=== PATIENT | male | born 1975 | race Caucasian/White ===

== ENCOUNTER → 2019-08-20 16:08 | Outpatient (CLI) | payer OTHER, SELFPAY ==
--- NOTE | ~2019-08-20 | MR_ITS ---
EXAMINATION: MR brain/brain stem wo con DATE: 08/20/2019 16:53 INDICATION: Headache. History of brain tumor and head radiation therapy in 1991. TECHNIQUE: Magnetic resonance imaging (MRI) of the brain and brainstem was performed without intraven ous contrast. Sequences included sagittal and axial T1-weighted FSE, axial diffusion-weighted FS EPI, axial T2*-weighted GRE, axial T2-weighted FLAIR Propeller, and axial T2-weighted Propeller. Apparent diffusion coefficient (ADC) maps were created. COMPARISON: Head CT 08/09/2012 FINDINGS: There are scattered areas of nonspecific increased T2-weighted signal intensity in the cere bral white matter, german, and cerebellar white matter. There is a small area of cystic encephalomalaci a in the right frontal lobe deep white matter. There are scattered foci of old blood products in the brain. There is no acute intracranial hemorrhage, acute infarction, or abnormal intracranial mass les ion. There are symmetric calcifications of the globi pallidi and thalami, likely secondary to prior r adiation therapy. Cavum septum pellucidum and vergae are noted. The ventricles are normal in size. Th ere is mild mucosal thickening in the paranasal sinuses. The mastoid air cells are normal. There is a n old blowout fracture of medial wall of left orbit. IMPRESSION: 1. Small area of cystic encephalomalacia in the right frontal lobe deep white matter. 2. Mild nonspecific cerebral and cerebellar white matter disease and pontine disease, which likely pr edominantly represents changes of radiation therapy. The differential diagnosis also includes prematu re chronic small vessel ischemic disease (especially if the patient has cardiovascular risk factors), demyelinating disease such as multiple sclerosis, drug abuse, vasculitis, or reactive astrocytosis ( gliosis) secondary to nonspecific etiology. 3. Scattered foci of old blood products in the brain. This finding may be secondary to prior radiatio n therapy or chronic hypertensive encephalopathy. Reviewed, dictated and finalized at location A. IMPRESSION: 1. Small area of cystic encephalomalacia in the right frontal lobe deep white m atter. 2. Mild nonspecific cerebral and cerebellar white matter disease and pontine di sease, which likely predominantly represents changes of radiation therapy. The differential diagnosis also includes premature chronic small vessel ischemic di sease (especially if the patient has cardiovascular risk factors), demyelinatin g disease such as multiple sclerosis, drug abuse, vasculitis, or reactive frieda cytosis (gliosis) secondary to nonspecific etiology. 3. Scattered foci of old blood products in the brain. This finding may be secon lazaro to prior radiation therapy or chronic hypertensive encephalopathy.
== END ==
PROVIDERS: Visit Provider Family Medicine Adolescent Medicine
DX: G43.909 Migraine, unspecified, not intractable, without status migrainosus (principal); Z85.841 Personal history of malignant neoplasm of brain
CPT/HCPCS: 70551

== ENCOUNTER 2022-05-30 17:34 | Emergency (ER) | payer BC, SELFPAY ==
[2022-05-30 17:41] VITALS: BP 115/77; PULSE 82; RESP 19; TEMP 36.1; O2SAT 100
--- NOTE | 2022-05-30 17:47 | ED.EXTPRO ---
HPI - Extremity Problem General Chief complaint: Extremity Problem,Nontraumatic Stated complaint: rt arm pain Time Seen by Provider: 05/30/22 17:47 Source: patient, RN notes reviewed and old records reviewed Mode of arrival: ambulatory Limitations: no limitations History of Present Illness HPI Narrative: 47-year-old male presents to the [facility] with right dorsal wrist pain for the last several days. Patient states pain is worse with movement, dorsiflexing and flexing. Able to move left to right without issue. Strong transport engineer noted however notes discomfort to the dorsal aspect. No bruising or swelling noted. No increased erythema. Capillary refill under 2 seconds with sensation intact in 5 fingers. Positive radial pulse Related Data Home Medications Medication Instructions Recorded Confirmed cetirizine 10 mg capsule (Zyrtec) 10 mg PO DAILY 03/28/20 05/30/22 lisinopril 10 mg tablet 10 mg PO DAILY 03/28/20 05/30/22 Allergies Allergy/AdvReac Type Severity Reaction Status Date / Time Nut Tree Allergy Unknown Anaphylactic Uncoded 05/30/22 17:46 Shock Review of Systems Review of Systems: All systems reviewed & are unremarkable except as noted in HPI and below Constitutional: Constitutional: Reports no additional constitutional complaints Eyes: Eyes: Reports no additional eye complaints ENT: Reports system reviewed and no additional complaints, except as documented Cardiovascular: Cardiovascular: Reports no additional cardiovascular complaints, Denies chest pain and Denies dyspnea Respiratory: Respiratory: Reports no additional respiratory complaints, Denies chest congestion, Denies cough and Denies dyspnea Gastrointestinal: Gastrointestinal: Reports no additional gastrointestinal complaints, Denies abdominal pain, Denies nausea and Denies vomiting Musculoskeletal: Musculoskeletal: Reports as per HPI and Reports arthralgias (right dorsal wrist) Integumentary/Breasts: Skin/Breast: Reports system reviewed and no additional complaints, except as docu Neurologic: Reports system reviewed and no additional complaints, except as documented Psychiatric: Psychiatric: Reports no additional psychiatric complaints Allergic/Immunologic: Allergic/Immunologic: Reports no additional allergic/immunologic complaints PMFSH Social History Social History Smoking status: Never smoker Second hand tobacco smoke exposure: No Alcohol intake: current Drinks per week: 1 Substance use: never Comments At the time of my signature, I reviewed and agree with the nursing past medical, surgical, social, and family history. There is no relevant family history pertinent to the patient complaint. Exam Const: General: cooperative, healthy appearing, comfortable, no acute distress, well developed, alert and well nourished Nutritional Appearance: well nourished Orientation/consciousness: patient oriented x3 Limitations: no limitations HENMT: Head: normal to inspection Ears: hearing grossly normal bilaterally and external ears normal Face/Nose/Sinus: Normal external nose present, Normal nares present, Normal nasal mucous membranes and turbinates present and normal facial exam Face and sinus: normal facial exam Mouth: Yes Normal oral and palatal mucosa present, Yes lip normal and Yes moist mucous membranes Throat: posterior oropharynx normal and uvula midline Eyes: General: appearance normal, both eyes and all related structures Alignment and Position: alignment normal Periorbital: periorbital findings normal Conjunctivae: conjunctivae normal Pupils: Equal, round and reactive pupils present EOM: EOMs intact bilaterally Neck: Neck: normal visual inspection, full ROM, no lymphadenopathy and no meningeal signs Chest: Chest palpation & inspection: normal inspection of the chest Resp: Effort & Inspection: normal respiratory effort and able to speak in complete sentences Cardio:
== END 2022-05-30 18:03 | disposition home or self-care (01) ==
PROVIDERS: Emergency Provider Nurse Practitioner; PCP Family Medicine
DX: M77.8 Other enthesopathies, not elsewhere classified (principal); E78.00 Pure hypercholesterolemia, unspecified; I10 Essential (primary) hypertension
CPT/HCPCS: 99213; G0463

== ENCOUNTER 2022-07-25 19:38 | Emergency (ER) | payer OTHER, SELFPAY ==
[2022-07-25 19:45] VITALS: BP 126/82; PULSE 103; RESP 16; TEMP 36.8; O2SAT 98
--- NOTE | 2022-07-25 20:02 | ED.URI ---
HPI - URI/Sore Throat General Chief Complaint: Upper Respiratory Infection Stated Complaint: cough Source: patient Mode of arrival: ambulatory Limitations: no limitations History of Present Illness HPI Narrative: 47-year-old male presented for complaint of cough, chest congestion, and shortness of breath symptoms have been worsening over the last 3 days. Cough leads to sob. He was seen by his PCP yesterday, chest x-ray was performed he does not have the results. Patient also reports a goiter, surgery is pending. He endorses having fluid drained from each side of the goiter 1 month ago. He states he cannot determine if this shortness of breath is related to the cough or the swelling in his neck. He denies chest pain, palpitations, wheezing, dizziness, nausea, vomiting, diarrhea, fevers or chills. He has been taking Mucinex for symptoms. Related Data Home Medications Medication Instructions Recorded Confirmed cetirizine 10 mg capsule (Zyrtec) 10 mg PO DAILY 03/28/20 07/25/22 Allergies Allergy/AdvReac Type Severity Reaction Status Date / Time Nut Tree Allergy Unknown Anaphylactic Uncoded 07/25/22 19:47 Shock Review of Systems Review of Systems: CONSTITUTIONAL: Denies body aches, fever, chills, or sweats. EYES: Denies visual changes, redness, or discharge. ENT: Denies rhinorrhea, congestion, sore throat, or otalgia. CARDIOVASCULAR: Denies chest pain, palpitations, or edema. RESPIRATORY: Reports cough, sob GASTROINTESTINAL: Denies abdominal pain, nausea, vomiting, or diarrhea. GENITOURINARY: Denies dysuria or hematuria. SKIN: Denies rash, itching, or wounds. MUSCULOSKELETAL: Denies back pain, joint pain, or myalgia. NEUROLOGIC: Denies headache, numbness, tingling, or weakness. PSYCH: Denies depression or anxiety. All systems reviewed & are unremarkable except as noted in HPI and below PMFSH Past Medical History Medical History (Updated 07/25/22 @ 20:06 by Parisa Duncan APRN) Brain tumor (benign) Hypertension Social History Social History Smoking status: Never smoker Second hand tobacco smoke exposure: No Alcohol intake: current Drinks per week: 1 Substance use: never Comments At time of signature, I have reviewed and agree with nursing past medical, surgical, social and family history unless otherwise noted. Please see nursing chart for further information. There is no relevant family history pertinent to the presenting complaint Exam Narrative: GENERAL: ill-appearing, in no acute distress. EYES: EOMI. No redness or drainage. Conjunctivae normal. ENT: Mucous membranes pink and moist. No rhinorrhea. NECK: Normal AROM. Large goiter; right anterior cervical nodule. CHEST: No respiratory distress. Diminished LLL. Frequent moist/harsh cough. HEART: Regular rate and rhythm. No murmur appreciated. ABDOMEN: Soft, nontender, nondistended, normal active bowel sounds. SKIN: Warm, dry, no rash. Capillary refill normal. Normal skin turgor. NEURO: Alert and oriented x3. Gait steady. PSYCH: Normal affect. Course Course Emergency Course: Patient is aware of diagnosis, understands and agrees to treatment plan. Anticipatory guidance given. Portions of this record may have been created with voice recognition software Level of Care: Express Care Visit Vital Signs Vital signs: Vital Signs Temperature 98.3 F 07/25/22 19:45 Pulse Rate 103 H 07/25/22 19:45 Respiratory Rate 16 07/25/22 19:45 Blood Pressure 126/82 07/25/22 19:45 Pulse Oximetry 98 07/25/22 19:45 Temperature 98.3 F 07/25/22 19:45 Pulse Rate 103 H 07/25/22 19:45 Respiratory Rate 16 07/25/22 19:45 Blood Pressure 126/82 07/25/22 19:45 Pulse Oximetry 98 07/25/22 19:45 Transfer Transfered to: [facility] Transportation: Other (private vehicle) Transfer rationale: Pt is agreeable to transfer. Requests transfer to
== END 2022-07-25 20:05 | disposition home or self-care (01) ==
LOC: EXPGOSH 19:40
PROVIDERS: Emergency Provider Nurse Practitioner Family; PCP Family Medicine
DX: R06.02 Shortness of breath (principal); I10 Essential (primary) hypertension
CPT/HCPCS: 99212; 99213; G0463

== ENCOUNTER 2023-11-24 10:14 | Emergency (ER) | payer OTHER, SELFPAY ==
[2023-11-24 10:23] VITALS: BP 130/91; PULSE 88; RESP 19; TEMP 36.6; O2SAT 99
--- NOTE | 2023-11-24 10:28 | ED.SKABFB ---
HPI - Skin/Abscess/Foreign Bdy General Chief complaint: Skin/Abscess/Foreign Body Stated complaint: SPIDER BITES Time Seen by Provider: 11/24/23 10:29 Source: patient, RN notes reviewed and old records reviewed Mode of arrival: ambulatory Limitations: no limitations History of Present Illness HPI narrative: Patient presents today with what he believes to be to ?spider bites? to the right anterior thigh. He reports that he noted some itching to the site yesterday, awakened today with 2 small open sores with surrounding redness and warmth. He denies any fever, chills, sweats. He has not taken anything for his symptoms. There is no active drainage. Related Data Home Medications Medication Instructions Recorded Confirmed cetirizine 10 mg capsule (Zyrtec) 10 mg PO DAILY 03/28/20 11/24/23 famotidine 20 mg tablet 20 mg PO BID 11/24/23 11/24/23 gabapentin 100 mg capsule 100 mg PO DAILY 11/24/23 11/24/23 Allergies Allergy/AdvReac Type Severity Reaction Status Date / Time Nut Tree Allergy Unknown Anaphylactic Uncoded 11/24/23 10:21 Shock Review of Systems Review of Systems: All systems reviewed & are unremarkable except as noted in HPI and below Constitutional: Constitutional: Reports no additional constitutional complaints ENT: Reports system reviewed and no additional complaints, except as documented Cardiovascular: Cardiovascular: Reports no additional cardiovascular complaints Respiratory: Respiratory: Reports no additional respiratory complaints Gastrointestinal: Gastrointestinal: Reports no additional gastrointestinal complaints Integumentary/Breasts: Skin/Breast: Reports lesions (right anetrior thigh) and Reports erythema (right anterior thigh) [facility] Past Medical History Medical History (Updated 11/24/23 @ 10:42 by Dot Rea APRN) Brain tumor (benign) Hypertension Social History Social History Smoking status: Never smoker Second hand tobacco smoke exposure: No Alcohol intake: current Drinks per week: 1 Substance use: never Comments At the time of my signature, I reviewed and agree with the nursing past medical, surgical, social, and family history. There is no relevant family history pertinent to the patient complaint. Exam Const: General: cooperative, no acute distress, alert and awake Orientation/consciousness: oriented to person, oriented to place and oriented to time HENMT: Head: normal to inspection Resp: Effort & Inspection: normal respiratory effort and able to speak in complete sentences Auscultation: clear to auscultation bilaterally, no crackles, no rales, no rhonchi and no wheezes Cardio: Palpation: normal PMI Rate: regular rate Rhythm: regular rhythm Heart sounds: S1 normal heart sound present and S2 normal heart sound present Skin: Other: There are 2 shallow open wounds to right anterior thigh, approximately 5 mm radius each. Each site is surrounded by an area of erythema and warmth. There is no induration present. Neuro: General: oriented to person, oriented to place and oriented to time Cranial nerves: Yes CN's II-XII intact bilaterally Psych: Appearance: grossly normal Thought process: Normal thought process present Insight: Good insight present (Psych) Judgement: Good judgement present (Psych) Course Course Level of Care: Express Care Visit Vital Signs Vital signs: Vital Signs Temperature 97.9 F 11/24/23 10:23 Pulse Rate 88 11/24/23 10:23 Respiratory Rate 19 11/24/23 10:23 Blood Pressure 130/91 H 11/24/23 10:23 Pulse Oximetry 99 11/24/23 10:23 Oxygen Delivery Room Air 11/24/23 10:23 Temperature 97.9 F 11/24/23 10:23 Pulse Rate 88 11/24/23 10:23 Respiratory Rate 19 11/24/23 10:23 Blood Pressure 130/91 H 11/24/23 10:23 Pulse Oximetry 99 11/24/23 10:23 Oxygen Delivery Room Air 11/24/23 10:23 Reviewed MDM - Skin/Abscess/Foreign Bdy
== END 2023-11-24 10:47 | disposition home or self-care (01) ==
PROVIDERS: Emergency Provider Nurse Practitioner Family; PCP Family Medicine
DX: S70.361A Insect bite (nonvenomous), right thigh, initial encounter (principal); L03.115 Cellulitis of right lower limb; W57.XXXA Bitten or stung by nonvenomous insect and other nonvenomous arthropods, initial encounter; I10 Essential (primary) hypertension
CPT/HCPCS: 99213; G0463

== ENCOUNTER 2024-10-07 11:49 | Emergency (ER) | payer OTHER, SELFPAY ==
--- NOTE | ~2024-10-07 | CT_ITS ---
CTA chest PE protocol Ordering provider: Charlie Abel MD History: 49 years Male with . chest pain shortness of breath . Comparison: None. Technique: CT angiogram chest was performed following timed intravenous injection of contrast. Thin s lice axial images and reformatted coronal images were obtained. Three dimensional reformatted images of the chest were also obtained using a [employer] workstation. . Automated exposure control and iterati ve reconstruction technique were employed. The dose-length product was 354.00 mGy-cm. 100 mL Omnipaqu e 350 was given IV. Findings: PULMONARY ARTERIES: No pulmonary embolus. VISUALIZED THORACIC INLET: Large nodule in the right lobe of the thyroid measuring 3 x 2.2 cm. MEDIASTINUM: Aorta/coronary arteries: The thoracic aorta is normal. Heart/other: The heart is slightly enlarged. Slightly thickened left ventricular wall is noted. Clin ical evaluation advised. Lymph nodes: No mediastinal or hilar adenopathy. LUNGS: Soft tissue density seen in the trachea measuring 8 mm which may be a polyp or mucous. Further evalua tion and follow-up advised. No pulmonary nodules or masses. No infiltrates or effusions. No pneumotho rax. Dependent atelectatic changes. VISUALIZED UPPER ABDOMEN: Status post splenectomy. Atrophic pancreas. Otherwise, the visualized upper abdomen is normal. MUSCULOSKELETAL: Soft tissues: The superficial soft tissues are normal. Bones: Age appropriate degenerative changes of the spine. IMPRESSION: 1. No pulmonary embolism. 2. No acute cardiopulmonary pathology. Dependent atelectatic changes are noted. 3. Possible polyp or mucous in the trachea. Further evaluation advised. 4. Large right thyroid nodule. 5. Slight cardiomegaly with possible thickening in the left ventricular wall. Further evaluation adv ised. Reviewed, dictated and finalized at location A. IMPRESSION: 1. No pulmonary embolism. 2. No acute cardiopulmonary pathology. Dependent atelectatic changes are noted . 3. Possible polyp or mucous in the trachea. Further evaluation advised. 4. Large right thyroid nodule. 5. Slight cardiomegaly with possible thickening in the left ventricular wall. Further evaluation advised.
--- NOTE | ~2024-10-07 | XR_ITS ---
XR chest 1V portable Ordering provider: Charlie Abel MD History: 49 years Male with . cp and back pain triple luman central line placed today . Comparison: None. FINDINGS: MEDIASTINUM: The cardiac silhouette is not enlarged. Right Port-A-Cath with the tip overlying the sup erior vena cava. Left permacath with the tip overlying the right atrium. LUNGS: No infiltrates, effusions or pneumothorax. Prominent bronchovascular markings are seen in the lower lobes. OTHER: No free air under the diaphragm. IMPRESSION: No acute cardiopulmonary pathology. Reviewed, dictated and finalized at location A.
--- NOTE | 2024-10-07 11:51 | ECG_ITS ---
Test Date: 2024-10-07 11:57:57 Measurements Intervals [place] Rate: 105 P: 32 UT: 157 QRS: 41 QRSD: 93 T: 22 QT: 339 QTc: 448 Interpretive Statements SINUS TACHYCARDIA POSSIBLE ANTERIOR MYOCARDIAL INFARCTION , OF INDETERMINATE AGE [30 ms Q WAVE IN V3/V4, OR R < 0.2 mV IN V4] PROBABLE INFERIOR MYOCARDIAL INFARCTION , PROBABLY OLD [35 ms Q WAVE IN II/aVF] No previous ECG available for comparison Electronically Signed On 10-07-2024 14:12:30 CDT by Shruti Santillan
--- OUTSIDE RECORDS SUMMARY | 2024-10-07 11:53 | XMS_ITS | Encounter Summary ---
Author Organization [facility] Address [address] [place] [address] Phone Care Team Providers Care Erp Analyst Name Role Phone Delon Jain MD Unavailable Rico Pérez MD Primary Care Provider [phone] Ramón Watts MD Unavailable [phone] Huseyin Reese MD Unavailable [phone] Debby Greene MD Unavailable [phone] Encounter Details Date Type Department Care Team (Late st Contact Info) Description 10/06/2024 Orders Only [facility] Bone Marrow Transplant [address] [place] [address] Ifeanyi Malhotra, RN 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 No 09/23/2024 Social Connection and Isolation Panel [NHANES] A nswer Date Recorded In a typical week, how many times do you talk on the phone with family, friends, or neighbors? Three times a week 09/23/2024 How often do you get togethe r with friends or relatives? Three times a week 09/23/2024 How often do you attend chur ch or cheondoism services? Never 09/23/2024 Do you belong to any clubs o r organizations such as mandaeism groups, unions, fraternal or athletic groups, or school groups? No 09/23/2024 How often do you attend meet ings of the clubs or organizations you belong to? Never 09/23/2024 Are you , , di vorced, , never , or living with a partner? 09/23/2024 AUDIT-C Answer Date Recorded Q1: How often do you have a drink containing alcohol? Never 07/07/2023 Q2: How many drinks containi ng alcohol do you have on a typical day when you are drinking? Patient does not drink Q3: How often do you have si x or more drinks on one occasion? Never 07/07/2023 Overall Financial Resource Strain (CARDIA) Answe r Date Recorded How hard is it for you to pa y for the very basics like food, housing, medical care, and heating? Not very hard 09/23/2024 PHQ-2 Answer Date Recorded PHQ-2 Total Score (If total score is 3 or more points, staff should administer the PHQ-9) 0 07/13/2024 Hunger Vital Sign Answer Date Recorded Within the past 12 months, y ou worried that your food would run out before you got the money to buy more. Never true 09/24/19 25 Within the past 12 months, t he food you bought just didn't last and you didn't have money to get more. Never true 09/23/2024 PRAPARE - Transportation Answer Date Re corded In the past 12 months, has l ack of transportation kept you from medical appointments or from getting medications? No 09/01 In the past 12 months, has l ack of transportation kept you from meetings, work, or from getting things needed for daily living? No 09/23/2024 Housing Stability Vital Sign Answer Eladio e Recorded In the last 12 months, was t here a time when you were not able to pay the mortgage or rent on time? No 07/15/2023 In the last 12 months, how many places have you lived? 1 07/15/2023 In the last 12 months, was t here a time when you did not have a steady place to sleep or slept in a penitentiary (including now)? No 07/15/2023 Housing Stability Vital Sign Answer Eladio e Recorded In the last 12 months, was t here a time when you were not able to pay the mortgage or rent on time? No 09/23/2024 In the past 12 months, how m any times have you moved where you were living? 0 09/23/2024 At any time in the past 12 m [facility], were you homeless or living in a penitentiary (including now)? No 09/23/2024 Personal Safety Answer Date Recorded Have you ever been in or are you currently in a harmful physical or emotional relationship or is someone making you feel afraid or unsafe? 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 Gender Identity Not on file Sexual Orientation Not on file Occupation Industry Job Start Date Job End Date Not on file Not on file Not on file Not on file documented as of this encounter Miscellaneous Notes * Addendum Note - Osei Cooper - 10/06/2024 1:51 PM CDTAddended by: OSEI COOPER on: 10/07/2024 09:04 AM Modules accepted: Orders * Addendum Note - Osei Cooper - 10/06/2024 1:51 PM CDTAddended by: OSEI COOPER on: 10/07/2024 09:04 AM Modules accepted: Orders * Addendum Note - Osei Cooper - 10/06/2024 1:51 PM CDTAddended by: OSEI COOPER on: 10/07/2024 09:04 AM Modules accepted: Orders * Addendum Note - Osei Cooper - 10/06/2024 1:51 PM CDTAddended by: OSEI COOPER on: 10/07/2024 09:04 AM Modules accepted: Orders documented in this encounter Plan of Treatment Scheduled Orders Name Type Priority Associated Diagnoses Orde r Schedule CBC with auto differential Lab Routine 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) Expected: 10/09/2024, Expires: 10/06/2025 Phosphorus Lab Routine 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) Expected: 10/09/2024, Expires: 10/06/2025 Uric acid Lab Routine 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) Expected: 10/09/2024, Expires: 10/06/2025 Basic metabolic panel Lab Routine 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) Expected: 10/09/2024, Expires: 10/06/2025 CBC with auto differential Lab Routine 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) Expected: 10/11/2024, Expires: 10/06/2025 Phosphorus Lab Routine 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) Expected: 10/11/2024, Expires: 10/06/2025 Basic metabolic panel Lab Routine 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) Expected: 10/11/2024, Expires: 10/06/2025 Uric acid Lab Routine 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) Expected: 10/11/2024, Expires: 10/06/2025 Basic metabolic panel Lab Routine 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) Expected: 10/07/2024, Expires: 10/06/2025 CBC with auto differential Lab Routine 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 [place] [address] * Phosphorus (10/07/2024 9:14 AM CDT) Phosphorus, pl 3.7 2.3 - 4.5 mg/dL Comment:Testing performed by : [facility], [address] [place] [address] Blood 10/07/2024 9:14 AM CDT 10/07/2024 9:38 AM CDT Debby Greene MD LAB BLOOD ORDERABLES F inal Result Performing Organization Address [facility] Co de Phone Number [facility] [address] [facility] [address] documented in this encounter Visit Diagnoses Diagnosis 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)- Primary documented in this encounter Orders Appointment Requests Count Last Ordered Date Fi rst Ordered Date ONCBCN LAB APPOINTMENT 2 10/06/2024 documented in this encounter Care Teams Erp Analyst Relationship Specialty Start Date End Date Rico Pérez MD [address] [place] [address] PCP - General Family Medicine 11/07/22 [place] [address] [address] Consulting Physician Endocrinology Diabetes & Metabolism 07/24/22 Ramón Watts MD [address] [place] [address] Consulting Physician General Surgery 11/25/22 Huseyin Reese MD [address] [place], [place] [id number] Medical Oncologist/Lithopone Mill Worker Hematology and Oncology 12/19/22 Debby Greene MD [address] [place], [place] [id number] Consulting Physician Medical Oncology 12/25/22 documented as of this encounter
--- OUTSIDE RECORDS SUMMARY | 2024-10-07 11:53 | XMS_ITS | Encounter Summary ---
Author Organization [facility] Address [address] [place] [address] Phone Care Team Providers Care Guitar Maker Hand Name Role Phone Delon Jain MD Unavailable Rico Pérez MD Primary Care Provider [phone] Ramón Watts MD Unavailable [phone] Huseyin Reese MD Unavailable [phone] Debby Greene MD Unavailable [phone] Encounter Details Date Type Department Care Team (Late st Contact Info) Description 11/19/2022 Telephone [facility] Oncology [facility] Medicine 7th [place] [address] Parisa Cerna Social History Tobacco Use Types Packs/Day Years Used Date Smoking Tobacco: Never Passive Smoke Exposure: Never Smokeless Tobacco: Current Chew Alcohol Use Standard Drinks/Week Comments Yes 0 (1 standard drink = 0.6 oz pur e alcohol) Social Connection and Isolat ion Panel [NHANES] Answer Date Recorded In a typical week, how many times do you talk on the phone with family, friends, or neighbors? More than three times a week 11/20/2022 How often do you get togethe r with friends or relatives? More than three times a week 11/20/2022 How often do you attend chur ch or shinto services? 1 to 4 times per year 11/20/2022 Do you belong to any clubs o r organizations such as restorationist groups, unions, fraternal or athletic groups, or school groups? No 11/20/2022 How often do you attend meet ings of the clubs or organizations you belong to? Never 11/20/2022 Are you , , di vorced, , never , or living with a partner? 11/20/2022 AUDIT-C Answer Date Recorded Q1: How often do you have a drink containing alc ohol? 2-4 times a month 11/07/2022 Q2: How many drinks containi ng alcohol do you have on a typical day when you are drinking? 5 or 6 11/07/2022 Q3: How often do you have si x or more drinks on one occasion? Less than monthly 11/07/2022 Overall Financial Resource Strain (CARDIA) Answe r Date Recorded How hard is it for you to pa y for the very basics like food, housing, medical care, and heating? Not very hard 11/20/2022 PHQ-2 Answer Date Recorded PHQ-2 Total Score (If total score is 3 or more points, staff should administer the PHQ-9) 0 11/14/2022 PRAPARE - Transportation Answer Date Re corded In the past 12 months, has l ack of transportation kept you from medical appointments or from getting medications? No 11/01 In the past 12 months, has l ack of transportation kept you from meetings, work, or from getting things needed for daily living? No 11/20/2022 Housing Stability Vital Sign Answer Eladio e Recorded In the last 12 months, was t here a time when you were not able to pay the mortgage or rent on time? No 11/20/2022 In the last 12 months, how many places have you lived? 1 11/20/2022 In the last 12 months, was t here a time when you did not have a steady place to sleep or slept in a chcf (including now)? 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 COVID: Suspected 07/23/2023 07/23/2023 07/23/2023 2:31 PM TABLET MAKING MACHINE OPERATOR COVID: Suspected 01/20/2024 01/20/2024 01/20/2024 5:36 PM CDT COVID: Suspected 01/25/2024 01/25/2024 01/25/2024 4:26 PM CDT Mycoplasma pneumonia 01/25/2024 01/25/2024 024 3:07 AM CDT COVID: Suspected 02/24/2024 02/24/2024 02/24/2024 7:36 PM CDT Mycoplasma pneumonia 02/24/2024 02/24/2024 024 3:05 AM CDT COVID: Suspected 08/16/2024 08/16/2024 08/16/2024 12:03 PM CDT documented as of this encounter Care Teams Guitar Maker Hand Relationship Specialty Start Date End Date Rico Pérez MD [address] [place] [address] PCP - General Family Medicine 11/07/22 [place] [address] [address] Consulting Physician Endocrinology Diabetes & Metabolism 07/24/22 Ramón Watts MD [address] [place] [address] Consulting Physician General Surgery 11/25/22 Huseyin Reese MD [address] [place] [address] Medical Oncologist/Children'S Author Hematology and Oncology 12/19/22 Debby Greene MD [address] [place] [address] Consulting Physician Medical Oncology 12/25/22 documented as of this encounter
--- OUTSIDE RECORDS SUMMARY | 2024-10-07 11:53 | XMS_ITS | Encounter Summary ---
Author Organization [facility] Address [address] [place] [address] Care Team Providers Care Retail Business Development Manager Name Role Phone Delon Jain MD Unavailable Rico Pérez MD Primary Care Provider [phone] Ramón Watts MD Unavailable [phone] Huseyin Reese MD Unavailable [phone] Debby Greene MD Unavailable [phone] Encounter Details Date Type Department Care Team (Latest Contact Info) Description 10/07/2024 9:15 AM CDT Clinical Support [facility] at [address] [address] 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 Never 09/23/2024 Do you belong to any clubs o r organizations such as confucianist groups, unions, fraternal or athletic groups, or [...] any time in the past 12 m [facility], were you homeless or living in a penitentiary (including now)? No 09/23/2024 Personal Safety Answer Date Recorded Have you ever been in or are you currently in a harmful physical or emotional relationship or is someone making you feel afraid or unsafe? 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) MANUAL DIFFERENTIAL Routine 10/07/2024 9 :14 AM CDT 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) URIC ACID Routine 10/07/2024 9:14 AM CDT 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) PHOSPHORUS Routine 10/07/2024 9:14 AM CDT 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) documented in this encounter Results * (ABNORMAL) Manual Differential (10/07/2024 9:14 AM CDT) Differential Manual Comment:Testing performed by : [facility], [address] [place] [address] Cells Counted 100 CERNER [facility] Comment:Testing performed by : [facility], [address] [place] [address] Neutrophil abs 0.89(L) 1.50 - 6.50 K/cumm CERNER [facility] Comment:Testing performed by : [facility], [address] [place] [address] Imm gran abs 0.02 0.00 - 0.10 K/cumm CERNER [facility] Comment:Testing performed by : [facility], [address] [place] [address] Lymphocyte abs 0.69(L) 0.80 - 3.30 K/cumm CERNER [facility] Comment:Testing performed by : [facility], [address] [place] [address] Monocyte abs 0.12(L) 0.20 - 0.80 K/cumm CERNER [facility] Comment:Testing performed by : [facility], [address] [place] [address] Eosinophil abs 0.19 0.00 - 0.50 K/cumm CERNER [facility] Comment:Testing performed by : [facility], [address] [place] [address] Basophil abs 0.02 0.00 - 0.10 K/cumm CERNER [facility] Comment:Testing performed by : [facility], [address] [place] [address] Neutrophil pct 46.0 % CERNER [facility] Comment: Interpretive Data Percent cell count reference ranges are not reported, since discordance with absolute values may lead to misinterpretation of CBC data. Current Interpretive Data was last revised on 2017. Testing performed by: [facility] 2, [address] [place] [address] Lymphocyte pct 36.0 % CERNER [facility] Comment: Interpretive Data Percent cell count reference ranges are not reported, since discordance with absolute values may lead to misinterpretation of CBC data. Current Interpretive Data was last revised on 2017. Testing performed by: [facility], [address] [place] [address] Monocyte pct 6.0 % CERNER [facility] Comment: Interpretive Data Percent cell count reference ranges are not reported, since discordance with absolute values may lead to misinterpretation of CBC data. Current Interpretive Data was last revised on 2017. Testing performed by: [facility], [facility], [address] [place] [address] Eosinophil pct 10.0 % CERNER [facility] Comment: Interpretive Data Percent cell count reference ranges are not reported, since discordance with absolute values may lead to misinterpretation of CBC data. Current Interpretive Data was last revised on 2017. Testing performed by: [facility], [address] [place] [address] Basophil pct 1.0 % CERNER [facility] Comment: Interpretive Data Percent cell count reference ranges are not reported, since discordance with absolute values may lead to misinterpretation of CBC data. Current Interpretive Data was last revised on 2017. Testing performed by: [facility], [address] [place] [address] Metamyelocyte pct 1.0(H) 0.0 - 0.0 % LD HOLMANCH Comment:Testing performed by : [facility], [address] [place] [address] RBC morphology Present(A) CERJOSE MARTIN BJWCH Comment:Testing performed by : [facility], [address] [place] [address] Anisocytosis Slight(A) LD HOLMANCH Comment:Testing performed by : [facility], [address] [place] [address] Poikilocytosis Slight(A) LD BJWCH Comment:Testing performed by : [facility] 2, [address] [place] [address] Platelet estimate Automated Count Confirmed LD SWEETWCH Comment:Testing performed by : [facility], [address], [place] [address] Blood 10/07/2024 9:14 AM CDT 10/07/2024 9:18 AM CDT Debby Greene MD LAB BLOOD ORDERABLES F inal Result Performing Organization Address City/[facility] Co de Phone Number MATHEWJOSE MARTIN SWEETCH [address] [facility]. [facility] [place] [address] * Uric acid (10/07/2024 9:14 AM CDT) Uric acid 5.0 3.0 - 8.0 mg/dL Comment:Testing performed by : [facility], [address] [place] [address] Blood 10/07/2024 9:14 AM CDT 10/07/2024 9:38 AM CDT Debby Greene MD LAB BLOOD ORDERABLES F inal Result Performing Organization Address [facility] Co de Phone Number MATHEWJOSE MARTIN SWEETCH [address] [facility] [place] [address] * Phosphorus (10/07/2024 9:14 AM CDT) Phosphorus, pl 3.7 2.3 - 4.5 mg/dL Comment:Testing performed by : [facility], [address] [place] [address] Blood 10/07/2024 9:14 AM CDT 10/07/2024 9:38 AM CDT Debby Greene MD LAB BLOOD ORDERABLES F inal Result Performing Organization Address City/[facility]/ZIP Co de Phone Number LD SWEETCH [address] [place] [facility] [place] [address] * (ABNORMAL) CBC with auto differential (10/07/2024 9:14 AM CDT) [facility] Signature WBC 1.93(L) 3.80 - 9.90 K/cumm Comment:Testing performed by : [place] [address], [address], [place] [address] Hgb 11.9(L) 13.0 - 17.5 g/dL CERNER BJW[facility] Comment:Testing performed by : [place] [address], [address] [place] [address] Hct 35.1(L) 38.9 - 50.3 % CERNER [facility] Comment:Testing performed by : [place] [address], [address] [place] [address] Plt 63(L) 150 - 400 K/cumm CERNER BJW[facility] Comment:Testing performed by : [place] [address], [address], [place] [address] MPV 11.9 9.1 - 12.3 fL CERNER BJWCH Comment:Testing performed by : [place] [address] [place] [address] RBC 3.60(L) 4.30 - 5.80 M/cumm CERNER BJW[facility] Comment:Testing performed by : [place] [address], [place] [address] MCV 97.5(H) 81.3 - 96.4 fL CERNER BJW[facility] Comment:Testing performed by : [place] [address], [address], [place] [address] MCH 33.1 27.1 - 33.3 pg CERNER BJW[facility] Comment:Testing performed by : [facility], [address] [place] [address] MCHC 33.9 32.3 - 35.7 g/dL CERNER BJW[facility] Comment:Testing performed by : [place] [address], [address] [place] [address] RDW CV 15.2(H) 11.1 - 14.9 % LD VENTURA Comment:Testing performed by : [facility], [address] [place] [address] RDW SD 54.0(H) 35.7 - 48.1 fL LD VENTURA Comment:Testing performed by : [facility], [address] [place] [address] NRBC abs 0.61(H) 0.00 - 0.01 K/cumm LD VENTURA Comment:Testing performed by : [facility], [address] [place] [address] ANC Prelim 0.81(L) 1.50 - 6.50 K/cumm LD VENTURA Comment: Interpretive Data The rapid ANC is a preliminary automated count and may vary from the final ANC (Neut Abs) reported in the WBC differential that follows. Current interpretive data was last revised 2024. Testing performed by: [facility], [address] [place] [address] Blood 10/07/2024 9:14 AM CDT 10/07/2024 9:18 AM CDT us Debby Greene MD LAB BLOOD ORDERABLES F inal Result Performing Organization Address City/State/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) documented in this encounter Orders Lab Orders Without Results Count Last Ordered D ate First Ordered Date BASIC METABOLIC PANEL 1 10/07/2024 Appointment Requests Count Last Ordered Date Fi rst Ordered Date ONCBCN LAB APPOINTMENT 1 10/07/2024 documented in this encounter Care Teams Retail Business Development Manager Relationship Specialty Start Date End Date Rico Pé[place] [address] [place] [address] PCP - General Family Medicine 11/07/22 [place] [address] [address] Consulting Physician Endocrinology Diabetes & Metabolism 07/24/22 Ramón Watts MD [address] [place] [address] Consulting Physician General Surgery 11/25/22 Huseyin Reese MD [address] [place], [place] [id number] Medical Oncologist/Stone Cleaner Hematology and Oncology 12/19/22 Debby Greene MD [address] [place], [place] [id number] Consulting Physician Medical Oncology 12/25/22 documented as of this encounter
--- OUTSIDE RECORDS SUMMARY | 2024-10-07 11:53 | XMS_ITS | Clinical Summary ---
Author Organization [facility] Virtual Care Address [address] [place] [phone] Phone Care Team Providers Care Aqua Ammonia Operator Name Role Phone Delon Jain MD Unavailable Rico Pérez MD Primary Care Provider [phone] Ramón Watts MD Unavailable [phone] Huseyin Reese MD Unavailable [phone] Francy Benito MD Unavailable [phone] Allergies Active Allergy Reactions Criticality Noted Date Comments Tree Nut Anaphylaxis High 06/19/2022 Vancomycin Itching,Rash,Redness Medium 07/25/2023 Alexa's Syndrome, with red, raised rash Medications diphenhydrAMIN E (BENADRYL) 50 mg capsule Take 1 capsule (50 mg total) by mouth every 6 (six) hours as needed for itching Active fluticasone propionate (FLONASE) 50 mcg/actuation nasal spray Administer 2 sprays into each nostril 2 (two) times a day 1 each 02/27/20 24 Active acyclovir (ZOVIRAX) 400 mg tabletIndicati ons: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) Take 1 tablet (400 mg total) by mouth 3 (three) times a day 90 tablet 6 05/12/20 24 Active hydrocortisone 2.5 % creamIndicatio ns:Eczema, unspecified type Apply topically 2 (two) times a day as needed for rash Apply to rash/itchy areas on face, trunk, or extremities 454 g 3 06/23/19 25 Active acalabrutinib maleate (CALQUENCE) 100 mg tabletIndicati ons: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 Start this ramp up on Day 7 after you complete the 50 mg dose level. 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) Take 1 tablet (5 mg total) by mouth 2 (two) times a day as needed for muscle spasms for up to 15 days 30 tablet 10/02/19 25 025 Active cetirizine (ZyrTEC) 10 mg tablet Take 1 tablet (10 mg total) by mouth daily 30 tablet 10/02/19 25 025 Active gabapentin (NEURONTIN) 300 mg capsuleIndicat ions:Neuropath ic Pain Take 1 capsule (300 mg total) by mouth 2 (two) times a day Pt takes twice a day 60 capsule 10/02/19 25 026 Active allopurinoL (ZYLOPRIM) 300 mg tablet Take 1 tablet (300 mg total) by mouth daily 30 tablet 10/02/19 25 Active cetirizine (ZyrTEC) 10 mg tablet TAKE 1 TABLET BY MOUTH TWICE DAILY 60 tablet 3 05/03/20 24 025 Discontinued gabapentin (NEURONTIN) 300 mg capsuleIndicat ions:Neuropath ic Pain Take 1 capsule (300 mg total) by mouth 3 (three) times a day 90 capsule 11 06/11/19 25 025 Discontinued sildenafiL (VIAGRA) 100 mg tablet Take 0.5-1 tablets (50-100 mg total) by mouth as needed for erectile dysfunction No more than 1ce in 24 hours 15 tablet 3 07/13/19 25 025 cyclobenzaprin e (FLEXERIL) 5 mg tabletIndicati ons: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 Start this ramp up on Day 1. 21 tablet 09/16/19 25 025 Discontinued(D uplicate order) venetoclax (VENCLEXTA) 100 mg tabletIndicati ons:Mantle Cell Lymphoma Take 1 tablet (100 mg total) by mouth daily for 3 days, THEN 2 tablets (200 mg total) daily for 3 days, THEN 4 tablets (400 mg total) daily for 22 days. Start this ramp up on Day 7 after you complete the 50 mg dose level. 97 tablet 09/16/19 25 025 Discontinued(D uplicate order) venetoclax (VENCLEXTA) 10 mg tabletIndicati ons:Mantle Cell Lymphoma Take 2 tablets (20 mg total) by mouth daily for 3 days, THEN 5 tablets (50 mg total) daily for 3 days. Start this ramp up on Day 1. 22 tablet 09/16/19 25 025 Discontinued(D uplicate order) venetoclax (VENCLEXTA) 100 mg tabletIndicati ons:Mantle Cell Lymphoma Take 1 tablet (100 mg total) by mouth daily for 3 days, THEN 2 tablets (200 mg total) daily for 3 days, THEN 4 tablets (400 mg total) daily. Start this ramp up on Day 7 after you complete the 50 mg dose level. 84 tablet 09/16/19 25 025 Discontinued(D uplicate order) venetoclax (VENCLEXTA) 10 mg tabletIndicati ons:Mantle Cell Lymphoma Take 2 tablets (20 mg total) by mouth daily for 3 days, THEN 5 tablets (50 mg total) daily for 3 days. Start this ramp up on Day 1. Discard any remaining 10 mg tabs after this ramp up is complete on Day 6, and start your 100 mg tab supply on Day 7. 28 tablet 09/17/19 25 025 allopurinoL (ZYLOPRIM) 300 mg tablet Take 1 tablet (300 mg total) by mouth 2 (two) times a day 60 tablet 10/02/19 25 025 Discontinued Active Problems Patient Care Coordination No te Formatting of this note is d ifferent from the original. BMT Inpatient Care Coordination Overview Diagnosis [place] Floor [address] Treatment Plan Obin+Glofit (study) Reason for Admission Chemo - study Transplant/IEC Planning BMT/IEC Plan BEAM Auto 07/18/2023 HLA typing/IDMs [] Insurance Approval [] Discharge Planning Anticipated Discharge Date TBD Patient Education Completed [] Issue to be Resolved Before Discharge Discharge Disposition Requests Sent to Case Management, Pharmacy PA Team, or Medical Assistants Post-Discharge Follow-Up Living Situation/Distance from [place], [place] [address]min Caregiver Lab/Transfusion Frequency Venous Access & Care implanted vascular device Local Oncologist Contact Phone: Fax: Post-Discharge Office Visit (H30) 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 Low suspicion of infection. Hemodynamically stable. Continue iv fluid and trend lactate. Assessment & Plan (09/30/2024 7:50 AM CDT): Likely in the setting of recent rx with venetoclax. Low suspicion of infection. Hemodynamically stable. Continue iv fluid and trend lactate. Chest pain 09/29/2024 Assessment & Plan (10/01/2024 2:33 PM CDT): Pt presented with severe chest pain/arm pain after first dose of venetoclax. EKG no acute changes. Trop flat. Continue oxycodone 5mg Q4 hour PRN Assessment & Plan (09/30/2024 7:50 AM CDT): Pt presented with severe chest pain/arm pain after first dose of venetoclax. EKG no acute changes. Trop flat. Continue oxycodone 5mg Q4 hour PRN Assessment & Plan (09/29/2024 7:13 PM CDT): Pt presented with severe chest pain/arm pain after first dose of venetoclax. EKG, CT PE unremarkable as well as elevated lactic. No clear evidence of infection otehrwise, seems to be related to VEnetoclax (possibly robust response) / TLS as below - will give IVF, trend lactic acid - treatment of developing TLs as below - already improving, will give oxycodone 5mg Q4 hour PRN Tumor lysis syndrome 09/29/2024 Assessment & Plan (10/01/2024 2:33 PM CDT): Resolved. Will discharge on allopurinol 300 mg daily. Will need blabs and fluid infusion appointments in [facility]. Assessment & Plan (09/30/2024 7:50 AM CDT): Uric rising now 9.9 but phos/K/Ca roughly stable. Will give IVF, if continues to rise will have low thershold for Rasburicase 3mg IV once or if develops any clinical TLS findings - Q12 TLS labs for now - telemetry Assessment & Plan (09/29/2024 7:13 PM CDT): Uric rising now 9.9 but phos/K/Ca roughly stable. Will give IVF, if continues to rise will have low thershold for Rasburicase 3mg IV once or if develops any clinical TLS findings - Q12 TLS labs for now - telemetry Acid indigestion 09/27/2024 Stem cells transplant status 06/09/2024 Need for immunization against influenza 03/31/20 Hypogammaglobulinemia 03/17/2024 Assessment & Plan (10/01/2024 2:33 PM CDT): Continue monthly IVIG Last dose 09/15/24. Assessment & Plan (09/30/2024 1:35 PM CDT): Continue monthly IVIG Last dose 09/15/24. Assessment & Plan (09/29/2024 7:13 PM CDT): Continue monthly IVIG Cough 02/24/2024 Assessment & Plan (02/27/2024 5:32 PM CDT): Treated for mycoplasma pneumonia in December with a 7 day course of antibiotics RVP persistently positive for mycoplasma pneumonia Chest x-ray clear Azithromycin x 3 days Assessment & Plan (02/26/2024 3:49 PM CDT): Treated for mycoplasma pneumonia in December with a 7 day course of antibiotics RVP persistently positive for mycoplasma pneumonia Chest x-ray clear Azithromycin x 3 days Assessment & Plan (02/25/2024 1:34 PM CDT): Treated for mycoplasma pneumonia in December with a 7 day course of antibiotics RVP persistently positive for mycoplasma pneumonia Chest x-ray clear Supportive care, no indication for antibiotic at this time Assessment & Plan (02/24/2024 5:33 PM CDT): Check RVP Obtain chest XR Decreased hearing of both ears 02/24/2024 Assessment & Plan (02/27/2024 5:32 PM CDT): In December he was treated with a course of antibiotics for right ear infection. Subsequently developed hearing loss in 1 ear now reports decreased hearing in both ears. ENT consulted. Exam is consistent with conductive hearing loss with effusion Recommend nasal regimen with Flonase BID, nasal saline irrigations for 3-4 weeks Assessment & Plan (02/26/2024 3:50 PM CDT): In December he was treated with a course of antibiotics for right ear infection. Subsequently developed hearing loss in 1 ear now reports decreased hearing in both ears. ENT consulted. Exam is consistent with conductive hearing loss with effusion Recommend nasal regimen with Flonase BID, nasal saline irrigations for 3-4 weeks Assessment & Plan (02/25/2024 1:38 PM CDT): In December he was treated with a course of antibiotics for right ear infection. Subsequently developed hearing loss in 1 ear now reports decreased hearing in both ears. ENT consulted Assessment & Plan (02/24/2024 5:34 PM CDT): Consult ENT in the a.m. Streptococcal bacteremia, neutropenic fever 07/04 Assessment & Plan (07/27/2023 2:14 PM [employer] ASSEMBLER): Neutropenic, febrile 07/22, blood cultures 06/03 positive for Streptococcus salivarius 07/22. Repeat blood cultures 07/23 NGTD. TTE without vegetation, normal LVEF. Workup for neutropenic fever also showed concern for pancolitis on CTAP. - CVC maintained during acute treatment. 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 On cetirizine at home. - cetirizine 10 mg BID, Sarna lotion daily PRN Dermatitis 07/02/2023 Autologous donor of stem cells 06/27/2023 Well adult exam 06/14/2023 Overview (06/14/2023): h/o mantle cell cancer, under treatment, s/p resection Assessment & Plan (06/14/2023 3:24 PM [employer] ASSEMBLER): A(n) yearly well adult visit has been performed today. Theron Dewey is up to date on screening tests. He is in need of Cholesterol screening. He is not up to date on needed preventative vaccinations; He is in need of Zoster, Meningococcal, and Covid-19 (booster). We discussed healthy lifestyle habits, educational material has been given. Medications reviewed, changes documented as per the medical record and discussed with patient along with risks vs benefits. Return in 1 year Mixed hyperlipidemia 06/14/2023 S/P splenectomy 04/01/2023 Thrombocytosis 04/01/2023 Mantle cell lymphoma 03/03/2023 Assessment & Plan (10/01/2024 2:33 PM CDT): Robert with Dr. Benito s/p multiple lines of therapy including BEAM/AUTO in 07/2023 Continue Calquence and started on venetoclax in addition as of 09/28 as above. He is pending initiation of CAR T-Cell therapy. Patient was using home supply in the hospital. Assessment & Plan (09/30/2024 1:35 PM CDT): Robert with Dr. Benito s/p multiple lines of therapy including BEAM/AUTO in 07/2023 - most recently on Calquence and started on venetoclax in addition as of 09/28 as above. He is pending initiation of CAR T-Cell therapy. Resume calquence and venetoclax per protocol. Assessment & Plan (09/29/2024 7:13 PM CDT): Robert with Dr. Benito s/p multiple lines of therapy including BEAM/AUTO in 07/2023 - most recently on Calquence and started on venetoclax in addition as of 09/28 as above. He is pending initiation of CAR T-Cell therapy - BMT consult in am for continuation of therapy Assessment & Plan (02/27/2024 5:32 PM CDT): status post BEAM auto in 07/2023 with recent relapse on PET scan started on Obin/glofitamab on clinical trial Admitted for C1D8 Glofit (9/25) Monitor for CRS\ICANS Assessment & Plan (02/26/2024 3:52 PM CDT): status post BEAM auto in 07/2023 with recent relapse on PET scan started on Obin/glofitamab on clinical trial Admitted for C1D8 Glofit (02/24) Monitor for CRS\ICANS Assessment & Plan (02/25/2024 1:38 PM CDT): status post BEAM auto in 07/2023 with recent relapse on PET scan started on Obin/glofitamab on clinical trial Admitted for C1D8 Glofit (02/24) Monitor for CRS\ICANS Assessment & Plan (02/24/2024 5:32 PM CDT): status post BEAM auto in 07/2023 with recent relapse on PET scan started on Obin/glofitamab on clinical trial Admitted for C1D8 Glofit Monitor for CRS\ICANS Assessment & Plan (07/27/2023 2:11 PM [employer]SEMBLER): Follows with Dr. Benito in BMT. Diagnosed 11/21/2022 for splenic rupture found with diffuse lymphadenopathy, s/p splenectomy, found with stage IV mantle cell. Underwent BR X 3 with complete remission, R-cytarabine X 3 with PET scan 05/16/2023 showing CR. Enrolled in [id number] study, MRD testing indeterminate. Assigned to Arm D (Auto SCT + maintenance rituximab). S/p mobilization 07/08/2023. - BEAM-auto SCT, D0: 07/18/2023 - OI PPx: acyclovir - Transfuse per BMT protocol for disease vs chemotherapy related pancytopenia 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 11/26/2022 Splenic rupture 11/20/2022 Encounter for medical examination to establish c are 11/07/2022 Assessment & Plan (11/10/2022 12:34 PM CDT): A(n) initial visit to establish care has been performed today. Theron Dewey is up to date on screening tests. He is in need of None- no screening indicated at this time. He is not up to date on needed preventative vaccinations; He is in need of Covid-19 (booster). We discussed healthy lifestyle habits, educational material has been given. Medications reviewed, changes documented as per the medical record and discussed with patient along with risks vs benefits. Continue current regimen Awaiting labs Planning on imaging for node Ear looked fine, but will send off for audiology evaluation Return in 6 months Left cervical lymphadenopathy 11/07/2022 Multinodular goiter 06/19/2022 Assessment & Plan (06/19/2022 3:49 PM [employer]ER): He has a massive goiter, with bilateral mostly cystic nodule but with some solid components. Have scheduled the patient for FNA biopsy in both dominant nodules in each lobe I explained to the patient that even if the biopsy was negative, because of his local, compressive symptoms surgery probably would still be recommended Thyromegaly 03/07/2022 Lipid screening 12/10/2021 Overview (12/10/2021): Added automatically from request for surgery [id number] Visual changes 08/22/2021 Testicular hypofunction 10/16/2013 Overview (09/05/2016): TESTICULAR HYPOFUNC NEC Assessment & Plan (06/19/2022 3:47 PM [employer]ER): Will check T , free and total . FSH and LH, prolactin. Depending of results, will consider starting T replacement Patient agrees. 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) 10/06/2024 Orders Only [facility] [address] [place] [phone] Ifeanyi Malhotra, REJI 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 Dx) 10/06/2024 Orders Only [facility] [address] [place] [phone] Radha Souza RPh 10/06/2024 Telephone [facility] [address] [place] [address] Sharmaine Jenkins RN 10/04/2024 1:30 PM CDT Clinical Support [facility] [place] [facility] [address] [place] [phone] 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) 10/04/2024 Orders Only [facility] [address] [place] [phone] Ifeanyi Malhotra, RN 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 Dx) 10/04/2024 Orders Only [facility] Trans[facility] [address] [phone] Sarah Simon NP 10/04/2024 Orders Only [facility] [address] [place] [phone] Ifeanyi Malhotra, REJI 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 Dx) 10/04/2024 Orders Only [facility] [address] [place] [phone] Ifeanyi Malhotra RN 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 Dx) 10/04/2024 Telephone [facility] [address] [place] [phone] Ifeanyi Malhotra RN 10/02/2024 2:19 PM CDT - 10/02/2024 7:35 PM CDT Hospital Encounter [facility] [address] [place] [phone] Mantle cell lymphoma, unspecified body region (HCC) (Primary Dx); 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) Discharge Disposition: Discharge to home or self care 10/01/2024 Orders Only [facility] [address] [place] [phone] Francy Benito MD 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 Dx) 09/29/2024 12:27 PM CDT - 10/01/2024 4:35 PM CDT Hospital Encounter [facility] [address] [place] [address] Francy Benito MD 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) Discharge Disposition: Discharge to home or self care 09/29/2024 10:45 AM CDT Clinical Support [facility] [place] [facility] Lab [facility] Floor [address] [place] [address] 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) 09/29/2024 10:30 AM CDT Office Visit [facility] [address] [facility] Floor 6 [place] [phone] Sarah Simon NP 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 Dx) 09/29/2024 Orders Only [facility] [address] [facility] Floor 6 [place] [phone] Radha Souza [facility] 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 Dx) 09/27/2024 Orders Only [facility] Transplant [address] [place] [address] Floor 6 [place] [phone] China Monique RN 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 Dx) 09/24/2024 Telephone [facility] [address] [place] [address] Floor 6 [place] [address] Lucero Garcia CPhT 09/24/2024 Telephone [facility] Primary Care at [address] [phone] Rico Pérez MD PA for Famotidine 20MG tablets 09/24/2024 Telephone [facility] [address] [place] [address] Floor [address] [place] [address] Lucero Garcia CPhT 09/23/2024 3:00 PM CDT Lab [facility] [address] [place] [address] Floor 6 [place] [address] 09/23/2024 1:24 PM CDT - 09/23/2024 11:59 PM CDT Hospital Encounter [facility] Floor 8 [place] [address] 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) Discharge Disposition: Discharge to home or self care 09/23/2024 1:00 PM CDT Clinical Support [facility] [address] [facility] Floor [address] [place] [address] 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 Dx); Autologous donor of stem cells 09/23/2024 11:41 AM CDT - 09/23/2024 11:59 PM CDT Hospital Encounter [facility] [address] [facility] [address] [place] [address] Francy Benito MD 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) Discharge Disposition: Discharge to home or self care 09/23/2024 11:07 AM CDT - 09/23/2024 11:59 PM CDT Hospital Encounter [facility] [address] [place] [address] 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) Discharge Disposition: Discharge to home or self care 09/23/2024 11:06 AM CDT - 09/23/2024 11:59 PM CDT Hospital Encounter [facility] [address] [place] [address] 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) Discharge Disposition: Discharge to home or self care 09/23/2024 11:00 AM CDT Social Work [facility] [address] [facility], [address]th Floor, [place] [address] Amara David LCSW 09/23/2024 9:47 AM CDT - 09/23/2024 11:59 PM CDT Hospital Encounter [facility] Pulmonary [address] [facility] [address] [place] [address] 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) Discharge Disposition: Discharge to home or self care 09/23/2024 Orders Only [facility] [address] [facility] Floor [address] [place] [phone] Radha Souza RPh 09/21/2024 Orders Only [facility] [address] [facility] Floor 6 [place] [phone] China Monique RN 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 Dx); Autologous donor of stem cells 09/20/2024 Orders Only [facility] [address] [facility] Floor 6 [place] [address] Francy Benito MD 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 Dx) 09/20/2024 Telephone [facility] [address] [facility] Floor 6 [place] [address] Lucero Garcia CPhT 09/20/2024 Orders Only [facility] [address] [facility] Floor 6 [place] [address] Francy Benito MD 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 Dx) 09/20/2024 Orders Only [facility] [address] [facility] Floor 6 [place] [address] Sarah Simon NP 09/20/2024 Telephone [facility] [address] [facility] Floor 6 [place] [address] Francy Benito MD 09/17/2024 Orders Only [facility] [address] [facility] Floor 6 [place] [address] China Monique, RN 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 Dx) 09/16/2024 Orders Only [address] [address] Savanna Becerra Mantle cell lymphoma, unspecified body region (HCC) (Primary Dx) 09/16/2024 Orders Only [facility] [address] [facility] Floor 6 [place] [address] 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, 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 Dx) 09/15/2024 12:30 PM CDT Infusion [facility] [address] [facility] Floor 5 [place] [address] Mantle cell lymphoma, unspecified body region (HCC) (Primary Dx); 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); Hypogammaglobulinemia 09/15/2024 11:45 AM CDT Office Visit [facility] [address] Floor 6 [place] [address] Francy Benito MD 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 Dx) 09/15/2024 10:15 AM CDT Clinical Support [facility] [address] Floor 6 [place] [address] 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) 09/15/2024 7:38 AM CDT - 09/15/2024 11:59 PM CDT Hospital Encounter [facility] [address] [place] [address] Discharge Disposition: Discharge to home or self care 09/15/2024 7:38 AM CDT - 09/15/2024 11:59 PM CDT Hospital Encounter [facility] [address] [place] [address] 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) Discharge Disposition: Discharge to home or self care 09/15/2024 Documentation [facility] [address] 6 [place] [address] Lucero Garcia CPhT Prior Auth (VENCLEXTA) 09/15/2024 Orders Only [facility] [address] [facility] Floor 6 [place] [address] Radha Stafford carmen 09/15/2024 Orders Only [facility] [address] 6 [place] [address] Radha Souza [facility] 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 Dx) 08/18/2024 10:00 AM CDT Infusion [facility] [address] Floor 5 [place] [address] Mantle cell lymphoma, unspecified body region (HCC) (Primary Dx); 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); Hypogammaglobulinemia 08/18/2024 9:15 AM CDT Office Visit [facility] [address] [facility] Floor 6 [place] [address] rFancy Benito MD 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 Dx) 08/18/2024 8:15 AM CDT Clinical Support [facility] [address] [facility] Floor 6 [place] [address] 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) 08/16/2024 10:55 AM CDT - 08/16/2024 11:59 PM CDT Hospital Encounter [facility] [address] [place] [id number] Discharge Disposition: Discharge to home or self care 08/16/2024 9:30 AM CDT - 08/16/2024 1:45 PM CDT Hospital Encounter [facility] [address] [place] [phone] Dehydration (Primary Dx); 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) Discharge Disposition: Discharge to home or self care 08/15/2024 Telephone [facility] [address] [place] [phone] Penelope Barragan NP 07/23/2024 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 Infusion [facility] [address] [facility] Floor 6 [place] [address] Mantle cell lymphoma, unspecified body region (HCC) (Primary Dx); 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); Hypogammaglobulinemia 07/14/2024 2:45 PM [employer]SEMBLER Infusion [facility] [address] [facility] Floor 6 [place] [address] Autologous donor of stem cells (Primary Dx); 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) 07/14/2024 1:30 PM [employer]SEMBLER Office Visit [facility] 6 [place] [address] Sarah Simon NP 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 Dx); Autologous donor of stem cells 07/13/2024 2:00 PM [employer]SEMBLER Office Visit [facility] Primary Care at [address] [address] Rico Pérez MD Well adult exam (Primary Dx); Screening, lipid 07/13/2024 Orders Only [facility] [address] [facility] Floor [address] [place] [address] China Monique RN Hypogammaglobulinemia (Primary Dx) from Last 3 Months Immunizations Immunization Administration Dates Next Due DTaP 07/14/2024,05/12/2024 Hep B, Dialysis 07/14/2024,05/12/2024 Hib (PRP-T) 07/14/2024,05/12/2024,11/25/2022 IPV 07/14/2024,05/12/2024 Influenza, Trivalent, Preser vative Free, Intramuscular 03/31/2024 Influenza, Unspecified 06/12/2023(Deferr ed: Patient Refused),07/24/2022(Deferred: Patient Refused),06/02/2022(Deferred: Patient Refused),06/02/2021(Deferred: Patient Refused),06/02/2020(Deferred: Patient Refused) Meningococcal B, OMV (Bexsero) 11/25/2022 Meningococcal Conjugate (Menveo) 11/25/2022 Pneumococcal Conjugate Pcv20 07/14/2024,05/12/20 24,11/26/2022 Tdap 08/28/2014 ZOSTER Recombinant 07/14/2024,05/12/2024 Surgical History Surgery Date Site/Laterality Comments APPENDECTOMY 06/02/1994 - 06/01/1995 Appendectomy TONSILLECTOMY Bilateral as a child WISDOM TOOTH EXTRACTION BRAIN BIOPSY 06/02/1991 - 06/01/1992 Brain tumor biopsy and radiation in [place] area COLONOSCOPY 06/02/2022 - 06/01/2023 THYROIDECTOMY, PARTIAL 06/02/2022 - 06/01/2023 Right BRAIN SURGERY 1990 SPLENECTOMY, TOTAL 11/21/22 TUNNELED LINE PLACEMENT > 5 YEARS 07/07/2023 N/A REMOVE TUNNELED LINE 07/31/2023 Left US GUIDED BIOPSY LYMPH NODE SUPERFICIAL LEFT 02/03/2024 N/A TUNNELED LINE PLACEMENT > 5 YEARS 10/07/2024 N/A Medical History Medical History Date Comments Hx Other Medical 1989 brain tumor s/p radiation Hypertension Cancer (HCC) 09/1990 brain tumor (pin eal) Seasonal allergies Anemia 2022 Lymphoma (HCC) 11/30/22 Family History Medical History Relation Name Comments No Known Problems Brother Appendiceal cancer Father 2016 Cancer Father 2016 No Known Problems Maternal Grandfather Hyperlipidemia Maternal Grandmother No Known Problems Mother No Known Problems Paternal Grandfather No Known Problems Paternal Grandmother Relation Name Status Comments Brother Alive Father 2016 Maternal Grandfather Maternal Grandmother Mother Alive Paternal Grandfather Paternal Grandmother Social History Tobacco Use Types Packs/Day Years Used Date Smoking Tobacco: Never Cigarettes Passive Smoke Exposure: Never Smokeless Tobacco: Current Chew Tobacco Cessation:Ready to Q uit: No; Counseling Given: Not Answered Alcohol Use Standard Drinks/Week Comments Yes 0 (1 standard drink = 0.6 oz pur e alcohol) [employer] Answer Date Recorded In the past 12 months has [employer], gas, oil, or water [employer] threatened to shut off services in your [...] week 09/23/2024 How often do you attend [facility] or jew services? Never 09/23/2024 Do you belong to any clubs o r organizations such as bahai groups, unions, fraternal or athletic groups, or [...] place to sleep or slept in a longterm (including now)? No 07/15/2023 Housing Stability Vital Sign Answer Eladio e Recorded In the last 12 months, was t here a time when you were not able to pay the mortgage or rent on time? No 09/23/2024 In the past 12 months, how m any times have you moved where you were living? 0 09/23/2024 At any time in the past 12 m [facility], were you homeless or living in a longterm (including now)? No 09/23/2024 Personal Safety Answer Date Recorded Have you ever been in or are you currently in a harmful physical or emotional relationship or is someone making you feel afraid or unsafe? 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 Gender Identity Not on file Sexual Orientation Not on file Occupation Industry Job Start Date Job End Date Not on file Not on file Not on file Not on file Obstetrics History Last Filed Vital Signs Vital Sign Reading Time Taken Comments Blood Pressure 115/79 10/07/2024 8:40 AM CDT Pulse 100 10/07/2024 8:40 AM CDT Temperature 36.7 C (98.1 F) 10/07/2024 7:25 AM CDT Respiratory Rate 19 10/07/2024 8:40 AM CDT Oxygen Saturation 97% 10/07/2024 8:40 AM CDT Inhaled Oxygen Concentration - - Weight 91.6 kg (202 lb) 10/07/2024 7:19 AM CDT Height 182.9 cm (6') 10/07/2024 7:19 AM CDT Body Mass Index 27.4 10/07/2024 7:19 AM CDT Plan of Treatment Health Maintenance Due Date Last Done Comments Covid-19 Vaccine (3 - Pfizer risk series) 10/19/2020 09/21/2020, 08/27/2020 Meningococcal B Vaccine (2 o f 5 - Increased Risk Bexsero 3-dose series) 12/23/2022 11/25/2022 Colon Cancer Screening-Colonoscopy 02/07/20252021, 10/31/2021 Depression Screening 07/13/2025 07/13/2024, 07/03/2023, 06/12/2023, Additional history exists Regular Well Visit/Exam 18-64 07/13/2025 07/13/2024, 06/12/2023 DTaP/Tdap/Td Vaccine (4 - Td or Tdap) 07/14/2034 07/14/2024, 05/12/2024, 08/28/2014 Hepatitis C Screening Completed 02/11/2024, 023 Influenza Vaccine Completed 03/31/2024 Hepatitis B Screening Completed 07/14/2024, 024 Pneumococcal vaccine <65 Completed 025, 05/12/2024, 11/26/2022 Zoster Vaccine Completed 07/14/2024, 05/12/2024 Medical Devices Implanted Type Area Cable Dispatcher Device Identifier Shelf Expiration Date Model / Serial / Lot Ter[employer] Medical Merissa Angio-Seal Vip 6fr Closere Device [id number] - [id number] Implanted:Qty: 1 on 11/21/2022 at [facility] Terum[employer] Medical Merissa 06/01/2023 [id number] / / [id number] [employer] Merissa Coil Emolization Coated Detachable Embold [id number] [place] Tungsten [id number] - [id number] Implanted:Qty: 1 on 11/21/2022 at [facility] Dafiti Merissa [id number] 04/07/2025 [id number] / / [id number] Medtronic Inc Coil Embolization Coated Detachable Helical Concerto [id number] Nylon Ve-2-47-[facility] - [id number] Implanted:Qty: 1 on 11/21/2022 at [facility] Medtronic Inc NV-8-30 -HE LIX / / Medtronic Inc Coil Embolization Coated Detachable Helical Concerto [id number] Nylon Ip-1-56-[facility] - [id number] Implanted:Qty: 1 on 11/21/2022 at [facility] [employer] NV-8-30 -HE LIX / / [employer] Powerport Isp Mri Airguard 8fr 1 Lumen Attachable Catheter Open Latex Free [id number] - [id number] Implanted:Qty: 1 on 12/02/2022 by Ottoniel Hernandez MD at [facility] Right: Chest [employer] 03/01/2024 [id number] / / [id number] Explanted Type Area Cable Dispatcher Device Identifier Shelf Expiration Date Model / Serial / Lot [employer] Merissa Coil Emolization Coated Detachable Embold [id number] [place] Tungsten [id number] - [id number] Explanted:Qty: 1 on 11/21/2022 at [facility] [employer] Merissa [id number] 04/07/2025 [id number] / / [id number] Procedures Procedure Name Priority Date/Time Associated Diagnosis Comments MANUAL DIFFERENTIAL Routine 10/07/2024 9 :14 AM CDT 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) URIC ACID Routine 10/07/2024 9:14 AM CDT 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) PHOSPHORUS Routine 10/07/2024 9:14 AM CDT 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) CBC WITH AUTO DIFFERENTIAL Routine 10/07/2024 9:14 AM CDT 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) TUNNELED LINE PLACEMENT > 5 YEARS Schedule Routine, Read Routine (OP Routine) 10/07/2024 8:36 AM CDT 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) EGFR Routine 10/06/2024 10:01 AM CDT 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) MANUAL DIFFERENTIAL Routine 10/06/2024 1 0:01 AM CDT 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) CBC WITH AUTO DIFFERENTIAL Routine 10/06/2024 10:01 AM CDT 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) COMPREHENSIVE METABOLIC PANEL Routine 10/06/2024 10:01 AM CDT 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) HEMOGLOBIN A1C Routine 10/06/2024 10:01 AM CDT 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) LIPID PANEL Routine 10/06/2024 10:01 AM CDT 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) TYPE AND SCREEN Routine 10/06/2024 10:01 AM CDT 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) LACTATE DEHYDROGENASE Routine 10/06/2024 10:01 AM CDT 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) HSV 1 ANTIBODY, IGG Routine 10/06/2024 1 0:01 AM CDT 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) HSV 2 ANTIBODY, IGG Routine 10/06/2024 1 0:01 AM CDT 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) EGFR STAT 10/04/2024 1:26 PM CDT 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) LACTATE DEHYDROGENASE Routine 10/04/2024 1:26 PM CDT 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) URIC ACID STAT 10/04/2024 1:26 PM CDT 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) PHOSPHORUS STAT 10/04/2024 1:26 PM CDT 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) COMPREHENSIVE METABOLIC PANEL STAT 10/04/2024 1:26 PM CDT 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) MANUAL DIFFERENTIAL STAT 10/04/2024 1 :24 PM CDT 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) CBC WITH AUTO DIFFERENTIAL STAT 10/04/2024 1:24 PM CDT 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) MANUAL DIFFERENTIAL STAT 10/02/2024 2 :37 PM CDT 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) EGFR STAT 10/02/2024 2:37 PM CDT 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) CBC WITH AUTO DIFFERENTIAL STAT 10/02/2024 2:37 PM CDT 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) COMPREHENSIVE METABOLIC PANEL STAT 10/02/2024 2:37 PM CDT 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) MAGNESIUM STAT 10/02/2024 2:37 PM CDT 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) TYPE AND SCREEN STAT 10/02/2024 2:37 PM CDT 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) PHOSPHORUS STAT 10/02/2024 2:37 PM CDT 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) URIC ACID STAT 10/02/2024 2:37 PM CDT 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) EGFR Timed 10/01/2024 9:05 AM CDT URIC ACID Timed 10/01/2024 9:05 AM CDT PHOSPHORUS Timed 10/01/2024 9:05 AM CDT BASIC METABOLIC PANEL Timed 10/01/2024 9:05 AM CDT EGFR Timed 10/01/2024 2:21 AM CDT DIFFERENTIAL AUTO Routine 10/01/2024 2:2 1 AM CDT LACTATE, WHOLE BLOOD Timed 10/01/2024 2:21 AM CDT LACTATE Routine 10/01/2024 2:21 AM CDT CBC WITH AUTO DIFFERENTIAL Routine 10/01/2024 2:21 AM CDT URIC ACID Timed 10/01/2024 2:21 AM CDT PHOSPHORUS Timed 10/01/2024 2:21 AM CDT BASIC METABOLIC PANEL Timed 10/01/2024 2:21 AM CDT BASIC METABOLIC PANEL Timed 09/30/2024 5:42 PM CDT EGFR Timed 09/30/2024 5:42 PM CDT LACTATE, WHOLE BLOOD Routine 09/30/2024 5:42 PM CDT LACTATE DEHYDROGENASE Timed 09/30/2024 5:42 PM CDT URIC ACID Timed 09/30/2024 5:42 PM CDT PHOSPHORUS Timed 09/30/2024 5:42 PM CDT LACTATE STAT 09/30/2024 5:42 PM CDT POCT GLUCOSE DEVICE Routine 09/30/2024 9 :01 AM CDT EGFR Timed 09/30/2024 8:21 AM CDT LACTATE, WHOLE BLOOD Timed 09/30/2024 8:21 AM CDT BASIC METABOLIC PANEL Timed 09/30/2024 8:21 AM CDT PHOSPHORUS Timed 09/30/2024 8:21 AM CDT URIC ACID Timed 09/30/2024 8:21 AM CDT EGFR Timed 09/30/2024 5:08 AM CDT BASIC METABOLIC PANEL Timed 09/30/2024 5:08 AM CDT MANUAL DIFFERENTIAL Routine 09/30/2024 2 :30 AM CDT SENIOR STAFF REVIEW Routine 09/30/2024 2 :30 AM CDT CBC WITH AUTO DIFFERENTIAL Routine 09/30/2024 2:30 AM CDT LACTATE Routine 09/30/2024 12:53 AM CDT HEPATIC FUNCTION PANEL Routine 09/30/2024 12:53 AM CDT PROTIME-INR Routine 09/30/2024 12:53 AM CDT APTT Routine 09/30/2024 12:53 AM CDT LACTATE DEHYDROGENASE Routine 09/30/2024 12:53 AM CDT TYPE AND SCREEN Timed 09/30/2024 12:53 AM CDT TROPONIN I HIGH-SENSITIVITY 2-HOUR Timed 09/29/2024 4:[address] CHEST PE W CONTRAST IP Routine 09/29/2024 4:13 PM CDT MANUAL DIFFERENTIAL STAT 09/29/2024 2 :48 PM CDT SENIOR STAFF REVIEW STAT 09/29/2024 2 :48 PM CDT EGFR STAT 09/29/2024 2:48 PM CDT TROPONIN I HIGH-SENSITIVITY SERIES (BASELINE, 2HR, 4HR, 6HR) Routine 09/29/2024 2:48 PM CDT LACTATE DEHYDROGENASE Routine 09/29/2024 2:48 PM CDT URIC ACID Routine 09/29/2024 2:48 PM CDT CREATINE KINASE (CK), TOTAL Routine 09/29/2024 2:48 PM CDT LACTATE Routine 09/29/2024 2:48 PM CDT TYPE AND SCREEN STAT 09/29/2024 2:48 PM CDT PHOSPHORUS STAT 09/29/2024 2:48 PM CDT MAGNESIUM STAT 09/29/2024 2:48 PM CDT COMPREHENSIVE METABOLIC PANEL STAT 09/29/2024 2:48 PM CDT CBC WITH AUTO DIFFERENTIAL STAT 09/29/2024 2:48 PM CDT XR CHEST 1 VIEW IP Routine 09/29/2024 2:01 PM CDT ECG 12-LEAD Routine 09/29/2024 1:10 PM CDT EGFR STAT 09/29/2024 10:52 AM CDT 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) BASIC METABOLIC PANEL STAT 09/29/2024 10:52 AM CDT 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) PHOSPHORUS STAT 09/29/2024 10:52 AM CDT 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) URIC ACID STAT 09/29/2024 10:52 AM CDT 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) TRANSTHORACIC ECHO (TTE) COMPLETE W DOPPLER/CF W CONTRAST Routine 09/23/2024 4:03 PM CDT 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) DONOR CONFIRMATION Routine 09/23/2024 1: 16 PM CDT 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) Autologous donor of stem cells EGFR Routine 09/23/2024 1:16 PM CDT 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) Autologous donor of stem cells MANUAL DIFFERENTIAL Routine 09/23/2024 1 :16 PM CDT 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) Autologous donor of stem cells BMT DONOR EVALUATION Routine 09/23/2024 1:16 PM CDT 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) Autologous donor of stem cells CBC WITH AUTO DIFFERENTIAL Routine 09/23/2024 1:16 PM CDT 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) Autologous donor of stem cells COMPREHENSIVE METABOLIC PANEL Routine 09/23/2024 1:16 PM CDT 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) Autologous donor of stem cells HEMOGLOBIN A1C Routine 09/23/2024 1:16 PM CDT 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) Autologous donor of stem cells LIPID PANEL Routine 09/23/2024 1:16 PM CDT 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) Autologous donor of stem cells MAGNESIUM Routine 09/23/2024 1:16 PM CDT 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) Autologous donor of stem cells PROTIME-INR Routine 09/23/2024 1:16 PM CDT 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) Autologous donor of stem cells APTT Routine 09/23/2024 1:16 PM CDT 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) Autologous donor of stem cells SICKLE CELL SCREEN Routine 09/23/2024 1: 16 PM CDT 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) Autologous donor of stem cells TYPE AND SCREEN Routine 09/23/2024 1:16 PM CDT 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) Autologous donor of stem cells URIC ACID Routine 09/23/2024 1:16 PM CDT 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) Autologous donor of stem cells HSV 1 ANTIBODY, IGG Routine 09/23/2024 1 :16 PM CDT 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) Autologous donor of stem cells HSV 2 ANTIBODY, IGG Routine 09/23/2024 1 :16 PM CDT 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) Autologous donor of stem cells ECG 12-LEAD Routine 09/23/2024 11:31 AM CDT 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) XR CHEST PA LATERAL 2 VIEWS Schedule Routine, Read Routine (OP Routine) 09/23/2024 11:13 AM CDT 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) PULMONARY FUNCTION TEST (PFT) Routine 09/23/2024 10:28 AM CDT 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) PET/CT FDG SKULL TO THIGH Schedule Routine, Read Routine (OP Routine) 09/15/2024 10:53 AM CDT 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) EGFR Routine 09/15/2024 10:28 AM CDT 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) MANUAL DIFFERENTIAL Routine 09/15/2024 1 0:28 AM CDT 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) IGG Routine 09/15/2024 10:28 AM CDT 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) CBC WITH AUTO DIFFERENTIAL Routine 09/15/2024 10:28 AM CDT 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) COMPREHENSIVE METABOLIC PANEL Routine 09/15/2024 10:28 AM CDT 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) LACTATE DEHYDROGENASE Routine 09/15/2024 10:28 AM CDT 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) EGFR Routine 08/18/2024 8:12 AM CDT 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) DIFFERENTIAL AUTO Routine 08/18/2024 8:1 2 AM CDT 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) IGG Routine 08/18/2024 8:12 AM CDT 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) CBC WITH AUTO DIFFERENTIAL Routine 08/18/2024 8:12 AM CDT 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) COMPREHENSIVE METABOLIC PANEL Routine 08/18/2024 8:12 AM CDT 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) LACTATE DEHYDROGENASE Routine 08/18/2024 8:12 AM CDT 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) BLOOD CULTURE STAT 08/16/2024 11:43 AM CDT BLOOD CULTURE STAT 08/16/2024 11:35 AM CDT URINALYSIS, MICROSCOPIC ONLY STAT 08/16/2024 11:22 AM CDT URINALYSIS AND REFLEX TO MICROSCOPIC AND CULTURE STAT 08/16/2024 11:22 AM CDT XR CHEST PA LATERAL 2 VIEWS ED Urgent/IP Urgent 08/16/2024 11:13 AM CDT POC BLOOD GAS AND CHEMISTRIES, ARTERIAL Routine 08/16/2024 10:51 AM CDT EGFR STAT 08/16/2024 10:46 AM CDT DIFFERENTIAL AUTO STAT 08/16/2024 10: 46 AM CDT PHOSPHORUS STAT 08/16/2024 10:46 AM CDT MAGNESIUM STAT 08/16/2024 10:46 AM CDT COMPREHENSIVE METABOLIC PANEL STAT 08/16/2024 10:46 AM CDT CBC WITH AUTO DIFFERENTIAL STAT 08/16/2024 10:46 AM CDT RESPIRATORY PATHOGEN PANEL STAT 08/16/2024 10:46 AM CDT EGFR Routine 07/14/2024 11:39 AM [employer] AS[employer]BLER 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) DIFFERENTIAL AUTO Routine 07/14/2024 11: 39 AM [employer] 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) LIPID PANEL Routine 07/14/2024 11:39 AM [employer] Screening, lipid IGG Routine 07/14/2024 11:39 AM [employer] Hypogammaglobulin emia CBC WITH AUTO DIFFERENTIAL Routine 07/14/2024 11:39 AM [employer] 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) COMPREHENSIVE METABOLIC PANEL Routine 07/14/2024 11:39 AM [employer] 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) LACTATE DEHYDROGENASE Routine 07/14/2024 11:39 AM [employer] 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) HEPATITIS C ANTIBODY Routine 02/11/2024 8:03 AM CDT 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) COLONOSCOPY Routine 02/07/2022 from Last 3 Months or Most Recently Relevant to Health Maintenance Results * (ABNORMAL) CBC with auto differential (10/07/2024 9:14 AM CDT) WBC 1.93(L) 3.80 - 9.90 K/cumm Comment:Testing performed by : [facility], [facility], [address] [place] [address] Hgb 11.9(L) 13.0 - 17.5 g/dL CERNER BJWCH Comment:Testing performed by : [facility], [facility], [address] [place] [address] Hct 35.1(L) 38.9 - 50.3 % CERNER BJWCH Comment:Testing performed by : [facility], [facility], [address], [place] [address] Plt 63(L) 150 - 400 K/cumm CERNER BJWCH Comment:Testing performed by : [facility], [address], [place] [address] MPV 11.9 9.1 - 12.3 fL CERNER BJWCH Comment:Testing performed by : [facility], [facility], [address], [place] [address] RBC 3.60(L) 4.30 - 5.80 M/cumm CERNER BJWCH Comment:Testing performed by : [facility], [facility], [address], [place] [address] MCV 97.5(H) 81.3 - 96.4 fL CERNER BJWCH Comment:Testing performed by : [facility], [facility], [address], [place] [address] MCH 33.1 27.1 - 33.3 pg CERNER BJWCH Comment:Testing performed by : [facility] 2, [address], [place] [address] MCHC 33.9 32.3 - 35.7 g/dL CERNER BJWCH Comment:Testing performed by : [facility] 2, [address], [place] [address] RDW CV 15.2(H) 11.1 - 14.9 % CERNER BJWCH Comment:Testing performed by : [facility] 2, [address], [place] [address] RDW SD 54.0(H) 35.7 - 48.1 fL LD VENTURA Comment:Testing performed by : [place] [address], [address] [place] [address] NRBC abs 0.61(H) 0.00 - 0.01 K/cumm LD VENTURA Comment:Testing performed by : [place] [address], [address] [place] [address] ANC Prelim 0.81(L) 1.50 - 6.50 K/cumm LD VENTURA Comment: Interpretive Data The rapid ANC is a preliminary automated count and may vary from the final ANC (Neut Abs) reported in the WBC differential that follows. Current interpretive data was last revised 2024. Testing performed by: [place] [address] [place] [address] Blood 10/07/2024 9:14 AM CDT 10/07/2024 9:18 AM CDT us Francy Benito MD LAB BLOOD ORDERABLES F inal Result LD S[facility] [address] [facility] [place] [address] * (ABNORMAL) Manual Differential (10/07/2024 9:14 AM CDT) Differential Manual Comment:Testing performed by : [place] [address] [place] [address] Cells Counted 100 LD VENTURA Comment:Testing performed by : [place] [address], [place] [address] Neutrophil abs 0.89(L) 1.50 - 6.50 K/cumm LD VENTURA Comment:Testing performed by : [place] [address], [place] [address] Imm gran abs 0.02 0.00 - 0.10 K/cumm CERNER BJWCH Comment:Testing performed by : [facility], [facility], [address] [place] [address] Lymphocyte abs 0.69(L) 0.80 - 3.30 K/cumm CERNER BJWCH Comment:Testing performed by : [facility], [facility], [address] [place] [address] Monocyte abs 0.12(L) 0.20 - 0.80 K/cumm CERNER BJWCH Comment:Testing performed by : [facility], [facility], [address] [place] [address] Eosinophil abs 0.19 0.00 - 0.50 K/cumm CERNER BJWCH Comment:Testing performed by : [facility] 2, [address] [place] [address] Basophil abs 0.02 0.00 - 0.10 K/cumm CERNER BJWCH Comment:Testing performed by : [facility], [facility], [address] [place] [address] Neutrophil pct 46.0 % CERNER BJWCH Comment: Interpretive Data Percent cell count reference ranges are not reported, since discordance with absolute values may lead to misinterpretation of CBC data. Current Interpretive Data was last revised on 2017. Testing performed by: [facility] 2, [address] [place] [address] Lymphocyte pct 36.0 % CERNER BJWCH Comment: Interpretive Data Percent cell count reference ranges are not reported, since discordance with absolute values may lead to misinterpretation of CBC data. Current Interpretive Data was last revised on 2017. Testing performed by: [facility] 2, [address] [place] [address] Monocyte pct 6.0 % CERNER BJWCH Comment: Interpretive Data Percent cell count reference ranges are not reported, since discordance with absolute values may lead to misinterpretation of CBC data. Current Interpretive Data was last revised on 2017. Testing performed by: [facility] 2, [address] [place] [address] Eosinophil pct 10.0 % LD VENTURA Comment: Interpretive Data Percent cell count reference ranges are not reported, since discordance with absolute values may lead to misinterpretation of CBC data. Current Interpretive Data was last revised on 2017. Testing performed by: [place] [address] [place] [address] Basophil pct 1.0 % LD VENTURA Comment: Interpretive Data Percent cell count reference ranges are not reported, since discordance with absolute values may lead to misinterpretation of CBC data. Current Interpretive Data was last revised on 2017. Testing performed by: [place] [address] [place] [address] Metamyelocyte pct 1.0(H) 0.0 - 0.0 % LD VENTURA Comment:Testing performed by : [place] [address] [place] [address] RBC morphology Present(A) LD VENTURA Comment:Testing performed by : [place] [address] [place] [address] Anisocytosis Slight(A) LD VENTURA Comment:Testing performed by : [place] [address] [place] [address] Poikilocytosis Slight(A) LD VENTURA Comment:Testing performed by : [place] [address] [place] [address] Platelet estimate Automated Count Confirmed LD VENTURA Comment:Testing performed by : [place] [address] [place] [address] Blood 10/07/2024 9:14 AM CDT 10/07/2024 9:18 AM CDT us Francy Benito MD LAB BLOOD ORDERABLES F inal Result LD [facility]OLMAN[facility] [address] [place] [address] * Uric acid (10/07/2024 9:14 AM CDT) [facility] Uric acid 5.0 3.0 - 8.0 mg/dL Comment:Testing performed by : [facility], [id number] [place] [address] Blood 10/07/2024 9:14 AM CDT 10/07/2024 9:38 AM CDT Francy Benito MD LAB BLOOD ORDERABLES F inal Result Performing Organization Address City/[facility] Co de Phone Number [facility] [address] [facility] [place] [address] * Phosphorus (10/07/2024 9:14 AM CDT) [facility] Phosphorus, pl 3.7 2.3 - 4.5 mg/dL Comment:Testing performed by : [facility], [id number] [place] [address], [place] [address] Blood 10/07/2024 9:14 AM CDT 10/07/2024 9:38 AM CDT Francy Benito MD LAB BLOOD ORDERABLES F inal Result Performing Organization Address City/[facility]/ZIP Co de Phone Number [facility] [address] [facility] [place] [address] * IR Tunneled Line Placement > 5 Years (10/07/2024 8:36 AM CDT) Anatomical Region Laterality Modality Body N/A Ultrasound 10/07/2024 9:24 AM CDT Impressions 10/07/2024 9:24 AM CDT Successful tunneled 23 cm tip to cuff tri-fusion catheter placement via the left internal jugular vein because the patient has a right chest wall port. PLAN: The catheter is ready for immediate use. When treatment is completed, removal can be scheduled by calling [facility] - [phone] [facility] - [phone] Electronically signed by: Ramón Ocasio M.D. Narrative 10/07/2024 9:24 AM CDT EXAMINATION: TUNNELED CENTRAL VENOUS CATHETER PLACEMENT USING ULTRASOUND GUIDANCE HISTORY/INDICATION: Patient with mantle cell lymphoma undergoing stem cell transplant. Tunneled tri-fusion catheter requested. Of note, we clarified with Dr. Francy Benito prior to the procedure that the request was indeed for a tunneled not a non-tunneled catheter. She confirmed. The patient has a right chest wall port. Therefore the left side was selected for tunneled catheter placement. ATTENDING PRESENCE: Ramón Ocasio M.D., the attending radiologist, was present from the beginning to the end of the procedure. SEDATION: Procedural sedation was administered under the attending physician's direction and continuous monitoring by a trained nurse specialist who was independent from those actually performing the procedure. Total monitored sedation time was 14 minutes. TECHNIQUE: The risks, benefits and alternatives were discussed and informed consent was obtained. Prior to beginning the procedure, [place] Protocol was used to confirm the patient's identity and planned procedure. Fluoroscopy time has been recorded in the electronic medical record. Prior to the procedure, the central veins were evaluated by ultrasound, an image recorded and placed in the patient's chart. Maximum sterile barriers including cap, mask, hand hygiene, sterile gloves, sterile gown, large sterile drape and 2% chlorhexidine for cutaneous antisepsis were used. The skin over the left internal jugular vein was sterilely prepped, draped and infiltrated with 1% lidocaine. The vein was accessed with a 21 gauge needle using realtime ultrasound guidance. A guidewire and catheter were then passed centrally using fluoroscopic guidance. The intravascular length from the access site to the right atrium was then measured. After infiltrating the skin in the subclavicular region with 1% buffered lidocaine, a short transverse incision was made and the 23 cm tip to cuff tri-fusion was tunneled to the internal jugular access site and inserted through a peel-away sheath. The catheter was flushed with 100 units per mL heparin. The incision in the lower neck was closed using 4-0 Monocryl. A sterile dressing was applied. ESTIMATED BLOOD LOSS: Minimal. CONDITION: Stable DISCHARGED TO: Recovery and then to home FINDINGS: Ultrasound image shows a patent vein in the lower neck. The final fluoroscopic image demonstrates the catheter with its tip at the cavoatrial junction . No complications are seen. Procedure Note Ramón Ocasio MD - 10/07/2024 EXAMINATION: TUNNELED CENTRAL VENOUS CATHETER PLACEMENT USING ULTRASOUND GUIDANCE HISTORY/INDICATION: Patient with mantle cell lymphoma undergoing stem cell transplant. Tunneled tri-fusion catheter requested. Of note, we clarified with Dr. Francy Benito prior to the procedure that the request was indeed for a tunneled not a non-tunneled catheter. She confirmed. The patient has a right chest wall port. Therefore the left side was selected for tunneled catheter placement. ATTENDING PRESENCE: Ramón Ocasio M.D., the attending radiologist, was present from the beginning to the end of the procedure. SEDATION: Procedural sedation was administered under the attending physician's direction and continuous monitoring by a trained nurse specialist who was independent from those actually performing the procedure. Total monitored sedation time was 14 minutes. TECHNIQUE: The risks, benefits and alternatives were discussed and informed consent was obtained. Prior to beginning the procedure, [place] Protocol was used to confirm the patient's identity and planned procedure. Fluoroscopy time has been recorded in the electronic medical record. Prior to the procedure, the central veins were evaluated by ultrasound, an image recorded and placed in the patient's chart. Maximum sterile barriers including cap, mask, hand hygiene, sterile gloves, sterile gown, large sterile drape and 2% chlorhexidine for cutaneous antisepsis were used. The skin over the left internal jugular vein was sterilely prepped, draped and infiltrated with 1% lidocaine. The vein was accessed with a 21 gauge needle using realtime ultrasound guidance. A guidewire and catheter were then passed centrally using fluoroscopic guidance. The intravascular length from the access site to the right atrium was then measured. After infiltrating the skin in the subclavicular region with 1% buffered lidocaine, a short transverse incision was made and the 23 cm tip to cuff tri-fusion was tunneled to the internal jugular access site and inserted through a peel-away sheath. The catheter was flushed with 100 units per mL heparin. The incision in the lower neck was closed using 4-0 Monocryl. A sterile dressing was applied. ESTIMATED BLOOD LOSS: Minimal. CONDITION: Stable DISCHARGED TO: Recovery and then to home FINDINGS: Ultrasound image shows a patent vein in the lower neck. The final fluoroscopic image demonstrates the catheter with its tip at the cavoatrial junction . No complications are seen. IMPRESSION: Successful tunneled 23 cm tip to cuff tri-fusion catheter placement via the left internal jugular vein because the patient has a right chest wall port. PLAN: The catheter is ready for immediate use. When treatment is completed, removal can be scheduled by calling [facility] - [phone] [facility] - [phone] Electronically signed by: Ramón Ocasio M.D. Francy Benito MD IMG IR PROCEDURES Narda l Result * eGFR (10/06/2024 10:01 AM CDT) eGFR >90 >=60 mL/min/1. 73 m2 Comment: Interpretive Data Reference Interval Normal >/= 90 mL/min/1.73m2 Mildly decreased* 60 - 89 mL/min/1.73m2 Mildly to moderately decreased 45 - 59 mL/min/1.73m2 Moderately to severely decreased 30 - 44 mL/min/1.73m2 Severely decreased 15 - 29 mL/min/1.73m2 Kidney Failure < 15 mL/min/1.73m2 *Relative to young adult level Estimated glomerular filtration rate is determined by the 2020 CKD-EPI equation recommended by the National Kidney Foundation (A Unifying Approach to GFR Estimation: Recommendations of the NKF-ASK Task Force on Reassessing the Inclusion of Race in Diagnosing Kidney Disease, JASN 2020). The CKD-EPI equation should not be used for patients with unstable renal function and has not been validated in children and those over 70. Current interpretive data was last reviewed 2021. Blood 10/06/2024 10:0 1 AM CDT 10/06/2024 10:17 AM CDT Francy Benito MD LAB BLOOD ORDERABLES F inal Result LD [facility] [place] [address] * (ABNORMAL) CBC with auto differential (10/06/2024 10:01 AM CDT) WBC 1.08(L) 3.80 - 9.90 K/cumm Comment:Testing performed by : [facility], [address] [place] [address] Hgb 12.3(L) 13.0 - 17.5 g/dL CERJOSE MARTIN BJ Comment:Testing performed by : [facility], [address] [place] [address] Hct 36.4(L) 38.9 - 50.3 % CERJOSE MARTIN SWEET Comment:Testing performed by : [facility], [address] [place] [address] Plt 64(L) 150 - 400 K/cumm CERJOSE MARTIN BJ Comment:Testing performed by : [facility], [address] [place] [address] MPV 9.3 6.8 - 10.4 fL CERJOSE MARTIN BJ Comment:Testing performed by : [facility], [address] [place] [address] RBC 3.75(L) 4.30 - 5.80 M/cumm CERJOSE MARTIN BJ Comment:Testing performed by : [facility], [address] [place] [address] MCV 97.1(H) 81.3 - 96.4 fL CERJOSE MARTIN BJ Comment:Testing performed by : [facility], [address] [place] [address] MCH 32.8 27.1 - 33.3 pg CERJOSE MARTIN BJ Comment:Testing performed by : [facility], [address] [place] [address] MCHC 33.8 32.3 - 35.7 g/dL CERJOSE MARTIN BJ Comment:Testing performed by : [facility], [address] [place] [address] RDW CV 15.0(H) 11.1 - 14.9 % LD SWEET Comment:Testing performed by : [facility], [address] [place], [place] [phone] NRBC abs N/A 0.00 - 0.01 K/cumm CERJOSE MARTIN BJ Comment:Testing performed by : [facility], [address] [place] [address] Blood 10/06/2024 10:0 1 AM CDT 10/06/2024 10:08 AM CDT us Francy Benito MD LAB BLOOD ORDERABLES F inal Result LD SWEET [facility] [place] [address] * (ABNORMAL) Manual Differential (10/06/2024 10:01 AM CDT) Cells Counted 200 Comment:Testing performed by : [facility], [address] [place], [place] [phone] Neutrophil abs 0.51(L) 1.50 - 6.50 K/cumm LD BJ Comment:Testing performed by : [facility], [address] [place] [address] Lymphocyte abs 0.49(L) 0.80 - 3.30 K/cumm LD BJ Comment:Testing performed by : [facility], [address] [place] [address] Monocyte abs 0.05(L) 0.20 - 0.80 K/cumm LD BJ Comment:Testing performed by : [facility], [address] [place] [address] Eosinophil abs 0.09 0.00 - 0.50 K/cumm LD SWEET Comment:Testing performed by : [facility], [address] [place] [address] Basophil abs 0.01 0.00 - 0.10 K/cumm LD BJ Comment:Testing performed by : [facility], [address] [place] [phone] Neutrophil pct 44.0 % CERNER BJH Comment: Interpretive Data Percent cell count reference ranges are not reported, since discordance with absolute values may lead to misinterpretation of CBC data. Current Interpretive Data was last revised on 2017. Testing performed by: [facility], [address] [place] [phone] Lymphocyte pct 42.0 % CERNER BJH Comment: Interpretive Data Percent cell count reference ranges are not reported, since discordance with absolute values may lead to misinterpretation of CBC data. Current Interpretive Data was last revised on 2017. Testing performed by: [facility], [address] [place] [phone] Monocyte pct 4.0 % CERNER BJH Comment: Interpretive Data Percent cell count reference ranges are not reported, since discordance with absolute values may lead to misinterpretation of CBC data. Current Interpretive Data was last revised on 2017. Testing performed by: [facility], [address] [place] [phone] Eosinophil pct 8.0 % CERNER BJH Comment: Interpretive Data Percent cell count reference ranges are not reported, since discordance with absolute values may lead to misinterpretation of CBC data. Current Interpretive Data was last revised on 2017. Testing performed by: [facility], [address] [place] [phone] Basophil pct 1.0 % CERNER BJH Comment: Interpretive Data Percent cell count reference ranges are not reported, since discordance with absolute values may lead to misinterpretation of CBC data. Current Interpretive Data was last revised on 2017. Testing performed by: [facility], [address] [place] [phone] Blast pct 1.0(H) 0.0 - 0.0 % CERNER BJH Comment: Called to Sarah Simon NP 10/06/24 11:31 by fp. Testing performed by: [facility], [address] [place] [phone] Variant lymph pct 2.0(H) 0.0 - 0.0 % LD [facility] Comment:Testing performed by : [facility], [address] [place], [place] [phone] RBC morphology NRBCs present(A ) LD [facility] Comment:Testing performed by : [facility], [address] [place], [place] [phone] Polychromasia 1+(A) LD [facility] Comment:Testing performed by : [facility], [address] [place], [place] [id number] Schistocytes 1+(A) LD [facility] Comment:Testing performed by : [facility], [address] [place], [place] [id number] Target cells 1+(A) LD [facility] Comment:Testing performed by : [facility], [address] [place], [place] [phone] Platelet estimate Decreased (A) LD [facility] Comment:Testing performed by : [facility], [address] [place], [place] [id number] Blood 10/06/2024 10:0 1 AM CDT 10/06/2024 10:18 AM CDT Francy Benito MD LAB BLOOD ORDERABLES F inal Result [facility] [place] [address] * (ABNORMAL) HSV 2 IgG Antibody Blood (10/06/2024 10:01 AM CDT) HSV 2 IgG Reactive( A) Nonreactive Comment: Interpretive Data 1. Nonreactive: No detectable IgG antibody to HSV-2. 2. Equivocal: Presence or absence of detectable antibodies to HSV-2 cannot be determined and the test should be repeated. 3. Reactive: Indicates presence of detectable IgG antibody to HSV-2. Current interpretive data was last revised on 2022. Blood 10/06/2024 10:0 1 AM CDT 10/06/2024 11:50 AM CDT Francy Benito MD LAB MICROBIOLOGY - GEN ERAL ORDERABLES Final Result Performing Organization Address City/[facility] Co de Phone Number [facility] [place] [address] * (ABNORMAL) HSV 1 IgG Antibody Blood (10/06/2024 10:01 AM CDT) HSV 1 IgG Reactive( A) Nonreactive Comment: Interpretive Data 1. Nonreactive: No detectable IgG antibody to HSV-1. 2. Equivocal: Presence or absence of detectable antibodies to HSV-1 cannot be determined and the test should be repeated. 3. Reactive: Indicates presence of detectable IgG antibody to HSV-1. Current interpretive data was last revised on 2016. Blood 10/06/2024 10:0 1 AM CDT 10/06/2024 11:50 AM CDT Francy Benito MD LAB MICROBIOLOGY - GEN ERAL ORDERABLES Final Result Performing Organization Address [facility] [place] [address] * Type and screen (10/06/2024 10:01 AM CDT) ABO Rh A Positive Jacob, indirect Negative [facility] Blood 10/06/2024 10:0 1 AM CDT 10/06/2024 10:19 AM CDT Narrative [facility] - 10/06/2024 11:34 AM CDT Has the patient had Daratumumab or Isatuximab in the past 6 months?->Unknown Francy Benito MD LAB BLOOD BANK TEST OR DERABLES Final Result Performing Organization Address City/[facility] [place] [address] * Lactate dehydrogenase (LD) (10/06/2024 10:01 AM CDT) [facility] Lactate dehydrogenase (LDH) 211 100 - 250 Units/L Blood 10/06/2024 10:0 1 AM CDT 10/06/2024 10:17 AM CDT Narrative [facility] - 10/06/2024 10:40 AM CDT To be drawn prior to patient taking venetoclax. Sarah Simon 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 LAB BLOOD ORDERABLES Final Res ult Performing Organization Address [facility] de Phone Number [facility] [place] [address] * (ABNORMAL) Hemoglobin A1c (10/06/2024 10:01 AM CDT) [facility] Hgb A1C 5.7(H) 4.0 - 5.6 % Estimated Average Glucose 117 mg/dL [facility] Comment: The ADA recommends reporting an estimated Average Glucose (eAG) with all Hemoglobin A1c results using the equation derived from a study of 507 normal and diabetic adults. Minority populations were underrepresented and children were not included. (Diabetes Care 2020; 43(S1): S66-S76). The eAG is not equivalent to a fasting glucose. Blood 10/06/2024 10:0 1 AM CDT 10/06/2024 10:16 AM CDT Francy Benito MD LAB BLOOD ORDERABLES F inal Result Performing Organization Address [facility] de Phone Number [facility] [place] [address] * (ABNORMAL) Lipid panel (10/06/2024 10:01 AM CDT) [facility] Cholesterol 196 30 - 199 mg/dL Comment: Interpretive Data Ages < or = 19 years Acceptable: <170 mg/dL Borderline high: 170-199 mg/dL High: >or= 200 mg/dL Ages > or = 20 years Desirable: <200 mg/dL Borderline high: 200-239 mg/dL High: >or= 240 mg/dL Literature References: 1. Expert Panel on Integrated Guidelines for Cardiovascular Health and Risk Reduction in Children and Adolescents. Pediatrics 2011;128:S213 2. NCEP Expert Panel. Circulation 2004;110:227 Current Interpretive Data was last revised on 2018. Triglycerides 186(H) <=149 mg/dL [facility] Comment: Interpretive Data Ages < or = 9 years Acceptable: <75 mg/dL Borderline high: 75-99 mg/dL High: >or= 100 mg/dL Ages 10 to 20 years Acceptable: <90 mg/dL Borderline high: 90-129 mg/dL High: >or= 130 mg/dL Ages > or = 20 years Desirable: <150 mg/dL Borderline high: 150-199 mg/dL High: 200-499 mg/dL Very high: >or= 499 mg/dL Literature References: 1. Expert Panel on Integrated Guidelines for Cardiovascular Health and Risk Reduction in Children and Adolescents. Pediatrics 2011;128:S213 2. NCEP Expert Panel. Circulation 2004;110:227 Current Interpretive Data was last revised on 2018. HDL 25(L) >=40 mg/dL [facility] Comment: Interpretive Data Ages < or = 19 years Acceptable: >45 mg/dL Borderline low: 40-45 mg/dL Low: <40 mg/dL Ages > or = 20 years Desirable: >or= 60 mg/dL Low: <40 mg/dL Literature References: 1. Expert Panel on Integrated Guidelines for Cardiovascular Health and Risk Reduction in Children and Adolescents. Pediatrics 2011;128:S213 2. NCEP Expert Panel. Circulation 2004;110:227 Current Interpretive Data was last revised on 2018. LDL, calculated 137(H) <=129 mg/dL [facility] Comment: Interpretive Data Ages < or = 19 years Acceptable: <110 mg/dL Borderline high: 110-129 mg/dL High: >or= 130 mg/dL Ages > or = 20 years Optimal: <100 mg/dL Near optimal: 100-129 mg/dL Borderline high: 130-159 mg/dL High: >160 mg/dL Calculated using the Mccormack LDL-C estimating equation. This equation was implemented on 2024. Prior to this date LDL-C was estimated using the Friedewald equation. Literature References: 1. Expert Panel on Integrated Guidelines for Cardiovascular Health and Risk Reduction in Children and Adolescents. Pediatrics 2011;128:S213 2. NCEP Expert Panel. Circulation 2004;110:227 3. Easton M et al. QUETA Cardiol. 2020 September 30;5(5):540-548. doi: 10.1001/[email or web address] Current Interpretive Data was last revised on 2024. Non-HDL Cholesterol 171 mg/dL [facility] Comment: Interpretive Data Ages < or = 19 years Acceptable: <120 mg/dL Borderline high: 120-144 mg/dL High: >145 mg/dL Ages > or = 20 years When triglycerides are >200 mg/dL, Non-HDL cholesterol is a secondary target of therapy with treatment goals that are 30 mg/dL greater than the LDL cholesterol target. Literature References: 1. Expert Panel on Integrated Guidelines for Cardiovascular Health and Risk Reduction in Children and Adolescents. Pediatrics 2011;128:S213 2. NCEP Expert Panel. Circulation 2004;110:227 Current Interpretive Data was last revised on 2018. Chol/HDL ratio 8 [facility] Blood 10/06/2024 10:0 1 AM CDT 10/06/2024 10:17 AM CDT us Francy Benito MD LAB BLOOD ORDERABLES F inal Result [facility] [place] [address] * Comprehensive metabolic panel (10/06/2024 10:01 AM CDT) Sodium 136 135 - 145 mmol/L Potassium, pl 4.0 3.3 - 4.9 mmol/L [facility] Chloride 97 97 - 110 mmol/L [facility] CO2 25 22 - 32 mmol/L [facility] Anion gap 14 2 - 15 mmol/L [facility] BUN 13 6 - 25 mg/dL [facility] Creatinine 0.94 0.80 - 1.30 mg/dL [facility] Glucose 97 70 - 199 mg/dL [facility] Comment: Interpretive Data Fasting glucose >/= 126 mg/dl is diagnostic for diabetes. Fasting is defined as no caloric intake for at least 8 hours. Fasting glucose between 100 mg/dl to 125 mg/dl is diagnostic of prediabetes. In a patient with classic symptoms of hyperglycemia or hyperglycemic crisis, a random glucose >/= 200 mg/dl is diagnostic for diabetes. In the absence of unequivocal hyperglycemia, results should be confirmed by repeat testing. The classification and Diagnosis of Diabetes Diabetes Care 202; 46: S19-S40. Current interpretive data was last revised 2022. Calcium 9.9 8.5 - 10.3 mg/dL [facility] Bilirubin, total 0.5 0.1 - 1.2 mg/dL [facility] Protein, pl 7.4 6.5 - 8.5 g/dL [facility] Albumin 4.1 3.5 - 5.0 g/dL [facility] Alk phos 128 40 - 130 Units/L [facility] ALT 24 7 - 55 Units/L [facility] AST 31 10 - 50 Units/L [facility] Blood 10/06/2024 10:0 1 AM CDT 10/06/2024 10:17 AM CDT Francy Benito MD LAB BLOOD ORDERABLES F inal Result [facility] [place] [address] * eGFR (10/04/2024 1:26 PM CDT) eGFR >90 >=60 mL/min/1. 73 m2 Comment: Interpretive Data Reference Interval Normal >/= 90 mL/min/1.73m2 Mildly decreased* 60 - 89 mL/min/1.73m2 Mildly to moderately decreased 45 - 59 mL/min/1.73m2 Moderately to severely decreased 30 - 44 mL/min/1.73m2 Severely decreased 15 - 29 mL/min/1.73m2 Kidney Failure < 15 mL/min/1.73m2 *Relative to young adult level Estimated glomerular filtration rate is determined by the 2020 CKD-EPI equation recommended by the National Kidney Foundation (A Unifying Approach to GFR Estimation: Recommendations of the NKF-ASK Task Force on Reassessing the Inclusion of Race in Diagnosing Kidney Disease, JASN 2020). The CKD-EPI equation should not be used for patients with unstable renal function and has not been validated in children and those over 70. Current interpretive data was last reviewed 2021. Blood 10/04/2024 1:26 PM CDT 10/04/2024 1:29 PM CDT Francy Benito MD LAB BLOOD ORDERABLES F inal Result Performing Organization Address [facility] Co de Phone Number [facility] [place] [employer] [place] [address] * Uric acid (10/04/2024 1:26 PM CDT) Uric acid 5.0 3.0 - 8.0 mg/dL Blood 10/04/2024 1:26 PM CDT 10/04/2024 1:29 PM CDT Narrative [facility] - 10/04/2024 1:54 PM CDT To be drawn prior to patient taking venetoclax. Francy Benito MD LAB BLOOD ORDERABLES F inal Result Performing Organization Address [facility] Co de Phone Number [facility] [place] [employer] [place] [address] * Phosphorus (10/04/2024 1:26 PM CDT) Phosphorus, pl 2.8 2.3 - 4.5 mg/dL Blood 10/04/2024 1:26 PM CDT 10/04/2024 1:29 PM CDT Narrative [facility] 10/04/2024 1:54 PM CDT To be drawn prior to patient taking venetoclax. Francy Benito MD LAB BLOOD ORDERABLES F inal Result Performing Organization Address [facility] de Phone Number [facility] [place] [address] * Lactate dehydrogenase (LD) (10/04/2024 1:26 PM CDT) [facility] Lactate dehydrogenase (LDH) 220 100 - 250 Units/L Blood 10/04/2024 1:26 PM CDT 10/04/2024 1:29 PM CDT Narrative [facility] - 10/04/2024 1:54 PM CDT To be drawn prior to patient taking venetoclax. Francy Benito MD LAB BLOOD ORDERABLES F inal Result Performing Organization Address [facility] de Phone Number [facility] [place] [address] * Comprehensive metabolic panel (10/04/2024 1:26 PM CDT) [facility] Sodium 139 135 - 145 mmol/L Potassium, pl 3.6 3.3 - 4.9 mmol/L [facility] Chloride 103 97 - 110 mmol/L [facility] CO2 26 22 - 32 mmol/L [facility] Anion gap 10 2 - 15 mmol/L [facility] BUN 15 6 - 25 mg/dL [facility] Creatinine 0.83 0.80 - 1.30 mg/dL [facility] Glucose 119 70 - 199 mg/dL [facility] Comment: Interpretive Data Fasting glucose >/= 126 mg/dl is diagnostic for diabetes. Fasting is defined as no caloric intake for at least 8 hours. Fasting glucose between 100 mg/dl to 125 mg/dl is diagnostic of prediabetes. In a patient with classic symptoms of hyperglycemia or hyperglycemic crisis, a random glucose >/= 200 mg/dl is diagnostic for diabetes. In the absence of unequivocal hyperglycemia, results should be confirmed by repeat testing. The classification and Diagnosis of Diabetes Diabetes Care 2021; 46: S19-S40. Current interpretive data was last revised 2022. Calcium 9.2 8.5 - 10.3 mg/dL [facility] Bilirubin, total 0.2 0.1 - 1.2 mg/dL [facility] Protein, pl 6.8 6.5 - 8.5 g/dL [facility] Albumin 3.8 3.5 - 5.0 g/dL [facility] Alk phos 109 40 - 130 Units/L [facility] ALT 18 7 - 55 Units/L [facility] AST 25 10 - 50 Units/L [facility] Blood 10/04/2024 1:26 PM CDT 10/04/2024 1:29 PM CDT Narrative [facility] - 10/04/2024 1:54 PM CDT To be drawn prior to patient taking venetoclax. us Francy Benito MD LAB BLOOD ORDERABLES F inal Result [facility] Department of Laboratories [place] [phone] * (ABNORMAL) CBC with auto differential (10/04/2024 1:24 PM CDT) WBC 2.84(L) 3.80 - 9.90 K/cumm Comment:Testing performed by : [facility], [address] [place] [address] Hgb 11.6(L) 13.0 - 17.5 g/dL [facility] Comment:Testing performed by : [facility], [address] [place] [address] Hct 34.3(L) 38.9 - 50.3 % [facility] Comment:Testing performed by : [facility], [address] [place] [address] Plt 79(L) 150 - 400 K/cumm [facility] Comment:Testing performed by : [facility], [address] [place] [address] MPV 8.7 6.8 - 10.4 fL [facility] Comment:Testing performed by : [facility], [address] [place] [address] RBC 3.55(L) 4.30 - 5.80 M/cumm LD SWEET Comment:Testing performed by : [facility], [address] [place] [address] MCV 96.9(H) 81.3 - 96.4 fL LD SWEET Comment:Testing performed by : [facility], [address] [place] [address] MCH 32.8 27.1 - 33.3 pg LD SWEET Comment:Testing performed by : [facility], [address] [place] [address] MCHC 33.9 32.3 - 35.7 g/dL LD SWEET Comment:Testing performed by : [facility], [address] [place] [address] RDW CV 15.4(H) 11.1 - 14.9 % LD SWEET Comment:Testing performed by : [facility], [address] [place] [address] NRBC abs 0.10(H) 0.00 - 0.01 K/cumm LD [facility] Comment:Testing performed by : [facility], [address] [place] [address] Blood 10/04/2024 1:24 PM CDT 10/04/2024 1:28 PM CDT Narrative LD [facility] - 10/04/2024 1:38 PM CDT To be drawn prior to patient taking venetoclax. us Francy Benito MD LAB BLOOD ORDERABLES F inal Result LD [facility] [place] [address] * (ABNORMAL) Manual Differential (10/04/2024 1:24 PM CDT) Cells Counted 151 Comment:Testing performed by : [facility], [address] [place] [address] Neutrophil abs 0.98(L) 1.50 - 6.50 K/cumm [facility] Comment:Testing performed by : [facility], [address] [place] [phone] Lymphocyte abs 1.15 0.80 - 3.30 K/cumm [facility] Comment:Testing performed by : [facility], [address] [place] [phone] Monocyte abs 0.37 0.20 - 0.80 K/cumm [facility] Comment:Testing performed by : [facility], [address] [place], [place] [id number] Eosinophil abs 0.14 0.00 - 0.50 K/cumm [facility] Comment:Testing performed by : [facility], [address] [place], [place] [phone] Basophil abs 0.11(H) 0.00 - 0.10 K/cumm [facility] Comment:Testing performed by : [facility], [address] [place], [place] [phone] Neutrophil pct 34.0 % [facility] Comment: Interpretive Data Percent cell count reference ranges are not reported, since discordance with absolute values may lead to misinterpretation of CBC data. Current Interpretive Data was last revised on 2017. Testing performed by: [facility], [address] [place] [phone] Lymphocyte pct 40.0 % [facility] Comment: Interpretive Data Percent cell count reference ranges are not reported, since discordance with absolute values may lead to misinterpretation of CBC data. Current Interpretive Data was last revised on 2017. Testing performed by: [facility], [address] [place] [phone] Monocyte pct 13.0 % [facility] Comment: Interpretive Data Percent cell count reference ranges are not reported, since discordance with absolute values may lead to misinterpretation of CBC data. Current Interpretive Data was last revised on 2017. Testing performed by: [facility], [address] [place] [phone] Eosinophil pct 5.0 % [facility] Comment: Interpretive Data Percent cell count reference ranges are not reported, since discordance with absolute values may lead to misinterpretation of CBC data. Current Interpretive Data was last revised on 2017. Testing performed by: [facility], [address] [place], [place] [phone] Basophil pct 4.0 % [facility] Comment: Interpretive Data Percent cell count reference ranges are not reported, since discordance with absolute values may lead to misinterpretation of CBC data. Current Interpretive Data was last revised on 2017. Testing performed by: [facility], [address] [place], [place] [phone] Metamyelocyte pct 1.0(H) 0.0 - 0.0 % [facility] Comment:Testing performed by : [facility], [address] [place], [place] [phone] Myelocyte pct 1.0(H) 0.0 - 0.0 % [facility] Comment:Testing performed by : [facility], [address] [place], [place] [phone] Variant lymph pct 3.0(H) 0.0 - 0.0 % [facility] Comment:Testing performed by : [facility], [address] [place], [place] [phone] Anisocytosis 1+(A) [facility] Comment:Testing performed by : [facility], [address] [place], [place] [phone] Poikilocytosis 1+(A) CERJOSE MARTIN BJ Comment:Testing performed by : [facility], [address] [place], [place] [phone] Elliptocytes 1+(A) [facility] Comment:Testing performed by : [facility], [address] [place], [place] [phone] Target cells 1+(A) CERJOSE MARTIN BJ Comment:Testing performed by : [facility], [address] [place], [place] [phone] Platelet estimate Decreased (A) [facility] Comment:Testing performed by : [facility], [address] [place], [place] [phone] Blood 10/04/2024 1:24 PM CDT 10/04/2024 1:28 PM CDT Francy Benito MD LAB BLOOD ORDERABLES F inal Result Performing Organization Address [facility] Co de Phone Number [facility] [place] [address] * eGFR (10/02/2024 2:37 PM CDT) eGFR >90 >=60 mL/min/1. 73 m2 Comment: Interpretive Data Reference Interval Normal >/= 90 mL/min/1.73m2 Mildly decreased* 60 - 89 mL/min/1.73m2 Mildly to moderately decreased 45 - 59 mL/min/1.73m2 Moderately to severely decreased 30 - 44 mL/min/1.73m2 Severely decreased 15 - 29 mL/min/1.73m2 Kidney Failure < 15 mL/min/1.73m2 *Relative to young adult level Estimated glomerular filtration rate is determined by the 2020 CKD-EPI equation recommended by the National Kidney Foundation (A Unifying Approach to GFR Estimation: Recommendations of the NKF-ASK Task Force on Reassessing the Inclusion of Race in Diagnosing Kidney Disease, JASN 2020). The CKD-EPI equation should not be used for patients with unstable renal function and has not been validated in children and those over 70. Current interpretive data was last reviewed 2021. Blood 10/02/2024 2:37 PM CDT 10/02/2024 2:47 PM CDT Francy Benito MD LAB BLOOD ORDERABLES F inal Result Performing Organization Address [facility]/ZIP Co de Phone Number [facility] [place] [address] * (ABNORMAL) CBC with auto differential (10/02/2024 2:37 PM CDT) WBC 3.82 3.80 - 9.90 K/cumm Hgb 11.1(L) 13.0 - 17.5 g/dL [facility] Hct 31.9(L) 38.9 - 50.3 % [facility] Plt 93(L) 150 - 400 K/cumm [facility] MPV 11.3 9.1 - 12.3 fL [facility] RBC 3.37(L) 4.30 - 5.80 M/cumm [facility] MCV 94.7 81.3 - 96.4 fL [facility] MCH 32.9 27.1 - 33.3 pg [facility] MCHC 34.8 32.3 - 35.7 g/dL [facility] RDW CV 15.2(H) 11.1 - 14.9 % [facility] RDW SD 52.3(H) 35.7 - 48.1 fL [facility] NRBC abs 0.14(H) 0.00 - 0.01 K/cumm [facility] Morphologic Screen Results confirmed by manual morphology review. [facility] Blood 10/02/2024 2:37 PM CDT 10/02/2024 2:48 PM CDT us Francy Benito MD LAB BLOOD ORDERABLES F inal Result [facility] [place] [address] * (ABNORMAL) Manual Differential (10/02/2024 2:37 PM CDT) Differential Manual Cells Counted 118 [facility] Neutrophil abs 1.81 1.50 - 6.50 K/cumm [facility] Imm gran abs 0.36(H) 0.00 - 0.10 K/cumm [facility] Lymphocyte abs 1.20 0.80 - 3.30 K/cumm [facility] Monocyte abs 0.26 0.20 - 0.80 K/cumm [facility] Eosinophil abs 0.13 0.00 - 0.50 K/cumm [facility] Basophil abs 0.06 0.00 - 0.10 K/cumm [facility] Neutrophil pct 47.5 % [facility] Comment: Interpretive Data Percent cell count reference ranges are not reported, since discordance with absolute values may lead to misinterpretation of CBC data. Current Interpretive Data was last revised on 2017. Lymphocyte pct 22.0 % [facility] Comment: Interpretive Data Percent cell count reference ranges are not reported, since discordance with absolute values may lead to misinterpretation of CBC data. Current Interpretive Data was last revised on 2017. Monocyte pct 6.8 % [facility] Comment: Interpretive Data Percent cell count reference ranges are not reported, since discordance with absolute values may lead to misinterpretation of CBC data. Current Interpretive Data was last revised on 2017. Eosinophil pct 3.4 % [facility] Comment: Interpretive Data Percent cell count reference ranges are not reported, since discordance with absolute values may lead to misinterpretation of CBC data. Current Interpretive Data was last revised on 2017. Basophil pct 1.7 % [facility] Comment: Interpretive Data Percent cell count reference ranges are not reported, since discordance with absolute values may lead to misinterpretation of CBC data. Current Interpretive Data was last revised on 2017. Metamyelocyte pct 4.2(H) 0.0 - 0.0 % [facility] Myelocyte pct 5.1(H) 0.0 - 0.0 % [facility] Variant lymph pct 9.3(H) 0.0 - 0.0 % [facility] Blood 10/02/2024 2:37 PM CDT 10/02/2024 2:51 PM CDT us Francy Benito MD LAB BLOOD ORDERABLES F inal Result [facility] Department of Laboratories [place], [place] [phone] * Type and screen (10/02/2024 2:37 PM CDT) ABO Rh A Positive Jacob, indirect Negative [facility] Blood 10/02/2024 2:37 PM CDT 10/02/2024 2:46 PM CDT Francy Benito MD LAB BLOOD BANK TEST OR DERABLES Final Result Performing Organization Address [facility] Phone Number [facility] [place] [address] * Uric acid (10/02/2024 2:37 PM CDT) Uric acid 5.6 3.0 - 8.0 mg/dL Blood 10/02/2024 2:37 PM CDT 10/02/2024 2:47 PM CDT Sarah Velarde [place]on 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 LAB BLOOD ORDERABLES Final Res ult Performing Organization Address [facility] Phone Number [facility] [place] [address] * Phosphorus (10/02/2024 2:37 PM CDT) Phosphorus, pl 3.3 2.3 - 4.5 mg/dL Blood 10/02/2024 2:37 PM CDT 10/02/2024 2:47 PM CDT Sarah Velarde [place]on 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 LAB BLOOD ORDERABLES Final Res ult Performing Organization Address [facility] de Phone Number [facility] [place] [address] * Magnesium (10/02/2024 2:37 PM CDT) Magnesium 2.1 1.4 - 2.5 mg/dL Blood 10/02/2024 2:37 PM CDT 10/02/2024 2:47 PM CDT Francy Benito MD LAB BLOOD ORDERABLES F inal Result Performing Organization Address [facility]/State/ZIP Co de Phone Number [facility] [place] [address] * Comprehensive metabolic panel (10/02/2024 2:37 PM CDT) Sodium 142 135 - 145 mmol/L Potassium, pl 3.7 3.3 - 4.9 mmol/L [facility] Chloride 103 97 - 110 mmol/L [facility] CO2 26 22 - 32 mmol/L [facility] Anion gap 13 2 - 15 mmol/L [facility] BUN 13 6 - 25 mg/dL [facility] Creatinine 0.87 0.80 - 1.30 mg/dL [facility] Glucose 149 70 - 199 mg/dL [facility] Comment: Interpretive Data Fasting glucose >/= 126 mg/dl is diagnostic for diabetes. Fasting is defined as no caloric intake for at least 8 hours. Fasting glucose between 100 mg/dl to 125 mg/dl is diagnostic of prediabetes. In a patient with classic symptoms of hyperglycemia or hyperglycemic crisis, a random glucose >/= 200 mg/dl is diagnostic for diabetes. In the absence of unequivocal hyperglycemia, results should be confirmed by repeat testing. The classification and Diagnosis of Diabetes Diabetes Care 2021; 46: S19-S40. Current interpretive data was last revised 2022. Calcium 9.1 8.5 - 10.3 mg/dL [facility] Bilirubin, total 0.2 0.1 - 1.2 mg/dL [facility] Protein, pl 6.9 6.5 - 8.5 g/dL [facility] Albumin 3.9 3.5 - 5.0 g/dL [facility] Alk phos 111 40 - 130 Units/L [facility] ALT 16 7 - 55 Units/L [facility] AST 27 10 - 50 Units/L [facility] Blood 10/02/2024 2:37 PM CDT 10/02/2024 2:47 PM CDT us Francy Benito MD LAB BLOOD ORDERABLES F inal Result LD [facility] [place] [address] * eGFR (10/01/2024 9:05 AM CDT) eGFR >90 >=60 mL/min/1. 73 m2 Comment: Interpretive Data Reference Interval Normal >/= 90 mL/min/1.73m2 Mildly decreased* 60 - 89 mL/min/1.73m2 Mildly to moderately decreased 45 - 59 mL/min/1.73m2 Moderately to severely decreased 30 - 44 mL/min/1.73m2 Severely decreased 15 - 29 mL/min/1.73m2 Kidney Failure < 15 mL/min/1.73m2 *Relative to young adult level Estimated glomerular filtration rate is determined by the 2020 CKD-EPI equation recommended by the National Kidney Foundation (A Unifying Approach to GFR Estimation: Recommendations of the NKF-ASK Task Force on Reassessing the Inclusion of Race in Diagnosing Kidney Disease, JASN 2020). The CKD-EPI equation should not be used for patients with unstable renal function and has not been validated in children and those over 70. Current interpretive data was last reviewed 2021. Blood 10/01/2024 9:05 AM CDT 10/01/2024 9:19 AM CDT Arthur Guerra MD LAB BLOOD ORDERABLES Final Resul t Performing Organization Address City/[facility]/ZIP [place] [address] * Uric acid (10/01/2024 9:05 AM CDT) Uric acid 7.2 3.0 - 8.0 mg/dL Blood 10/01/2024 9:05 AM CDT 10/01/2024 9:19 AM CDT Arthur Guerra MD LAB BLOOD ORDERABLES Final Resul t [facility] [address] * Phosphorus (10/01/2024 9:05 AM CDT) Phosphorus, pl 3.2 2.3 - 4.5 mg/dL Blood 10/01/2024 9:05 AM CDT 10/01/2024 9:19 AM CDT Arthur Guerra MD LAB BLOOD ORDERABLES Final Resul t Performing Organization Address City/State/[facility] Co de Phone Number [facility] [place] [address] * Basic metabolic panel (10/01/2024 9:05 AM CDT) Pathologist [facility] Sodium 141 135 - 145 mmol/L Potassium, pl 4.4 3.3 - 4.9 mmol/L [facility] Chloride 102 97 - 110 mmol/L [facility] CO2 25 22 - 32 mmol/L [facility] Anion gap 14 2 - 15 mmol/L [facility] BUN 16 6 - 25 mg/dL [facility] Creatinine 0.98 0.80 - 1.30 mg/dL [facility] Glucose 71 70 - 199 mg/dL [facility] Comment: Interpretive Data Fasting glucose >/= 126 mg/dl is diagnostic for diabetes. Fasting is defined as no caloric intake for at least 8 hours. Fasting glucose between 100 mg/dl to 125 mg/dl is diagnostic of prediabetes. In a patient with classic symptoms of hyperglycemia or hyperglycemic crisis, a random glucose >/= 200 mg/dl is diagnostic for diabetes. In the absence of unequivocal hyperglycemia, results should be confirmed by repeat testing. The classification and Diagnosis of Diabetes Diabetes Care 2021; 46: S19-S40. Current interpretive data was last revised 2022. Calcium 9.2 8.5 - 10.3 mg/dL [facility] Blood 10/01/2024 9:05 AM CDT 10/01/2024 9:19 AM CDT Arthur Guerra MD LAB BLOOD ORDERABLES Final Resul t Performing Organization Address City/[facility] Co de Phone Number [facility] [place] [address] * (ABNORMAL) Lactate (10/01/2024 2:21 AM CDT) Lactate 2.8(H) 0.7 - 2.0 mmol/L Blood 10/01/2024 2:21 AM CDT 10/01/2024 2:29 AM CDT us Onofre Castro MD LAB BLOOD ORDERABLES Final Res ult Performing Organization Address [facility] de Phone Number LD [facility] [place] [address] * eGFR (10/01/2024 2:21 AM CDT) eGFR >90 >=60 mL/min/1. 73 m2 Comment: Interpretive Data Reference Interval Normal >/= 90 mL/min/1.73m2 Mildly decreased* 60 - 89 mL/min/1.73m2 Mildly to moderately decreased 45 - 59 mL/min/1.73m2 Moderately to severely decreased 30 - 44 mL/min/1.73m2 Severely decreased 15 - 29 mL/min/1.73m2 Kidney Failure < 15 mL/min/1.73m2 *Relative to young adult level Estimated glomerular filtration rate is determined by the 2020 CKD-EPI equation recommended by the National Kidney Foundation (A Unifying Approach to GFR Estimation: Recommendations of the NKF-ASK Task Force on Reassessing the Inclusion of Race in Diagnosing Kidney Disease, JASN 2020). The CKD-EPI equation should not be used for patients with unstable renal function and has not been validated in children and those over 70. Current interpretive data was last reviewed 2021. Blood 10/01/2024 2:21 AM CDT 10/01/2024 2:29 AM CDT us Arthur Guerra MD LAB BLOOD ORDERABLES Final Resul t Performing Organization Address [facility]/State/ZIP Co de Phone Number [facility] [place] [address] * (ABNORMAL) Differential, auto (10/01/2024 2:21 AM CDT) Neutrophil abs 1.88 1.50 - 6.50 K/cumm Imm gran abs 0.37(H) 0.00 - 0.10 K/cumm [facility] Lymphocyte abs 1.44 0.80 - 3.30 K/cumm [facility] Monocyte abs 0.82(H) 0.20 - 0.80 K/cumm [facility] Eosinophil abs 0.11 0.00 - 0.50 K/cumm [facility] Basophil abs 0.05 0.00 - 0.10 K/cumm [facility] Neutrophil pct 40.2 % [facility] Comment: Differential consistent with previous result. Differential consistent with previous result. Interpretive Data Percent cell count reference ranges are not reported, since discordance with absolute values may lead to misinterpretation of CBC data. Current Interpretive Data was last revised on 2017. Imm gran pct 7.9 % [facility] Comment: Interpretive Data Percent cell count reference ranges are not reported, since discordance with absolute values may lead to misinterpretation of CBC data. Current Interpretive Data was last revised on 2017. Lymphocyte pct 30.8 % [facility] Comment: Interpretive Data Percent cell count reference ranges are not reported, since discordance with absolute values may lead to misinterpretation of CBC data. Current Interpretive Data was last revised on 2017. Monocyte pct 17.6 % [facility] Comment: Interpretive Data Percent cell count reference ranges are not reported, since discordance with absolute values may lead to misinterpretation of CBC data. Current Interpretive Data was last revised on 2017. Eosinophil pct 2.4 % [facility] Comment: Interpretive Data Percent cell count reference ranges are not reported, since discordance with absolute values may lead to misinterpretation of CBC data. Current Interpretive Data was last revised on 2017. Basophil pct 1.1 % [facility] Comment: Interpretive Data Percent cell count reference ranges are not reported, since discordance with absolute values may lead to misinterpretation of CBC data. Current Interpretive Data was last revised on 2017. Blood 10/01/2024 2:21 AM CDT 10/01/2024 2:29 AM CDT Onofre Castro MD LAB BLOOD ORDERABLES Final Res ult Performing Organization Address [facility] de Phone Number [facility] [place] [employer] [place] [address] * (ABNORMAL) CBC with auto differential (10/01/2024 2:21 AM CDT) WBC 4.67 3.80 - 9.90 K/cumm Hgb 11.1(L) 13.0 - 17.5 g/dL [facility] Hct 32.1(L) 38.9 - 50.3 % [facility] Plt 99(L) 150 - 400 K/cumm [facility] MPV 11.2 9.1 - 12.3 fL [facility] RBC 3.32(L) 4.30 - 5.80 M/cumm [facility] MCV 96.7(H) 81.3 - 96.4 fL [facility] MCH 33.4(H) 27.1 - 33.3 pg [facility] MCHC 34.6 32.3 - 35.7 g/dL [facility] RDW CV 15.7(H) 11.1 - 14.9 % [facility] RDW SD 55.6(H) 35.7 - 48.1 fL [facility] NRBC abs 0.13(H) 0.00 - 0.01 K/cumm [facility] Blood 10/01/2024 2:21 AM CDT 10/01/2024 2:29 AM CDT Onofre Castro MD LAB BLOOD ORDERABLES Final Res ult Performing Organization Address [facility]/ZIP Co de Phone Number [facility] [place] [address] * (ABNORMAL) Lactate, whole blood (10/01/2024 2:21 AM CDT) Lactate, bld 2.9(H) 0.7 - 2.0 mmol/L Blood 10/01/2024 2:21 AM CDT 10/01/2024 2:28 AM CDT Laz Busch MD LAB BLOOD ORDERABLES Final Resu lt Performing Organization Address City/[facility] Co de Phone Number [facility] [place] [address] * Uric acid (10/01/2024 2:21 AM CDT) [facility] Uric acid 7.0 3.0 - 8.0 mg/dL Blood 10/01/2024 2:21 AM CDT 10/01/2024 2:29 AM CDT Arthur Guerra MD LAB BLOOD ORDERABLES Final Resul t Performing Organization Address [facility] de Phone Number [facility] [place] [employer] [place] [address] * Phosphorus (10/01/2024 2:21 AM CDT) Pathologist [facility] Phosphorus, pl 3.2 2.3 - 4.5 mg/dL Blood 10/01/2024 2:21 AM CDT 10/01/2024 2:29 AM CDT Arthur Guerra MD LAB BLOOD ORDERABLES Final Resul t Performing Organization Address [facility] de Phone Number [facility] [place] [employer] [place] [address] * Basic metabolic panel (10/01/2024 2:21 AM CDT) Pathologist [facility] Sodium 139 135 - 145 mmol/L Potassium, pl 4.2 3.3 - 4.9 mmol/L [facility] Chloride 102 97 - 110 mmol/L [facility] CO2 25 22 - 32 mmol/L [facility] Anion gap 12 2 - 15 mmol/L [facility] BUN 14 6 - 25 mg/dL [facility] Creatinine 1.01 0.80 - 1.30 mg/dL [facility] Glucose 75 70 - 199 mg/dL [facility] Comment: Interpretive Data Fasting glucose >/= 126 mg/dl is diagnostic for diabetes. Fasting is defined as no caloric intake for at least 8 hours. Fasting glucose between 100 mg/dl to 125 mg/dl is diagnostic of prediabetes. In a patient with classic symptoms of hyperglycemia or hyperglycemic crisis, a random glucose >/= 200 mg/dl is diagnostic for diabetes. In the absence of unequivocal hyperglycemia, results should be confirmed by repeat testing. The classification and Diagnosis of Diabetes Diabetes Care 2021; 46: S19-S40. Current interpretive data was last revised 2022. Calcium 8.8 8.5 - 10.3 mg/dL [facility] Blood 10/01/2024 2:21 AM CDT 10/01/2024 2:29 AM CDT Arthur Geurra MD LAB BLOOD ORDERABLES Final Resul t Performing Organization Address City/[facility]/ZIP Co de Phone Number [facility] Department [place] [employer] [place] [address] * (ABNORMAL) Lactate (09/30/2024 5:42 PM CDT) Pathologist [facility] Lactate 2.9(H) 0.7 - 2.0 mmol/L Blood 09/30/2024 5:42 PM CDT 09/30/2024 6:17 PM CDT us Hanna Arias MD LAB BLOOD ORDERABLES Final Result Performing Organization Address City/[facility]/ZIP Co de Phone Number [facility] [place] [address] * eGFR (09/30/2024 5:42 PM CDT) eGFR 85 >=60 mL/min/1. 73 m2 Comment: Interpretive Data Reference Interval Normal >/= 90 mL/min/1.73m2 Mildly decreased* 60 - 89 mL/min/1.73m2 Mildly to moderately decreased 45 - 59 mL/min/1.73m2 Moderately to severely decreased 30 - 44 mL/min/1.73m2 Severely decreased 15 - 29 mL/min/1.73m2 Kidney Failure < 15 mL/min/1.73m2 *Relative to young adult level Estimated glomerular filtration rate is determined by the 2020 CKD-EPI equation recommended by the National Kidney Foundation (A Unifying Approach to GFR Estimation: Recommendations of the NKF-ASK Task Force on Reassessing the Inclusion of Race in Diagnosing Kidney Disease, JASN 2020). The CKD-EPI equation should not be used for patients with unstable renal function and has not been validated in children and those over 70. Current interpretive data was last reviewed 2021. Blood 09/30/2024 5:42 PM CDT 09/30/2024 6:22 PM CDT Francy Benito MD LAB BLOOD ORDERABLES F inal Result LD [facility] Department [place] [employer] [place] [address] * (ABNORMAL) Lactate, whole blood (09/30/2024 5:42 PM CDT) Pathologist [facility] Lactate, bld 3.1(H) 0.7 - 2.0 mmol/L Blood 09/30/2024 5:42 PM CDT 09/30/2024 6:16 PM CDT Francy Benito MD LAB BLOOD ORDERABLES F inal Result LD [facility] [place] [address] * Uric acid (09/30/2024 5:42 PM CDT) Pathologist [facility] Uric acid 7.7 3.0 - 8.0 mg/dL Blood 09/30/2024 5:42 PM CDT 09/30/2024 6:17 PM CDT Laz Busch MD LAB BLOOD ORDERABLES Final Resu lt Performing Organization Address City/[facility]/ZIP Co de Phone Number [facility] [place] [address] * Phosphorus (09/30/2024 5:42 PM CDT) Pathologist [facility] Phosphorus, pl 2.5 2.3 - 4.5 mg/dL Blood 09/30/2024 5:42 PM CDT 09/30/2024 6:17 PM CDT Laz Busch MD LAB BLOOD ORDERABLES Final Resu lt Performing Organization Address [facility] Co de Phone Number [facility] Department [place] [employer] [place] [address] * (ABNORMAL) Lactate dehydrogenase (LD) (09/30/2024 5:42 PM CDT) [facility] Lactate dehydrogenase (LDH) 402(H) 100 - 250 Units/L Blood 09/30/2024 5:42 PM CDT 09/30/2024 6:17 PM CDT Laz Busch MD LAB BLOOD ORDERABLES Final Resu lt Performing Organization Address City/[facility] Co de Phone Number [facility] [place] [employer] [place] [address] * Basic metabolic panel (09/30/2024 5:42 PM CDT) Pathologist [facility] Sodium 137 135 - 145 mmol/L Potassium, pl 4.2 3.3 - 4.9 mmol/L [facility] Chloride 101 97 - 110 mmol/L [facility] CO2 28 22 - 32 mmol/L [facility] Anion gap 8 2 - 15 mmol/L [facility] BUN 13 6 - 25 mg/dL [facility] Creatinine 1.08 0.80 - 1.30 mg/dL [facility] Glucose 78 70 - 199 mg/dL [facility] Comment: Interpretive Data Fasting glucose >/= 126 mg/dl is diagnostic for diabetes. Fasting is defined as no caloric intake for at least 8 hours. Fasting glucose between 100 mg/dl to 125 mg/dl is diagnostic of prediabetes. In a patient with classic symptoms of hyperglycemia or hyperglycemic crisis, a random glucose >/= 200 mg/dl is diagnostic for diabetes. In the absence of unequivocal hyperglycemia, results should be confirmed by repeat testing. The classification and Diagnosis of Diabetes Diabetes Care 2021; 46: S19-S40. Current interpretive data was last revised 2022. Calcium 8.9 8.5 - 10.3 mg/dL [facility] Blood 09/30/2024 5:42 PM CDT 09/30/2024 6:17 PM CDT Francy Benito MD LAB BLOOD ORDERABLES F inal Result Performing Organization Address City/[facility]/ZIP Co de Phone Number [facility] Department [place] [employer] [place] [place] [address] * POCT glucose (09/30/2024 9:01 AM CDT) Glucose, POC 85 70 - 199 mg/dL Blood 09/30/2024 9:01 AM CDT 09/30/2024 9:01 AM CDT Francy Benito MD LAB POCT ORDERABLES - DEVICE Final Result Performing Organization Address [facility]/ZIP Co de Phone Number [facility] [place] [address] * eGFR (09/30/2024 8:21 AM CDT) eGFR 80 >=60 mL/min/1. 73 m2 Comment: Interpretive Data Reference Interval Normal >/= 90 mL/min/1.73m2 Mildly decreased* 60 - 89 mL/min/1.73m2 Mildly to moderately decreased 45 - 59 mL/min/1.73m2 Moderately to severely decreased 30 - 44 mL/min/1.73m2 Severely decreased 15 - 29 mL/min/1.73m2 Kidney Failure < 15 mL/min/1.73m2 *Relative to young adult level Estimated glomerular filtration rate is determined by the 2020 CKD-EPI equation recommended by the National Kidney Foundation (A Unifying Approach to GFR Estimation: Recommendations of the NKF-ASK Task Force on Reassessing the Inclusion of Race in Diagnosing Kidney Disease, JASN 2020). The CKD-EPI equation should not be used for patients with unstable renal function and has not been validated in children and those over 70. Current interpretive data was last reviewed 2021. Blood 09/30/2024 8:21 AM CDT 09/30/2024 8:32 AM CDT us Onofre Castro MD LAB BLOOD ORDERABLES Final Res ult [facility] [place] [address] * (ABNORMAL) Lactate, whole blood (09/30/2024 8:21 AM CDT) Pathologist [facility] Lactate, bld 3.5(H) 0.7 - 2.0 mmol/L Blood 09/30/2024 8:21 AM CDT 09/30/2024 8:30 AM CDT us Laz Busch MD LAB BLOOD ORDERABLES Final Resu lt LD [facility] [place] [address] * (ABNORMAL) Uric acid (09/30/2024 8:21 AM CDT) Pathologist [facility] Uric acid 8.6(H) 3.0 - 8.0 mg/dL Blood 09/30/2024 8:21 AM CDT 09/30/2024 8:32 AM CDT Onofre Castro MD LAB BLOOD ORDERABLES Final Res ult Performing Organization Address [facility] Co de Phone Number [facility] [place] [address] * Phosphorus (09/30/2024 8:21 AM CDT) [facility] Phosphorus, pl 3.1 2.3 - 4.5 mg/dL Blood 09/30/2024 8:21 AM CDT 09/30/2024 8:32 AM CDT Onofre Castro MD LAB BLOOD ORDERABLES Final Res ult Performing Organization Address [facility] de Phone Number [facility] [place] [address] * Basic metabolic panel (09/30/2024 8:21 AM CDT) [facility] Sodium 138 135 - 145 mmol/L Potassium, pl 4.0 3.3 - 4.9 mmol/L [facility] Chloride 101 97 - 110 mmol/L [facility] CO2 26 22 - 32 mmol/L [facility] Anion gap 11 2 - 15 mmol/L [facility] BUN 16 6 - 25 mg/dL [facility] Creatinine 1.13 0.80 - 1.30 mg/dL [facility] Glucose 110 70 - 199 mg/dL [facility] Comment: Interpretive Data Fasting glucose >/= 126 mg/dl is diagnostic for diabetes. Fasting is defined as no caloric intake for at least 8 hours. Fasting glucose between 100 mg/dl to 125 mg/dl is diagnostic of prediabetes. In a patient with classic symptoms of hyperglycemia or hyperglycemic crisis, a random glucose >/= 200 mg/dl is diagnostic for diabetes. In the absence of unequivocal hyperglycemia, results should be confirmed by repeat testing. The classification and Diagnosis of Diabetes Diabetes Care 2021; 46: S19-S40. Current interpretive data was last revised 2022. Calcium 8.9 8.5 - 10.3 mg/dL [facility] Blood 09/30/2024 8:21 AM CDT 09/30/2024 8:32 AM CDT Onofre Castro MD LAB BLOOD ORDERABLES Final Res ult Performing Organization Address [facility] Co de Phone Number [facility] Department [place] [employer] [place] [address] * eGFR (09/30/2024 5:08 AM CDT) eGFR 82 >=60 mL/min/1. 73 m2 Comment: Interpretive Data Reference Interval Normal >/= 90 mL/min/1.73m2 Mildly decreased* 60 - 89 mL/min/1.73m2 Mildly to moderately decreased 45 - 59 mL/min/1.73m2 Moderately to severely decreased 30 - 44 mL/min/1.73m2 Severely decreased 15 - 29 mL/min/1.73m2 Kidney Failure < 15 mL/min/1.73m2 *Relative to young adult level Estimated glomerular filtration rate is determined by the 2020 CKD-EPI equation recommended by the National Kidney Foundation (A Unifying Approach to GFR Estimation: Recommendations of the NKF-ASK Task Force on Reassessing the Inclusion of Race in Diagnosing Kidney Disease, JASN 2020). The CKD-EPI equation should not be used for patients with unstable renal function and has not been validated in children and those over 70. Current interpretive data was last reviewed 2021. Blood 09/30/2024 5:08 AM CDT 09/30/2024 5:20 AM CDT Onofre Castro MD LAB BLOOD ORDERABLES Final Res ult Performing Organization Address [facility]/ZIP Co de Phone Number [facility] [place] [address] * Basic metabolic panel (09/30/2024 5:08 AM CDT) Sodium 139 135 - 145 mmol/L Potassium, pl 4.3 3.3 - 4.9 mmol/L [facility] Chloride 99 97 - 110 mmol/L [facility] CO2 25 22 - 32 mmol/L [facility] Anion gap 15 2 - 15 mmol/L [facility] BUN 15 6 - 25 mg/dL [facility] Creatinine 1.11 0.80 - 1.30 mg/dL [facility] Glucose 76 70 - 199 mg/dL [facility] Comment: Interpretive Data Fasting glucose >/= 126 mg/dl is diagnostic for diabetes. Fasting is defined as no caloric intake for at least 8 hours. Fasting glucose between 100 mg/dl to 125 mg/dl is diagnostic of prediabetes. In a patient with classic symptoms of hyperglycemia or hyperglycemic crisis, a random glucose >/= 200 mg/dl is diagnostic for diabetes. In the absence of unequivocal hyperglycemia, results should be confirmed by repeat testing. The classification and Diagnosis of Diabetes Diabetes Care 2021; 46: S19-S40. Current interpretive data was last revised 2022. Calcium 8.6 8.5 - 10.3 mg/dL [facility] Blood 09/30/2024 5:08 AM CDT 09/30/2024 5:20 AM CDT us Onofre Castro MD LAB BLOOD ORDERABLES Final Res ult [facility] [place] [address] * Senior staff review (09/30/2024 2:30 AM CDT) Senior Staff Review Specimen Blood Senior Staff Review Review Done [facility] Comment:Reviewed by senior timi balderas. 10/01/2024 09:34:48 CDT GP. Blood 09/30/2024 2:30 AM CDT 09/30/2024 3:15 AM CDT us Francy Benito MD LAB BLOOD ORDERABLES F inal Result Performing Organization Address [facility] de Phone Number [facility] [place] [address] * (ABNORMAL) CBC with auto differential (09/30/2024 2:30 AM CDT) Pathologist [facility] WBC 6.32 3.80 - 9.90 K/cumm Hgb 11.8(L) 13.0 - 17.5 g/dL [facility] Hct 34.4(L) 38.9 - 50.3 % [facility] Plt 117(L) 150 - 400 K/cumm [facility] MPV 11.0 9.1 - 12.3 fL [facility] RBC 3.61(L) 4.30 - 5.80 M/cumm [facility] MCV 95.3 81.3 - 96.4 fL [facility] MCH 32.7 27.1 - 33.3 pg [facility] MCHC 34.3 32.3 - 35.7 g/dL [facility] RDW CV 16.0(H) 11.1 - 14.9 % [facility] RDW SD 55.9(H) 35.7 - 48.1 fL [facility] NRBC abs 0.17(H) 0.00 - 0.01 K/cumm [facility] Blood 09/30/2024 2:30 AM CDT 09/30/2024 1:10 AM CDT Onofre Castro MD LAB BLOOD ORDERABLES Final Res ult Performing Organization Address [facility]/ZIP Co de Phone Number [facility] [place] [address] * (ABNORMAL) Manual Differential (09/30/2024 2:30 AM CDT) Pathologist [facility] Differential Manual Cells Counted 121 [facility] Neutrophil abs 3.19 1.50 - 6.50 K/cumm [facility] Imm gran abs 0.37(H) 0.00 - 0.10 K/cumm [facility] Lymphocyte abs 2.40 0.80 - 3.30 K/cumm [facility] Monocyte abs 0.05(L) 0.20 - 0.80 K/cumm [facility] Eosinophil abs 0.16 0.00 - 0.50 K/cumm [facility] Basophil abs 0.16(H) 0.00 - 0.10 K/cumm [facility] Neutrophil pct 50.4 % [facility] Comment: Interpretive Data Percent cell count reference ranges are not reported, since discordance with absolute values may lead to misinterpretation of CBC data. Current Interpretive Data was last revised on 2017. Lymphocyte pct 24.0 % [facility] Comment: Interpretive Data Percent cell count reference ranges are not reported, since discordance with absolute values may lead to misinterpretation of CBC data. Current Interpretive Data was last revised on 2017. Monocyte pct 0.8 % [facility] Comment: Interpretive Data Percent cell count reference ranges are not reported, since discordance with absolute values may lead to misinterpretation of CBC data. Current Interpretive Data was last revised on 2017. Eosinophil pct 2.5 % [facility] Comment: Interpretive Data Percent cell count reference ranges are not reported, since discordance with absolute values may lead to misinterpretation of CBC data. Current Interpretive Data was last revised on 2017. Basophil pct 2.5 % [facility] Comment: Interpretive Data Percent cell count reference ranges are not reported, since discordance with absolute values may lead to misinterpretation of CBC data. Current Interpretive Data was last revised on 2017. Metamyelocyte pct 1.7(H) 0.0 - 0.0 % [facility] Myelocyte pct 3.3(H) 0.0 - 0.0 % [facility] Promyelocyte pct 0.8(H) 0.0 - 0.0 % [facility] Variant lymph pct 14.0(H) 0.0 - 0.0 % [facility] RBC morphology Present(A) [facility] Anisocytosis Slight(A) [facility] Poikilocytosis Slight(A) [facility] Macrocytes 3-7/HPF(A) [facility] Platelet estimate Decreased( A) [facility] Blood 09/30/2024 2:30 AM CDT 09/30/2024 3:15 AM CDT Onofre Castro MD LAB BLOOD ORDERABLES Final Res ult Performing Organization Address [facility] Co de Phone Number [facility] [place] [employer] [place] [address] * (ABNORMAL) Lactate (09/30/2024 12:53 AM CDT) Lactate 2.8(H) 0.7 - 2.0 mmol/L Blood 09/30/2024 12:5 3 AM CDT 09/30/2024 1:10 AM CDT Onofre Castro MD LAB BLOOD ORDERABLES Final Res ult Performing Organization Address [facility] de Phone Number [facility] [place] [address] * aPTT (09/30/2024 12:53 AM CDT) aPTT 30 28 - 38 sec Comment: Interpretive Data Heparin therapeutic range: 66.0 - 100.0 seconds. Range based on correlation with therapeutic heparin activity range of 0.3 - 0.7 Units/mL. Current interpretive data was last revised on 2023. Blood 09/30/2024 12:5 3 AM CDT 09/30/2024 1:12 AM CDT Onofre Castro MD LAB BLOOD ORDERABLES Final Res ult Performing Organization Address [facility] Co de Phone Number [facility] [employer] [place] [address] * Protime-INR (09/30/2024 12:53 AM CDT) PT 12.0 9.7 - 13.0 sec INR 1.11 0.90 - 1.20 [facility] Comment: Interpretive data Oral anticoagulant therapeutic ranges: Venous thromboembolism prophylaxis or treatment: 2.0-3.0 CARDIOLOGY Standard range: 2.0-3.0 High-intensity range: 2.5-3.5 Refer to indication-specific guidelines for appropriate target ranges for prosthetic heart valve replacement. Current interpretive data was last revised on 2019. Blood 09/30/2024 12:5 3 AM CDT 09/30/2024 1:12 AM CDT Onofre Castro MD LAB BLOOD ORDERABLES Final Res ult [facility] [place] [address] * Type and screen (09/30/2024 12:53 AM CDT) ABO Rh A Positive Jacob, indirect Negative [facility] Blood 09/30/2024 12:5 3 AM CDT 09/30/2024 1:05 AM CDT Narrative [facility] - 09/30/2024 2:00 AM CDT Has the patient had Daratumumab or Isatuximab in the past 6 months?->Unknown Onofre Castro MD LAB BLOOD BANK TEST ORDERABLES Final Result [facility] [place] [address] * (ABNORMAL) Lactate dehydrogenase (LD) (09/30/2024 12:53 AM CDT) Lactate dehydrogenase (LDH) 498(H) 100 - 250 Units/L Blood 09/30/2024 12:5 3 AM CDT 09/30/2024 1:10 AM CDT Narrative [facility] - 09/30/2024 1:43 AM CDT Friday and only. Morning draw. Onofre Castro MD LAB BLOOD ORDERABLES Final Res ult Performing Organization Address [facility] Co de Phone Number [facility] [place] [address] * Hepatic function panel (09/30/2024 12:53 AM CDT) Bilirubin, total 1.1 0.1 - 1.2 mg/dL Bilirubin, direct 0.3 0.1 - 0.3 mg/dL [facility] Protein, pl 6.8 6.5 - 8.5 g/dL [facility] Albumin 3.7 3.5 - 5.0 g/dL [facility] Alk phos 107 40 - 130 Units/L [facility] ALT 16 7 - 55 Units/L [facility] AST 42 10 - 50 Units/L [facility] Blood 09/30/2024 12:5 3 AM CDT 09/30/2024 1:10 AM CDT Onofre Castro MD LAB BLOOD ORDERABLES Final Res ult Performing Organization Address [facility] de Phone Number [facility] [place] [address] * Troponin I high-sensitivity 2-hour (09/29/2024 4:38 PM CDT) Trop I hs 6 <=35 ng/L Comment: Interpretive Data For further hscTnI resources including the diagnostic algorithm and an aid in interpretation, copy and paste this link: [email or web address].testcatalog.org/show/[email or web address] Current Interpretive Data last revised 2019. Trop I hs delta 2 ng/L [facility] Trop I hs interp Insignificant [facility] Blood 09/29/2024 4:38 PM CDT 09/29/2024 5:55 PM CDT Onofre Castro MD LAB BLOOD ORDERABLES Final Res ult Performing Organization Address [facility]/ZIP Co de Phone Number [facility] [place] [address] * CT Chest PE (CTA) W Contrast (09/29/2024 4:13 PM CDT) Anatomical Region Laterality Modality Body N/A Computed Tomogra phy 09/29/2024 4:34 PM CDT Impressions 09/29/2024 4:35 PM CDT 1. No pulmonary embolism. 2. Unchanged right thyroid goiter, if not previously evaluated, an outpatient thyroid ultrasound could be performed. 3. Unchanged indeterminate left upper pole renal lesion, if not previously evaluated, an outpatient renal ultrasound could be performed Dictated by: Salas Bacon MD The radiology attending physician has personally reviewed this study, and had reviewed and/or edited this written report and agrees with it. Electronically signed by: Desmond Ayers M.D. Narrative 09/29/2024 4:35 PM CDT EXAMINATION: CT CHEST PE (CTA) W CONTRAST HISTORY: Mantle cell lymphoma with chest pain, tachycardia TECHNIQUE: Computed tomographic images were acquired using a chest angiographic protocol optimized for pulmonary embolism. Contrast enhanced transaxial images were obtained following the intravenous administration of 70 ml of nonionic contrast. Multiplanar reformatted images and three-dimensional images were obtained on the 3-D workstation and sent to the PACS archival system. COMPARISON: PET/CT from 09/15/2024 FINDINGS: No pulmonary embolism. Multiple left circular, subpectoral, and superior clavicular lymph nodes, the largest measures up to 1.6 cm and the left axilla and was previously FDG avid. Unchanged 1.1 cm left supraclavicular lymph node. No mediastinal lymphadenopathy. Status post partial thyroidectomy. Unchanged right thyroid goiter. Right internal jugular central venous catheter tip terminates in the superior cavoatrial junction. Heart size is upper limits of normal. No pericardial effusion. Mild coronary artery calcifications. Central airways are clear. Bilateral dependent atelectasis. No consolidation, pleural effusion, or pneumothorax. No pulmonary nodule. Unchanged cyst in the right hemiliver. Spleen is surgically absent. Cholelithiasis. Unchanged 1.2 cm left upper pole renal lesion (series 5 image 263). No aggressive osseous lesion. Procedure Note Desmond Ayers MD - 09/29/2024 EXAMINATION: CT CHEST PE (CTA) W CONTRAST HISTORY: Mantle cell lymphoma with chest pain, tachycardia TECHNIQUE: Computed tomographic images were acquired using a chest angiographic protocol optimized for pulmonary embolism. Contrast enhanced transaxial images were obtained following the intravenous administration of 70 ml of nonionic contrast. Multiplanar reformatted images and three-dimensional images were obtained on the 3-D workstation and sent to the PACS archival system. COMPARISON: PET/CT from 09/15/2024 FINDINGS: No pulmonary embolism. Multiple left circular, subpectoral, and superior clavicular lymph nodes, the largest measures up to 1.6 cm and the left axilla and was previously FDG avid. Unchanged 1.1 cm left supraclavicular lymph node. No mediastinal lymphadenopathy. Status post partial thyroidectomy. Unchanged right thyroid goiter. Right internal jugular central venous catheter tip terminates in the superior cavoatrial junction. Heart size is upper limits of normal. No pericardial effusion. Mild coronary artery calcifications. Central airways are clear. Bilateral dependent atelectasis. No consolidation, pleural effusion, or pneumothorax. No pulmonary nodule. Unchanged cyst in the right hemiliver. Spleen is surgically absent. Cholelithiasis. Unchanged 1.2 cm left upper pole renal lesion (series 5 image 263). No aggressive osseous lesion. IMPRESSION: 1. No pulmonary embolism. 2. Unchanged right thyroid goiter, if not previously evaluated, an outpatient thyroid ultrasound could be performed. 3. Unchanged indeterminate left upper pole renal lesion, if not previously evaluated, an outpatient renal ultrasound could be performed Dictated by: Salas Bacon MD The radiology attending physician has personally reviewed this study, and had reviewed and/or edited this written report and agrees with it. Electronically signed by: Desmond Ayers M.D. Onofre Castro MD IM CT PROCEDURES Final Result * Troponin I high-sensitivity series (baseline, 2hr, 4hr, 6hr) (09/29/2024 2:48 PM CDT) Trop I hs 4 <=35 ng/L Comment: Interpretive Data For further hscTnI resources including the diagnostic algorithm and an aid in interpretation, copy and paste this link: [email or web address]/show/[email or web address] Current Interpretive Data last revised 2019. Blood 09/29/2024 2:48 PM CDT 09/29/2024 3:09 PM CDT Onofre Castro MD LAB BLOOD ORDERABLES Final Res ult Performing Organization Address City/[facility]/ZIP Co de Phone Number [facility] [place] [address] * (ABNORMAL) Lactate (09/29/2024 2:48 PM CDT) Lactate 3.6(H) 0.7 - 2.0 mmol/L Blood 09/29/2024 2:48 PM CDT 09/29/2024 3:10 PM CDT Onofre Castro MD LAB BLOOD ORDERABLES Final Res ult Performing Organization Address [facility] Co de Phone Number [facility] [place] [address] * eGFR (09/29/2024 2:48 PM CDT) eGFR >90 >=60 mL/min/1. 73 m2 Comment: Interpretive Data Reference Interval Normal >/= 90 mL/min/1.73m2 Mildly decreased* 60 - 89 mL/min/1.73m2 Mildly to moderately decreased 45 - 59 mL/min/1.73m2 Moderately to severely decreased 30 - 44 mL/min/1.73m2 Severely decreased 15 - 29 mL/min/1.73m2 Kidney Failure < 15 mL/min/1.73m2 *Relative to young adult level Estimated glomerular filtration rate is determined by the 2020 CKD-EPI equation recommended by the National Kidney Foundation (A Unifying Approach to GFR Estimation: Recommendations of the NKF-ASK Task Force on Reassessing the Inclusion of Race in Diagnosing Kidney Disease, JASN 2020). The CKD-EPI equation should not be used for patients with unstable renal function and has not been validated in children and those over 70. Current interpretive data was last reviewed 2021. Blood 09/29/2024 2:48 PM CDT 09/29/2024 3:10 PM CDT us Onofre Castro MD LAB BLOOD ORDERABLES Final Res ult Performing Organization Address City/[facility] Co de Phone Number [facility] [place] [address] * Senior staff review (09/29/2024 2:48 PM CDT) Senior Staff Review Specimen Blood Senior Staff Review Review Done [facility] Comment:Refer to manual diff erential pathologist comment. Blood 09/29/2024 2:48 PM CDT 09/29/2024 6:32 PM CDT Narrative [facility] - 10/01/2024 9:31 AM CDT Path review us Francy Benito MD LAB BLOOD ORDERABLES F inal Result Performing Organization Address [facility] [place] [address] * (ABNORMAL) CBC with auto differential (09/29/2024 2:48 PM CDT) WBC 7.98 3.80 - 9.90 K/cumm Hgb 12.5(L) 13.0 - 17.5 g/dL [facility] Hct 35.2(L) 38.9 - 50.3 % [facility] Plt 127(L) 150 - 400 K/cumm [facility] MPV 11.1 9.1 - 12.3 fL [facility] RBC 3.69(L) 4.30 - 5.80 M/cumm [facility] MCV 95.4 81.3 - 96.4 fL [facility] MCH 33.9(H) 27.1 - 33.3 pg [facility] MCHC 35.5 32.3 - 35.7 g/dL [facility] RDW CV 16.0(H) 11.1 - 14.9 % [facility] RDW SD 55.0(H) 35.7 - 48.1 fL [facility] NRBC abs 0.15(H) 0.00 - 0.01 K/cumm [facility] Blood 09/29/2024 2:48 PM CDT 09/29/2024 3:09 PM CDT Onofre Castro MD LAB BLOOD ORDERABLES Final Res ult [facility] [place] [address] * (ABNORMAL) Manual Differential (09/29/2024 2:48 PM CDT) Differential Manual Cells Counted 115 [facility] Neutrophil abs 3.81 1.50 - 6.50 K/cumm [facility] Imm gran abs 0.41(H) 0.00 - 0.10 K/cumm [facility] Lymphocyte abs 3.13 0.80 - 3.30 K/cumm [facility] Monocyte abs 0.34 0.20 - 0.80 K/cumm [facility] Eosinophil abs 0.28 0.00 - 0.50 K/cumm [facility] Neutrophil pct 47.8 % [facility] Comment: Interpretive Data Percent cell count reference ranges are not reported, since discordance with absolute values may lead to misinterpretation of CBC data. Current Interpretive Data was last revised on 2017. Lymphocyte pct 23.5 % [facility] Comment: Interpretive Data Percent cell count reference ranges are not reported, since discordance with absolute values may lead to misinterpretation of CBC data. Current Interpretive Data was last revised on 2017. Monocyte pct 4.3 % [facility] Comment: Interpretive Data Percent cell count reference ranges are not reported, since discordance with absolute values may lead to misinterpretation of CBC data. Current Interpretive Data was last revised on 2017. Eosinophil pct 3.5 % [facility] Comment: Interpretive Data Percent cell count reference ranges are not reported, since discordance with absolute values may lead to misinterpretation of CBC data. Current Interpretive Data was last revised on 2017. Metamyelocyte pct 1.7(H) 0.0 - 0.0 % [facility] Myelocyte pct 2.6(H) 0.0 - 0.0 % [facility] Promyelocyte pct 0.9(H) 0.0 - 0.0 % [facility] Variant lymph pct 15.7(H) 0.0 - 0.0 % [facility] RBC morphology Present(A) [facility] Anisocytosis Slight(A) [facility] Poikilocytosis Slight(A) [facility] Macrocytes 3-7/HPF(A) [facility] Platelet estimate Decreased(A) [facility] Pathologist comment Reviewed by Hematopatholog ist/Hematologi Luis E owens M.D. 10/01/2024 09:30:47 CDT Atypical lymphocytes noted. Suggest flow cytometry. [facility] Blood 09/29/2024 2:48 PM CDT 09/29/2024 6:32 PM CDT us Onofre Castro MD LAB BLOOD ORDERABLES Edited Re sult - Final Performing Organization Address City/[facility]/ZIP Co de Phone Number [facility] Department [place] [employer] [place] [address] * Type and screen (09/29/2024 2:48 PM CDT) Jacob, indirect Negative ABO Rh A Positive [facility] Blood 09/29/2024 2:48 PM CDT 09/29/2024 3:21 PM CDT Narrative [facility] - 09/29/2024 4:29 PM CDT Has the patient had Daratumumab or Isatuximab in the past 6 months?->Unknown Onofre Castro MD LAB BLOOD BANK TEST ORDERABLES Final Result [facility] [place] [address] * (ABNORMAL) Uric acid (09/29/2024 2:48 PM CDT) Pathologist [facility] Uric acid 9.9(H) 3.0 - 8.0 mg/dL Blood 09/29/2024 2:48 PM CDT 09/29/2024 3:10 PM CDT Onofre Castro MD LAB BLOOD ORDERABLES [place] [address] * Phosphorus (09/29/2024 2:48 PM CDT) Pathologist [facility] Phosphorus, pl 4.4 2.3 - 4.5 mg/dL Blood 09/29/2024 2:48 PM CDT 09/29/2024 3:10 PM CDT Onofre Castro MD LAB BLOOD ORDERABLES Final Res ult Performing Organization Address [facility] Co de Phone Number [facility] [employer] [place] [address] * Magnesium (09/29/2024 2:48 PM CDT) Pathologist [facility] Magnesium 2.2 1.4 - 2.5 mg/dL Blood 09/29/2024 2:48 PM CDT 09/29/2024 3:10 PM CDT Onofre Castro MD LAB BLOOD ORDERABLES Final Res ult Performing Organization Address City/[facility] [place] [address] * (ABNORMAL) Lactate dehydrogenase (LD) (09/29/2024 2:48 PM CDT) Pathologist [facility] Lactate dehydrogenase (LDH) 592(H) 100 - 250 Units/L Blood 09/29/2024 2:48 PM CDT 09/29/2024 3:10 PM CDT Onofre Castro MD LAB BLOOD ORDERABLES Final Res ult Performing Organization Address [facility] de Phone Number [facility] [place] [address] * Creatine kinase (CK), total (09/29/2024 2:48 PM CDT) Pathologist [facility] CK 121 40 - 300 Units/L Blood 09/29/2024 2:48 PM CDT 09/29/2024 3:10 PM CDT Onofre Castro MD LAB BLOOD ORDERABLES Final Res ult Performing Organization Address [facility] Phone Number [facility] [place] [address] * (ABNORMAL) Comprehensive metabolic panel (09/29/2024 2:48 PM CDT) Pathologist [facility] Sodium 139 135 - 145 mmol/L Potassium, pl 4.5 3.3 - 4.9 mmol/L [facility] Chloride 103 97 - 110 mmol/L [facility] CO2 26 22 - 32 mmol/L [facility] Anion gap 10 2 - 15 mmol/L [facility] BUN 19 6 - 25 mg/dL [facility] Creatinine 0.99 0.80 - 1.30 mg/dL [facility] Glucose 81 70 - 199 mg/dL [facility] Comment: Interpretive Data Fasting glucose >/= 126 mg/dl is diagnostic for diabetes. Fasting is defined as no caloric intake for at least 8 hours. Fasting glucose between 100 mg/dl to 125 mg/dl is diagnostic of prediabetes. In a patient with classic symptoms of hyperglycemia or hyperglycemic crisis, a random glucose >/= 200 mg/dl is diagnostic for diabetes. In the absence of unequivocal hyperglycemia, results should be confirmed by repeat testing. The classification and Diagnosis of Diabetes Diabetes Care 2021; 46: S19-S40. Current interpretive data was last revised 2022. Calcium 9.4 8.5 - 10.3 mg/dL [facility] Bilirubin, total 0.4 0.1 - 1.2 mg/dL [facility] Protein, pl 7.2 6.5 - 8.5 g/dL [facility] Albumin 3.9 3.5 - 5.0 g/dL [facility] Alk phos 115 40 - 130 Units/L [facility] ALT 21 7 - 55 Units/L [facility] AST 76(H) 10 - 50 Units/L [facility] Blood 09/29/2024 2:48 PM CDT 09/29/2024 3:10 PM CDT us Onofre Castro MD LAB BLOOD ORDERABLES Final Res ult [facility] [place] [address] * XR Chest 1 View (09/29/2024 2:01 PM CDT) Anatomical Region Laterality Modality Body, Chest N/A Computed Radiogr aphy 09/29/2024 3:33 PM CDT Impressions 09/29/2024 3:40 PM CDT Right internal jugular approach chest port catheter tip overlies the superior cavoatrial junction. Embolization coils in the left upper quadrant. Small lung volumes. Minimal left lateral lung base atelectasis. Otherwise, no focal consolidation, pleural effusion, or pneumothorax. Normal cardiomediastinal silhouette. Dictated by: Tanesha Sabillon MD The radiology attending physician has personally reviewed this study, and had reviewed and/or edited this written report and agrees with it. Electronically signed by: Nikko Reyes M.D. Narrative 09/29/2024 3:40 PM CDT EXAMINATION: 1 view chest radiograph Procedure Note Nikko Reyes MD - 09/29/2024 EXAMINATION: 1 view chest radiograph IMPRESSION: Right internal jugular approach chest port catheter tip overlies the superior cavoatrial junction. Embolization coils in the left upper quadrant. Small lung volumes. Minimal left lateral lung base atelectasis. Otherwise, no focal consolidation, pleural effusion, or pneumothorax. Normal cardiomediastinal silhouette. Dictated by: Tanesha Sabillon MD The radiology attending physician has personally reviewed this study, and had reviewed and/or edited this written report and agrees with it. Electronically signed by: Nikko Reyes M.D. Onofre Castro MD IMG XR PROCEDURES Final Result * ECG 12 lead (09/29/2024 1:10 PM CDT) [facility] Ventricular Rate EKG/Min 98 BPM [facility] Atrial Rate 98 BPM [facility] CA-Interval (MSEC) 166 ms [facility] QRS-Interval (MSEC) 82 ms [facility] QT-Interval (MSEC) 344 ms [facility] QTc 439 ms [facility] P [place] 29 degrees [facility] R [place] 24 degrees [facility] T [place] 6 degrees [facility] Diagnosis Normal sinus rhythm Possible Inferior infarct (cited on or before 23-SEP-2024) Anterior infarct (cited on or before 23-SEP-2024) Abnormal ECG When compared with ECG of 23-SEP-2024 11:31, No significant change was found Confirmed by LEA NICKERSON M.D ([id number]) on 10/01/2024 9:54:23 AM [facility] 09/29/2024 1:10 PM CDT 10/01/2024 9:54 AM CDT Onofre Castro MD ECG ORDERABLES Final Result [facility] * eGFR (09/29/2024 10:52 AM CDT) [facility] eGFR >90 >=60 mL/min/1. 73 m2 Comment: Interpretive Data Reference Interval Normal >/= 90 mL/min/1.73m2 Mildly decreased* 60 - 89 mL/min/1.73m2 Mildly to moderately decreased 45 - 59 mL/min/1.73m2 Moderately to severely decreased 30 - 44 mL/min/1.73m2 Severely decreased 15 - 29 mL/min/1.73m2 Kidney Failure < 15 mL/min/1.73m2 *Relative to young adult level Estimated glomerular filtration rate is determined by the 2020 CKD-EPI equation recommended by the National Kidney Foundation (A Unifying Approach to GFR Estimation: Recommendations of the NKF-ASK Task Force on Reassessing the Inclusion of Race in Diagnosing Kidney Disease, JASN 2020). The CKD-EPI equation should not be used for patients with unstable renal function and has not been validated in children and those over 70. Current interpretive data was last reviewed 2021. Blood 09/29/2024 10:5 2 AM CDT 09/29/2024 11:09 AM CDT Sarah SNatacha Clementon 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 LAB BLOOD ORDERABLES Final Res ult Performing Organization Address City/[facility] Co de Phone Number [facility] [place] [address] * (ABNORMAL) Uric acid (09/29/2024 10:52 AM CDT) Pathologist [facility] Uric acid 9.1(H) 3.0 - 8.0 mg/dL Blood 09/29/2024 10:5 2 AM CDT 09/29/2024 11:09 AM CDT Sarah S. Clementon 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 LAB BLOOD ORDERABLES Final Res ult Performing Organization Address City/State/[facility] Co de Phone Number [facility] Department [place] [employer] [place] [address] * Phosphorus (09/29/2024 10:52 AM CDT) Pathologist [facility] Phosphorus, pl 4.3 2.3 - 4.5 mg/dL Blood 09/29/2024 10:5 2 AM CDT 09/29/2024 11:09 AM CDT Sarah S. Clementon 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 LAB BLOOD ORDERABLES Final Res ult [facility] [place] [address] * Basic metabolic panel (09/29/2024 10:52 AM CDT) Sodium 142 135 - 145 mmol/L Potassium, pl 4.7 3.3 - 4.9 mmol/L [facility] Chloride 105 97 - 110 mmol/L [facility] CO2 25 22 - 32 mmol/L [facility] Anion gap 12 2 - 15 mmol/L [facility] BUN 19 6 - 25 mg/dL [facility] Creatinine 0.98 0.80 - 1.30 mg/dL [facility] Glucose 82 70 - 199 mg/dL [facility] Comment: Interpretive Data Fasting glucose >/= 126 mg/dl is diagnostic for diabetes. Fasting is defined as no caloric intake for at least 8 hours. Fasting glucose between 100 mg/dl to 125 mg/dl is diagnostic of prediabetes. In a patient with classic symptoms of hyperglycemia or hyperglycemic crisis, a random glucose >/= 200 mg/dl is diagnostic for diabetes. In the absence of unequivocal hyperglycemia, results should be confirmed by repeat testing. The classification and Diagnosis of Diabetes Diabetes Care 2021; 46: S19-S40. Current interpretive data was last revised 2022. Calcium 9.5 8.5 - 10.3 mg/dL [facility] Blood 09/29/2024 10:5 2 AM CDT 09/29/2024 11:09 AM CDT Sarah S. Clementon 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 LAB BLOOD ORDERABLES Final Res ult LD SWEET [facility] Department of Laboratories [place], [place] [phone] * TRANSTHORACIC ECHO (TTE) COMPLETE W DOPPLER/CF W CONTRAST (09/23/2024 4:03 PM CDT) Anatomical Region Laterality Modality Ultrasound 09/23/2024 3:1 0 PM CDT Narrative 09/23/2024 5:16 PM CDT [facility] Cardiac [place] [address] [place] [address] Transthoracic Echocardiographic Report Patient Name: THERON DEWEY J : 1975 (49y 6m) Gender: M Study Date: 09/23/2024 03:10:18 PM Ht(Inch): 72 Wt(Lb): 216.93 BSA: 2.24 Supervisor Prop Making: Sunshine Baez RDCS, [facility] Location: [facility] Order Provider: FRANCY BENITO Heart Rate: 73 BMI: 29.42 BP: 112 / 80 Ref Provider: FRANCY BENITO PROCEDURES: Echocardiographic Report: Transthoracic complete echo with strain imaging and contrast, 2D, spectral and tissue Doppler, color flow Doppler, M-mode. Contrast: Contrast Enhancement was Employed: After initial imaging due to sub- optimal quality related to co-morbidity defined by patient's body habitus and due to suboptimal image quality with inadequate visualization of at least 2 of 16 LV wall segments in any view after initial imaging. Perflutren contrast was administered using the volume necessary to obtain adequate images. 1.5 ml Optison Administered, (1.5 ml wasted). INDICATIONS: C83.18 Mantle cell lymphoma, lymph nodes of multiple sites. CONCLUSIONS: 1. The left ventricle is small based on volume index. Concentric LV remodeling. Normal left ventricular systolic function. The Ejection Fraction (Casas's) is measured at 63 %. The average global longitudinal strain is borderline. 2. Normal right ventricular size. Normal right ventricular systolic function. 3. The estimated pulmonary artery systolic pressure is 20.0 mmHg. ATTESTATION: I have personally reviewed and interpreted this study without fellow or resident. - DISCLAIMER: The study images and the final report will be retained in the patient chart by the Echo Laboratory for the legally required time period. This chart constitutes the legal record of any testing performed. FINDINGS: Left Ventricle: The left ventricle is small based on volume index. Concentric LV remodeling. Normal left ventricular systolic function. The Ejection Fraction (Casas's) is measured at 63 %. The average global longitudinal strain is borderline. The LV global strain is: -16.3 %. Right Ventricle: Normal right ventricular size. Normal right ventricular systolic function. Left Atrium: The left atrium is normal in size. Right Atrium: The right atrium is normal in size. Mitral Valve: Normal mitral valve structure. No mitral regurgitation. Aortic Valve: Normal trileaflet aortic valve. No aortic regurgitation. The mean transaortic gradient is 4 mmHg. The aortic valve area by the continuity equation (using VTI) is 2.4 cm2. Aortic valve dimensionless index is 0.75. Tricuspid Valve: Normal tricuspid valve structure. No tricuspid regurgitation. The estimated pulmonary artery systolic pressure is 20.0 mmHg. Pulmonic Valve: Normal pulmonic valve structure. No pulmonic regurgitation. Pericardium: No pericardial effusion. Aorta: Normal aortic root size at sinuses of Valsalva. Normal aortic root size when indexed. The ascending aorta is normal in size when indexed. IVC: IVC is normal in size. MEASUREMENTS: 2D/MM Value Range Doppler Value Range LVIDd 2D 3.81 cm [ 4.20 - 5.80 ] AV Peak Joseph 1.2 m/s [ 1.0 - 1.7 ] LVIDs 2D 2.45 cm [ 2.50 - 4.00 ] AV Peak PG 5.76 mmHg IVSd 2D 0.85 cm [ 0.60 - 1.00 ] AV Mean PG 4 mmHg LVPWd 2D 0.97 cm [ 0.60 - 1.00 ] AV VTI 23.5 cm LV Thickness Ratio 0.9 LVOT Peak Joseph 0.9 m/s [ 0.7 - 1.1 ] LV FS 2D 35.78 % [ 25.00 - 43.00 ] LVOT Peak PG 3.24 mmHg LV Mass 2D 104.83 g LVOT Mean PG 2 mmHg LV Mass Index 2D 46.80 g/m2 LVOT VTI 17.6 cm RWT 0.51 LVOT Diam 2.02 cm EDV Mod BP 74.00 ml [ 62.00 - 150.00 ] FRANKLIN VTI 2.40 cm2 LV EDV Index 33.04 ml/m2 LVOT/AV VTI 0.75 - Dimensionless index (DVI) ESV Mod BP 27.69 ml [ 21.00 - 61.00 ] MV E Peak Joseph 0.6 m/s [ 0.6 - 1.3 ] EF Mod BP 63 % [ 52 - 72 ] MV A Peak Joseph 0.6 m/s [ 1.0 - 1.2 ] LV GLS -16.3 % [ -25.0 - -18.0 ] MV E/A 0.9 ratio [ 0.8 - 1.5 ] LA Length 4C 5.13 cm MV Decel Time 188.66 msec [ 104.00 - 258.00 ] LA Length 2C 4.62 cm Med E` Joseph 4.7 cm/sec [ 8.0 - 25.0 ] LA Volume BP 41.01 ml Lat E` Joseph 8.3 cm/sec [ 10.0 - 25.0 ] LA Volume Index 18.31 ml/m2 [ 16.00 - 34.00 ] Average E/E` 9.23 RV Base Dimen 2D 3.8 cm [ 2.5 - 4.2 ] RV S` 10.23 cm/sec TAPSE 2.44 cm [ 1.71 - 5.00 ] TR Peak Joseph 1.8 m/s [ 1.0 - 2.8 ] RA Volume 40.08 ml TR Peak PG 13.0 mmHg RA Volume Index 17.89 ml/m2 PV Peak Joseph 1.1 m/s [ 0.4 - 0.8 ] AoR Diam 2D 3.32 cm [ 3.10 - 3.70 ] PV Peak PG 4.84 mmHg Ao Root Index 1.48 cm/m2 [ 1.00 - 2.00 ] PI ED Joseph 92.88 m/sec Asc Ao Diam 2D 3.41 cm Asc Ao Index 1.52 cm/m2 Electronically Signed By: Precious Rodriguez M.D. 09/23/2024 5:15:31 PM CDT Procedure Note Precious Rodriguez MD - 09/23/2024 [facility] Cardiac Diagnostic [place] [address] [place] [address] Transthoracic Echocardiographic Report Patient Name: THERON DEWEY J : 1975 (49y 6m) Gender: M Study Date: 09/23/2024 03:10:18 PM Ht(Inch): 72 Wt(Lb): 216.93 BSA: 2.24 Supervisor Prop Making: Sunshine Baez RDCS [facility] Location: [facility] Order Provider:FRANCY BENITO Heart Rate: 73 BMI: 29.42 BP: 112 / 80 Ref Provider: FRANCY BENITO PROCEDURES: Echocardiographic Report: Transthoracic complete echo with strain imagingand contrast, 2D, spectral and tissue Doppler, color flow Doppler, M-mode. Contrast: Contrast Enhancement was Employed: After initial imaging due tosub- optimal quality related to co-morbidity defined by patient's body habitus and dueto suboptimal image quality with inadequate visualization of at least 2 of 16 LV wallsegments in any view after initial imaging. Perflutren contrast was administered using thevolume necessary to obtain adequate images. 1.5 ml Optison Administered, (1.5 mlwasted). INDICATIONS: C83.18 Mantle cell lymphoma, lymph nodes of multiple sites. CONCLUSIONS: 1. The left ventricle is small based on volume index. Concentric LVremodeling. Normal left ventricular systolic function. The Ejection Fraction (Casas's) ismeasured at 63 %. The average global longitudinal strain is borderline. 2. Normal right ventricular size. Normal right ventricular systolicfunction. 3. The estimated pulmonary artery systolic pressure is 20.0 mmHg. ATTESTATION: I have personally reviewed and interpreted this study without fellow orresident. - DISCLAIMER: The study images and the final report will be retained in the patientchart by the Echo Laboratory for the legally required time period. This chart constitutesthe legal record of any testing performed. FINDINGS: Left Ventricle: The left ventricle is small based on volume index.Concentric LV remodeling. Normal left ventricular systolic function. The EjectionFraction (Casas's) is measured at 63 %. The average global longitudinal strain is borderline.The LV global strain is: -16.3 %. Right Ventricle: Normal right ventricular size. Normal right ventricularsystolic function. Left Atrium: The left atrium is normal in size. Right Atrium: The right atrium is normal in size. Mitral Valve: Normal mitral valve structure. No mitral regurgitation. Aortic Valve: Normal trileaflet aortic valve. No aortic regurgitation. Themean transaortic gradient is 4 mmHg. The aortic valve area by the continuityequation (using VTI) is 2.4 cm2. Aortic valve dimensionless index is 0.75. Tricuspid Valve: Normal tricuspid valve structure. No tricuspidregurgitation. The estimated pulmonary artery systolic pressure is 20.0 mmHg. Pulmonic Valve: Normal pulmonic valve structure. No pulmonicregurgitation. Pericardium: No pericardial effusion. Aorta: Normal aortic root size at sinuses of Valsalva. Normal aortic rootsize when indexed. The ascending aorta is normal in size when indexed. IVC: IVC is normal in size. MEASUREMENTS: 2D/MM Value Range DopplerValue Range LVIDd 2D 3.81 cm [ 4.20 - 5.80 ] AV Peak Vel1.2 m/s [ 1.0 - 1.7 ] LVIDs 2D 2.45 cm [ 2.50 - 4.00 ] AV Peak PG5.76 mmHg IVSd 2D 0.85 cm [ 0.60 - 1.00 ] AV Mean PG4 mmHg LVPWd 2D 0.97 cm [ 0.60 - 1.00 ] AV VTI23.5 cm LV Thickness Ratio 0.9 LVOT Peak Vel0.9 m/s [ 0.7 - 1.1 ] LV FS 2D 35.78 % [ 25.00 - 43.00 ] LVOT Peak PG3.24 mmHg LV Mass 2D 104.83 g LVOT Mean PG2 mmHg LV Mass Index 2D 46.80 g/m2 LVOT VTI17.6 cm RWT 0.51 LVOT Diam2.02 cm EDV Mod BP 74.00 ml [ 62.00 - 150.00 ] FRANKLIN VTI2.40 cm2 LV EDV Index 33.04 ml/m2 LVOT/AV VTI0.75 - Dimensionless index (DVI) ESV Mod BP 27.69 ml [ 21.00 - 61.00 ] MV E Peak Vel0.6 m/s [ 0.6 - 1.3 ] EF Mod BP 63 % [ 52 - 72 ] MV A Peak Vel0.6 m/s [ 1.0 - 1.2 ] LV GLS -16.3 % [ -25.0 - -18.0 ] MV E/A0.9 ratio [ 0.8 - 1.5 ] LA Length 4C 5.13 cm MV Decel Oubb019.66 msec [ 104.00 - 258.00 ] LA Length 2C 4.62 cm Med E` Vel4.7 cm/sec [ 8.0 - 25.0 ] LA Volume BP 41.01 ml Lat E` Vel8.3 cm/sec [ 10.0 - 25.0 ] LA Volume Index 18.31 ml/m2 [ 16.00 - 34.00 ] Average E/E`9.23 RV Base Dimen 2D 3.8 cm [ 2.5 - 4.2 ] RV S`10.23 cm/sec TAPSE 2.44 cm [ 1.71 - 5.00 ] TR Peak Vel1.8 m/s [ 1.0 - 2.8 ] RA Volume 40.08 ml TR Peak PG13.0 mmHg RA Volume Index 17.89 ml/m2 PV Peak Vel1.1 m/s [ 0.4 - 0.8 ] AoR Diam 2D 3.32 cm [ 3.10 - 3.70 ] PV Peak PG4.84 mmHg Ao Root Index 1.48 cm/m2 [ 1.00 - 2.00 ] PI ED Vel92.88 m/sec Asc Ao Diam 2D3.41 cm Asc Ao Index1.52 cm/m2 Electronically Signed By: Precious Rodriguez M.D. 09/23/2024 5:15:31 PM CDT Francy Benito MD CV ECHO PROCEDURES Fin al Result * Donor Confirmation (09/23/2024 1:16 PM CDT) Test name, donor Confirmatory Syphilis testing [facility] confirm, donor Test Name: _ Syphilis (T. pallidum)Captia- G IgG Antibody Screen EIA Test Result: _Negative Testing performed by: [facility] [place] [address] CLIA [id number] [facility] Blood 09/23/2024 1:16 PM CDT 09/24/2024 8:21 AM CDT Francy Benito MD LAB BLOOD ORDERABLES F inal Result [facility] [place] [address] * eGFR (09/23/2024 1:16 PM CDT) eGFR >90 >=60 mL/min/1. 73 m2 Comment: Interpretive Data Reference Interval Normal >/= 90 mL/min/1.73m2 Mildly decreased* 60 - 89 mL/min/1.73m2 Mildly to moderately decreased 45 - 59 mL/min/1.73m2 Moderately to severely decreased 30 - 44 mL/min/1.73m2 Severely decreased 15 - 29 mL/min/1.73m2 Kidney Failure < 15 mL/min/1.73m2 *Relative to young adult level Estimated glomerular filtration rate is determined by the 2020 CKD-EPI equation recommended by the National Kidney [employer] (A Unifying Approach to GFR Estimation: Recommendations of the NKF-ASK Task Force on Reassessing the Inclusion of Race in Diagnosing Kidney Disease, JASN 2020). The CKD-EPI equation should not be used for patients with unstable renal function and has not been validated in children and those over 70. Current interpretive data was last reviewed 2021. Blood 09/23/2024 1:16 PM CDT 09/23/2024 1:29 PM CDT Francy Benito MD LAB BLOOD ORDERABLES F inal Result Performing Organization Address City/[facility]/ZIP Co de Phone Number LD SWEET [facility] [place] [address] * (ABNORMAL) BMT donor evaluation (09/23/2024 1:16 PM CDT) Hep B surf Ag, donor Negative Negative CERNER [facility] Hep B core Ab, donor Positive(A) Negative CERNER [facility] Hep C Ab, donor Negative Negative CERNER [facility] HIV 1-2 Ab, donor Negative Negative CERNER [facility] HTLV I/II Ab, donor Negative Negative CERNER [facility] Syphilis testing, donor Positive(A) Negative CERNER [facility] HIV CHRISTINA, donor Negative Negative C[facility]ER [facility] HCV CHRISTINA, donor Negative Negative [facility] HBV CHRISTINA, donor Negative Negative C[facility]ER [facility] WNV CHRISTINA, donor Negative Negative [facility] CMV testing, donor Positive(A) Negative [facility] Comment: Interpretive Data Testing performed by [facility] [place] [address] CLIA [id number] Panel consists of testing for Hepatitis B, Hepatitis C, HIV, HTLV, Syphilis, CMV, West Nile Virus and Chagas disease.Current interpretive data was last revised on 2022. Chagas testing, donor Negative Negative [facility] Blood 09/23/2024 1:16 PM CDT 09/24/2024 8:21 AM CDT Francy Benito MD LAB BLOOD ORDERABLES F inal Result [facility] [place] [address] * (ABNORMAL) CBC with auto differential (09/23/2024 1:16 PM CDT) WBC 8.83 3.80 - 9.90 K/cumm Comment:Testing performed by : [facility], [address] [place] [address] Hgb 12.7(L) 13.0 - 17.5 g/dL CERNER [facility] Comment:Testing performed by : [facility], [address] [place] [address] Hct 37.9(L) 38.9 - 50.3 % CERNER BJ Comment:Testing performed by : [facility], [address] [place] [address] Plt 179 150 - 400 K/cumm CERNER BJ Comment:Testing performed by : [facility], [address] [place] [address] MPV 9.3 6.8 - 10.4 fL CERNER [facility]J Comment:Testing performed by : [facility], [address] [place] [address] RBC 3.85(L) 4.30 - 5.80 M/cumm CERNER BJ Comment:Testing performed by : [facility], [address] [place] [address] MCV 98.5(H) 81.3 - 96.4 fL CERNER BJ Comment:Testing performed by : [facility], [address] [place] [address] MCH 33.0 27.1 - 33.3 pg CERNER BJ Comment:Testing performed by : [facility], [address] [place] [address] MCHC 33.5 32.3 - 35.7 g/dL [facility] Comment:Testing performed by : [facility], [address] [place] [address] RDW CV 15.8(H) 11.1 - 14.9 % CERNER BJ Comment:Testing performed by : [facility], [address] [place] [address] NRBC abs 0.00 0.00 - 0.01 K/cumm CERNER BJ Comment:Testing performed by : [facility], [address] [place] [address] Blood 09/23/2024 1:16 PM CDT 09/23/2024 1:24 PM CDT Francy Benito MD LAB BLOOD ORDERABLES F inal Result [facility] [place] [address] * (ABNORMAL) Manual Differential (09/23/2024 1:16 PM CDT) Cells Counted 196 Comment:Testing performed by : [facility], [address] [place] [phone] Neutrophil abs 4.94 1.50 - 6.50 K/cumm CERNER BJ Comment:Testing performed by : [facility], [address] [place], [place] [phone] Lymphocyte abs 1.85 0.80 - 3.30 K/cumm CERNER BJ Comment:Testing performed by : [facility], [address] [place], [place] [phone] Monocyte abs 0.53 0.20 - 0.80 K/cumm C[facility]ER BJ Comment:Testing performed by : [facility], [address] [place], [place] [phone] Eosinophil abs 0.44 0.00 - 0.50 K/cumm CERNER BJ Comment:Testing performed by : [facility], [address] [place], [place] [phone] Basophil abs 0.18(H) 0.00 - 0.10 K/cumm CERNER BJ Comment:Testing performed by : [facility], [address] [place] [phone] Neutrophil pct 56.0 % [facility] Comment: Interpretive Data Percent cell count reference ranges are not reported, since discordance with absolute values may lead to misinterpretation of CBC data. Current Interpretive Data was last revised on 2017. Testing performed by: [facility], [address], [place] [address] Lymphocyte pct 21.0 % [facility] Comment: Interpretive Data Percent cell count reference ranges are not reported, since discordance with absolute values may lead to misinterpretation of CBC data. Current Interpretive Data was last revised on 2017. Testing performed by: [facility], [address] [place] [phone] Monocyte pct 6.0 % [facility] Comment: Interpretive Data Percent cell count reference ranges are not reported, since discordance with absolute values may lead to misinterpretation of CBC data. Current Interpretive Data was last revised on 2017. Testing performed by: [facility], [address] [place] [phone] Eosinophil pct 5.0 % [facility] Comment: Interpretive Data Percent cell count reference ranges are not reported, since discordance with absolute values may lead to misinterpretation of CBC data. Current Interpretive Data was last revised on 2017. Testing performed by: [facility], [address] [place] [phone] Basophil pct 2.0 % [facility] Comment: Interpretive Data Percent cell count reference ranges are not reported, since discordance with absolute values may lead to misinterpretation of CBC data. Current Interpretive Data was last revised on 2017. Testing performed by: [facility], [address] [place] [phone] Metamyelocyte pct 3.0(H) 0.0 - 0.0 % [facility] Comment:Testing performed by : [facility], [address] [place] [phone] Myelocyte pct 2.0(H) 0.0 - 0.0 % [facility] Comment:Testing performed by : [facility], [address] [place] [phone] Promyelocyte pct 1.0(H) 0.0 - 0.0 % [facility] Comment:Testing performed by : [facility], [address] [place] [phone] Blast pct 1.0(H) 0.0 - 0.0 % [facility] Comment: Date-Time 09/23/2024 1440 Critical called to Tabby Lay MA and read back by ZITA Testing performed by: [facility], [address] [place], [place] [phone] Variant lymph pct 5.0(H) 0.0 - 0.0 % LD SWEET Comment:Testing performed by : [facility], [address] [place], [place] [phone] RBC morphology NRBCs present(A) CERJOSE MARTIN BJ Comment:Testing performed by : [facility], [address] [place], [place] [phone] Hypochromasia 1+(A) LD SWEET Comment:Testing performed by : [facility], [address] [place], [place] [phone] Anisocytosis 1+(A) LD BJ Comment:Testing performed by : [facility], [address] [place], [place] [phone] Poikilocytosis 1+(A) LD [facility] Comment:Testing performed by : [facility], [address] [place], [place] [phone] Schistocytes 1+(A) LD [facility] Comment:Testing performed by : [facility], [address] [place], [place] [phone] Elliptocytes 1+(A) LD BJ Comment:Testing performed by : [facility], [address] [place], [place] [phone] Target cells 1+(A) LD [facility] Comment:Testing performed by : [facility], [address] [place], [place] [phone] Platelet estimate Adequate LD [facility] Comment:Testing performed by : [facility], [address] [place], [place] [phone] Blood 09/23/2024 1:16 PM CDT 09/23/2024 1:24 PM CDT us Francy Benito MD LAB BLOOD ORDERABLES F inal Result [facility] [place] [employer] [place] [place] [address] * (ABNORMAL) HSV 2 IgG Antibody Blood (09/23/2024 1:16 PM CDT) [facility] HSV 2 IgG Reactive( A) Nonreactive Comment: Interpretive Data 1. Nonreactive: No detectable IgG antibody to HSV-2. 2. Equivocal: Presence or absence of detectable antibodies to HSV-2 cannot be determined and the test should be repeated. 3. Reactive: Indicates presence of detectable IgG antibody to HSV-2. Current interpretive data was last revised on 2022. Blood 09/23/2024 1:16 PM CDT 09/23/2024 2:43 PM CDT Francy Benito MD LAB MICROBIOLOGY - GEN ERAL ORDERABLES Final Result Performing Organization Address [facility] [place] [address] * (ABNORMAL) HSV 1 IgG Antibody Blood (09/23/2024 1:16 PM CDT) [facility] HSV 1 IgG Reactive( A) Nonreactive Comment: Interpretive Data 1. Nonreactive: No detectable IgG antibody to HSV-1. 2. Equivocal: Presence or absence of detectable antibodies to HSV-1 cannot be determined and the test should be repeated. 3. Reactive: Indicates presence of detectable IgG antibody to HSV-1. Current interpretive data was last revised on 2016. Blood 09/23/2024 1:16 PM CDT 09/23/2024 2:43 PM CDT Francy Benito MD LAB MICROBIOLOGY - GEN ERAL ORDERABLES Final Result Performing Organization Address City/[facility] Co de Phone Number [facility] [place] [employer] [place] [address] * Sickle cell screen (09/23/2024 1:16 PM CDT) Pathologist [facility] Sickle cell, solubility Negative Negative Comment: Interpretive Data A positive sickle cell screening test is not sufficient to diagnose the presence of hemoglobin S since other rare hemoglobins may produce a positive turbidity test and false positive results may occur in the presence of dysglobulinemias. Recommend confirmation of a positive test result by ordering hemoglobin analysis performed by capillary electrophoresis if clinically indicated. Current interpretive data was last revised on 2019. Blood 09/23/2024 1:16 PM CDT 09/23/2024 2:44 PM CDT Francy Benito MD LAB BLOOD ORDERABLES F inal Result Performing Organization Address [facility] de Phone Number [facility] Department [place] [employer] [place] [address] * aPTT (09/23/2024 1:16 PM CDT) [facility] aPTT 28 28 - 38 sec Comment: Interpretive Data Heparin therapeutic range: 66.0 - 100.0 seconds. Range based on correlation with therapeutic heparin activity range of 0.3 - 0.7 Units/mL. Current interpretive data was last revised on 2023. Blood 09/23/2024 1:16 PM CDT 09/23/2024 1:40 PM CDT Francy Benito MD LAB BLOOD ORDERABLES F inal Result Performing Organization Address [facility] de Phone Number [facility] [place] [employer] [place] [place] [address] * Protime-INR (09/23/2024 1:16 PM CDT) [facility] PT 10.7 9.7 - 13.0 sec INR 0.99 0.90 - 1.20 [facility] Comment: Interpretive data Oral anticoagulant therapeutic ranges: Venous thromboembolism prophylaxis or treatment: 2.0-3.0 CARDIOLOGY Standard range: 2.0-3.0 High-intensity range: 2.5-3.5 Refer to indication-specific guidelines for appropriate target ranges for prosthetic heart valve replacement. Current interpretive data was last revised on 2019. Blood 09/23/2024 1:16 PM CDT 09/23/2024 1:40 PM CDT Francy Benito MD LAB BLOOD ORDERABLES F inal Result Performing Organization Address [facility] [place] [address] * Type and screen (09/23/2024 1:16 PM CDT) Jacob, indirect Negative ABO Rh A Positive [facility] Blood 09/23/2024 1:16 PM CDT 09/23/2024 1:35 PM CDT Narrative [facility] - 09/23/2024 2:36 PM CDT Has the patient had Daratumumab or Isatuximab in the past 6 months?->Unknown Francy Benito MD LAB BLOOD BANK TEST OR DERABLES Final Result Performing Organization Address [facility] [place] [address] * Uric acid (09/23/2024 1:16 PM CDT) Uric acid 7.2 3.0 - 8.0 mg/dL Blood 09/23/2024 1:16 PM CDT 09/23/2024 1:29 PM CDT Francy Benito MD LAB BLOOD ORDERABLES F inal Result Performing Organization Address [facility] [place] [address] * Magnesium (09/23/2024 1:16 PM CDT) Magnesium 2.2 1.4 - 2.5 mg/dL Blood 09/23/2024 1:16 PM CDT 09/23/2024 1:29 PM CDT Francy Benito MD LAB BLOOD ORDERABLES F inal Result Performing Organization Address [facility] [place] [address] * (ABNORMAL) Hemoglobin A1c (09/23/2024 1:16 PM CDT) [facility] Hgb A1C 5.7(H) 4.0 - 5.6 % Estimated Average Glucose 117 mg/dL [facility] Comment: The ADA recommends reporting an estimated Average Glucose (eAG) with all Hemoglobin A1c results using the equation derived from a study of 507 normal and diabetic adults. Minority populations were underrepresented and children were not included. (Diabetes Care 2020; 43(S1): S66-S76). The eAG is not equivalent to a fasting glucose. Blood 09/23/2024 1:16 PM CDT 09/23/2024 1:31 PM CDT Result [facility] Francy Benito MD LAB BLOOD ORDERABLES F inal Result Performing Organization Address [facility] [place] [address] * (ABNORMAL) Lipid panel (09/23/2024 1:16 PM CDT) [facility] Cholesterol 169 30 - 199 mg/dL Comment: Interpretive Data Ages < or = 19 years Acceptable: <170 mg/dL Borderline high: 170-199 mg/dL High: >or= 200 mg/dL Ages > or = 20 years Desirable: <200 mg/dL Borderline high: 200-239 mg/dL High: >or= 240 mg/dL Literature References: 1. Expert Panel on Integrated Guidelines for Cardiovascular Health and Risk Reduction in Children and Adolescents. Pediatrics 2011;128:S213 2. NCEP Expert Panel. Circulation 2004;110:227 Current Interpretive Data was last revised on 2018. Triglycerides 259(H) <=149 mg/dL [facility] Comment: Interpretive Data Ages < or = 9 years Acceptable: <75 mg/dL Borderline high: 75-99 mg/dL High: >or= 100 mg/dL Ages 10 to 20 years Acceptable: <90 mg/dL Borderline high: 90-129 mg/dL High: >or= 130 mg/dL Ages > or = 20 years Desirable: <150 mg/dL Borderline high: 150-199 mg/dL High: 200-499 mg/dL Very high: >or= 499 mg/dL Literature References: 1. Expert Panel on Integrated Guidelines for Cardiovascular Health and Risk Reduction in Children and Adolescents. Pediatrics 2011;128:S213 2. NCEP Expert Panel. Circulation 2004;110:227 Current Interpretive Data was last revised on 2018. HDL 23(L) >=40 mg/dL [facility] Comment: Interpretive Data Ages < or = 19 years Acceptable: >45 mg/dL Borderline low: 40-45 mg/dL Low: <40 mg/dL Ages > or = 20 years Desirable: >or= 60 mg/dL Low: <40 mg/dL Literature References: 1. Expert Panel on Integrated Guidelines for Cardiovascular Health and Risk Reduction in Children and Adolescents. Pediatrics 2011;128:S213 2. NCEP Expert Panel. Circulation 2004;110:227 Current Interpretive Data was last revised on 2018. LDL, calculated 101 <=129 mg/dL [facility] Comment: Interpretive Data Ages < or = 19 years Acceptable: <110 mg/dL Borderline high: 110-129 mg/dL High: >or= 130 mg/dL Ages > or = 20 years Optimal: <100 mg/dL Near optimal: 100-129 mg/dL Borderline high: 130-159 mg/dL High: >160 mg/dL Calculated using the [place] LDL-C estimating equation. This equation was implemented on 2024. Prior to this date LDL-C was estimated using the Friedewald equation. Literature References: 1. Expert Panel on Integrated Guidelines for Cardiovascular Health and Risk Reduction in Children and Adolescents. Pediatrics 2011;128:S213 2. NCEP Expert Panel. Circulation 2004;110:227 3. Mccormack M et al. QUETA Cardiol. 2019September 30;5(5):540-548. doi: [email or web address] Current Interpretive Data was last revised on 2024. Non-HDL Cholesterol 146 mg/dL [facility] Comment: Interpretive Data Ages < or = 19 years Acceptable: <120 mg/dL Borderline high: 120-144 mg/dL High: >145 mg/dL Ages > or = 20 years When triglycerides are >200 mg/dL, Non-HDL cholesterol is a secondary target of therapy with treatment goals that are 30 mg/dL greater than the LDL cholesterol target. Literature References: 1. Expert Panel on Integrated Guidelines for Cardiovascular Health and Risk Reduction in Children and Adolescents. Pediatrics 2011;128:S213 2. NCEP Expert Panel. Circulation 2004;110:227 Current Interpretive Data was last revised on 2018. Chol/HDL ratio 7 [facility] Blood 09/23/2024 1:16 PM CDT 09/23/2024 1:29 PM CDT Francy Benito MD LAB BLOOD ORDERABLES F inal Result [facility] [place] [address] * Comprehensive metabolic panel (09/23/2024 1:16 PM CDT) Sodium 138 135 - 145 mmol/L Potassium, pl 3.9 3.3 - 4.9 mmol/L [facility] Chloride 102 97 - 110 mmol/L [facility] CO2 25 22 - 32 mmol/L [facility] Anion gap 11 2 - 15 mmol/L [facility] BUN 17 6 - 25 mg/dL [facility] Creatinine 0.98 0.80 - 1.30 mg/dL [facility] Glucose 169 70 - 199 mg/dL [facility] Comment: Interpretive Data Fasting glucose >/= 126 mg/dl is diagnostic for diabetes. Fasting is defined as no caloric intake for at least 8 hours. Fasting glucose between 100 mg/dl to 125 mg/dl is diagnostic of prediabetes. In a patient with classic symptoms of hyperglycemia or hyperglycemic crisis, a random glucose >/= 200 mg/dl is diagnostic for diabetes. In the absence of unequivocal hyperglycemia, results should be confirmed by repeat testing. The classification and Diagnosis of Diabetes Diabetes Care 2021; 46: S19-S40. Current interpretive data was last revised 2022. Calcium 9.4 8.5 - 10.3 mg/dL [facility] Bilirubin, total 0.5 0.1 - 1.2 mg/dL [facility] Protein, pl 7.2 6.5 - 8.5 g/dL [facility] Albumin 4.0 3.5 - 5.0 g/dL [facility] Alk phos 101 40 - 130 Units/L [facility] ALT 19 7 - 55 Units/L [facility] 27 10 - 50 Units/L [facility] Blood 09/23/2024 1:16 PM CDT 09/23/2024 1:29 PM CDT Francy Benito MD LAB BLOOD ORDERABLES F inal Result [facility] [place] [address] * ECG 12 lead (09/23/2024 11:31 AM CDT) Pathologist [facility] Ventricular Rate EKG/Min 86 BPM [facility] Atrial Rate 86 BPM [facility] CA-Interval (MSEC) 166 ms [facility] QRS-Interval (MSEC) 84 ms [facility] QT-Interval (MSEC) 374 ms [facility] QTc 447 ms [facility] P [place] 27 degrees [facility] R [place] 47 degrees [facility] T [place] 11 degrees [facility] Diagnosis Normal sinus rhythm Possible Inferior infarct , age undetermined Cannot rule out Anterior infarct (cited on or before 23-SEP-2024) Abnormal ECG When compared with ECG of 02-MAR-2024 15:04, Nonspecific T wave abnormality no longer evident in Anterior leads Confirmed by LEA NICKERSON M.D ([id number]) on 09/24/2024 1:54:23 PM [facility] 09/23/2024 11:3 1 AM CDT 09/24/2024 1:54 PM CDT Francy Benito MD ECG ORDERABLES Final Result [facility] * XR Chest Pa Lateral 2 Views (09/23/2024 11:13 AM CDT) Anatomical Region Laterality Modality Body, Chest N/A Computed Radiogr aphy 09/23/2024 11:3 0 AM CDT Impressions 09/23/2024 11:38 AM CDT Comparison PET dated 09/15/2024. A right internal jugular catheter is in place, tip overlies the superior cavoatrial junction. Lungs are clear. No pulmonary edema or consolidation. No pleural effusion or pneumothorax. Normal cardiomediastinal silhouette. Dictated by: France Clay MD The radiology attending physician has personally reviewed this study, and had reviewed and/or edited this written report and agrees with it. Electronically signed by: Irene Patton M.D. Narrative 09/23/2024 11:38 AM CDT EXAMINATION: 2 view chest radiograph Procedure Note Irene Patton MD - 09/23/2024 EXAMINATION: 2 view chest radiograph IMPRESSION: Comparison PET dated 09/15/2024. A right internal jugular catheter is in place, tip overlies the superior cavoatrial junction. Lungs are clear. No pulmonary edema or consolidation. No pleural effusion or pneumothorax. Normal cardiomediastinal silhouette. Dictated by: France Clay MD The radiology attending physician has personally reviewed this study, and had reviewed and/or edited this written report and agrees with it. Electronically signed by: Irene Patton M.D. Francy Benito MD IMG XR PROCEDURES Narda l Result * Pulmonary Function Test - (09/23/2024 10:28 AM CDT) FVC PRE 3.10 L [facility] FVC %PRE PRED 58 % [facility] FVC POST 3.37 L [facility] FVC %POST PRED 63 % [facility] FEV1 PRE 2.68 L [facility] FEV1 %PRE PRED 64 % [facility] FEV1 POST 2.61 L [facility] FEV1 %POST PRED 62 % [facility] FEV1/FVC PRE 86.3 % [facility] FEV1/FVC POST 77.3 % [facility] FRC PL PRE 2.61 L [facility] FRC PL %PRE PRED 66 % [facility] RV PRE 1.40 L [facility] RV %PRE PRED 64 % [facility] TLC PRE 4.85 L [facility] TLC %PRE PRED 64 % [facility] DLCO PRE 19.2 ml/min/mmH g [facility] DLCO %PRE PRED 59 % [facility] Anatomical Region Laterality Modality PFT 09/23/2024 10:0 8 AM CDT Impressions 09/24/2024 8:41 AM CDT There is a moderate restrictive ventilatory defect. There is mild impairment of alveolar gas exchange by DLCO. Compared with study dated 04.14.2024 , there has been significant interval worsening of the FVC by 390 ml. Compared with study dated 04.14.2024 , there has been significant interval worsening of the FEV1 by 320 ml. The attending pulmonary physician certifies a physician presence in the [facility] during the administration of aerosolized bronchodilator. The attending pulmonary physician certifies that he/she has reviewed and interpreted the graphic and numerical data of this pulmonary function study and agrees with the written final report. The lower limit of normal for PO2 and %HbO2 is age dependent. However, the [facility] Pulmonary Function Laboratory defines hypoxemia as a PO2 <55 or a %HbO2 <89. Starting on June 2024 the [facility] Pulmonary Function Laboratory utilizes race neutral [employer] normative equations. Narrative 09/24/2024 8:41 AM CDT PFT performed at:->[facility] Adult PFT Lab- [facility]-8D Procedure:->Spirometry with Bronchodilator Procedure:->Lung Volumes Procedure:->DLCO Procedure:->Airway Resistance Lung Volumes via:->Pleth with Airway Resistance DLCO:->Spirometry Pulmonary Function Test Interpretation SPIROMETRY: The FEVI to FVC ratio is normal. The FEV-I and FVC are reduced in a pattern suggestive of a restrictive abnormality. There is no significant airways reactivity to the administration of methacholine. FLOW VOLUME LOOPS: The inspiratory loop is appropriate for the expiratory flow abnormality. LUNG VOLUMES: TLC measured by plethysmography is decreased. DIFFUSING CAPACITY: The diffusing capacity is decreased. The diffusing capacity corrected for hemoglobin level (DLCO ADJ) is mildly decreased. Francy Benito MD PFT ORDERABLES Final Result * PET/CT FDG Skull to Thigh (09/15/2024 10:53 AM CDT) Anatomical Region Laterality Modality N/A Positron Emissio n Tomography (PET) 09/15/2024 2:40 PM CDT Impressions 09/15/2024 4:57 PM CDT 1. Multiple new, enlarging, particularly FDG-avid lymph nodes above and below the diaphragm are suspicious for progressive lymphoma. The most FDG-avid lymph node in the left axilla, as well as several left cervical lymph nodes, would be amenable to percutaneous ultrasound-guided biopsy. 2. Diffuse marrow FDG uptake compatible with recent colony-stimulating factor administration, which limits evaluation for underlying osseous lesion. 3. Based on the appearance of a new lesion suspected to represent lymphoma, 5PS = 5. 4. Indeterminate non-FDG avid 1.0 cm left interpolar exophytic renal lesion. Further evaluation with a dedicated renal ultrasound or MRI is recommended to evaluate etiology. The 5PS score is most useful in lymphoma types that are routinely FDG-avid. Lymphomas can be roughly grouped as follows: * Routinely FDG-avid: Hodgkin lymphoma, diffuse large B-cell lymphomas, follicular lymphoma, mantle cell lymphoma, nicki peripheral T-cell lymphoma, lymphoblastic lymphoma, and Burkitt lymphoma. * Generally not FDG-avid: Small lymphocytic lymphoma and chronic lymphocytic leukemia * Variably FDG-avid (both varying between patients and between lesions): Marginal-zone lymphomas and some T-cell lymphomas, notably cutaneous T-cell lymphomas Caution should be used when applying the 5PS score in the second and third categories above. Dictated by: Donnell Tiwari M.D. The radiology attending physician has personally reviewed this study, and had reviewed and/or edited this written report and agrees with it. Electronically signed by: Ramandeep Whaley M.D. Narrative 09/15/2024 4:57 PM CDT EXAMINATION: TUMOR FDG-PET/CT IMAGING DATE OF STUDY: 09/15/2024 SCANNER: [facility] [employer] (SQ1). This is a high-resolution scanner, which can result in higher SUVs (and even detection of previously unrecognized small lesions) compared to older scanners. RADIOPHARMACEUTICAL: 7.7 mCi F-18 Fluorodeoxyglucose (FDG) i.v. Injection site: Right chest wall port HISTORY: A 49-year-old man with mantle cell lymphoma diagnosed in 2022, being treated with acalabrutinib. The patient is also receiving colony-stimulating factor. The study is requested for treatment monitoring during therapy. Subsequent treatment strategy. TECHNIQUE: The patient's fasting blood glucose level, measured by glucometer before injection of FDG, was 85 mg/dL. After intravenous administration of FDG, noncontrast CT images were obtained for attenuation correction and for fusion with emission PET images to allow for anatomical localization of PET findings. Emission PET images were then obtained. The study was interpreted on the [employer] workstation. The mean liver SUV (reported for quality control checker purposes) is 3.4. The total scanned area was skull vertex to proximal thighs. Images of the body were obtained starting 57 minutes after injection of tracer. All reported SUVs are maximum SUVs, unless otherwise specified. COMPARISON: 06/09/2024 DESCRIPTORS OF LESION FDG AVIDITY: Minimal: <= blood pool Mild: > blood pool and <= liver Moderate: > liver and <= 2x SUVmax liver Moderate to marked: >2x SUVmax liver and <= 3x SUVmax liver Marked: > 3x SUVmax liver FINDINGS: New marked marrow uptake in the axial and proximal appendicular skeleton appears to spare the lower lumbar spine and forearms. There are areas of more nodular uptake, such as in the posterior right 8th rib on axial image 137 and in the bilateral femoral diaphyses. There is an interval increase in size, number, and FDG uptake of the left greater than the right axillary lymph nodes; for reference, a 17 mm short axis left axillary lymph node on image 108 demonstrates maximum SUV 22.3, previously 3 mm short axis with maximal SUV 3.7. Additionally, there are enlarged and FDG avid bilateral cervical, left subpectoral, and inguinal or iliac left supraclavicular, left internal mammary chain, retroperitoneal, peripancreatic, mesenteric, bilateral iliac/inguinal chain lymph nodes; for reference, a new 16 mm short axis periaortic lymph node on image 195 with maximum SUV 19.2. A peripancreatic conglomerate measuring 3.8 cm on image 191 demonstrates a maximum SUV 19.4. No significant change in FDG uptake of an ill-defined mass centered in the right lobe of the thyroid gland with maximum SUV 5.3, previously 6.5. Unchanged size of an expansile hypermetabolic lesion in the left C3-C4 neural foramen likely representing a schwannoma. The most FDG-avid lesion is a left axillary lymph node, with a maximum SUV of 22.3, and approximate axial dimensions of 17 mm short axis. The uptake in this lesion is new, with uptake greater than liver, and is classified as 5PS=5, suggesting progression. Additional lesions that might be amenable to biopsy: Left axillary and left cervical lymphadenopathy. A 1 cm left lateral interpolar exophytic dense renal lesion. Additional CT findings: Prominent calcifications of the bilateral basal ganglia and cerebellar nuclei. A right internal jugular venous approach port catheter terminates at the superior cavoatrial junction. 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 Colonic diverticula without acute diverticulitis. Procedure Note Ramandeep Whaley MD - 09/15/2024 EXAMINATION: TUMOR FDG-PET/CT IMAGING DATE OF STUDY: 09/15/2024 SCANNER: [facility] [employer] (SQ1). This is a high-resolution scanner, which can result in higher SUVs (and even detection of previously unrecognized small lesions) compared to older scanners. RADIOPHARMACEUTICAL: 7.7 mCi F-18 Fluorodeoxyglucose (FDG) i.v. Injection site: Right chest wall port HISTORY: A 49-year-old man with mantle cell lymphoma diagnosed in 2022, being treated with acalabrutinib. The patient is also receiving colony-stimulating factor. The study is requested for treatment monitoring during therapy. Subsequent treatment strategy. TECHNIQUE: The patient's fasting blood glucose level, measured by glucometer before injection of FDG, was 85 mg/dL. After intravenous administration of FDG, noncontrast CT images were obtained for attenuation correction and for fusion with emission PET images to allow for anatomical localization of PET findings. Emission PET images were then obtained. The study was interpreted on the [employer] workstation. The mean liver SUV (reported for quality control checker purposes) is 3.4. The total scanned area was skull vertex to proximal thighs. Images of the body were obtained starting 57 minutes after injection of tracer. All reported SUVs are maximum SUVs, unless otherwise specified. COMPARISON: 06/09/2024 DESCRIPTORS OF LESION FDG AVIDITY: Minimal: <= blood pool Mild: > blood pool and <= liver Moderate: > liver and <= 2x SUVmax liver Moderate to marked: >2x SUVmax liver and <= 3x SUVmax liver Marked: > 3x SUVmax liver FINDINGS: New marked marrow uptake in the axial and proximal appendicular skeleton appears to spare the lower lumbar spine and forearms. There are areas of more nodular uptake, such as in the posterior right 8th rib on axial image 137 and in the bilateral femoral diaphyses. There is an interval increase in size, number, and FDG uptake of the left greater than the right axillary lymph nodes; for reference, a 17 mm short axis left axillary lymph node on image 108 demonstrates maximum SUV 22.3, previously 3 mm short axis with maximal SUV 3.7. Additionally, there are enlarged and FDG avid bilateral cervical, left subpectoral, and inguinal or iliac left supraclavicular, left internal mammary chain, retroperitoneal, peripancreatic, mesenteric, bilateral iliac/inguinal chain lymph nodes; for reference, a new 16 mm short axis periaortic lymph node on image 195 with maximum SUV 19.2. A peripancreatic conglomerate measuring 3.8 cm on image 191 demonstrates a maximum SUV 19.4. No significant change in FDG uptake of an ill-defined mass centered in the right lobe of the thyroid gland with maximum SUV 5.3, previously 6.5. Unchanged size of an expansile hypermetabolic lesion in the left C3-C4 neural foramen likely representing a schwannoma. The most FDG-avid lesion is a left axillary lymph node, with a maximum SUV of 22.3, and approximate axial dimensions of 17 mm short axis. The uptake in this lesion is new, with uptake greater than liver, and is classified as 5PS=5, suggesting progression. Additional lesions that might be amenable to biopsy: Left axillary and left cervical lymphadenopathy. A 1 cm left lateral interpolar exophytic dense renal lesion. Additional CT findings: Prominent calcifications of the bilateral basal ganglia and cerebellar nuclei. A right internal jugular venous approach port catheter terminates at the superior cavoatrial junction. 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 Colonic diverticula without acute diverticulitis. IMPRESSION: 1. Multiple new, enlarging, particularly FDG-avid lymph nodes above and below the diaphragm are suspicious for progressive lymphoma. The most FDG-avid lymph node in the left axilla, as well as several left cervical lymph nodes, would be amenable to percutaneous ultrasound-guided biopsy. 2. Diffuse marrow FDG uptake compatible with recent colony-stimulating factor administration, which limits evaluation for underlying osseous lesion. 3. Based on the appearance of a new lesion suspected to represent lymphoma, 5PS = 5. 4. Indeterminate non-FDG avid 1.0 cm left interpolar exophytic renal lesion. Further evaluation with a dedicated renal ultrasound or MRI is recommended to evaluate etiology. The 5PS score is most useful in lymphoma types that are routinely FDG-avid. Lymphomas can be roughly grouped as follows: * Routinely FDG-avid: Hodgkin lymphoma, diffuse large B-cell lymphomas, follicular lymphoma, mantle cell lymphoma, nicki peripheral T-cell lymphoma, lymphoblastic lymphoma, and Burkitt lymphoma. * Generally not FDG-avid: Small lymphocytic lymphoma and chronic lymphocytic leukemia * Variably FDG-avid (both varying between patients and between lesions): Marginal-zone lymphomas and some T-cell lymphomas, notably cutaneous T-cell lymphomas Caution should be used when applying the 5PS score in the second and third categories above. Dictated by: Donnell Tiwari M.D. The radiology attending physician has personally reviewed this study, and had reviewed and/or edited this written report and agrees with it. Electronically signed by: Ramandeep Whaley M.D. Sarah Simon 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 IMG PET PROCEDURES Final Resul t * eGFR (09/15/2024 10:28 AM CDT) eGFR >90 >=60 mL/min/1. 73 m2 Comment: Interpretive Data Reference Interval Normal >/= 90 mL/min/1.73m2 Mildly decreased* 60 - 89 mL/min/1.73m2 Mildly to moderately decreased 45 - 59 mL/min/1.73m2 Moderately to severely decreased 30 - 44 mL/min/1.73m2 Severely decreased 15 - 29 mL/min/1.73m2 Kidney Failure < 15 mL/min/1.73m2 *Relative to young adult level Estimated glomerular filtration rate is determined by the 2020 CKD-EPI equation recommended by the National Kidney Foundation (A Unifying Approach to GFR Estimation: Recommendations of the NKF-ASK Task Force on Reassessing the Inclusion of Race in Diagnosing Kidney Disease, JASN 2020). The CKD-EPI equation should not be used for patients with unstable renal function and has not been validated in children and those over 70. Current interpretive data was last reviewed 2021. Blood 09/15/2024 10:2 8 AM CDT 09/15/2024 10:45 AM CDT us Sarah Simon 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 LAB BLOOD ORDERABLES Final Res ult LD SWEET [facility] [place] [address] * (ABNORMAL) CBC with auto differential (09/15/2024 10:28 AM CDT) WBC 8.68 3.80 - 9.90 K/cumm Comment:Testing performed by : [facility], [address] [place] [address] Hgb 13.6 13.0 - 17.5 g/dL LD SWEET Comment:Testing performed by : [facility], [address] [place] [address] Hct 40.3 38.9 - 50.3 % LD SWEET Comment:Testing performed by : [facility], [address] [place] [address] Plt 262 150 - 400 K/cumm LD SWEET Comment:Testing performed by : [facility], [address] [place] [address] MPV 8.7 6.8 - 10.4 fL LD SWEET Comment:Testing performed by : [facility], [address] [place] [address] RBC 4.11(L) 4.30 - 5.80 M/cumm LD SWEET Comment:Testing performed by : [facility], [address] [place] [address] MCV 98.1(H) 81.3 - 96.4 fL LD SWEET Comment:Testing performed by : [facility], [address] [place] [address] MCH 33.1 27.1 - 33.3 pg LD SWEET Comment:Testing performed by : [facility], [address] [place] [address] MCHC 33.7 32.3 - 35.7 g/dL LD SWEET Comment:Testing performed by : [facility], [address] [place] [address] RDW CV 15.0(H) 11.1 - 14.9 % LD [facility] Comment:Testing performed by : [facility], [address] [place] [address] NRBC abs 0.00 0.00 - 0.01 K/cumm LD [facility] Comment:Testing performed by : [facility], [address] [place] [address] Blood 09/15/2024 10:2 8 AM CDT 09/15/2024 10:37 AM CDT Sarah Simon 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 LAB BLOOD ORDERABLES Edited Re williamt - Final LD [facility] Department of Laboratories [place], [place] [id number] * (ABNORMAL) Manual Differential (09/15/2024 10:28 AM CDT) Cells Counted 198 Comment:Testing performed by : [facility], [address] [place] [address] Neutrophil abs 5.38 1.50 - 6.50 K/cumm LD SWEET Comment:Testing performed by : [facility], [address] [place] [phone] Lymphocyte abs 2.00 0.80 - 3.30 K/cumm [facility] Comment:Testing performed by : [facility], [address] [place], [place] [phone] Monocyte abs 0.52 0.20 - 0.80 K/cumm [facility] Comment:Testing performed by : [facility], [address] [place], [place] [phone] Eosinophil abs 0.26 0.00 - 0.50 K/cumm [facility] Comment:Testing performed by : [facility], [address] [place], [place] [phone] Basophil abs 0.09 0.00 - 0.10 K/cumm [facility] Comment:Testing performed by : [facility], [address] [place], [place] [phone] Neutrophil pct 62.0 % [facility] Comment: Interpretive Data Percent cell count reference ranges are not reported, since discordance with absolute values may lead to misinterpretation of CBC data. Current Interpretive Data was last revised on 2017. Testing performed by: [facility], [address] [place] [phone] Lymphocyte pct 23.0 % [facility] Comment: Interpretive Data Percent cell count reference ranges are not reported, since discordance with absolute values may lead to misinterpretation of CBC data. Current Interpretive Data was last revised on 2017. Testing performed by: [facility], [address] [place] [phone] Monocyte pct 6.0 % [facility] Comment: Interpretive Data Percent cell count reference ranges are not reported, since discordance with absolute values may lead to misinterpretation of CBC data. Current Interpretive Data was last revised on 2017. Testing performed by: [facility], [address] [place] [phone] Eosinophil pct 3.0 % [facility] Comment: Interpretive Data Percent cell count reference ranges are not reported, since discordance with absolute values may lead to misinterpretation of CBC data. Current Interpretive Data was last revised on 2017. Testing performed by: [facility], [address] [place] [address] Basophil pct 1.0 % [facility]ER [facility] Comment: Interpretive Data Percent cell count reference ranges are not reported, since discordance with absolute values may lead to misinterpretation of CBC data. Current Interpretive Data was last revised on 2017. Testing performed by: [facility], [address] [place], [place] [phone] Myelocyte pct 2.0(H) 0.0 - 0.0 % [facility] Comment:Testing performed by : [facility], [address] [place] [phone] Promyelocyte pct 1.0(H) 0.0 - 0.0 % [facility] Comment:Testing performed by : [facility], [address] [place] [phone] Variant lymph pct 3.0(H) 0.0 - 0.0 % [facility] Comment:Testing performed by : [facility], [address] [place], [place] [phone] Anisocytosis 1+(A) [facility] Comment:Testing performed by : [facility], [address] [place], [place] [phone] Poikilocytosis 1+(A) [facility] Comment:Testing performed by : [facility], [address] [place], [place] [phone] Macrocytes 1+(A) [facility] Comment:Testing performed by : [facility], [address] [place], [place] [phone] Elliptocytes 1+(A) [facility] Comment:Testing performed by : [facility], [address] [place], [place] [phone] Target cells 1+(A) [facility] Comment:Testing performed by : [facility], [address] [place], [place] [phone] Echinocytes 1+(A) [facility] Comment:Testing performed by : [facility], [address] [place] [phone] Platelet estimate Adequate [facility] Comment:Testing performed by : [facility], [address] [place] [phone] Blood 09/15/2024 10:2 8 AM CDT 09/15/2024 10:37 AM CDT Sarah Simon 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 LAB BLOOD ORDERABLES Final Res ult Performing Organization Address City/[facility] Co de Phone Number [facility] [place] [address] * Lactate dehydrogenase (LD) (09/15/2024 10:28 AM CDT) Pathologist [facility] Lactate dehydrogenase (LDH) 194 100 - 250 Units/L Blood 09/15/2024 10:2 8 AM CDT 09/15/2024 10:45 AM CDT Sarah Simon 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 LAB BLOOD ORDERABLES Final Res ult Performing Organization Address [facility] Co de Phone Number [facility] [place] [address] * IgG (09/15/2024 10:28 AM CDT) Immunoglobulin G 804 700 - 1,600 mg/dL Blood 09/15/2024 10:2 8 AM CDT 09/15/2024 1:02 PM CDT Francy Benito MD LAB BLOOD ORDERABLES F inal Result Performing Organization Address City/[facility] [place] [address] * Comprehensive metabolic panel (09/15/2024 10:28 AM CDT) Sodium 143 135 - 145 mmol/L Potassium, pl 4.3 3.3 - 4.9 mmol/L [facility] Chloride 106 97 - 110 mmol/L [facility] CO2 27 22 - 32 mmol/L [facility] Anion gap 10 2 - 15 mmol/L [facility] BUN 17 6 - 25 mg/dL [facility] Creatinine 1.02 0.80 - 1.30 mg/dL [facility] Glucose 80 70 - 199 mg/dL [facility] Comment: Interpretive Data Fasting glucose >/= 126 mg/dl is diagnostic for diabetes. Fasting is defined as no caloric intake for at least 8 hours. Fasting glucose between 100 mg/dl to 125 mg/dl is diagnostic of prediabetes. In a patient with classic symptoms of hyperglycemia or hyperglycemic crisis, a random glucose >/= 200 mg/dl is diagnostic for diabetes. In the absence of unequivocal hyperglycemia, results should be confirmed by repeat testing. The classification and Diagnosis of Diabetes Diabetes Care 2021; 46: S19-S40. Current interpretive data was last revised 2022. Calcium 9.4 8.5 - 10.3 mg/dL [facility] Bilirubin, total 0.6 0.1 - 1.2 mg/dL [facility] Protein, pl 7.0 6.5 - 8.5 g/dL [facility] Albumin 4.1 3.5 - 5.0 g/dL [facility] Alk phos 102 40 - 130 Units/L [facility] ALT 25 7 - 55 Units/L [facility] AST 27 10 - 50 Units/L [facility] Blood 09/15/2024 10:2 8 AM CDT 09/15/2024 10:45 AM CDT us Sarah Simon NP LAB BLOOD ORDERABLES Final Res ult [facility] [place] [address] * eGFR (08/18/2024 8:12 AM CDT) eGFR >90 >=60 mL/min/1. 73 m2 Comment: Interpretive Data Reference Interval Normal >/= 90 mL/min/1.73m2 Mildly decreased* 60 - 89 mL/min/1.73m2 Mildly to moderately decreased 45 - 59 mL/min/1.73m2 Moderately to severely decreased 30 - 44 mL/min/1.73m2 Severely decreased 15 - 29 mL/min/1.73m2 Kidney Failure < 15 mL/min/1.73m2 *Relative to young adult level Estimated glomerular filtration rate is determined by the 2020 CKD-EPI equation recommended by the National Kidney Foundation (A Unifying Approach to GFR Estimation: Recommendations of the NKF-ASK Task Force on Reassessing the Inclusion of Race in Diagnosing Kidney Disease, JASN 2020). The CKD-EPI equation should not be used for patients with unstable renal function and has not been validated in children and those over 70. Current interpretive data was last reviewed 2021. Blood 08/18/2024 8:12 AM CDT 08/18/2024 8:21 AM CDT Sarah Simon 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 LAB BLOOD ORDERABLES Final Res ult [facility] [place] [address] * Differential, auto (08/18/2024 8:12 AM CDT) Neutrophil abs 2.6 1.5 - 6.5 K/cumm Comment:Testing performed by : [facility], [address] [place] [phone] Lymphocyte abs 1.7 0.8 - 3.3 K/cumm [facility] Comment:Testing performed by : [facility], [address] [place] [phone] Monocyte abs 0.4 0.2 - 0.8 K/cumm LD [facility] Comment:Testing performed by : [facility], [address] [place] [phone] Eosinophil abs 0.5 0.0 - 0.5 K/cumm LD [facility] Comment:Testing performed by : [facility], [address] [place] [phone] Basophil abs 0.1 0.0 - 0.1 K/cumm [facility] Comment:Testing performed by : [facility], [address] [place] [phone] Neutrophil pct 48.8 % [facility] Comment: Interpretive Data Percent cell count reference ranges are not reported, since discordance with absolute values may lead to misinterpretation of CBC data. Current Interpretive Data was last revised on 2017. Testing performed by: [facility], [address] [place], [place] [phone] Lymphocyte pct 32.7 % [facility] Comment: Interpretive Data Percent cell count reference ranges are not reported, since discordance with absolute values may lead to misinterpretation of CBC data. Current Interpretive Data was last revised on 2017. Testing performed by: [facility], [address] [place] [phone] Monocyte pct 8.1 % [facility] Comment: Interpretive Data Percent cell count reference ranges are not reported, since discordance with absolute values may lead to misinterpretation of CBC data. Current Interpretive Data was last revised on 2017. Testing performed by: [facility], [address] [place], [place] [phone] Eosinophil pct 8.7 % [facility] Comment: Interpretive Data Percent cell count reference ranges are not reported, since discordance with absolute values may lead to misinterpretation of CBC data. Current Interpretive Data was last revised on 2017. Testing performed by: [facility], [address] [place] [phone] Basophil pct 1.7 % [facility] Comment: Interpretive Data Percent cell count reference ranges are not reported, since discordance with absolute values may lead to misinterpretation of CBC data. Current Interpretive Data was last revised on 2017. Testing performed by: [facility], [address] [place] [address] Blood 08/18/2024 8:12 AM CDT 08/18/2024 8:21 AM CDT [facility] SNatacha Clementon 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 LAB BLOOD ORDERABLES Final Res ult LD SWEET [facility] [place] [address] * (ABNORMAL) CBC with auto differential (08/18/2024 8:12 AM CDT) WBC 5.2 3.8 - 9.9 K/cumm Comment:Testing performed by : [facility], [address] [place] [address] Hgb 13.5 13.0 - 17.5 g/dL LD SWEET Comment:Testing performed by : [facility], [address] [place] [address] Hct 39.8 38.9 - 50.3 % LD SWEET Comment:Testing performed by : [facility], [address] [place] [address] Plt 314 150 - 400 K/cumm LD SWEET Comment:Testing performed by : [facility], [address] [place] [address] MPV 8.6 6.8 - 10.4 fL LD SWEET Comment:Testing performed by : [facility], [address] [place] [address] RBC 4.07(L) 4.30 - 5.80 M/cumm LD SWEET Comment:Testing performed by : [facility], [address] [place] [address] MCV 97.9(H) 81.3 - 96.4 fL CERJOSE MARTIN BJ Comment:Testing performed by : [facility], [address] [place] [address] MCH 33.3 27.1 - 33.3 pg CERJOSE MARTIN SWEET Comment:Testing performed by : [facility], [address] [place] [address] MCHC 34.0 32.3 - 35.7 g/dL CERJOSE MARTIN SWEET Comment:Testing performed by : [facility], [address] [place] [phone] RDW CV 14.8 11.1 - 14.9 % LD [facility] Comment:Testing performed by : [facility], [address] [place] [phone] NRBC abs 0.00 0.00 - 0.01 K/cumm LD [facility] Comment:Testing performed by : [facility], [address] [place] [phone] Blood 08/18/2024 8:12 AM CDT 08/18/2024 8:21 AM CDT us Smith S. Clementon 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 LAB BLOOD ORDERABLES Final Res ult Performing Organization Address [facility] Co de Phone Number [facility] [place] [employer] [place] [place] [address] * Lactate dehydrogenase (LD) (08/18/2024 8:12 AM CDT) Lactate dehydrogenase (LDH) 177 100 - 250 Units/L Blood 08/18/2024 8:12 AM CDT 08/18/2024 8:21 AM CDT us Sarah S. Clementon 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 LAB BLOOD ORDERABLES Final Res ult Performing Organization Address [facility] Co de Phone Number [facility] [place] [employer] [place] [address] * IgG (08/18/2024 8:12 AM CDT) Immunoglobulin G 819 700 - 1,600 mg/dL Blood 08/18/2024 8:12 AM CDT 08/18/2024 8:43 AM CDT Sarah S. Clementon 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 LAB BLOOD ORDERABLES Final Res ult Performing Organization Address [facility] Co de Phone Number [facility] [place] [address] * Comprehensive metabolic panel (08/18/2024 8:12 AM CDT) Sodium 143 135 - 145 mmol/L Potassium, pl 4.1 3.3 - 4.9 mmol/L [facility] Chloride 109 97 - 110 mmol/L [facility] CO2 26 22 - 32 mmol/L [facility] Anion gap 8 2 - 15 mmol/L [facility] BUN 16 6 - 25 mg/dL [facility] Creatinine 1.00 0.80 - 1.30 mg/dL [facility] Glucose 86 70 - 199 mg/dL [facility] Comment: Interpretive Data Fasting glucose >/= 126 mg/dl is diagnostic for diabetes. Fasting is defined as no caloric intake for at least 8 hours. Fasting glucose between 100 mg/dl to 125 mg/dl is diagnostic of prediabetes. In a patient with classic symptoms of hyperglycemia or hyperglycemic crisis, a random glucose >/= 200 mg/dl is diagnostic for diabetes. In the absence of unequivocal hyperglycemia, results should be confirmed by repeat testing. The classification and Diagnosis of Diabetes Diabetes Care 2021; 46: S19-S40. Current interpretive data was last revised 2022. Calcium 9.1 8.5 - 10.3 mg/dL [facility] Bilirubin, total 0.3 0.1 - 1.2 mg/dL [facility] Protein, pl 6.8 6.5 - 8.5 g/dL [facility] Albumin 4.1 3.5 - 5.0 g/dL [facility] Alk phos 92 40 - 130 Units/L [facility] ALT 27 7 - 55 Units/L [facility] AST 28 10 - 50 Units/L [facility] Blood 08/18/2024 8:12 AM CDT 08/18/2024 8:21 AM CDT us Sarah Edwardsr 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 LAB BLOOD ORDERABLES Final Res ult [facility] [place] [address] * Blood culture Blood Peripheral (08/16/2024 11:43 AM CDT) Report Final Report: No growth Blood (Peripheral) 08/16/2024 11:43 AM CDT 08/16/2024 12:18 PM CDT Narrative LD SWEET - 08/20/2024 4:00 PM CDT 1. Blood cultures are incubated for 4 days on a continuously monitored blood culture system. The first report of a negative culture is issued within 24 hours of receipt of the specimen in the laboratory. 2. Positive culture results are reported as soon as they are detected. 3. The most important factor for detection of microbes in the setting of bloodstream infection is the volume of blood submitted for culture. Failure to collect an optimal blood volume can result in false negative blood cultures. 4. For pediatric patients, the recommended blood volume to collect follows a weight based strategy. See the electronic test catalog for collection instructions. 5. For positive blood cultures, a rapid molecular test may be performed for organism identification using the [employer] e[employer]lex blood culture identification panel for gram positive (BCID-GP) and gram negative (BCID-GN) organisms. This nucleic acid amplification test detects microbial DNA in positive blood culture broth. This assay has been cleared by the [place] Food and Drug Administration and its performance characteristics have been verified by the [facility]. For questions about this culture, contact the Microbiology Laboratory at [phone]. Interpretive data was last revised on 24. Kelly Mauricio NP LAB MICROBIOLOGY - GENERA L ORDERABLES Final Result LD SWE[facility] Department of [place] [address] * Blood culture Blood Peripheral (08/16/2024 11:35 AM CDT) Report Final Report: No growth Blood (Peripheral) 08/16/2024 11:35 AM CDT 08/16/2024 12:18 PM CDT Narrative LD SWEET - 08/20/2024 4:00 PM CDT 1. Blood cultures are incubated for 4 days on a continuously monitored blood culture system. The first report of a negative culture is issued within 24 hours of receipt of the specimen in the laboratory. 2. Positive culture results are reported as soon as they are detected. 3. The most important factor for detection of microbes in the setting of bloodstream infection is the volume of blood submitted for culture. Failure to collect an optimal blood volume can result in false negative blood cultures. 4. For pediatric patients, the recommended blood volume to collect follows a weight based strategy. See the electronic test catalog for collection instructions. 5. For positive blood cultures, a rapid molecular test may be performed for organism identification using the [employer] ePlex blood culture identification panel for gram positive (BCID-GP) and gram negative (BCID-GN) organisms. This nucleic acid amplification test detects microbial DNA in positive blood culture broth. This assay has been cleared by the [place] Food and Drug Administration and its performance characteristics have been verified by the [facility]. For questions about this culture, contact the Microbiology Laboratory at [phone]. Interpretive data was last revised on 24. Kelly Mauricio NP LAB MICROBIOLOGY - GENERA L ORDERABLES Final Result [facility] [place] [address] * (ABNORMAL) Urinalysis reflex to microscopic and culture Urine, clean voided (08/16/2024 11:22 AM CDT) Color, ur Yellow Yellow Clarity, ur Clear Clear [facility] Specific gravity, ur 1.031(H) 1.003 - 1.030 [facility] pH, urine 5.5 [facility] Comment: Interpretive Data U rine pH is affected by diet, medications, systemic acid-base disturbances, and renal tubular function. pH may affect urinary stone formation. For example, urine pH below 6.0 may help reduce the tendency for calcium phosphate stones and pH greater than 6.0 may reduce the tendency for uric acid stone formation. Source: [facility] [employer] Current Interpretive Data was last revised on 2017 Protein, ur ql 1+(A) Negative [facility] Glucose, ur ql Negative Negative [facility] Ketones, ur Negative Negative [facility] Bilirubin, ur Negative Negative [facility] Blood, ur Negative Negative [facility] Urobilinogen, ur <2.0 <2.0 mg/dL [facility] Nitrite, ur Negative Negative [facility] Leukocyte esterase, ur Negative Negative [facility] UA reflex comment Reflex to microscopic UA will be performed. [facility] Urine, clean voided 08/16/2024 11:22 AM CDT 08/16/2024 11:58 AM CDT Kelly Mauricio NP LAB MICROBIOLOGY - GENERA L ORDERABLES Final Result Performing Organization Address [facility] Co de Phone Number [facility] [place] [address] * (ABNORMAL) Urinalysis, microscopic only (08/16/2024 11:22 AM CDT) WBC, ur 0-5 0 - 5 /HPF RBC, ur 0-2 0 - 2 /HPF [facility] Epithelial cells, renal, ur 1-5(A) 0 - 0 /HPF [facility] Epithelial cells, transitional, ur 1-5 0 - 0 /HPF [facility] Mucous, ur Present(A) [facility] Hyaline casts, ur 6-10 0 - 10 /LPF [facility] Culture Reflex Comment Reflex conditions for urine culture (WBC >10) not met. [facility] Urine, clean voided 08/16/2024 11:22 AM CDT 08/16/2024 11:58 AM CDT Kelly Mauricio NP LAB URINE ORDERABLES Narda l Result Performing Organization Address [facility] Co de Phone Number [facility] [place] [address] * XR Chest Pa Lateral 2 Views (08/16/2024 11:13 AM CDT) Anatomical Region Laterality Modality Body, Chest N/A Computed Radiogr aphy 08/16/2024 12:2 5 PM CDT Impressions 08/16/2024 12:25 PM CDT Comparison is made to prior chest radiograph dated 03/02/2024. There is a right internal jugular central venous catheter that terminates in the superior cavoatrial junction. Lungs are clear. No pleural effusion. No pneumothorax. Heart size is normal. Electronically signed by: Elly Newton M.D. Narrative 08/16/2024 12:25 PM CDT EXAMINATION: 2 view chest radiograph Procedure Note Elly Newton MD - 08/16/2024 EXAMINATION: 2 view chest radiograph IMPRESSION: Comparison is made to prior chest radiograph dated 03/02/2024. There is a right internal jugular central venous catheter that terminates in the superior cavoatrial junction. Lungs are clear. No pleural effusion. No pneumothorax. Heart size is normal. Electronically signed by: Elly Newton M.D. us Kelly Mauricio 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 IMG XR PROCEDURES Final R esult * POC Blood Gas and Chemistries, Arterial - (08/16/2024 10:51 AM CDT) Pathologist [facility] Lactate, POC 1.2 0.7 - 2.0 mmol/L Blood 08/16/2024 10:5 1 AM CDT 08/16/2024 10:51 AM CDT us Rico Pérez MD LAB POCT ORDERABLES - DEVIC E Final Result LD [facility] Department of Laboratories [place], [place] [id number] * eGFR (08/16/2024 10:46 AM CDT) Pathologist [facility] eGFR >90 >=60 mL/min/1. 73 m2 Comment: Interpretive Data Reference Interval Normal >/= 90 mL/min/1.73m2 Mildly decreased* 60 - 89 mL/min/1.73m2 Mildly to moderately decreased 45 - 59 mL/min/1.73m2 Moderately to severely decreased 30 - 44 mL/min/1.73m2 Severely decreased 15 - 29 mL/min/1.73m2 Kidney Failure < 15 mL/min/1.73m2 *Relative to young adult level Estimated glomerular filtration rate is determined by the 2020 CKD-EPI equation recommended by the National Kidney Foundation (A Unifying Approach to GFR Estimation: Recommendations of the NKF-ASK Task Force on Reassessing the Inclusion of Race in Diagnosing Kidney Disease, JASN 2020). The CKD-EPI equation should not be used for patients with unstable renal function and has not been validated in children and those over 70. Current interpretive data was last reviewed 2021. Blood 08/16/2024 10:4 6 AM CDT 08/16/2024 11:06 AM CDT Kelly Mauricio 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 LAB BLOOD ORDERABLES Narda wagner Result [facility] [place] [address] * Differential, auto (08/16/2024 10:46 AM CDT) Neutrophil abs 5.2 1.5 - 6.5 K/cumm Imm gran abs 0.1 0.0 - 0.1 K/cumm [facility] Lymphocyte abs 1.6 0.8 - 3.3 K/cumm [facility] Monocyte abs 0.8 0.2 - 0.8 K/cumm [facility] Eosinophil abs 0.4 0.0 - 0.5 K/cumm [facility] Basophil abs 0.1 0.0 - 0.1 K/cumm [facility] Neutrophil pct 63.7 % [facility] Comment: Interpretive Data Percent cell count reference ranges are not reported, since discordance with absolute values may lead to misinterpretation of CBC data. Current Interpretive Data was last revised on 2017. Imm gran pct 1.2 % [facility] Comment: Interpretive Data Percent cell count reference ranges are not reported, since discordance with absolute values may lead to misinterpretation of CBC data. Current Interpretive Data was last revised on 2017. Lymphocyte pct 19.4 % [facility] Comment: Interpretive Data Percent cell count reference ranges are not reported, since discordance with absolute values may lead to misinterpretation of CBC data. Current Interpretive Data was last revised on 2017. Monocyte pct 9.5 % [facility] Comment: Interpretive Data Percent cell count reference ranges are not reported, since discordance with absolute values may lead to misinterpretation of CBC data. Current Interpretive Data was last revised on 2017. Eosinophil pct 5.0 % [facility] Comment: Interpretive Data Percent cell count reference ranges are not reported, since discordance with absolute values may lead to misinterpretation of CBC data. Current Interpretive Data was last revised on 2017. Basophil pct 1.2 % [facility] Comment: Interpretive Data Percent cell count reference ranges are not reported, since discordance with absolute values may lead to misinterpretation of CBC data. Current Interpretive Data was last revised on 2017. Blood 08/16/2024 10:4 6 AM CDT 08/16/2024 11:05 AM CDT Kelly Mauricio 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 LAB BLOOD ORDERABLES Narda wagner Result [facility] [place] [address] * Respiratory pathogen panel Nasopharyngeal (08/16/2024 10:46 AM CDT) Influenza A RNA Not Detected Not Detected Influenza B RNA Not Detected Not Detected [facility] RSV RNA Not Detected Not Detected [facility] COVID-19 RNA Not Detected Not Detected [facility] Coronavirus 229E RNA Not Detected Not Detected [facility] Coronavirus HKU1 RNA Not Detected Not Detected [facility] Coronavirus NL63 RNA Not Detected Not Detected [facility] Coronavirus OC43 RNA Not Detected Not Detected [facility] Adenovirus DNA Not Detected Not Detected [facility] Metapneumovirus RNA Not Detected Not Detected [facility] Rhinovirus/Enterov irus RNA Not Detected Not Detected [facility] Parainfluenza 1 RNA Not Detected Not Detected [facility] Parainfluenza 2 RNA Not Detected Not Detected [facility] Parainfluenza 3 RNA Not Detected Not Detected [facility] Parainfluenza 4 RNA Not Detected Not Detected [facility] B. pertussis DNA Not Detected Not Detected [facility] B. parapertussis DNA Not Detected Not Detected [facility] C. pneumoniae DNA Not Detected Not Detected [facility] M. pneumoniae DNA Not Detected Not Detected [facility] Nasopharyngeal 08/16/2024 10 :46 AM CDT 08/16/2024 10:58 AM CDT Narrative [facility] - 08/16/2024 12:02 PM CDT Is the Patient experiencing symptoms consistent with COVID?->Yes Surveillance testing for transplant patient?->No Interpretive Data The [employer] FilmArray Respiratory Panel (RP2.1) assay is a multiplexed real-time PCR based nucleic acid test capable of simultaneous qualitative detection and identification of multiple respiratory viral and bacterial nucleic acids, including SARS Coronavirus 2 (the causative agent of COVID-19). The following bacteria, viruses and virus subtypes can be identified using the FilmArray RP2.1 assay: Bordetella pertussis, Bordetella parapertussis, Chlamydia pneumoniae, Mycoplasma pneumoniae, Adenovirus, SARS Coronavirus 2, seasonal coronaviruses (Coronavirus HKU1, Coronavirus NL63, Coronavirus 229E, and Coronavirus OC43), Influenza A, Influenza A subtype H1, Influenza A subtype H3, Influenza A subtype 2009 H1, Influenza B, Metapneumovirus, Parainfluenza 1, Parainfluenza 2, Parainfluenza 3, Parainfluenza 4, RSV, Rhinovirus/Enterovirus. Due to the genetic similarity between human Rhinovirus and Enterovirus, the FilmArray RP2.1 assay cannot reliably differentiate them. Coronavirus OC43 may cross-react with some isolates of Coronavirus HKU1. A dual positive result may be due to cross-reactivity or may indicate a co- infection. The detection and identification of specific viral and bacterial nucleic acids from individuals exhibiting signs and symptoms of a respiratory infection aids in the diagnosis of respiratory infection if used in conjunction with other clinical and epidemiological information. The results of this test should not be used as the sole basis for diagnosis, treatment, or other management decisions. Negative results in the setting of a respiratory illness may be due to infection with pathogens that are not detected by this test. Positive results do not rule out infection/co-infection with other organisms. The agent(s) detected by the FilmArray RP2.1 may not be the definite cause of disease. Additional testing (lab, imaging, etc.) may be necessary when evaluating a patient with possible respiratory tract infection. The FilmArray RP2.1 assay has FDA clearance for testing of 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 swabs. The performance of additional specimen types has been assessed by the performing laboratory. The performance characteristics of this assay have been determined by [facility]. Current interpretive data was last revised on 22. Kelly Mauricio 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 LAB MICROBIOLOGY - GENERA L ORDERABLES Final Result [facility] [place] [address] * (ABNORMAL) CBC with auto differential (08/16/2024 10:46 AM CDT) WBC 8.1 3.8 - 9.9 K/cumm Hgb 14.4 13.0 - 17.5 g/dL [facility] Hct 41.6 38.9 - 50.3 % [facility] Plt 309 150 - 400 K/cumm [facility] MPV 10.2 9.1 - 12.3 fL [facility] RBC 4.29(L) 4.30 - 5.80 M/cumm [facility] MCV 97.0(H) 81.3 - 96.4 fL [facility] MCH 33.6(H) 27.1 - 33.3 pg [facility] MCHC 34.6 32.3 - 35.7 g/dL [facility] RDW CV 15.2(H) 11.1 - 14.9 % [facility] RDW SD 54.0(H) 35.7 - 48.1 fL [facility] NRBC abs 0.00 0.00 - 0.01 K/cumm [facility] Blood 08/16/2024 10:4 6 AM CDT 08/16/2024 11:05 AM CDT Kelly Mauricio NP LAB BLOOD ORDERABLES Narda l Result [facility] [place] [employer] [place] [address] * Phosphorus (08/16/2024 10:46 AM CDT) Pathologist [facility] Phosphorus, pl 2.8 2.3 - 4.5 mg/dL Blood Venous blood specimen / Unknown 08/16/2024 10:46 AM CDT 08/16/2024 11:06 AM CDT Kelly Mauricio 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 LAB BLOOD ORDERABLES Narda l Result Performing Organization Address City/[facility] Co de Phone Number [facility] [place] [address] * Magnesium (08/16/2024 10:46 AM CDT) Pathologist [facility] Magnesium 2.2 1.4 - 2.5 mg/dL Blood Venous blood specimen / Unknown 08/16/2024 10:46 AM CDT 08/16/2024 11:06 AM CDT Kelly Mauricio 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 LAB BLOOD ORDERABLES [place] [address] * Comprehensive metabolic panel (08/16/2024 10:46 AM CDT) Sodium 142 135 - 145 mmol/L Potassium, pl 4.4 3.3 - 4.9 mmol/L [facility] Chloride 107 97 - 110 mmol/L [facility] CO2 27 22 - 32 mmol/L [facility] Anion gap 8 2 - 15 mmol/L [facility] BUN 20 6 - 25 mg/dL [facility] Creatinine 0.99 0.80 - 1.30 mg/dL [facility] Glucose 72 70 - 199 mg/dL [facility] Comment: Interpretive Data Fasting glucose >/= 126 mg/dl is diagnostic for diabetes. Fasting is defined as no caloric intake for at least 8 hours. Fasting glucose between 100 mg/dl to 125 mg/dl is diagnostic of prediabetes. In a patient with classic symptoms of hyperglycemia or hyperglycemic crisis, a random glucose >/= 200 mg/dl is diagnostic for diabetes. In the absence of unequivocal hyperglycemia, results should be confirmed by repeat testing. The classification and Diagnosis of Diabetes Diabetes Care 2021; 46: S19-S40. Current interpretive data was last revised 2022. Calcium 9.4 8.5 - 10.3 mg/dL [facility] Bilirubin, total 0.5 0.1 - 1.2 mg/dL [facility] Protein, pl 7.1 6.5 - 8.5 g/dL [facility] Albumin 4.3 3.5 - 5.0 g/dL [facility] Alk phos 95 40 - 130 Units/L [facility] ALT 34 7 - 55 Units/L [facility] AST 32 10 - 50 Units/L [facility] Blood 08/16/2024 10:4 6 AM CDT 08/16/2024 11:06 AM CDT Kelly Mauricio NP LAB BLOOD ORDERABLES Narda l Result [facility] [place] [address] * eGFR (07/14/2024 11:39 AM [employer]BLER) eGFR >90 >=60 mL/min/1. 73 m2 Comment: Interpretive Data Reference Interval Normal >/= 90 mL/min/1.73m2 Mildly decreased* 60 - 89 mL/min/1.73m2 Mildly to moderately decreased 45 - 59 mL/min/1.73m2 Moderately to severely decreased 30 - 44 mL/min/1.73m2 Severely decreased 15 - 29 mL/min/1.73m2 Kidney Failure < 15 mL/min/1.73m2 *Relative to young adult level Estimated glomerular filtration rate is determined by the 2020 CKD-EPI equation recommended by the National Kidney Foundation (A Unifying Approach to GFR Estimation: Recommendations of the NKF-ASK Task Force on Reassessing the Inclusion of Race in Diagnosing Kidney Disease, JASN 2020). The CKD-EPI equation should not be used for patients with unstable renal function and has not been validated in children and those over 70. Current interpretive data was last reviewed 2021. Blood 07/14/2024 11:3 9 AM [employer]BLER 07/14/2024 11:45 AM [employer]SEMBLER us Francy Benito MD LAB BLOOD ORDERABLES F inal Result [facility] [place] [address] * Differential, auto (07/14/2024 11:39 AM [employer] ASSEMBLER) Neutrophil abs 2.5 1.5 - 6.5 K/cumm Comment:Testing performed by : [facility], [address] [place], [place] [phone] Lymphocyte abs 1.4 0.8 - 3.3 K/cumm LD [facility] Comment:Testing performed by : [facility], [address] [place] [phone] Monocyte abs 0.5 0.2 - 0.8 K/cumm LD [facility] Comment:Testing performed by : [facility], [address] [place], [place] [phone] Eosinophil abs 0.4 0.0 - 0.5 K/cumm LD [facility] Comment:Testing performed by : [facility], [address] [place] [phone] Basophil abs 0.1 0.0 - 0.1 K/cumm [facility] Comment:Testing performed by : [facility], [address] [place] [phone] Neutrophil pct 50.3 % [facility] Comment: Interpretive Data Percent cell count reference ranges are not reported, since discordance with absolute values may lead to misinterpretation of CBC data. Current Interpretive Data was last revised on 2017. Testing performed by: [facility], [address] [place] [phone] Lymphocyte pct 28.9 % [facility] Comment: Interpretive Data Percent cell count reference ranges are not reported, since discordance with absolute values may lead to misinterpretation of CBC data. Current Interpretive Data was last revised on 2017. Testing performed by: [facility], [address] [place] [phone] Monocyte pct 9.9 % [facility] Comment: Interpretive Data Percent cell count reference ranges are not reported, since discordance with absolute values may lead to misinterpretation of CBC data. Current Interpretive Data was last revised on 2017. Testing performed by: [facility], [address] [place] [phone] Eosinophil pct 8.2 % [facility] Comment: Interpretive Data Percent cell count reference ranges are not reported, since discordance with absolute values may lead to misinterpretation of CBC data. Current Interpretive Data was last revised on 2017. Testing performed by: [facility], [address] [place] [phone] Basophil pct 2.7 % [facility] Comment: Interpretive Data Percent cell count reference ranges are not reported, since discordance with absolute values may lead to misinterpretation of CBC data. Current Interpretive Data was last revised on 2017. Testing performed by: [facility], [address] [place] [phone] Blood 07/14/2024 11:3 9 AM [employer] ASSEMBLER 07/14/2024 11:43 AM [employer] ASSEMBLER us Francy Benito MD LAB BLOOD ORDERABLES F inal Result [facility] [place] [address] * (ABNORMAL) CBC with auto differential (07/14/2024 11:39 AM [employer] ASSEMBLER) WBC 5.0 3.8 - 9.9 K/cumm Comment:Testing performed by : [facility], [address] [place] [address] Hgb 14.0 13.0 - 17.5 g/dL [facility] Comment:Testing performed by : [facility], [address] [place] [address] Hct 42.4 38.9 - 50.3 % [facility] Comment:Testing performed by : [facility], [address] [place] [address] Plt 387 150 - 400 K/cumm [facility] Comment:Testing performed by : [facility], [address] [place] [address] MPV 8.3 6.8 - 10.4 fL [facility] Comment:Testing performed by : [facility], [address] [place] [address] RBC 4.17(L) 4.30 - 5.80 M/cumm [facility] Comment:Testing performed by : [facility], [address] [place] [address] MCV 101.5(H) 81.3 - 96.4 fL [facility] Comment:Testing performed by : [facility], [address] [place] [address] MCH 33.4(H) 27.1 - 33.3 pg [facility] Comment:Testing performed by : [facility], [address] [place] [address] MCHC 32.9 32.3 - 35.7 g/dL [facility] Comment:Testing performed by : [facility], [address] [place] [address] RDW CV 14.9 11.1 - 14.9 % [facility] Comment:Testing performed by : [facility], [address] [place] [phone] NRBC abs 0.00 0.00 - 0.01 K/cumm [facility] Comment:Testing performed by : [facility], [address] [place] [phone] Blood 07/14/2024 11:3 9 AM [employer] ASSEMBLER 07/14/2024 11:43 AM [employer] ASSEMBLER Francy Benito MD LAB BLOOD ORDERABLES F inal Result Performing Organization Address City/[facility] Co de Phone Number [facility] Department [employer] [place] [address] * Lactate dehydrogenase (LD) (07/14/2024 11:39 AM [employer] ASSEMBLER) Lactate dehydrogenase (LDH) 190 100 - 250 Units/L Blood 07/14/2024 11:3 9 AM [employer] ASSEMBLER 07/14/2024 11:45 AM [employer] ASSEMBLER Francy Benito MD LAB BLOOD ORDERABLES F inal Result Performing Organization Address [facility] Co de Phone Number [facility] [place] [address] * IgG (07/14/2024 11:39 AM [employer] ASSEMBLER) Immunoglobulin G 864 700 - 1,600 mg/dL Blood 07/14/2024 11:3 9 AM [employer] AS[employer]BLER 07/14/2024 11:57 AM [employer] ASSEMBLER Francy Benito MD LAB BLOOD ORDERABLES F inal Result Performing Organization Address City/[facility] Co de Phone Number [facility] [place] [address] * (ABNORMAL) Lipid panel (07/14/2024 11:39 AM [employer] ASSEMBLER) Cholesterol 235(H) 30 - 199 mg/dL Comment: Interpretive Data Ages < or = 19 years Acceptable: <170 mg/dL Borderline high: 170-199 mg/dL High: >or= 200 mg/dL Ages > or = 20 years Desirable: <200 mg/dL Borderline high: 200-239 mg/dL High: >or= 240 mg/dL Literature References: 1. Expert Panel on Integrated Guidelines for Cardiovascular Health and Risk Reduction in Children and Adolescents. Pediatrics 2011;128:S213 2. NCEP Expert Panel. Circulation 2004;110:227 Current Interpretive Data was last revised on 2018. Triglycerides 210(H) <=149 mg/dL [facility] Comment: Interpretive Data Ages < or = 9 years Acceptable: <75 mg/dL Borderline high: 75-99 mg/dL High: >or= 100 mg/dL Ages 10 to 20 years Acceptable: <90 mg/dL Borderline high: 90-129 mg/dL High: >or= 130 mg/dL Ages > or = 20 years Desirable: <150 mg/dL Borderline high: 150-199 mg/dL High: 200-499 mg/dL Very high: >or= 499 mg/dL Literature References: 1. Expert Panel on Integrated Guidelines for Cardiovascular Health and Risk Reduction in Children and Adolescents. Pediatrics 2011;128:S213 2. NCEP Expert Panel. Circulation 2004;110:227 Current Interpretive Data was last revised on 2018. HDL 31(L) >=40 mg/dL [facility] Comment: Interpretive Data Ages < or = 19 years Acceptable: >45 mg/dL Borderline low: 40-45 mg/dL Low: <40 mg/dL Ages > or = 20 years Desirable: >or= 60 mg/dL Low: <40 mg/dL Literature References: 1. Expert Panel on Integrated Guidelines for Cardiovascular Health and Risk Reduction in Children and Adolescents. Pediatrics 2011;128:S213 2. NCEP Expert Panel. Circulation 2004;110:227 Current Interpretive Data was last revised on 2018. LDL, calculated 165(H) <=129 mg/dL LD [facility] Comment: Interpretive Data Ages < or = 19 years Acceptable: <110 mg/dL Borderline high: 110-129 mg/dL High: >or= 130 mg/dL Ages > or = 20 years Optimal: <100 mg/dL Near optimal: 100-129 mg/dL Borderline high: 130-159 mg/dL High: >160 mg/dL Calculated using the [place] LDL-C estimating equation. This equation was implemented on 2024. Prior to this date LDL-C was estimated using the Friedewald equation. Literature References: 1. Expert Panel on Integrated Guidelines for Cardiovascular Health and Risk Reduction in Children and Adolescents. Pediatrics 2011;128:S213 2. NCEP Expert Panel. Circulation 2004;110:227 3. [place]on Rios et al. QUETA Cardiol. 2019September 30;5(5):540-548. doi: [email or web address] Current Interpretive Data was last revised on 2024. Non-HDL Cholesterol 204 mg/dL LD [facility] Comment: Interpretive Data Ages < or = 19 years Acceptable: <120 mg/dL Borderline high: 120-144 mg/dL High: >145 mg/dL Ages > or = 20 years When triglycerides are >200 mg/dL, Non-HDL cholesterol is a secondary target of therapy with treatment goals that are 30 mg/dL greater than the LDL cholesterol target. Literature References: 1. Expert Panel on Integrated Guidelines for Cardiovascular Health and Risk Reduction in Children and Adolescents. Pediatrics 2011;128:S213 2. NCEP Expert Panel. Circulation 2004;110:227 Current Interpretive Data was last revised on 2018. Chol/HDL ratio 8 LD [facility] Blood 07/14/2024 11:3 9 AM [employer]BLER 07/14/2024 11:45 AM [employer] us Rico Pérez MD LAB BLOOD ORDERABLES Final Result [facility] Department of [place] [address] * Comprehensive metabolic panel (07/14/2024 11:39 AM [employer]ER) Sodium 142 135 - 145 mmol/L Potassium, pl 3.9 3.3 - 4.9 mmol/L [facility] Chloride 108 97 - 110 mmol/L [facility] CO2 28 22 - 32 mmol/L [facility] Anion gap 6 2 - 15 mmol/L [facility] BUN 14 6 - 25 mg/dL [facility] Creatinine 1.00 0.80 - 1.30 mg/dL [facility] Glucose 127 70 - 199 mg/dL [facility] Comment: Interpretive Data Fasting glucose >/= 126 mg/dl is diagnostic for diabetes. Fasting is defined as no caloric intake for at least 8 hours. Fasting glucose between 100 mg/dl to 125 mg/dl is diagnostic of prediabetes. In a patient with classic symptoms of hyperglycemia or hyperglycemic crisis, a random glucose >/= 200 mg/dl is diagnostic for diabetes. In the absence of unequivocal hyperglycemia, results should be confirmed by repeat testing. The classification and Diagnosis of Diabetes Diabetes Care 202; 46: S19-S40. Current interpretive data was last revised 2022. Calcium 9.0 8.5 - 10.3 mg/dL [facility] Bilirubin, total 0.4 0.1 - 1.2 mg/dL [facility] Protein, pl 6.7 6.5 - 8.5 g/dL [facility] Albumin 4.1 3.5 - 5.0 g/dL [facility] Alk phos 88 40 - 130 Units/L [facility] ALT 37 7 - 55 Units/L [facility] AST 35 10 - 50 Units/L [facility] Blood 07/14/2024 11:3 9 AM [employer] I ASSEMBLER 07/14/2024 11:45 AM [employer] I ASSEMBLER Francy Benito MD LAB BLOOD ORDERABLES F inal Result [facility] [place] [address] * Hepatitis C antibody Blood (02/11/2024 8:03 AM CDT) Hep C Ab Nonreactive Nonreactive Comment:Antibodies to HCV no t detected. Does NOT exclude the possibility of recent exposure to HCV. Current interpretive data was last revised on 22 Blood 02/11/2024 8:03 AM CDT 02/11/2024 8:22 AM CDT us Francy Benito MD LAB MICROBIOLOGY - GEN ERAL ORDERABLES Final Result [facility] [place] [address] * Colonoscopy (02/07/2022) Anatomical Region Laterality Modality Other us Historical Provider ENDOSCOPY PROCEDURES Narda l Result from Last 3 Months or Most Recently Relevant to Health Maintenance Insurance [facility] CHO[facility] PLUS [facility] Address: [address] [address] [facility]O Address: [address] [address] [place] [address] [facility] Address: [place] [address] [employer] Advance Directives For more information, please contact: [phone] * Full Code (Latest Code Status on File) Date Activated Date Inactivated Comments 10/07/2024 8:36 AM * Full Code Date Activated Date Inactivated Comments 09/29/2024 4:36 PM 10/01/2024 8:35 PM * LIMITED - No CPR Date Activated Date Inactivated Comments 09/29/2024 1:04 PM 09/29/2024 4:36 PM * Full Code Date Activated Date Inactivated Comments 09/29/2024 1:04 PM 09/29/2024 1:04 PM * Full Code Date Activated Date Inactivated Comments 03/02/2024 3:00 PM 03/04/2024 10:17 PM Care Teams [employer] Operator Relationship Specialty Start Date End Date Rico Pérez MD [address] [place] [address] PCP - General Family Medicine 11/07/22 [place] [address] [address] Consulting Physician Endocrinology Diabetes & Metabolism 07/24/22 Ramón Watts MD [address] [place] [address] Consulting Physician General Surgery 11/25/22 Huseyin Reese MD [address] [place] [address] Medical Oncologist/Brush Material Preparer Hematology and Oncology 12/19/22 Francy Benito MD [address] [place] [address] Consulting Physician Medical Oncology 12/25/22
--- OUTSIDE RECORDS SUMMARY | 2024-10-07 11:53 | XMS_ITS | Referral Summary ---
Author Organization [facility] Virtual Care Address [address] [place] [address] Phone Care Team Providers Care K 9 Police Officer Name Role Phone Delon Jain MD Unavailable Rico Pérez MD Primary Care Provider [phone] Ramón Watts MD Unavailable [phone] Huseyin Reese MD Unavailable Debby Benito MD Unavailable [phone] Encounters Date Type Department Care Team Description 10/07/2024 Telephone [facility] [address] [facility] Floor 6 [place] [address] Nilda Alves RMA Chest Pain (Pt's mother states that Pt just got home from [facility] where he had a central line placed, and developed shortness of breath and chest pain on a scale 7/10. 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) 10/06/2024 Orders Only [facility] Transplant [address] [place] [phone] Ifeanyi Malhotra, REJI 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 Dx) 10/06/2024 Orders Only [facility] Transplant [address] [place] [address] 6 [place] [phone] Harley Radha [facility] 10/06/2024 9:45 AM CDT Clinical Support [facility] - Lab Collection [address] [place] [address] 6 [place] [address] 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) 10/06/2024 Telephone [facility] [address] [place] [address] Sharmaine Jenkins RN 10/06/2024 11:00 AM CDT Office Visit [facility]plant [address] [place] [phone] Debby Benito MD 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 Dx) 10/04/2024 Orders Only [facility] [address] [place] [phone] Ifeanyi Malhotra, RN 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 Dx) 10/04/2024 Orders Only [facility] Transplant [address] [place] [address] 6 [place] [address] Sarah Simon NP 10/04/2024 Orders Only [facility] Transplant [address] [place] [phone] Ifeanyi Malhotra, RN 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 Dx) 10/04/2024 Orders Only [facility] Transplant [address] [place] [phone] Ifeanyi Malhotra, RN 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 Dx) 10/04/2024 Telephone [facility] Transplant [address] [place] [phone] Ifeanyi Malhotra RN 10/04/2024 1:30 PM CDT Clinical Support [facility] - Lab Collection [address] [place] [address] 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) 10/02/2024 2:19 PM CDT - 10/02/2024 7:35 PM CDT Hospital Encounter [facility] ([facility]) [address] [place] [address] Mantle cell lymphoma, unspecified body region (HCC) (Primary Dx); 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) Discharge Disposition: Discharge to home or self care 10/01/2024 Orders Only [facility] Transplant [address] [place] [phone] Debby Benito MD 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 Dx) 09/29/2024 12:27 PM CDT - 10/01/2024 4:35 PM CDT Hospital Encounter [facility] [address] [place] [address] Debby Benito MD 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) Discharge Disposition: Discharge to home or self care 09/29/2024 10:30 AM CDT Office Visit [facility] [address] [place] [phone] Sarah Simon NP 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 Dx) 09/29/2024 10:45 AM CDT Clinical Support [facility] - Lab Collection [address] [place] [address] 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 - [facility] Floor [address] [place] [address] Lucero Garcia CPhT 09/24/2024 Telephone [facility] Primary Care at [address] [phone] Rico Pérez MD PA for Famotidine 20MG tablets 09/24/2024 Telephone [facility] [address] [place] [address] Lucero Garcia CPhT 09/23/2024 Orders Only [facility] [address] [facility] 6 [place] [phone] Radha Souza RPh 09/23/2024 1:00 PM CDT Clinical Support 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) Discharge Disposition: Discharge to home or self care 09/23/2024 11:06 AM CDT - 09/23/2024 11:59 PM CDT Hospital Encounter [facility] [address] [place] [address] 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) Discharge Disposition: Discharge to home or self care 09/23/2024 3:00 PM CDT Lab [facility] [address] [facility] Floor [address] [place] [address] 09/23/2024 11:00 AM CDT Social Work [facility] [address] [facility], 8th Floor, [place] [address] Amara David LCSW 09/23/2024 11:41 AM CDT - 09/23/2024 11:59 PM CDT Hospital Encounter [facility] [address] [facility] [address] [place] [address] Debby Benito MD 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) Discharge Disposition: Discharge to home or self care 09/21/2024 Orders Only [facility] Floor [address] [place] [phone] China Monique RN 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 Dx) 09/20/2024 Orders Only [facility] [address] [place] [phone] Sarah Simon NP 09/20/2024 Telephone [facility] [address] [place] [phone] Debby Benito MD 09/17/2024 Orders Only [facility]plant [address] [place] [phone] China Monique RN 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 Dx) 09/15/2024 10:15 AM CDT Clinical Support [facility] Collection [address] Floor [address] [place] [address] 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) 09/15/2024 12:30 PM CDT Infusion [facility] - Infusion [address] Floor [address] [place] [address] Mantle cell lymphoma, unspecified body region (HCC) (Primary Dx); 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); Hypogammaglobulinemia 09/15/2024 11:45 AM CDT Office Visit [facility] [address] Floor [address] [place] [address] Debby Benito MD 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 Dx) 09/15/2024 7:38 AM CDT - 09/15/2024 11:59 PM CDT Hospital Encounter [facility] - PET [address] Floor [address] [place] [address] Discharge Disposition: Discharge to home or self care 09/15/2024 7:38 AM CDT - 09/15/2024 11:59 PM CDT Hospital Encounter [facility] - PET [address] Floor 8 [place] [address] 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) Discharge Disposition: Discharge to home or self care 08/18/2024 10:00 AM CDT Infusion [facility] - Infusion [address] [place] [address] Mantle cell lymphoma, unspecified body region (HCC) (Primary Dx); 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); Hypogammaglobulinemia 08/18/2024 8:15 AM CDT Clinical Support [facility] - Lab Collection [address] Floor [address] [place] [address] 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) 08/18/2024 9:15 AM CDT Office Visit [facility] Transplant [address] [place] [address] Avenue Floor 6 [place] [address] Debby Benito MD 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 Dx) 08/16/2024 10:55 AM CDT - 08/16/2024 11:59 PM CDT Hospital Encounter [facility] [address] [place] [address] Discharge Disposition: Discharge to home or self care 08/16/2024 9:30 AM CDT - 08/16/2024 1:45 PM CDT Hospital Encounter [facility] [address] [place] [address] Dehydration (Primary Dx); 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) Discharge Disposition: Discharge to home or self care 08/15/2024 Telephone [facility] Transplant [address] [place] [phone] Penelope Barragan NP 07/23/2024 9:00 AM DRYING MACHINE OPERATOR Infusion [facility] - Infusion [facility] [address] [address] Mantle cell lymphoma, unspecified body region (HCC) (Primary Dx); 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); Hypogammaglobulinemia 07/14/2024 1:30 PM DRYING MACHINE OPERATOR Office Visit [facility] Transplant [address] [place] [phone] Sarah Simon NP 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 Dx); Autologous donor of stem cells 07/14/2024 2:45 PM DRYING MACHINE OPERATOR Infusion [facility] - Infusion [facility] Floor [address] [place] [address] Autologous donor of stem cells (Primary Dx); 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) 07/13/2024 Orders Only [facility] Transplant [address] [place] [phone] China Monique RN Hypogammaglobulinemia (Primary Dx) 07/13/2024 2:00 PM DRYING MACHINE OPERATOR Office Visit [facility] Primary Care at [address] [phone] Rico Pérez MD Well adult exam (Primary Dx); Screening, lipid from Last 3 Months Allergies Active Allergy Reactions Criticality Noted Date [...] Inpatient Care Coordination Overview Diagnosis [facility] Floor [address] Treatment Plan Obin+Glofit (study) Reason for Admission Chemo - study Transplant/IEC Planning BMT/IEC Plan BEAM Auto 07/18/2023 HLA typing/IDMs [] Insurance Approval [] Discharge Planning Anticipated Discharge Date TBD Patient Education Completed [] Issue to be Resolved Before Discharge Discharge Disposition Requests Sent to Case Management, Pharmacy PA Team, or Medical Assistants Post-Discharge Follow-Up Living Situation/Distance from [place], [place] [address] Caregiver Lab/Transfusion Frequency Venous Access & Care implanted vascular device Local Oncologist Contact Phone: Fax: Post-Discharge Office Visit (H30) ARUN (BOW TACKER Preston)- 03/10 w/ study chemo Miscellaneous Notes: Problem [...] 06/09/2024 Need for immunization against influenza 03/31/20 24 Hypogammaglobulinemia 03/17/2024 Assessment & Plan (10/01/2024 2:33 [...] 07/04 Assessment & Plan (07/27/2023 2:14 PM DRYING MACHINE OPERATOR): Neutropenic, febrile 07/22, blood cultures 06/03 positive [...] 07/11/2023 Assessment & Plan (07/11/2023 2:15 PM DRYING MACHINE OPERATOR): Follows with dermatology, 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 On cetirizine at home. - cetirizine 10 mg BID, Sarna lotion daily PRN Dermatitis 07/02/2023 Autologous donor of stem cells 06/27/2023 Well adult exam 06/14/2023 Overview (06/14/2023): h/o mantle cell cancer, under treatment, s/p resection Assessment & Plan (06/14/2023 3:24 PM DRYING MACHINE OPERATOR): A(n) yearly well adult visit has been performed today. Saqib Dewey is up to date on screening [...] (10/01/2024 2:33 PM CDT): Robert with Dr. Benito, s/p multiple lines of therapy including BEAM/AUTO in 07/2023 Continue Calquence and started on venetoclax in addition as of 09/28 as above. He is pending initiation of CAR T-Cell therapy. Patient was using home supply in the hospital. Assessment & Plan (09/30/2024 1:35 PM CDT): Robert with Dr. Benito, s/p multiple lines of therapy including BEAM/AUTO in 07/2023 - most recently on Calquence and started on venetoclax in addition as of 09/28 as above. He is pending initiation of CAR T-Cell therapy. Resume calquence and venetoclax per protocol. Assessment & Plan (09/29/2024 7:13 PM CDT): Robert with Dr. Benito, s/p multiple lines of therapy including BEAM/AUTO [...] (02/24) Monitor for CRS\ICANS Assessment & Plan (02/26/2024 [...] CRS\ICANS Assessment & Plan (07/27/2023 2:11 PM DRYING MACHINE OPERATOR): Follows with Dr. Benito in BMT. Diagnosed 11/21/2022 for splenic rupture found with diffuse lymphadenopathy, s/p splenectomy, found with stage IV mantle cell. Underwent BR X 3 with complete remission, R-cytarabine X 3 with PET scan 05/16/2023 showing CR. Enrolled in [id number] study, MRD testing indeterminate. Assigned to Arm [...] to establish care has been performed today. Saqib Dewey is up to date on screening [...] 06/19/2022 Assessment & Plan (06/19/2022 3:49 PM DRYING MACHINE OPERATOR): He has a massive goiter, with bilateral [...] (12/10/2021): Added automatically from request for surgery [id number] Visual changes 08/22/2021 Testicular hypofunction 10/16/2013 Overview (09/05/2016): TESTICULAR HYPOFUNC NEC Assessment & Plan (06/19/2022 3:47 PM DRYING MACHINE OPERATOR): Will check T , free and total . FSH and LH, prolactin. Depending of results, will consider starting T replacement Patient agrees. Resolved Problems Problem Noted Date Diagnosed Date Resolved Date Pancytopenia, acquired 11/14/202208/05 Thyroid mass 07/26/2022 09/24/2022 Immunizations Immunization Administration Dates Next Due DTaP 07/14/2024,05/12/2024 Hep B, Dialysis 07/14/2024,05/12/2024 Hib (PRP-T) 07/14/2024,05/12/2024,11/25/2022 IPV 07/14/2024,05/12/2024 Influenza, Trivalent, Preser vative Free, Intramuscular 03/31/2024 Influenza, Unspecified 06/12/2023(Deferr ed: Patient Refused),07/24/2022(Deferred: Patient Refused),06/02/2022(Deferred: Patient Refused),06/02/2021(Deferred: Patient Refused),06/02/2020(Deferred: Patient Refused) Meningococcal B, OMV (Bexsero) 11/25/2022 Meningococcal Conjugate (Menveo) 11/25/2022 Pneumococcal Conjugate Pcv20 07/14/2024,05/12/20 24,11/26/2022 Tdap 08/28/2014 ZOSTER Recombinant 07/14/2024,05/12/2024 Social History Tobacco Use Types Packs/Day Years Used Date Smoking Tobacco: Never Cigarettes Passive Smoke Exposure: Never Smokeless Tobacco: Current Chew Tobacco Cessation:Ready to Q uit: No; Counseling Given: Not Answered Alcohol Use Standard Drinks/Week Comments Yes 0 (1 standard drink = 0.6 oz pur e alcohol) [facility] Utilities Answer Date Recorded In the past 12 months has e [employer], gas, oil, or water company threatened to [...] often do you attend chur ch or mormonism services? Never 09/23/2024 Do you belong to any clubs o r organizations such as scientology groups, unions, fraternal or athletic groups, or [...] place to sleep or slept in a usp (including now)? No 07/15/2023 Housing Stability Vital Sign Answer Eladio e Recorded In the last 12 months, was t here a time when you were not able to pay the mortgage or rent on time? No 09/23/2024 In the past 12 months, how m any times have you moved where you were living? 0 09/23/2024 At any time in the past [address] [facility], were you homeless or living in a usp (including now)? No 09/23/2024 Personal Safety Answer Date Recorded Have you ever been in or are you currently in a harmful physical or emotional relationship or is someone making you feel afraid or unsafe? Denies 09/29/2024 Sex and Gender Information Value Date Recorded Sex Assigned at Not on file Legal Sex Male 12:33 AM DRYING MACHINE OPERATOR Gender Identity Not on file Sexual Orientation Not on file Occupation Industry Job Start Date Job End Date Not on file Not on file Not on file Not on file Last Filed Vital Signs Vital Sign Reading [...] 10/07/2024 7:19 AM CDT Plan of Treatment Not on file Medical Devices Implanted Type Area Steam Room Attendant Device Identifier Shelf Expiration Date Model / Serial / Lot LegUP Merissa Angio-Seal Vip 6fr Closere Device [id number] - [id number] Implanted:Qty: 1 on 11/21/2022 at [facility] [employer] Merissa 06/01/2023 [id number] / / [id number] [place] [employer] Merissa Coil Emolization Coated Detachable Embold [id number] [place] Tungsten [id number] - [id number] Implanted:Qty: 1 on 11/21/2022 at [facility] [place] [employer] Merissa [id number] 04/07/2025 [id number] / / [id number] Medtr[employer] Inc Coil Embolization Coated Detachable Helical Concerto [id number] Nylon Gl-9-22-[place] - [id number] Implanted:Qty: 1 on 11/21/2022 at [facility] [employer] Inc NV-8-30 -HE LIX / / Med[employer] Inc Coil Embolization Coated Detachable Helical Concerto [id number] Nylon Gi-9-31-[place] - [id number] Implanted:Qty: 1 on 11/21/2022 at [facility] [employer] NV-8-30 -HE LIX / / [employer] Powerport Isp Mri Airguard 8fr 1 Lumen Attachable Catheter Open Latex Free [id number] - [id number] Implanted:Qty: 1 on 12/02/2022 by Ottoniel Hernandez MD at [facility] Right: Chest [employer] 03/01/2024 [id number] / / [id number] Explanted Type Area Steam Room Attendant Device Identifier Shelf Expiration Date Model / Serial / Lot [place] [employer] Merissa Coil Emolization Coated Detachable Embold [id number] [place] Tung[employer] [id number] - [id number] Explanted:Qty: 1 on 11/21/2022 at [facility] [place] [employer] Merissa [id number] 04/07/2025 [id number] / / [id number] Procedures Procedure Name Priority Date/Time Associated Diagnosis [...] AM CDT EGFR Routine 07/14/2024 11:39 AM DRYING MACHINE OPERATOR 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) DIFFERENTIAL AUTO Routine 07/14/2024 11: 39 AM DRYING MACHINE OPERATOR 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) LIPID PANEL Routine 07/14/2024 11:39 AM DRYING MACHINE OPERATOR Screening, lipid IGG Routine 07/14/2024 11:39 AM DRYING MACHINE OPERATOR Hypogammaglobulin emia CBC WITH AUTO DIFFERENTIAL Routine 07/14/2024 11:39 AM DRYING MACHINE OPERATOR 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1(L) 38.9 - 50.3 % [facility] Comment:Testing performed by : [facility], [facility] 2, [address], [place] [address] Plt 63(L) 150 - 400 K/cumm [facility] Comment:Testing performed by : [place] [address], [address], [place] [address] MPV 11.9 9.1 - 12.3 fL [facility] Comment:Testing performed by : [place] [address], [address] [place] [address] RBC 3.60(L) 4.30 - 5.80 M/cumm [facility] Comment:Testing performed by : [place] [address], [address], [place] [address] MCV 97.5(H) 81.3 - 96.4 fL [facility] Comment:Testing performed by : [facility], [facility], [address], [place] [address] MCH 33.1 27.1 - 33.3 pg [facility] Comment:Testing performed by : [place] [address], [address], [place] [address] MCHC 33.9 32.3 - 35.7 g/dL [facility] Comment:Testing performed by : [facility] 2, [address], [place] [address] RDW CV 15.2(H) 11.1 - 14.9 % [facility] Comment:Testing performed by : [place] [address], [address], [place] [address] RDW SD 54.0(H) 35.7 - 48.1 fL CERNER BJWCH Comment:Testing performed by : [place] [address], [address], [place] [address] NRBC abs 0.61(H) 0.00 - 0.01 K/cumm LD HOLMAN Comment:Testing performed by : [place] [address], [address] [place] [address] ANC Prelim 0.81(L) 1.50 - 6.50 K/cumm LD HOLMAN Comment: Interpretive Data The rapid ANC is a preliminary automated count and may vary from the final ANC (Neut Abs) reported in the WBC differential that follows. Current interpretive data was last revised 2024. Testing performed by: [place] [address], [address] [place] [address] Blood 10/07/2024 9:14 AM CDT 10/07/2024 9:18 AM CDT us Debby Benito MD LAB BLOOD ORDERABLES F inal Result LD [facility] [address] [facility] Department [place] [address] * (ABNORMAL) Manual Differential (10/07/2024 9:14 AM CDT) Differential Manual Comment:Testing performed by : [place] [address] [place] [address] Cells Counted 100 LD VENTURA Comment:Testing performed by : [place] [address], [address] [place] [address] Neutrophil abs 0.89(L) 1.50 - 6.50 K/cumm LD HOLMAN Comment:Testing performed by : [place] [address], [address] [place] [address] Imm gran abs 0.02 0.00 - 0.10 K/cumm LD VENTURA Comment:Testing performed by : [place] [address], [address] [place] [address] Lymphocyte abs 0.69(L) 0.80 - 3.30 K/cumm CERNER BJWCH Comment:Testing performed by : [facility], [facility], [address] [place] [address] Monocyte abs 0.12(L) 0.20 - 0.80 K/cumm CERNER BJWCH Comment:Testing performed by : [facility], [facility], [address] [place] [address] Eosinophil abs 0.19 0.00 - 0.50 K/cumm CERNER BJWCH Comment:Testing performed by : [facility], [facility], [address] [place] [address] Basophil abs 0.02 0.00 - 0.10 K/cumm CERNER BJWCH Comment:Testing performed by : [facility], [facility], [address] [place] [address] Neutrophil pct 46.0 % CERNER BJWCH Comment: Interpretive Data Percent cell count reference ranges are not reported, since discordance with absolute values may lead to misinterpretation of CBC data. Current Interpretive Data was last revised on 2017. Testing performed by: [facility], [facility], [address] [place] [address] Lymphocyte pct 36.0 % CERNER BJWCH Comment: Interpretive Data Percent cell count reference ranges are not reported, since discordance with absolute values may lead to misinterpretation of CBC data. Current Interpretive Data was last revised on 2017. Testing performed by: [facility], [facility], [address] [place] [address] Monocyte pct 6.0 % CERNER BJWCH Comment: Interpretive Data Percent cell count reference ranges are not reported, since discordance with absolute values may lead to misinterpretation of CBC data. Current Interpretive Data was last revised on 2017. Testing performed by: [facility], [facility], [address] [place] [address] Eosinophil pct 10.0 % CERNER BJWCH Comment: Interpretive Data Percent cell count reference ranges are not reported, since discordance with absolute values may lead to misinterpretation of CBC data. Current Interpretive Data was last revised on 2017. Testing performed by: [facility], [facility], [address] [place] [address] Basophil pct 1.0 % LD VENTURA Comment: Interpretive Data Percent cell count reference ranges are not reported, since discordance with absolute values may lead to misinterpretation of CBC data. Current Interpretive Data was last revised on 2017. Testing performed by: [facility], [facility], [address] [place] [address] Metamyelocyte pct 1.0(H) 0.0 - 0.0 % LD VENTURA Comment:Testing performed by : [facility], [facility], [address] [place] [address] RBC morphology Present(A) LD VENTURA Comment:Testing performed by : [place] [address], [address] [place] [address] Anisocytosis Slight(A) LD VENTURA Comment:Testing performed by : [facility], [facility], [address] [place] [address] Poikilocytosis Slight(A) LD VENTURA Comment:Testing performed by : [facility], [facility], [address] [place] [address] Platelet estimate Automated Count Confirmed LD VENTURA Comment:Testing performed by : [place] [address], [address] [place] [address] Blood 10/07/2024 9:14 AM CDT 10/07/2024 9:18 AM CDT us Debby Benito MD LAB BLOOD ORDERABLES F inal Result LD BJWCH [address] [facility]. Department [place] [address] * Uric acid (10/07/2024 9:14 AM CDT) Uric acid 5.0 3.0 - 8.0 mg/dL Comment:Testing performed by : [facility], [address] [place] [address] Blood 10/07/2024 9:14 AM CDT 10/07/2024 9:38 AM CDT Debby Benito MD LAB BLOOD ORDERABLES F inal Result Performing Organization Address [facility] Co de Phone Number LD BJWCH [address] [facility]. [facility] [place] [address] * Phosphorus (10/07/2024 9:14 AM CDT) Phosphorus, pl 3.7 2.3 - 4.5 mg/dL Comment:Testing performed by : [facility], [id number] [place] [address] Blood 10/07/2024 9:14 AM CDT 10/07/2024 9:38 AM CDT Debby Benito MD LAB BLOOD ORDERABLES F inal Result Performing Organization Address [facility] de Phone Number LD BJWCH [address] [facility]. [facility] [place] [address] * IR Tunneled Line Placement > 5 [...] completed, removal can be scheduled by calling [facility] - [phone] [facility] - [phone] Electronically signed by: Ramón Ocasio M.D. Narrative 10/07/2024 9:24 AM CDT EXAMINATION: TUNNELED CENTRAL VENOUS CATHETER PLACEMENT USING ULTRASOUND GUIDANCE HISTORY/INDICATION: Patient with mantle cell lymphoma undergoing stem cell transplant. Tunneled tri-fusion catheter requested. Of note, we clarified with Dr. Debby Benito prior to the procedure that the [...] was obtained. Prior to beginning the procedure, [place] Protocol was used to confirm the patient's [...] requested. Of note, we clarified with Dr. Debby Benito prior to the procedure that the [...] was obtained. Prior to beginning the procedure, [place] Protocol was used to confirm the patient's [...] completed, removal can be scheduled by calling [facility] - [phone] [facility] - [phone] Electronically signed by: Ramón Ocasio M.D. Debby Benito MD IMG IR PROCEDURES Narda l Result * eGFR (10/06/2024 10:01 AM CDT) Pathologist [facility] eGFR >90 >=60 mL/min/1. 73 m2 Comment: [...] of Race in Diagnosing Kidney Disease, JASN 202). The CKD-EPI equation should not be used for patients with unstable renal function and has not been validated in children and those over 70. Current interpretive data was last reviewed 2021. Blood 10/06/2024 10:0 1 AM CDT 10/06/2024 10:17 AM CDT Debby Benito MD LAB BLOOD ORDERABLES F inal Result LD [facility] Department [place] [address] * (ABNORMAL) CBC with auto differential (10/06/2024 10:01 AM CDT) [facility] WBC 1.08(L) 3.80 - 9.90 K/cumm Comment:Testing performed by : [facility], [address] [place], [place] [id number] Hgb 12.3(L) 13.0 - 17.5 g/dL CERNER BJ Comment:Testing performed by : [facility], [address] [place], [place] [phone] Hct 36.4(L) 38.9 - 50.3 % CERNER BJ Comment:Testing performed by : [facility], [address] [place], [place] [phone] Plt 64(L) 150 - 400 K/cumm CERNER BJ Comment:Testing performed by : [facility], [address] [place], [place] [phone] MPV 9.3 6.8 - 10.4 fL CERNER BJ Comment:Testing performed by : [facility], [address] [place] [address] RBC 3.75(L) 4.30 - 5.80 M/cumm CERNER BJ Comment:Testing performed by : [facility], [address] [place] [address] MCV 97.1(H) 81.3 - 96.4 fL CERNER BJ Comment:Testing performed by : [facility], [address] [place] [address] MCH 32.8 27.1 - 33.3 pg CERNER BJ Comment:Testing performed by : [facility], [address] [place] [address] MCHC 33.8 32.3 - 35.7 g/dL CERNER BJ Comment:Testing performed by : [facility], [address] [place] [address] RDW CV 15.0(H) 11.1 - 14.9 % CERNER BJ Comment:Testing performed by : [facility], [address] [place] [address] NRBC abs N/A 0.00 - 0.01 K/cumm CERNER BJ Comment:Testing performed by : [facility], [address] [place], [place] [id number] Blood 10/06/2024 10:0 1 AM CDT 10/06/2024 10:08 AM CDT Debby Benito MD LAB BLOOD ORDERABLES F inal Result LD SWEET [facility] Department [place] [address] * (ABNORMAL) Manual Differential (10/06/2024 10:01 AM CDT) Cells Counted 200 Comment:Testing performed by : [facility], [address] [place] [address] Neutrophil abs 0.51(L) 1.50 - 6.50 K/cumm LD SWEET Comment:Testing performed by : [facility], [address] [place], [place] [phone] Lymphocyte abs 0.49(L) 0.80 - 3.30 K/cumm LD SWEET Comment:Testing performed by : [facility], [address] [place] [address] Monocyte abs 0.05(L) 0.20 - 0.80 K/cumm LD SWEET Comment:Testing performed by : [facility], [address] [place] [address] Eosinophil abs 0.09 0.00 - 0.50 K/cumm LD BJ Comment:Testing performed by : [facility], [address] [place], [place] [phone] Basophil abs 0.01 0.00 - 0.10 K/cumm LD BJ Comment:Testing performed by : [facility], [address] [place] [address] Neutrophil pct 44.0 % LD SWEET Comment: Interpretive Data Percent cell count reference ranges are not reported, since discordance with absolute values may lead to misinterpretation of CBC data. Current Interpretive Data was last revised on 2017. Testing performed by: [facility], [address] [place] [phone] Lymphocyte pct 42.0 % CERNER BJH Comment: Interpretive Data Percent cell count reference ranges are not reported, since discordance with absolute values may lead to misinterpretation of CBC data. Current Interpretive Data was last revised on 2017. Testing performed by: [facility], [address] [place] [address] Monocyte pct 4.0 % CERNER BJH Comment: Interpretive Data Percent cell count reference ranges are not reported, since discordance with absolute values may lead to misinterpretation of CBC data. Current Interpretive Data was last revised on 2017. Testing performed by: [facility], [address] [place] [address] Eosinophil pct 8.0 % CERNER BJH Comment: Interpretive Data Percent cell count reference ranges are not reported, since discordance with absolute values may lead to misinterpretation of CBC data. Current Interpretive Data was last revised on 2017. Testing performed by: [facility], [address] [place] [address] Basophil pct 1.0 % CERNER BJ Comment: Interpretive Data Percent cell count reference ranges are not reported, since discordance with absolute values may lead to misinterpretation of CBC data. Current Interpretive Data was last revised on 2017. Testing performed by: [facility], [address] [place] [address] Blast pct 1.0(H) 0.0 - 0.0 % CERNER BJ Comment: Called to Sarah Simon NP 10/06/24 11:31 by fp. Testing performed by: [facility], [address] [place] [address] Variant lymph pct 2.0(H) 0.0 - 0.0 % CERNER BJH Comment:Testing performed by : [facility], [address] [place] [address] RBC morphology NRBCs present(A ) CERNER BJH Comment:Testing performed by : [facility], [address] [place] [phone] Polychromasia 1+(A) LD [facility] Comment:Testing performed by : [facility], [address] [place] [phone] Schistocytes 1+(A) LD [facility] Comment:Testing performed by : [facility], [address] [place] [phone] Target cells 1+(A) LD [facility] Comment:Testing performed by : [facility], [address] [place] [phone] Platelet estimate Decreased (A) LD [facility] Comment:Testing performed by : [facility], [address] [place], [place] [phone] Blood 10/06/2024 10:0 1 AM CDT 10/06/2024 10:18 AM CDT Debby Benito MD LAB BLOOD ORDERABLES F inal Result Performing Organization Address [facility]/ZIP Co de Phone Number [facility] Department [place] [address] * (ABNORMAL) HSV 2 IgG Antibody Blood [...] 1 AM CDT 10/06/2024 11:50 AM CDT Debby Benito MD LAB MICROBIOLOGY - GEN ERAL ORDERABLES Final Result [facility] Department [place] [address] * (ABNORMAL) HSV 1 IgG Antibody Blood [...] 1 AM CDT 10/06/2024 11:50 AM CDT Debby Benito MD LAB MICROBIOLOGY - GEN ERAL ORDERABLES Final Result Performing Organization Address [facility]/[place] [address] * Type and screen (10/06/2024 10:01 AM CDT) Pathologist [facility] ABO Rh A Positive Jacob, indirect Negative [facility] Blood 10/06/2024 10:0 1 AM CDT 10/06/2024 10:19 AM CDT Narrative [facility] - 10/06/2024 11:34 AM CDT Has the patient had Daratumumab or Isatuximab in the past 6 months?->Unknown Debby Benito MD LAB BLOOD BANK TEST OR D[place]AB[place] [address] * Lactate dehydrogenase (LD) (10/06/2024 10:01 AM CDT) Lactate dehydrogenase (LDH) 211 100 - 250 Units/L Blood 10/06/2024 10:0 1 AM CDT 10/06/2024 10:17 AM CDT Narrative [facility] - 10/06/2024 10:40 AM CDT To be drawn prior to patient taking venetoclax. Sarah Simon NP LAB BLOOD ORDERABLES Final Res ult Performing Organization Address [facility] de Phone Number [facility] [place] [address] * (ABNORMAL) Hemoglobin A1c (10/06/2024 10:01 AM CDT) Hgb A1C 5.7(H) 4.0 - 5.6 % Estimated Average Glucose 117 mg/dL [facility] Comment: The ADA recommends reporting an estimated Average Glucose (eAG) with all Hemoglobin A1c results using the equation derived from a study of 507 normal and diabetic adults. Minority populations were underrepresented and children were not included. (Diabetes Care 2020; 43(S1): S66-S76). The eAG is not equivalent to a fasting glucose. Blood 10/06/2024 10:0 1 AM CDT 10/06/2024 10:16 AM CDT Debby Benito MD LAB BLOOD ORDERABLES F inal Result Performing Organization Address [facility] de Phone Number [facility] Department [place] [address] * (ABNORMAL) Lipid panel (10/06/2024 10:01 AM CDT) Cholesterol 196 30 - 199 mg/dL Comment: [...] revised on 2018. Triglycerides 186(H) <=149 mg/dL [facility] Comment: Interpretive Data Ages < or [...] revised on 2018. HDL 25(L) >=40 mg/dL [facility] Comment: Interpretive Data Ages < or [...] on 2018. LDL, calculated 137(H) <=129 mg/dL [facility] Comment: Interpretive Data Ages < or [...] revised on 2024. Non-HDL Cholesterol 171 mg/dL [facility] Comment: Interpretive Data Ages < or [...] last revised on 2018. Chol/HDL ratio 8 [facility] Blood 10/06/2024 10:0 1 AM CDT 10/06/2024 10:17 AM CDT us Debby Benito MD LAB BLOOD ORDERABLES F inal Result [facility] Department [place] [address] * Comprehensive metabolic panel (10/06/2024 10:01 AM CDT) Sodium 136 135 - 145 mmol/L Potassium, pl 4.0 3.3 - 4.9 mmol/L [facility] Chloride 97 97 - 110 mmol/L [facility] CO2 25 22 - 32 mmol/L [facility] Anion gap 14 2 - 15 mmol/L [facility] BUN 13 6 - 25 mg/dL [facility] Creatinine 0.94 0.80 - 1.30 mg/dL [facility] Glucose 97 70 - 199 mg/dL [facility] Comment: Interpretive Data Fasting glucose >/= 126 [...] Calcium 9.9 8.5 - 10.3 mg/dL CERNER BJ Bilirubin, total 0.5 0.1 - 1.2 mg/dL CERNER BJ Protein, pl 7.4 6.5 - 8.5 g/dL CERNER BJ Albumin 4.1 3.5 - 5.0 g/dL CERNER BJ Alk phos 128 40 - 130 Units/L CERNER BJ ALT 24 7 - 55 Units/L CERNER BJ AST 31 10 - 50 Units/L CERNER [facility] Blood 10/06/2024 10:0 1 AM CDT 10/06/2024 10:17 AM CDT Debby Benito MD LAB BLOOD ORDERABLES F inal Result [facility] Department [place] [address] * eGFR (10/04/2024 1:26 PM CDT) eGFR [...] of Race in Diagnosing Kidney Disease, JASN 202). The CKD-EPI equation should not be used for patients with unstable renal function and has not been validated in children and those over 70. Current interpretive data was last reviewed 2021. Blood 10/04/2024 1:26 PM CDT 10/04/2024 1:29 PM CDT Debby Benito MD LAB BLOOD ORDERABLES F inal Result Performing Organization Address City/[facility]/ZIP Co de Phone Number [facility] [place] [address] * Uric acid (10/04/2024 1:26 PM CDT) Pathologist [facility] Uric acid 5.0 3.0 - 8.0 mg/dL Blood 10/04/2024 1:26 PM CDT 10/04/2024 1:29 PM CDT Narrative [facility] - 10/04/2024 1:54 PM CDT To be drawn prior to patient taking venetoclax. Debby Benito MD LAB BLOOD ORDERABLES F inal Result Performing Organization Address [place] [facility] [place] [address] * Phosphorus (10/04/2024 1:26 PM CDT) Pathologist [facility] Phosphorus, pl 2.8 2.3 - 4.5 mg/dL Blood 10/04/2024 1:26 PM CDT 10/04/2024 1:29 PM CDT Narrative [facility] 10/04/2024 1:54 PM CDT To be drawn prior to patient taking venetoclax. Debby Benito MD LAB BLOOD ORDERABLES F inal Result [facility] [place], [place] [id number] * Lactate dehydrogenase (LD) (10/04/2024 1:26 PM CDT) Pathologist [facility] Lactate dehydrogenase (LDH) 220 100 - 250 Units/L Blood 10/04/2024 1:26 PM CDT 10/04/2024 1:29 PM CDT Narrative [facility] - 10/04/2024 1:54 PM CDT To be drawn prior to patient taking venetoclax. Debby Benito MD LAB BLOOD ORDERABLES F inal Result [facility] Department [place] [address] * Comprehensive metabolic panel (10/04/2024 1:26 PM CDT) Pathologist [facility] Sodium 139 135 - 145 mmol/L Potassium, pl 3.6 3.3 - 4.9 mmol/L [facility] Chloride 103 97 - 110 mmol/L [facility] CO2 26 22 - 32 mmol/L [facility] Anion gap 10 2 - 15 mmol/L [facility] BUN 15 6 - 25 mg/dL [facility] Creatinine 0.83 0.80 - 1.30 mg/dL [facility] Glucose 119 70 - 199 mg/dL [facility] Comment: Interpretive Data Fasting glucose >/= 126 [...] 2022. Calcium 9.2 8.5 - 10.3 mg/dL [facility] Bilirubin, total 0.2 0.1 - 1.2 mg/dL [facility] Protein, pl 6.8 6.5 - 8.5 g/dL [facility] Albumin 3.8 3.5 - 5.0 g/dL [facility] Alk phos 109 40 - 130 Units/L LD [facility] ALT 18 7 - 55 Units/L LD [facility] AST 25 10 - 50 Units/L LD [facility] Blood 10/04/2024 1:26 PM CDT 10/04/2024 1:29 PM CDT Narrative CERNER BJ - 10/04/2024 1:54 PM CDT To be drawn prior to patient taking venetoclax. us Debby Benito MD LAB BLOOD ORDERABLES F inal Result [facility] Department [place] [address] * (ABNORMAL) CBC with auto differential (10/04/2024 1:24 PM CDT) WBC 2.84(L) 3.80 - 9.90 K/cumm Comment:Testing performed by : [facility], [address] [place] [address] Hgb 11.6(L) 13.0 - 17.5 g/dL CERJOSE MARTIN [facility] Comment:Testing performed by : [facility], [address] [place] [address] Hct 34.3(L) 38.9 - 50.3 % CERJOSE MARTIN BJ Comment:Testing performed by : [facility], [address] [place] [address] Plt 79(L) 150 - 400 K/cumm CERJOSE MARTIN [facility] Comment:Testing performed by : [facility], [address] [place] [address] MPV 8.7 6.8 - 10.4 fL [address] [facility] Comment:Testing performed by : [facility], [address] [place] [address] RBC 3.55(L) 4.30 - 5.80 M/cumm CERJOSE MARTIN BJ Comment:Testing performed by : [facility], [address] [place] [address] MCV 96.9(H) 81.3 - 96.4 fL LD SWEET Comment:Testing performed by : [facility], [address] [place], [place] [phone] MCH 32.8 27.1 - 33.3 pg LD SWEET Comment:Testing performed by : [facility], [address] [place] [address] MCHC 33.9 32.3 - 35.7 g/dL LD SWEET Comment:Testing performed by : [facility], [address] [place], [place] [phone] RDW CV 15.4(H) 11.1 - 14.9 % LD SEWET Comment:Testing performed by : [facility], [address] [place], [place] [phone] NRBC abs 0.10(H) 0.00 - 0.01 K/cumm LD [facility] Comment:Testing performed by : [facility], [address] [place], [place] [phone] Blood 10/04/2024 1:24 PM CDT 10/04/2024 1:28 PM CDT Narrative [facility] - 10/04/2024 1:38 PM CDT To be drawn prior to patient taking venetoclax. us Debby Benito MD LAB BLOOD ORDERABLES F inal Result [facility] Department [place] [address] * (ABNORMAL) Manual Differential (10/04/2024 1:24 PM CDT) Cells Counted 151 Comment:Testing performed by : [facility] [facility], [address] [place], [place] [id number] Neutrophil abs 0.98(L) 1.50 - 6.50 K/cumm LD SWEET Comment:Testing performed by : [facility], [address] [place] [address] Lymphocyte abs 1.15 0.80 - 3.30 K/cumm CERNER [facility] Comment:Testing performed by : [facility], [address] [place], [place] [id number] Monocyte abs 0.37 0.20 - 0.80 K/cumm [facility] Comment:Testing performed by : [facility], [address] [place], [place] [id number] Eosinophil abs 0.14 0.00 - 0.50 K/cumm [facility] Comment:Testing performed by : [facility], [address] [place], [place] [id number] Basophil abs 0.11(H) 0.00 - 0.10 K/cumm [facility] Comment:Testing performed by : [facility], [address] [place], [place] [id number] Neutrophil pct 34.0 % [facility] Comment: Interpretive Data Percent cell count reference ranges are not reported, since discordance with absolute values may lead to misinterpretation of CBC data. Current Interpretive Data was last revised on 2017. Testing performed by: [facility], [address] [place], [place] [id number] Lymphocyte pct 40.0 % CERNER BJ Comment: Interpretive Data Percent cell count reference ranges are not reported, since discordance with absolute values may lead to misinterpretation of CBC data. Current Interpretive Data was last revised on 2017. Testing performed by: [facility], [address] [place] [address] Monocyte pct 13.0 % [facility] Comment: Interpretive Data Percent cell count reference ranges are not reported, since discordance with absolute values may lead to misinterpretation of CBC data. Current Interpretive Data was last revised on 2017. Testing performed by: [facility], [address] [place] [address] Eosinophil pct 5.0 % [facility] Comment: Interpretive Data Percent cell count reference ranges are not reported, since discordance with absolute values may lead to misinterpretation of CBC data. Current Interpretive Data was last revised on 2017. Testing performed by: [facility], [address] [place] [address] Basophil pct 4.0 % CERNER [facility]J Comment: Interpretive Data Percent cell count reference ranges are not reported, since discordance with absolute values may lead to misinterpretation of CBC data. Current Interpretive Data was last revised on 2017. Testing performed by: [facility], [address] [place], [place] [id number] Metamyelocyte pct 1.0(H) 0.0 - 0.0 % CERNER BJ Comment:Testing performed by : [facility], [address] [place] [address] Myelocyte pct 1.0(H) 0.0 - 0.0 % CERNER BJ Comment:Testing performed by : [facility], [address] [place], [place] [id number] Variant lymph pct 3.0(H) 0.0 - 0.0 % CERNER [facility] Comment:Testing performed by : [facility], [address] [place] [address] Anisocytosis 1+(A) CERNER [facility] Comment:Testing performed by : [facility], [address] [place], [place] [phone] Poikilocytosis 1+(A) CERNER [facility] Comment:Testing performed by : [facility], [address] [place], [place] [phone] Elliptocytes 1+(A) CERNER BJ Comment:Testing performed by : [facility], [address] [place] [address] Target cells 1+(A) CERNER BJ Comment:Testing performed by : [facility], [address] [place], [place] [phone] Platelet estimate Decreased (A) CERNER BJ Comment:Testing performed by : [facility], [address] [place] [address] Blood 10/04/2024 1:24 PM CDT 10/04/2024 1:28 PM CDT Debby Benito MD LAB BLOOD ORDERABLES F inal Result Performing Organization Address [facility] de Phone Number [facility] [place] [address] * eGFR (10/02/2024 2:37 PM CDT) [facility] eGFR >90 >=60 mL/min/1. 73 m2 Comment: [...] 2:37 PM CDT 10/02/2024 2:47 PM CDT Debby Benito MD LAB BLOOD ORDERABLES F inal Result Performing Organization Address [facility] Co de Phone Number [facility] Department [place] [address] * (ABNORMAL) CBC with auto differential (10/02/2024 2:37 PM CDT) [facility] WBC 3.82 3.80 - 9.90 K/cumm Hgb 11.1(L) 13.0 - 17.5 g/dL [facility] Hct 31.9(L) 38.9 - 50.3 % [facility] Plt 93(L) 150 - 400 K/cumm [facility] MPV 11.3 9.1 - 12.3 fL [facility] RBC 3.37(L) 4.30 - 5.80 M/cumm [facility] MCV 94.7 81.3 - 96.4 fL [facility] MCH 32.9 27.1 - 33.3 pg [facility] MCHC 34.8 32.3 - 35.7 g/dL [facility] RDW CV 15.2(H) 11.1 - 14.9 % [facility] RDW SD 52.3(H) 35.7 - 48.1 fL [facility] NRBC abs 0.14(H) 0.00 - 0.01 K/cumm [facility] Morphologic Screen Results confirmed by manual morphology review. [facility] Blood 10/02/2024 2:37 PM CDT 10/02/2024 2:48 PM CDT us Debby Benito MD LAB BLOOD ORDERABLES F inal Result [facility] Department [place] [address] * (ABNORMAL) Manual Differential (10/02/2024 2:37 PM CDT) Differential Manual Cells Counted 118 [facility] Neutrophil abs 1.81 1.50 - 6.50 K/cumm [facility] Imm gran abs 0.36(H) 0.00 - 0.10 K/cumm [facility] Lymphocyte abs 1.20 0.80 - 3.30 K/cumm [facility] Monocyte abs 0.26 0.20 - 0.80 K/cumm [facility] Eosinophil abs 0.13 0.00 - 0.50 K/cumm [facility] Basophil abs 0.06 0.00 - 0.10 K/cumm [facility] Neutrophil pct 47.5 % [facility] Comment: Interpretive Data Percent cell count reference ranges are not reported, since discordance with absolute values may lead to misinterpretation of CBC data. Current Interpretive Data was last revised on 2017. Lymphocyte pct 22.0 % [facility] Comment: Interpretive Data Percent cell count reference ranges are not reported, since discordance with absolute values may lead to misinterpretation of CBC data. Current Interpretive Data was last revised on 2017. Monocyte pct 6.8 % [facility] Comment: Interpretive Data Percent cell count reference ranges are not reported, since discordance with absolute values may lead to misinterpretation of CBC data. Current Interpretive Data was last revised on 2017. Eosinophil pct 3.4 % [facility] Comment: Interpretive Data Percent cell count reference ranges are not reported, since discordance with absolute values may lead to misinterpretation of CBC data. Current Interpretive Data was last revised on 2017. Basophil pct 1.7 % [facility] Comment: Interpretive Data Percent cell count reference ranges are not reported, since discordance with absolute values may lead to misinterpretation of CBC data. Current Interpretive Data was last revised on 2017. Metamyelocyte pct 4.2(H) 0.0 - 0.0 % [facility] Myelocyte pct 5.1(H) 0.0 - 0.0 % [facility] Variant lymph pct 9.3(H) 0.0 - 0.0 % [facility] Blood 10/02/2024 2:37 PM CDT 10/02/2024 2:51 PM CDT Debby Benito MD LAB BLOOD ORDERABLES F inal Result Performing Organization Address [facility]/ZIP Co de Phone Number [facility] Department [place] [address] * Type and screen (10/02/2024 2:37 PM CDT) ABO Rh A Positive Jacob, indirect Negative [facility] Blood 10/02/2024 2:37 PM CDT 10/02/2024 2:46 PM CDT Debby Benito MD LAB BLOOD BANK TEST OR DERABLES Final Result Performing Organization Address [facility] Co de Phone Number [facility] [place] [address] * Uric acid (10/02/2024 2:37 PM CDT) [facility] Uric acid 5.6 3.0 - 8.0 mg/dL Blood 10/02/2024 2:37 PM CDT 10/02/2024 2:47 PM CDT Sarah Velarde Preston BOW TACKER LAB BLOOD ORDERABLES Final Res ult Performing Organization Address [facility] [place] [address] * Phosphorus (10/02/2024 2:37 PM CDT) [facility] Phosphorus, pl 3.3 2.3 - 4.5 mg/dL Blood 10/02/2024 2:37 PM CDT 10/02/2024 2:47 PM CDT Sarah Simon BOW TACKER LAB BLOOD ORDERABLES Final Res ult Performing Organization Address [facility] de Phone Number [facility] [place] [address] * Magnesium (10/02/2024 2:37 PM CDT) [facility] Magnesium 2.1 1.4 - 2.5 mg/dL Blood 10/02/2024 2:37 PM CDT 10/02/2024 2:47 PM CDT Debby Benito MD LAB BLOOD ORDERABLES F inal Result Performing Organization Address City/[facility] Co de Phone Number [facility] [place] [address] * Comprehensive metabolic panel (10/02/2024 2:37 PM CDT) [facility] Sodium 142 135 - 145 mmol/L Potassium, pl 3.7 3.3 - 4.9 mmol/L [facility] Chloride 103 97 - 110 mmol/L [facility] CO2 26 22 - 32 mmol/L [facility] Anion gap 13 2 - 15 mmol/L [facility] BUN 13 6 - 25 mg/dL [facility] Creatinine 0.87 0.80 - 1.30 mg/dL [facility] Glucose 149 70 - 199 mg/dL [facility] Comment: Interpretive Data Fasting glucose >/= 126 [...] 2022. Calcium 9.1 8.5 - 10.3 mg/dL [facility] Bilirubin, total 0.2 0.1 - 1.2 mg/dL [facility] Protein, pl 6.9 6.5 - 8.5 g/dL [facility] Albumin 3.9 3.5 - 5.0 g/dL [facility] Alk phos 111 40 - 130 Units/L [facility] ALT 16 7 - 55 Units/L [facility] AST 27 10 - 50 Units/L [facility] Blood 10/02/2024 2:37 PM CDT 10/02/2024 2:47 PM CDT us Debby Benito MD LAB BLOOD ORDERABLES F inal Result [facility] Department [place] [address] * eGFR (10/01/2024 9:05 AM CDT) [facility] eGFR >90 >=60 mL/min/1. 73 m2 Comment: [...] MD LAB BLOOD ORDERABLES Final Resul t [facility] [place] [address] * Uric acid (10/01/2024 9:05 AM CDT) Uric acid 7.2 3.0 - 8.0 mg/dL Blood 10/01/2024 9:05 AM CDT 10/01/2024 9:19 AM CDT Arthur Guerra MD LAB BLOOD ORDERABLES Final Resul t [facility] [place] [address] * Phosphorus (10/01/2024 9:05 AM CDT) Phosphorus, pl 3.2 2.3 - 4.5 mg/dL Blood 10/01/2024 9:05 AM CDT 10/01/2024 9:19 AM CDT Arthur Guerra MD LAB BLOOD ORDERABLES Final Resul t Performing Organization Address [facility] Co de Phone Number [facility] Department [place] [address] * Basic metabolic panel (10/01/2024 9:05 AM CDT) Pathologist [facility] Sodium 141 135 - 145 mmol/L Potassium, pl 4.4 3.3 - 4.9 mmol/L [facility] Chloride 102 97 - 110 mmol/L [facility] CO2 25 22 - 32 mmol/L [facility] Anion gap 14 2 - 15 mmol/L [facility] BUN 16 6 - 25 mg/dL [facility] Creatinine 0.98 0.80 - 1.30 mg/dL [facility] Glucose 71 70 - 199 mg/dL [facility] Comment: Interpretive Data Fasting glucose >/= 126 [...] 2022. Calcium 9.2 8.5 - 10.3 mg/dL [facility] Blood 10/01/2024 9:05 AM CDT 10/01/2024 9:19 AM CDT Arthur Guerra MD LAB BLOOD ORDERABLES Final Resul t Performing Organization Address [facility] de Phone Number [facility] Department [place] [address] * (ABNORMAL) Lactate (10/01/2024 2:21 AM CDT) Pathologist [facility] Lactate 2.8(H) 0.7 - 2.0 mmol/L Blood 10/01/2024 2:21 AM CDT 10/01/2024 2:29 AM CDT us Onofre Castro MD LAB BLOOD ORDERABLES Final Res ult Performing Organization Address [facility]/ZIP Co de Phone Number [facility] Department [place] [address] * eGFR (10/01/2024 2:21 AM CDT) [facility] eGFR >90 >=60 mL/min/1. 73 m2 Comment: [...] ORDERABLES Final Resul t Performing Organization Address [facility]/ZIP Co de Phone Number [facility] Department [place] [address] * (ABNORMAL) Differential, auto (10/01/2024 2:21 AM CDT) Neutrophil abs 1.88 1.50 - 6.50 K/cumm Imm gran abs 0.37(H) 0.00 - 0.10 K/cumm [facility] Lymphocyte abs 1.44 0.80 - 3.30 K/cumm [facility] Monocyte abs 0.82(H) 0.20 - 0.80 K/cumm [facility] Eosinophil abs 0.11 0.00 - 0.50 K/cumm [facility] Basophil abs 0.05 0.00 - 0.10 K/cumm [facility] Neutrophil pct 40.2 % [facility] Comment: Differential consistent with previous result. Differential consistent with previous result. Interpretive Data Percent cell count reference ranges are not reported, since discordance with absolute values may lead to misinterpretation of CBC data. Current Interpretive Data was last revised on 2017. Imm gran pct 7.9 % [facility] Comment: Interpretive Data Percent cell count reference ranges are not reported, since discordance with absolute values may lead to misinterpretation of CBC data. Current Interpretive Data was last revised on 2017. Lymphocyte pct 30.8 % [facility] Comment: Interpretive Data Percent cell count reference ranges are not reported, since discordance with absolute values may lead to misinterpretation of CBC data. Current Interpretive Data was last revised on 2017. Monocyte pct 17.6 % [facility] Comment: Interpretive Data Percent cell count reference ranges are not reported, since discordance with absolute values may lead to misinterpretation of CBC data. Current Interpretive Data was last revised on 2017. Eosinophil pct 2.4 % [facility] Comment: Interpretive Data Percent cell count reference ranges are not reported, since discordance with absolute values may lead to misinterpretation of CBC data. Current Interpretive Data was last revised on 2017. Basophil pct 1.1 % [facility] Comment: Interpretive Data Percent cell count reference ranges are not reported, since discordance with absolute values may lead to misinterpretation of CBC data. Current Interpretive Data was last revised on 2017. Blood 10/01/2024 2:21 AM CDT 10/01/2024 2:29 AM CDT us Onofre Castro MD LAB BLOOD ORDERABLES Final Res ult [facility] [place] [address] * (ABNORMAL) CBC with auto differential (10/01/2024 2:21 AM CDT) WBC 4.67 3.80 - 9.90 K/cumm Hgb 11.1(L) 13.0 - 17.5 g/dL [facility] Hct 32.1(L) 38.9 - 50.3 % [facility] Plt 99(L) 150 - 400 K/cumm [facility] MPV 11.2 9.1 - 12.3 fL [facility] RBC 3.32(L) 4.30 - 5.80 M/cumm [facility] MCV 96.7(H) 81.3 - 96.4 fL [facility] MCH 33.4(H) 27.1 - 33.3 pg [facility] MCHC 34.6 32.3 - 35.7 g/dL [facility] RDW CV 15.7(H) 11.1 - 14.9 % [facility] RDW SD 55.6(H) 35.7 - 48.1 fL [facility] NRBC abs 0.13(H) 0.00 - 0.01 K/cumm [facility] Blood 10/01/2024 2:21 AM CDT 10/01/2024 2:29 AM CDT Onofre Castro MD LAB BLOOD ORDERABLES Final Res ult [facility] [place] [address] * (ABNORMAL) Lactate, whole blood (10/01/2024 2:21 AM CDT) Lactate, bld 2.9(H) 0.7 - 2.0 mmol/L Blood 10/01/2024 2:21 AM CDT 10/01/2024 2:28 AM CDT Laz Busch MD LAB BLOOD ORDERABLES Final Resu lt Performing Organization Address City/[facility] Co de Phone Number [facility] [place] [address] * Uric acid (10/01/2024 2:21 AM CDT) Uric acid 7.0 3.0 - 8.0 mg/dL Blood 10/01/2024 2:21 AM CDT 10/01/2024 2:29 AM CDT Arthur Guerra MD LAB BLOOD ORDERABLES Final Resul t Performing Organization Address [facility] de Phone Number [facility] [place] [address] * Phosphorus (10/01/2024 2:21 AM CDT) Phosphorus, pl 3.2 2.3 - 4.5 mg/dL Blood 10/01/2024 2:21 AM CDT 10/01/2024 2:29 AM CDT Arthur Guerra MD LAB BLOOD ORDERABLES Final Resul t Performing Organization Address [facility] [place] [address] * Basic metabolic panel (10/01/2024 2:21 AM CDT) Sodium 139 135 - 145 mmol/L Potassium, pl 4.2 3.3 - 4.9 mmol/L [facility] Chloride 102 97 - 110 mmol/L [facility] CO2 25 22 - 32 mmol/L [facility] Anion gap 12 2 - 15 mmol/L [facility] BUN 14 6 - 25 mg/dL [facility] Creatinine 1.01 0.80 - 1.30 mg/dL [facility] Glucose 75 70 - 199 mg/dL [facility] Comment: Interpretive Data Fasting glucose >/= 126 [...] 2022. Calcium 8.8 8.5 - 10.3 mg/dL [facility] Blood 10/01/2024 2:21 AM CDT 10/01/2024 2:29 AM CDT Arthur Guerra MD LAB BLOOD ORDERABLES Final Resul t [facility] Department [place] [address] * (ABNORMAL) Lactate (09/30/2024 5:42 PM CDT) Pathologist [facility] Lactate 2.9(H) 0.7 - 2.0 mmol/L Blood 09/30/2024 5:42 PM CDT 09/30/2024 6:17 PM CDT us Hanna Arias MD LAB BLOOD ORDERABLES Final Result [facility] Department [place] [address] * eGFR (09/30/2024 5:42 PM CDT) Pathologist [facility] eGFR 85 >=60 mL/min/1. 73 m2 Comment: [...] 5:42 PM CDT 09/30/2024 6:22 PM CDT Debby Benito MD LAB BLOOD ORDERABLES F [facility]al Result [facility] [place] [address] * (ABNORMAL) Lactate, whole blood (09/30/2024 5:42 PM CDT) Lactate, bld 3.1(H) 0.7 - 2.0 mmol/L Blood 09/30/2024 5:42 PM CDT 09/30/2024 6:16 PM CDT Debby Benito MD LAB BLOOD ORDERABLES F inal Result [facility] Department [place] [address] * Uric acid (09/30/2024 5:42 PM CDT) Uric acid 7.7 3.0 - 8.0 mg/dL Blood 09/30/2024 5:42 PM CDT 09/30/2024 6:17 PM CDT Laz Busch MD LAB BLOOD ORDERABLES Final Resu lt Performing Organization Address [facility]/ZIP Co de Phone Number [facility] [place] [address] * Phosphorus (09/30/2024 5:42 PM CDT) Pathologist [facility] Phosphorus, pl 2.5 2.3 - 4.5 mg/dL Blood 09/30/2024 5:42 PM CDT 09/30/2024 6:17 PM CDT Laz Busch MD LAB BLOOD ORDERABLES Final Resu lt Performing Organization Address [facility] Co de Phone Number [facility] [place] [address] * (ABNORMAL) Lactate dehydrogenase (LD) (09/30/2024 5:42 PM CDT) Pathologist [facility] Lactate dehydrogenase (LDH) 402(H) 100 - 250 Units/L Blood 09/30/2024 5:42 PM CDT 09/30/2024 6:17 PM CDT Laz Busch MD LAB BLOOD ORDERABLES Final Resu lt Performing Organization Address [facility] Co de Phone Number [facility] [place] [address] * Basic metabolic panel (09/30/2024 5:42 PM CDT) Sodium 137 135 - 145 mmol/L Potassium, pl 4.2 3.3 - 4.9 mmol/L [facility] Chloride 101 97 - 110 mmol/L [facility] CO2 28 22 - 32 mmol/L [facility] Anion gap 8 2 - 15 mmol/L [facility] BUN 13 6 - 25 mg/dL [facility] Creatinine 1.08 0.80 - 1.30 mg/dL [facility] Glucose 78 70 - 199 mg/dL [facility] Comment: Interpretive Data Fasting glucose >/= 126 [...] 2022. Calcium 8.9 8.5 - 10.3 mg/dL [facility] Blood 09/30/2024 5:42 PM CDT 09/30/2024 6:17 PM CDT Debby Benito MD LAB BLOOD ORDERABLES F inal Result Performing Organization Address City/[facility]/ZIP Co de Phone Number [facility] [place] [address] * POCT glucose (09/30/2024 9:01 AM CDT) Pathologist [facility] Glucose, POC 85 70 - 199 mg/dL Blood 09/30/2024 9:01 AM CDT 09/30/2024 9:01 AM CDT Debby Benito MD LAB POCT ORDERABLES - DEVICE Final Result Performing Organization Address [facility]/ZIP Co de Phone Number [facility] [place] [address] * eGFR (09/30/2024 8:21 AM CDT) Pathologist [facility] eGFR 80 >=60 mL/min/1. 73 m2 Comment: [...] ORDERABLES Final Res ult Performing Organization Address City/[facility]/ZIP Co de Phone Number [facility] Department [place] [address] * (ABNORMAL) Lactate, whole blood (09/30/2024 8:21 AM CDT) Lactate, bld 3.5(H) 0.7 - 2.0 mmol/L Blood 09/30/2024 8:21 AM CDT 09/30/2024 8:30 AM CDT us Laz Busch MD LAB BLOOD ORDERABLES Final [facility]u lt [facility] [place] [address] * (ABNORMAL) Uric acid (09/30/2024 8:21 AM CDT) Uric acid 8.6(H) 3.0 - 8.0 mg/dL Blood 09/30/2024 8:21 AM CDT 09/30/2024 8:32 AM CDT Onofre Castro MD LAB BLOOD ORDERABLES Final Res ult [facility] Department [place] [address] * Phosphorus (09/30/2024 8:21 AM CDT) Phosphorus, pl 3.1 2.3 - 4.5 mg/dL Blood 09/30/2024 8:21 AM CDT 09/30/2024 8:32 AM CDT Onofre Castro MD LAB BLOOD ORDERABLES Final Res ult Performing Organization Address [facility] Co de Phone Number [facility] Department [place] [address] * Basic metabolic panel (09/30/2024 8:21 AM CDT) [facility] Sodium 138 135 - 145 mmol/L Potassium, pl 4.0 3.3 - 4.9 mmol/L [facility] Chloride 101 97 - 110 mmol/L [facility] CO2 26 22 - 32 mmol/L [facility] Anion gap 11 2 - 15 mmol/L [facility] BUN 16 6 - 25 mg/dL [facility] Creatinine 1.13 0.80 - 1.30 mg/dL [facility] Glucose 110 70 - 199 mg/dL [facility] Comment: Interpretive Data Fasting glucose >/= 126 [...] 2022. Calcium 8.9 8.5 - 10.3 mg/dL [facility] Blood 09/30/2024 8:21 AM CDT 09/30/2024 8:32 AM CDT Onofre Castro MD LAB BLOOD ORDERABLES Final Res ult Performing Organization Address [facility] Co de Phone Number LD [facility] [place] [address] * eGFR (09/30/2024 5:08 AM CDT) eGFR [...] ORDERABLES Final Res ult Performing Organization Address City/[facility]/ZIP Co de Phone Number [facility] [place] [address] * Basic metabolic panel (09/30/2024 5:08 AM CDT) Sodium 139 135 - 145 mmol/L Potassium, pl 4.3 3.3 - 4.9 mmol/L [facility] Chloride 99 97 - 110 mmol/L [facility] CO2 25 22 - 32 mmol/L [facility] Anion gap 15 2 - 15 mmol/L [facility] BUN 15 6 - 25 mg/dL [facility] Creatinine 1.11 0.80 - 1.30 mg/dL [facility] Glucose 76 70 - 199 mg/dL [facility] Comment: Interpretive Data Fasting glucose >/= 126 [...] 2022. Calcium 8.6 8.5 - 10.3 mg/dL [facility] Blood 09/30/2024 5:08 AM CDT 09/30/2024 5:20 AM CDT Onofre Castro MD LAB BLOOD ORDERABLES Final Res ult Performing Organization Address [facility]/ZIP Co de Phone Number [facility] [place] [address] * Senior staff review (09/30/2024 2:30 AM CDT) Senior Staff Review Specimen Blood Senior Staff Review Review Done [facility] Comment:Reviewed by senior timi balderas. 10/01/2024 09:34:48 CDT GP. Blood 09/30/2024 2:30 AM CDT 09/30/2024 3:15 AM CDT Debby Benito MD LAB BLOOD ORDERABLES F inal Result Performing Organization Address City/[facility]/ZIP Co de Phone Number [facility] Department [place] [address] * (ABNORMAL) CBC with auto differential (09/30/2024 2:30 AM CDT) [facility] WBC 6.32 3.80 - 9.90 K/cumm Hgb 11.8(L) 13.0 - 17.5 g/dL [facility] Hct 34.4(L) 38.9 - 50.3 % [facility] Plt 117(L) 150 - 400 K/cumm [facility] MPV 11.0 9.1 - 12.3 fL [facility] RBC 3.61(L) 4.30 - 5.80 M/cumm [facility] MCV 95.3 81.3 - 96.4 fL [facility] MCH 32.7 27.1 - 33.3 pg [facility] MCHC 34.3 32.3 - 35.7 g/dL [facility] RDW CV 16.0(H) 11.1 - 14.9 % [facility] RDW SD 55.9(H) 35.7 - 48.1 fL [facility] NRBC abs 0.17(H) 0.00 - 0.01 K/cumm [facility] Blood 09/30/2024 2:30 AM CDT 09/30/2024 1:10 AM CDT Onofre Castro MD LAB BLOOD ORDERABLES Final Res ult [facility] Department [place] [address] * (ABNORMAL) Manual Differential (09/30/2024 2:30 AM CDT) [facility] Differential Manual Cells Counted 121 [facility] Neutrophil abs 3.19 1.50 - 6.50 K/cumm [facility] Imm gran abs 0.37(H) 0.00 - 0.10 K/cumm [facility] Lymphocyte abs 2.40 0.80 - 3.30 K/cumm [facility] Monocyte abs 0.05(L) 0.20 - 0.80 K/cumm [facility] Eosinophil abs 0.16 0.00 - 0.50 K/cumm [facility] BJ Basophil abs 0.16(H) 0.00 - 0.10 K/cumm [facility] Neutrophil pct 50.4 % [facility] Comment: Interpretive Data Percent cell count reference ranges are not reported, since discordance with absolute values may lead to misinterpretation of CBC data. Current Interpretive Data was last revised on 2017. Lymphocyte pct 24.0 % CERN[facility] Comment: Interpretive Data Percent cell count reference ranges are not reported, since discordance with absolute values may lead to misinterpretation of CBC data. Current Interpretive Data was last revised on 2017. Monocyte pct 0.8 % CERNER [facility] Comment: Interpretive Data Percent cell count reference ranges are not reported, since discordance with absolute values may lead to misinterpretation of CBC data. Current Interpretive Data was last revised on 2017. Eosinophil pct 2.5 % CERNER [facility] Comment: Interpretive Data Percent cell count reference ranges are not reported, since discordance with absolute values may lead to misinterpretation of CBC data. Current Interpretive Data was last revised on 2017. Basophil pct 2.5 % CERNER [facility] Comment: Interpretive Data Percent cell count reference ranges are not reported, since discordance with absolute values may lead to misinterpretation of CBC data. Current Interpretive Data was last revised on 2017. Metamyelocyte pct 1.7(H) 0.0 - 0.0 % [facility] Myelocyte pct 3.3(H) 0.0 - 0.0 % CERNER [facility] Promyelocyte pct 0.8(H) 0.0 - 0.0 % [facility] Variant lymph pct 14.0(H) 0.0 - 0.0 % [facility] RBC morphology Present(A) [facility] Anisocytosis Slight(A) [facility] Poikilocytosis Slight(A) [facility] Macrocytes 3-7/HPF(A) [facility] Platelet estimate Decreased( A) [facility] Blood 09/30/2024 2:30 AM CDT 09/30/2024 3:15 AM CDT Onofre Castro MD LAB BLOOD ORDERABLES Final Res ult Performing Organization Address City/[facility] de Phone Number LD [facility] [place] [address] * (ABNORMAL) Lactate (09/30/2024 12:53 AM CDT) Lactate 2.8(H) 0.7 - 2.0 mmol/L Blood 09/30/2024 12:5 3 AM CDT 09/30/2024 1:10 AM CDT Onofre Castro MD LAB BLOOD ORDERABLES Final Res ult Performing Organization Address [facility] [place] [address] * aPTT (09/30/2024 12:53 AM CDT) aPTT [...] ORDERABLES Final Res ult Performing Organization Address [facility] de Phone Number [facility] [place] [address] * Protime-INR (09/30/2024 12:53 AM CDT) PT 12.0 9.7 - 13.0 sec INR 1.11 0.90 - 1.20 [facility] Comment: Interpretive data Oral anticoagulant therapeutic ranges: Venous thromboembolism prophylaxis or treatment: 2.0-3.0 CARDIOLOGY Standard range: 2.0-3.0 High-intensity range: 2.5-3.5 Refer to indication-specific guidelines for appropriate target ranges for prosthetic heart valve replacement. Current interpretive data was last revised on 2019. Blood 09/30/2024 12:5 3 AM CDT 09/30/2024 1:12 AM CDT Onofre Castro MD LAB BLOOD ORDERABLES Final Res ult Performing Organization Address [facility] Co de Phone Number [facility] [place] [address] * Type and screen (09/30/2024 12:53 AM CDT) ABO Rh A Positive Jacob, indirect Negative [facility] Blood 09/30/2024 12:5 3 AM CDT 09/30/2024 1:05 AM CDT Narrative [facility] - 09/30/2024 2:00 AM CDT Has the patient had Daratumumab or Isatuximab in the past 6 months?->Unknown Onofre Castro MD LAB BLOOD BANK TEST ORDERABLES Final Result Performing Organization Address [facility] de Phone Number [facility] [place] [address] * (ABNORMAL) Lactate dehydrogenase (LD) (09/30/2024 12:53 AM CDT) Lactate dehydrogenase (LDH) 498(H) 100 - 250 Units/L Blood 09/30/2024 12:5 3 AM CDT 09/30/2024 1:10 AM CDT Narrative [facility] - 09/30/2024 1:43 AM CDT Friday and only. Morning draw. Onofre Castro MD LAB BLOOD ORDERABLES Final Res ult Performing Organization Address [facility] Co de Phone Number [facility] [place] [address] * Hepatic function panel (09/30/2024 12:53 AM CDT) Bilirubin, total 1.1 0.1 - 1.2 mg/dL Bilirubin, direct 0.3 0.1 - 0.3 mg/dL [facility] Protein, pl 6.8 6.5 - 8.5 g/dL [facility] Albumin 3.7 3.5 - 5.0 g/dL [facility] Alk phos 107 40 - 130 Units/L [facility] ALT 16 7 - 55 Units/L [facility] AST 42 10 - 50 Units/L [facility] Blood 09/30/2024 12:5 3 AM CDT 09/30/2024 1:10 AM CDT Onofre Castro MD LAB BLOOD ORDERABLES Final Res ult Performing Organization Address [facility] de Phone Number [facility] [place] [address] * Troponin I high-sensitivity 2-hour (09/29/2024 4:38 PM CDT) Pathologist [facility] Trop I hs 6 <=35 ng/L Comment: Interpretive Data For further hscTnI resources including the diagnostic algorithm and an aid in interpretation, copy and paste this link: https://bjhlab.testcatalog.org/show/hsTrop-1 Current Interpretive Data last revised 2019. Trop I hs delta 2 ng/L [facility] Trop I hs interp Insignificant [facility] Blood 09/29/2024 4:38 PM CDT 09/29/2024 5:55 PM CDT Onofre Castro MD LAB BLOOD ORDERABLES Final Res ult Performing Organization Address [facility] Co de Phone Number [facility] [place] [address] * CT Chest PE (CTA) W Contrast [...] <=35 ng/L Comment: Interpretive Data For further [facility] resources including the diagnostic algorithm and an aid in interpretation, copy and paste this link: https://bjhlab.testcatalog.org/show/hsTrop-[email or web address] Current Interpretive Data last revised 2019. Blood 09/29/2024 2:48 PM CDT 09/29/2024 3:09 PM CDT Onofre Castro MD LAB BLOOD ORDERABLES Final Res ult [facility] [place] [address] * (ABNORMAL) Lactate (09/29/2024 2:48 PM CDT) Lactate 3.6(H) 0.7 - 2.0 mmol/L Blood 09/29/2024 2:48 PM CDT 09/29/2024 3:10 PM CDT Onofre Castro MD LAB BLOOD ORDERABLES Final Res ult Performing Organization Address [facility] Co de Phone Number [facility] [place] [address] * eGFR (09/29/2024 2:48 PM CDT) eGFR [...] ORDERABLES Final Res ult Performing Organization Address City/[facility]/ZIP Co de Phone Number [facility] [place] [address] * Senior staff review (09/29/2024 2:48 PM CDT) Senior Staff Review Specimen Blood Senior Staff Review Review Done [facility] Comment:Refer to manual diff erential pathologist comment. Blood 09/29/2024 2:48 PM CDT 09/29/2024 6:32 PM CDT Narrative [facility] - 10/01/2024 9:31 AM CDT Path review Debby Benito MD LAB BLOOD ORDERABLES F inal Result Performing Organization Address [facility] Co de Phone Number [facility] [place] [address] * (ABNORMAL) CBC with auto differential (09/29/2024 2:48 PM CDT) [facility] WBC 7.98 3.80 - 9.90 K/cumm Hgb 12.5(L) 13.0 - 17.5 g/dL [facility] Hct 35.2(L) 38.9 - 50.3 % [facility] Plt 127(L) 150 - 400 K/cumm [facility] MPV 11.1 9.1 - 12.3 fL [facility] RBC 3.69(L) 4.30 - 5.80 M/cumm [facility] MCV 95.4 81.3 - 96.4 fL [facility] MCH 33.9(H) 27.1 - 33.3 pg [facility] MCHC 35.5 32.3 - 35.7 g/dL [facility] RDW CV 16.0(H) 11.1 - 14.9 % [facility] RDW SD 55.0(H) 35.7 - 48.1 fL [facility] NRBC abs 0.15(H) 0.00 - 0.01 K/cumm [facility] Blood 09/29/2024 2:48 PM CDT 09/29/2024 3:09 PM CDT Onofre Castro MD LAB BLOOD ORDERABLES Final Res ult [facility] Department [place] [address] * (ABNORMAL) Manual Differential (09/29/2024 2:48 PM CDT) Differential Manual Cells Counted 115 [facility] Neutrophil abs 3.81 1.50 - 6.50 K/cumm [facility] Imm gran abs 0.41(H) 0.00 - 0.10 K/cumm [facility] Lymphocyte abs 3.13 0.80 - 3.30 K/cumm [facility] Monocyte abs 0.34 0.20 - 0.80 K/cumm [facility] Eosinophil abs 0.28 0.00 - 0.50 K/cumm [facility] Neutrophil pct 47.8 % [facility] Comment: Interpretive Data Percent cell count reference ranges are not reported, since discordance with absolute values may lead to misinterpretation of CBC data. Current Interpretive Data was last revised on 2017. Lymphocyte pct 23.5 % [facility] Comment: Interpretive Data Percent cell count reference ranges are not reported, since discordance with absolute values may lead to misinterpretation of CBC data. Current Interpretive Data was last revised on 2017. Monocyte pct 4.3 % [facility] Comment: Interpretive Data Percent cell count reference ranges are not reported, since discordance with absolute values may lead to misinterpretation of CBC data. Current Interpretive Data was last revised on 2017. Eosinophil pct 3.5 % [facility] Comment: Interpretive Data Percent cell count reference ranges are not reported, since discordance with absolute values may lead to misinterpretation of CBC data. Current Interpretive Data was last revised on 2017. Metamyelocyte pct 1.7(H) 0.0 - 0.0 % [facility] Myelocyte pct 2.6(H) 0.0 - 0.0 % [facility] Promyelocyte pct 0.9(H) 0.0 - 0.0 % [facility] Variant lymph pct 15.7(H) 0.0 - 0.0 % [facility] RBC morphology Present(A) [facility] Anisocytosis Slight(A) [facility] Poikilocytosis Slight(A) CERNER [facility] Macrocytes 3-7/HPF(A) [facility] Platelet estimate Decreased(A) [facility] Pathologist comment Reviewed by Hematopatholog ist/Hematologi Luis E owens M.D. 10/01/2024 09:30:47 CDT Atypical lymphocytes noted. Suggest flow cytometry. [facility] Blood 09/29/2024 2:48 PM CDT 09/29/2024 6:32 PM CDT Onofre Castro MD LAB BLOOD ORDERABLES Edited Re sult - Final Performing Organization Address City/[facility]/ZIP Co de Phone Number [facility] [place] [address] * Type and screen (09/29/2024 2:48 PM CDT) Pathologist [facility] Jacob, indirect Negative ABO Rh A Positive [facility] Blood 09/29/2024 2:48 PM CDT 09/29/2024 3:21 PM CDT Narrative [facility] - 09/29/2024 4:29 PM CDT Has the patient had Daratumumab or Isatuximab in the past 6 months?->Unknown Onofre Castro MD LAB BLOOD BANK TEST ORDERABLES Final Result Performing Organization Address City/[facility]/ZIP Co de Phone Number [facility] [place] [address] * (ABNORMAL) Uric acid (09/29/2024 2:48 PM CDT) Pathologist [facility] Uric acid 9.9(H) 3.0 - 8.0 mg/dL Blood 09/29/2024 2:48 PM CDT 09/29/2024 3:10 PM CDT Onofre Castro MD LAB BLOOD ORDERABLES Final Res ult Performing Organization Address [facility] Co de Phone Number [facility] [place] [address] * Phosphorus (09/29/2024 2:48 PM CDT) Phosphorus, pl 4.4 2.3 - 4.5 mg/dL Blood 09/29/2024 2:48 PM CDT 09/29/2024 3:10 PM CDT Onofre Castro MD LAB BLOOD ORDERABLES Final Res ult Performing Organization Address [facility] de Phone Number [facility] [place] [address] * Magnesium (09/29/2024 2:48 PM CDT) Magnesium 2.2 1.4 - 2.5 mg/dL Blood 09/29/2024 2:48 PM CDT 09/29/2024 3:10 PM CDT Onofre Castro MD LAB BLOOD ORDERABLES Final Res ult Performing Organization Address [facility] de Phone Number [facility] [place] [address] * (ABNORMAL) Lactate dehydrogenase (LD) (09/29/2024 2:48 PM CDT) Lactate dehydrogenase (LDH) 592(H) 100 - 250 Units/L Blood 09/29/2024 2:48 PM CDT 09/29/2024 3:10 PM CDT Onofre Castro MD LAB BLOOD ORDERABLES Final Res ult Performing Organization Address City/[facility]/ZIP Co de Phone Number [facility] Department [place] [address] * Creatine kinase (CK), total (09/29/2024 2:48 PM CDT) Pathologist [facility] CK 121 40 - 300 Units/L Blood 09/29/2024 2:48 PM CDT 09/29/2024 3:10 PM CDT Onofre Castro MD LAB BLOOD ORDERABLES Final Res ult Performing Organization Address [facility] de Phone Number [facility] [place] [address] * (ABNORMAL) Comprehensive metabolic panel (09/29/2024 2:48 PM CDT) [facility] Sodium 139 135 - 145 mmol/L Potassium, pl 4.5 3.3 - 4.9 mmol/L [facility] Chloride 103 97 - 110 mmol/L [facility] CO2 26 22 - 32 mmol/L [facility] Anion gap 10 2 - 15 mmol/L [facility] BUN 19 6 - 25 mg/dL [facility] Creatinine 0.99 0.80 - 1.30 mg/dL [facility] Glucose 81 70 - 199 mg/dL [facility] Comment: Interpretive Data Fasting glucose >/= 126 [...] 2022. Calcium 9.4 8.5 - 10.3 mg/dL [facility] Bilirubin, total 0.4 0.1 - 1.2 mg/dL [facility] Protein, pl 7.2 6.5 - 8.5 g/dL [facility] Albumin 3.9 3.5 - 5.0 g/dL [facility] Alk phos 115 40 - 130 Units/L [facility] ALT 21 7 - 55 Units/L [facility] AST 76(H) 10 - 50 Units/L [facility] Blood 09/29/2024 2:48 PM CDT 09/29/2024 3:10 PM CDT us Onofre Castro MD LAB BLOOD ORDERABLES Final Res ult [facility] Department [place] [address] * XR Chest 1 View (09/29/2024 2:01 [...] ECG 12 lead (09/29/2024 1:10 PM CDT) Pathologist [facility] Ventricular Rate EKG/Min 98 BPM [facility] Atrial Rate 98 BPM [facility] MO-Interval (MSEC) 166 ms [facility] QRS-Interval (MSEC) 82 ms [facility] QT-Interval (MSEC) 344 ms [facility] QTc 439 ms [facility] P [place] 29 degrees [facility] R [place] 24 degrees [facility] T [place] 6 degrees [facility] Diagnosis Normal sinus rhythm Possible Inferior infarct (cited on or before 23-SEP-2024) Anterior infarct (cited on or before 23-SEP-2024) Abnormal ECG When compared with ECG of 23-SEP-2024 11:31, No significant change was found Confirmed by LEA NICKERSON M.D ([id number]) on 10/01/2024 9:54:23 AM [facility] 09/29/2024 1:10 PM CDT 10/01/2024 9:54 AM CDT Onofre Castro MD ECG ORDERABLES Final Result [facility] * eGFR (09/29/2024 10:52 AM CDT) Pathologist [facility] eGFR >90 >=60 mL/min/1. 73 m2 Comment: Interpretive Data Reference Interval Normal >/= 90 mL/min/1.73m2 Mildly decreased* 60 - 89 mL/min/1.73m2 Mildly to moderately decreased 45 - 59 mL/min/1.73m2 Moderately to severely decreased 30 - 44 mL/min/1.73m2 Severely decreased 15 - 29 mL/min/1.73m2 Kidney Failure < 15 mL/min/1.73m2 *Relative to young adult level Estimated glomerular filtration rate is determined by the 2021 CKD-EPI equation recommended by the National Kidney [...] 2 AM CDT 09/29/2024 11:09 AM CDT us Sarah S. Preston BOW TACKER LAB BLOOD ORDERABLES Final Res ult Performing Organization Address [facility] Co de Phone Number [facility] [place] [address] * (ABNORMAL) Uric acid (09/29/2024 10:52 AM CDT) Uric acid 9.1(H) 3.0 - 8.0 mg/dL Blood 09/29/2024 10:5 2 AM CDT 09/29/2024 11:09 AM CDT us Sarah S. Preston BOW TACKER LAB BLOOD ORDERABLES Final Res ult Performing Organization Address [facility] Co de Phone Number [facility] [place] [address] * Phosphorus (09/29/2024 10:52 AM CDT) Phosphorus, pl 4.3 2.3 - 4.5 mg/dL Blood 09/29/2024 10:5 2 AM CDT 09/29/2024 11:09 AM CDT Sarah S. Preston BOW TACKER LAB BLOOD ORDERABLES Final Res ult Performing Organization Address City/[facility] Co de Phone Number [facility] [place] [address] * Basic metabolic panel (09/29/2024 10:52 AM CDT) Sodium 142 135 - 145 mmol/L Potassium, pl 4.7 3.3 - 4.9 mmol/L [facility] Chloride 105 97 - 110 mmol/L [facility] CO2 25 22 - 32 mmol/L [facility] Anion gap 12 2 - 15 mmol/L [facility] BUN 19 6 - 25 mg/dL [facility] Creatinine 0.98 0.80 - 1.30 mg/dL [facility] Glucose 82 70 - 199 mg/dL [facility] Comment: Interpretive Data Fasting glucose >/= 126 [...] 2022. Calcium 9.5 8.5 - 10.3 mg/dL [facility] Blood 09/29/2024 10:5 2 AM CDT 09/29/2024 11:09 AM CDT us Sarah Velarde Preston BOW TACKER LAB BLOOD ORDERABLES Final Res ult [facility] Department [place] [address] * TRANSTHORACIC ECHO (TTE) COMPLETE W DOPPLER/CF W CONTRAST (09/23/2024 4:03 PM CDT) Anatomical Region Laterality Modality Ultrasound 09/23/2024 3:10 PM CDT Narrative 09/23/2024 5:[address] [facility] [place] [address] Transthoracic Echocardiographic Report Patient Name: SAQIB DEWEY J : 1975 (49y 6m) Gender: M Study Date: 09/23/2024 03:10:18 PM Ht(Inch): 72 Wt(Lb): 216.93 BSA: 2.24 Translation Director: Sunshine Baez, MARRY, [facility] Location: [facility] Order Provider: DEBBY BENITO Heart Rate: 73 BMI: 29.42 BP: 112 / 80 Ref Provider: DEBBY BENITO PROCEDURES: Echocardiographic Report: Transthoracic complete echo [...] Procedure Note Precious Rodriguez MD - 09/23/[address] [facility] [place] [address] Transthoracic Echocardiographic Report Patient Name: SAQIB DEWEY J : 1975 (49y 6m) Gender: M Study Date: 09/23/2024 03:10:18 PM Ht(Inch): 72 Wt(Lb): 216.93 BSA: 2.24 Translation Director: Sunshine Baez RDCS, [facility] Location: [facility] Order Provider:DEBBY BENITO Heart Rate: 73 BMI: 29.42 BP: 112 / 80 Ref Provider: DEBBY BENITO PROCEDURES: Echocardiographic Report: Transthoracic complete echo [...] Normal left ventricular systolic function. The EjectionFraction (Acsas's) is measured at 63 %. The average [...] LA Length 4C 5.13 cm MV Decel Epls277.66 msec [ 104.00 - 258.00 ] LA [...] Precious Rodriguez M.D. 09/23/2024 5:15:31 PM CDT us Debby Benito MD CV ECHO PROCEDURES Fin al Result * Donor Confirmation (09/23/2024 1:16 PM CDT) Test name, donor Confirmatory [facility]ph[facility] confirm, donor Test Name: _ Syphilis (T. pallidum)Captia- G IgG Antibody Screen EIA Test Result: _Negative Testing performed by: [facility] [place] [address] CLIA [id number] [facility] Blood 09/23/2024 1:16 PM CDT 09/24/2024 8:21 AM CDT us Debby Benito MD LAB BLOOD ORDERABLES F inal Result Performing Organization Address City/[facility]/ZIP Co de Phone Number LD [facility] Department [place] [address] * eGFR (09/23/2024 1:16 PM CDT) eGFR [...] 1:16 PM CDT 09/23/2024 1:29 PM CDT us Debby Benito MD LAB BLOOD ORDERABLES F inal Result LD [facility] Department [place] [address] * (ABNORMAL) BMT donor evaluation (09/23/2024 1:16 PM CDT) Pathologist [facility] Hep B surf Ag, donor Negative Negative CERNER [facility] Hep B core Ab, donor Positive(A) Negative CERNER [facility] Hep C Ab, donor Negative Negative CERNER [facility] HIV 1-2 Ab, donor Negative Negative CERNER [facility]J HTLV I/II Ab, donor Negative Negative CERNER [facility] Syphilis testing, donor Positive(A) Negative CERNER [facility] HIV CHRISTINA, donor Negative Negative [facility] HCV CHRISTINA, donor Negative Negative [facility] HBV CHRISTINA, donor Negative Negative [facility] WNV CHRISTINA, donor Negative Negative [facility] CMV testing, donor Positive(A) Negative [facility] Comment: Interpretive Data Testing performed by [facility] [place] [address] CLIA [id number] Panel consists of testing for Hepatitis B, Hepatitis C, HIV, HTLV, Syphilis, CMV, West Nile Virus and Chagas disease.Current interpretive data was last revised on 2022. Chagas testing, donor Negative Negative [facility] Blood 09/23/2024 1:16 PM CDT 09/24/2024 8:21 AM CDT Debby Benito MD LAB BLOOD ORDERABLES F inal Result Performing Organization Address [facility] Co de Phone Number LD [facility] Department [place] [address] * (ABNORMAL) CBC with auto differential (09/23/2024 1:16 PM CDT) [facility] WBC 8.83 3.80 - 9.90 K/cumm Comment:Testing performed by : [facility], [address] [place] [phone] Hgb 12.7(L) 13.0 - 17.5 g/dL [facility] Comment:Testing performed by : [facility], [address] [place], [place] [phone] Hct 37.9(L) 38.9 - 50.3 % CERNER BJ Comment:Testing performed by : [facility], [address] [place], [place] [phone] Plt 179 150 - 400 K/cumm CERNER BJ Comment:Testing performed by : [facility], [address] [place], [place] [phone] MPV 9.3 6.8 - 10.4 fL CERNER BJ Comment:Testing performed by : [facility], [address] [place], [place] [phone] RBC 3.85(L) 4.30 - 5.80 M/cumm CERNER BJ Comment:Testing performed by : [facility], [address] [place], [place] [phone] MCV 98.5(H) 81.3 - 96.4 fL CERNER BJ Comment:Testing performed by : [facility], [address] [place] [address] MCH 33.0 27.1 - 33.3 pg CERNER BJ Comment:Testing performed by : [facility], [address] [place] [address] MCHC 33.5 32.3 - 35.7 g/dL CERNER BJ Comment:Testing performed by : [facility], [address] [place] [address] RDW CV 15.8(H) 11.1 - 14.9 % CERNER BJ Comment:Testing performed by : [facility], [address] [place] [address] NRBC abs 0.00 0.00 - 0.01 K/cumm CERNER BJ Comment:Testing performed by : [facility], [address] [place] [address] Blood 09/23/2024 1:16 PM CDT 09/23/2024 1:24 PM CDT Debby Benito MD LAB BLOOD ORDERABLES F inal Result [facility] Department [place] [address] * (ABNORMAL) Manual Differential (09/23/2024 1:16 PM CDT) Cells Counted 196 Comment:Testing performed by : [facility], [address] [place] [phone] Neutrophil abs 4.94 1.50 - 6.50 K/cumm CERNER BJ Comment:Testing performed by : [facility], [address] [place] [phone] Lymphocyte abs 1.85 0.80 - 3.30 K/cumm CERNER BJ Comment:Testing performed by : [facility], [address] [place], [place] [phone] Monocyte abs 0.53 0.20 - 0.80 K/cumm CERNER BJ Comment:Testing performed by : [facility], [address] [place], [place] [phone] Eosinophil abs 0.44 0.00 - 0.50 K/cumm CERNER BJ Comment:Testing performed by : [facility], [address] [place] [phone] Basophil abs 0.18(H) 0.00 - 0.10 K/cumm CERNER BJ Comment:Testing performed by : [facility], [address] [place], [place] [phone] Neutrophil pct 56.0 % CERNER BJ Comment: Interpretive Data Percent cell count reference ranges are not reported, since discordance with absolute values may lead to misinterpretation of CBC data. Current Interpretive Data was last revised on 2017. Testing performed by: [facility], [address] [place] [phone] Lymphocyte pct 21.0 % CERNER BJ Comment: Interpretive Data Percent cell count reference ranges are not reported, since discordance with absolute values may lead to misinterpretation of CBC data. Current Interpretive Data was last revised on 2017. Testing performed by: [facility], [address] [place] [phone] Monocyte pct 6.0 % [facility] Comment: Interpretive Data Percent cell count reference ranges are not reported, since discordance with absolute values may lead to misinterpretation of CBC data. Current Interpretive Data was last revised on 2017. Testing performed by: [facility], [address] [place] [phone] Eosinophil pct 5.0 % [facility] Comment: Interpretive Data Percent cell count reference ranges are not reported, since discordance with absolute values may lead to misinterpretation of CBC data. Current Interpretive Data was last revised on 2017. Testing performed by: [facility], [address] [place] [phone] Basophil pct 2.0 % [facility] Comment: Interpretive Data Percent cell count reference ranges are not reported, since discordance with absolute values may lead to misinterpretation of CBC data. Current Interpretive Data was last revised on 2017. Testing performed by: [facility], [address] [place] [phone] Metamyelocyte pct 3.0(H) 0.0 - 0.0 % [facility] Comment:Testing performed by : [facility], [address] [place] [phone] Myelocyte pct 2.0(H) 0.0 - 0.0 % [facility] Comment:Testing performed by : [facility], [address] [place] [phone] Promyelocyte pct 1.0(H) 0.0 - 0.0 % [facility] Comment:Testing performed by : [facility], [address] [place] [phone] Blast pct 1.0(H) 0.0 - 0.0 % [facility] Comment: Date-Time 09/23/2024 1440 Critical called to Tabby Lay MA and read back by ZITA Testing performed by: [facility], [address] [place] [phone] Variant lymph pct 5.0(H) 0.0 - 0.0 % CERNER BJ Comment:Testing performed by : [facility], [address] [place], [place] [phone] RBC morphology NRBCs present(A) LD SWEET Comment:Testing performed by : [facility], [address] [place] [address] Hypochromasia 1+(A) LD SWEET Comment:Testing performed by : [facility], [address] [place], [place] [phone] Anisocytosis 1+(A) LD [facility] Comment:Testing performed by : [facility], [address] [place], [place] [phone] Poikilocytosis 1+(A) LD [facility] Comment:Testing performed by : [facility], [address] [place], [place] [phone] Schistocytes 1+(A) LD [facility] Comment:Testing performed by : [facility], [address] [place], [place] [phone] Elliptocytes 1+(A) LD [facility] Comment:Testing performed by : [facility], [address] [place], [place] [phone] Target cells 1+(A) LD [facility] Comment:Testing performed by : [facility], [address] [place], [place] [phone] Platelet estimate Adequate LD [facility] Comment:Testing performed by : [facility], [address] [place], [place] [phone] Blood 09/23/2024 1:16 PM CDT 09/23/2024 1:24 PM CDT us Debby Benito MD LAB BLOOD ORDERABLES F inal Result LD SWEET [facility] Department [place] [address] * (ABNORMAL) HSV 2 IgG Antibody Blood (09/23/2024 1:16 PM CDT) Pathologist [facility] HSV 2 IgG Reactive( A) Nonreactive Comment: Interpretive Data 1. Nonreactive: No detectable IgG antibody to HSV-2. 2. Equivocal: Presence or absence of detectable antibodies to HSV-2 cannot be determined and the test should be repeated. 3. Reactive: Indicates presence of detectable IgG antibody to HSV-2. Current interpretive data was last revised on 2022. Blood 09/23/2024 1:16 PM CDT 09/23/2024 2:43 PM CDT Debby Benito MD LAB MICROBIOLOGY - GEN ERAL ORDERABLES Final Result Performing Organization Address [facility] Co de Phone Number [facility] [place] [address] * (ABNORMAL) HSV 1 IgG Antibody Blood (09/23/2024 1:16 PM CDT) [facility] HSV 1 IgG Reactive( A) Nonreactive Comment: Interpretive Data 1. Nonreactive: No detectable IgG antibody to HSV-1. 2. Equivocal: Presence or absence of detectable antibodies to HSV-1 cannot be determined and the test should be repeated. 3. Reactive: Indicates presence of detectable IgG antibody to HSV-1. Current interpretive data was last revised on 2016. Blood 09/23/2024 1:16 PM CDT 09/23/2024 2:43 PM CDT Debby Benito MD LAB MICROBIOLOGY - GEN ERAL ORDERABLES Final Result Performing Organization Address [facility] de Phone Number [facility] [place] [address] * Sickle cell screen (09/23/2024 1:16 PM CDT) [facility] Sickle cell, solubility Negative Negative Comment: Interpretive [...] 1:16 PM CDT 09/23/2024 2:44 PM CDT Debby Benito MD LAB BLOOD ORDERABLES F inal Result Performing Organization Address [facility] de Phone Number [facility] [place] [address] * aPTT (09/23/2024 1:16 PM CDT) aPTT 28 28 - 38 sec Comment: Interpretive Data Heparin therapeutic range: 66.0 - 100.0 seconds. Range based on correlation with therapeutic heparin activity range of 0.3 - 0.7 Units/mL. Current interpretive data was last revised on 2023. Blood 09/23/2024 1:16 PM CDT 09/23/2024 1:40 PM CDT Debby Benito MD LAB BLOOD ORDERABLES F inal Result Performing Organization Address [facility] de Phone Number [facility] [place] [address] * Protime-INR (09/23/2024 1:16 PM CDT) PT 10.7 9.7 - 13.0 sec INR 0.99 0.90 - 1.20 [facility] Comment: Interpretive data Oral anticoagulant therapeutic ranges: Venous thromboembolism prophylaxis or treatment: 2.0-3.0 CARDIOLOGY Standard range: 2.0-3.0 High-intensity range: 2.5-3.5 Refer to indication-specific guidelines for appropriate target ranges for prosthetic heart valve replacement. Current interpretive data was last revised on 2019. Blood 09/23/2024 1:16 PM CDT 09/23/2024 1:40 PM CDT Debby Benito MD LAB BLOOD ORDERABLES F inal Result Performing Organization Address [facility] [place] [address] * Type and screen (09/23/2024 1:16 PM CDT) Jacob, indirect Negative ABO Rh A Positive [facility] Blood 09/23/2024 1:16 PM CDT 09/23/2024 1:35 PM CDT Narrative [facility] - 09/23/2024 2:36 PM CDT Has the patient had Daratumumab or Isatuximab in the past 6 months?->Unknown Debby Benito MD LAB BLOOD BANK TEST OR DERABLES Final Result Performing Organization Address [facility] de Phone Number [facility] [place] [address] * Uric acid (09/23/2024 1:16 PM CDT) Uric acid 7.2 3.0 - 8.0 mg/dL Blood 09/23/2024 1:16 PM CDT 09/23/2024 1:29 PM CDT Debby Benito MD LAB BLOOD ORDERABLES F inal Result Performing Organization Address [facility] Co de Phone Number [facility] [place] [address] * Magnesium (09/23/2024 1:16 PM CDT) Magnesium 2.2 1.4 - 2.5 mg/dL Blood 09/23/2024 1:16 PM CDT 09/23/2024 1:29 PM CDT Debby Benito MD LAB BLOOD ORDERABLES F inal Result Performing Organization Address [facility] Co de Phone Number [facility] [place] [address] * (ABNORMAL) Hemoglobin A1c (09/23/2024 1:16 PM CDT) Hgb A1C 5.7(H) 4.0 - 5.6 % Estimated Average Glucose 117 mg/dL [facility] Comment: The ADA recommends reporting an estimated Average Glucose (eAG) with all Hemoglobin A1c results using the equation derived from a study of 507 normal and diabetic adults. Minority populations were underrepresented and children were not included. (Diabetes Care 2020; 43(S1): S66-S76). The eAG is not equivalent to a fasting glucose. Blood 09/23/2024 1:16 PM CDT 09/23/2024 1:31 PM CDT Debby Benito MD LAB BLOOD ORDERABLES F inal Result Performing Organization Address [facility] de Phone Number [facility] Department [place] [address] * (ABNORMAL) Lipid panel (09/23/2024 1:16 PM CDT) Cholesterol 169 30 - 199 mg/dL Comment: [...] revised on 2018. Triglycerides 259(H) <=149 mg/dL [facility] Comment: Interpretive Data Ages < or [...] revised on 2018. HDL 23(L) >=40 mg/dL [facility] Comment: Interpretive Data Ages < or [...] on 2018. LDL, calculated 101 <=129 mg/dL [facility] Comment: Interpretive Data Ages < or [...] NCEP Expert Panel. Circulation 2004;110:227 3. Easton Le. QUETA Cardiol. 2020 September 30;5(5):540-548. doi: 10.1001/jamacardio.2020.0013 Current Interpretive Data was last revised on 2024. Non-HDL Cholesterol 146 mg/dL [facility] Comment: Interpretive Data Ages < or = [...] last revised on 2018. Chol/HDL ratio 7 [facility] Blood 09/23/2024 1:16 PM CDT 09/23/2024 1:29 PM CDT Debby Benito MD LAB BLOOD ORDERABLES F inal Result [facility] [place] [address] * Comprehensive metabolic panel (09/23/2024 1:16 PM CDT) Sodium 138 135 - 145 mmol/L Potassium, pl 3.9 3.3 - 4.9 mmol/L [facility] Chloride 102 97 - 110 mmol/L [facility] CO2 25 22 - 32 mmol/L [facility] Anion gap 11 2 - 15 mmol/L [facility] BUN 17 6 - 25 mg/dL [facility] Creatinine 0.98 0.80 - 1.30 mg/dL [facility] Glucose 169 70 - 199 mg/dL [facility] Comment: Interpretive Data Fasting glucose >/= 126 [...] 2022. Calcium 9.4 8.5 - 10.3 mg/dL [facility] Bilirubin, total 0.5 0.1 - 1.2 mg/dL [facility] Protein, pl 7.2 6.5 - 8.5 g/dL [facility] Albumin 4.0 3.5 - 5.0 g/dL [facility] Alk phos 101 40 - 130 Units/L [facility] ALT 19 7 - 55 Units/L [facility] AST 27 10 - 50 Units/L [facility] Blood 09/23/2024 1:16 PM CDT 09/23/2024 1:29 PM CDT Debby Benito MD LAB BLOOD ORDERABLES F inal Result Performing Organization Address [facility] Co de Phone Number [facility] Department [place] [address] * ECG 12 lead (09/23/2024 11:31 AM CDT) [facility] Ventricular Rate EKG/Min 86 BPM [facility] Atrial Rate 86 BPM [facility] MO-Interval (MSEC) 166 ms [facility] QRS-Interval (MSEC) 84 ms [facility] QT-Interval (MSEC) 374 ms [facility] QTc 447 ms [facility] P [place] 27 degrees [facility] R [place] 47 degrees [facility] T [place] 11 degrees [facility] Diagnosis Normal sinus rhythm Possible Inferior infarct , age undetermined Cannot rule out Anterior infarct (cited on or before 23-SEP-2024) Abnormal ECG When compared with ECG of 02-MAR-2024 15:04, Nonspecific T wave abnormality no longer evident in Anterior leads Confirmed by LEA NICKERSON M.D ([id number]) on 09/24/2024 1:54:23 PM [facility] 09/23/2024 11:3 1 AM CDT 09/24/2024 1:54 PM CDT Debby Benito MD ECG ORDERABLES Final Result Performing Organization Address City/[facility]/ZIP Co de Phone Number [facility] * XR Chest Pa Lateral 2 Views [...] it. Electronically signed by: Irene Patton M.D. Debby Benito MD IMG XR PROCEDURES Narda l Result * Pulmonary Function Test - (09/23/2024 10:28 AM CDT) FVC PRE 3.10 L [facility] FVC %PRE PRED 58 % [facility] FVC POST 3.37 L [facility] FVC %POST PRED 63 % [facility] FEV1 PRE 2.68 L [facility] FEV1 %PRE PRED 64 % [facility] FEV1 POST 2.61 L [facility] FEV1 %POST PRED 62 % [facility] FEV1/FVC PRE 86.3 % [facility] FEV1/FVC POST 77.3 % [facility] FRC PL PRE 2.61 L [facility] FRC PL %PRE PRED 66 % [facility] RV PRE 1.40 L [facility] RV %PRE PRED 64 % [facility] TLC PRE 4.85 L [facility] TLC %PRE PRED 64 % [facility] DLCO PRE 19.2 ml/min/mmH g [facility] DLCO %PRE PRED 59 % [facility] Anatomical Region Laterality Modality PFT 09/23/2024 10:0 [...] and %HbO2 is age dependent. However, the [facility] Pulmonary Function [facility] defines hypoxemia as a PO2 <55 or a %HbO2 <89. Starting on June 2024 the [facility] utilizes race neutral GLI Global normative equations. Narrative 09/24/2024 8:41 AM CDT PFT performed at:->[facility] Adult PFT Lab- [facility]-8D Procedure:->Spirometry with [...] hemoglobin level (DLCO ADJ) is mildly decreased. Debby Benito MD PFT ORDERABLES Final Result * [...] FDG-PET/CT IMAGING DATE OF STUDY: 09/15/2024 SCANNER: [employer] (SQ1). This is a high-resolution scanner, which [...] obtained. The study was interpreted on the [employer] workstation. The mean liver SUV (reported for research quality assurance specialist purposes) is 3.4. The total scanned area [...] FDG-PET/CT IMAGING DATE OF STUDY: 09/15/2024 SCANNER: [facility] [employer] (SQ1). This is a high-resolution scanner, which [...] obtained. The study was interpreted on the [employer] workstation. The mean liver SUV (reported for research quality assurance specialist purposes) is 3.4. The total scanned area [...] Electronically signed by: Ramandeep Whaley M.D. Sarah Velarde Preston BOW TACKER IMG PET PROCEDURES Final Resul t * [...] CDT 09/15/2024 10:45 AM CDT Sarah Simon BOW TACKER LAB BLOOD ORDERABLES Final Res ult LD SWE[facility] Department [place] [address] * (ABNORMAL) CBC with auto differential (09/15/2024 10:28 AM CDT) WBC 8.68 3.80 - 9.90 K/cumm Comment:Testing performed by : [facility], [address] [place] [address] Hgb 13.6 13.0 - 17.5 g/dL LD SWEET Comment:Testing performed by : [facility], [address] [place] [address] Hct 40.3 38.9 - 50.3 % LD SWEET Comment:Testing performed by : [facility], [address] [place] [address] Plt 262 150 - 400 K/cumm LD [facility] Comment:Testing performed by : [facility], [address] [place] [address] MPV 8.7 6.8 - 10.4 fL LD [facility] Comment:Testing performed by : [facility], [address] [place] [address] RBC 4.11(L) 4.30 - 5.80 M/cumm LD [facility] Comment:Testing performed by : [facility], [address] [place] [phone] MCV 98.1(H) 81.3 - 96.4 fL LD [facility] Comment:Testing performed by : [facility], [address] [place] [address] MCH 33.1 27.1 - 33.3 pg LD [facility] Comment:Testing performed by : [facility], [address] [place] [address] MCHC 33.7 32.3 - 35.7 g/dL LD [facility] Comment:Testing performed by : [facility], [address] [place] [address] RDW CV 15.0(H) 11.1 - 14.9 % LD [facility] Comment:Testing performed by : [facility], [address] [place] [address] NRBC abs 0.00 0.00 - 0.01 K/cumm LD [facility] Comment:Testing performed by : [facility], [address] [place] [address] Blood 09/15/2024 10:2 8 AM CDT 09/15/2024 10:37 AM CDT Sarah Simon BOW TACKER LAB BLOOD ORDERABLES Edited Re felice - Final LD S[facility] Department of Laboratories [place], [place] [id number] * (ABNORMAL) Manual Differential (09/15/2024 10:28 AM CDT) Cells Counted 198 Comment:Testing performed by : [facility], [address] [place] [address] Neutrophil abs 5.38 1.50 - 6.50 K/cumm LD [facility] Comment:Testing performed by : [facility], [address] [place] [address] Lymphocyte abs 2.00 0.80 - 3.30 K/cumm LD SWEET Comment:Testing performed by : [facility], [address] [place] [phone] Monocyte abs 0.52 0.20 - 0.80 K/cumm CERNER BJH Comment:Testing performed by : [facility], [address] [place] [phone] Eosinophil abs 0.26 0.00 - 0.50 K/cumm CERNER [facility] Comment:Testing performed by : [facility], [address] [place] [phone] Basophil abs 0.09 0.00 - 0.10 K/cumm CERNER [facility] Comment:Testing performed by : [facility], [address] [place] [phone] Neutrophil pct 62.0 % C[facility]ER [facility] Comment: Interpretive Data Percent cell count reference ranges are not reported, since discordance with absolute values may lead to misinterpretation of CBC data. Current Interpretive Data was last revised on 2017. Testing performed by: [facility], [address] [place] [phone] Lymphocyte pct 23.0 % CERNER [facility] Comment: Interpretive Data Percent cell count reference ranges are not reported, since discordance with absolute values may lead to misinterpretation of CBC data. Current Interpretive Data was last revised on 2017. Testing performed by: [facility], [address] [place] [phone] Monocyte pct 6.0 % C[facility]ER [facility] Comment: Interpretive Data Percent cell count reference ranges are not reported, since discordance with absolute values may lead to misinterpretation of CBC data. Current Interpretive Data was last revised on 2017. Testing performed by: [facility], [address] [place] [phone] Eosinophil pct 3.0 % C[facility]ER [facility] Comment: Interpretive Data Percent cell count reference ranges are not reported, since discordance with absolute values may lead to misinterpretation of CBC data. Current Interpretive Data was last revised on 2017. Testing performed by: [facility], [address] [place] [phone] Basophil pct 1.0 % C[facility]ER [facility] Comment: Interpretive Data Percent cell count reference ranges are not reported, since discordance with absolute values may lead to misinterpretation of CBC data. Current Interpretive Data was last revised on 2017. Testing performed by: [facility], [address] [place], [place] [id number] Myelocyte pct 2.0(H) 0.0 - 0.0 % CERNER BJ Comment:Testing performed by : [facility], [address] [place], [place] [phone] Promyelocyte pct 1.0(H) 0.0 - 0.0 % CERNER BJ Comment:Testing performed by : [facility], [address] [place], [place] [phone] Variant lymph pct 3.0(H) 0.0 - 0.0 % CERNER BJ Comment:Testing performed by : [facility], [address] [place], [place] [phone] Anisocytosis 1+(A) CERNER BJ Comment:Testing performed by : [facility], [address] [place] [phone] Poikilocytosis 1+(A) CERNER BJ Comment:Testing performed by : [facility], [address] [place] [phone] Macrocytes 1+(A) CERNER BJ Comment:Testing performed by : [facility], [address] [place] [phone] Elliptocytes 1+(A) CERNER BJ Comment:Testing performed by : [facility], [address] [place] [phone] Target cells 1+(A) CERNER BJ Comment:Testing performed by : [facility], [address] [place] [phone] Echinocytes 1+(A) CERNER BJ Comment:Testing performed by : [facility], [address] [place] [phone] Platelet estimate Adequate CERNER BJ Comment:Testing performed by : [facility], [address] [place] [phone] Blood 09/15/2024 10:2 8 AM CDT 09/15/2024 10:37 AM CDT Sarah Velarde Preston BOW TACKER LAB BLOOD ORDERABLES Final Res ult Performing Organization Address [facility] de Phone Number [facility] [place] [address] * Lactate dehydrogenase (LD) (09/15/2024 10:28 AM CDT) Pathologist [facility] Lactate dehydrogenase (LDH) 194 100 - 250 Units/L Blood 09/15/2024 10:2 8 AM CDT 09/15/2024 10:45 AM CDT Sarah Edwardsr BOW TACKER LAB BLOOD ORDERABLES Final Res ult Performing Organization Address [facility] de Phone Number [facility] [place] [address] * IgG (09/15/2024 10:28 AM CDT) Pathologist [facility] Immunoglobulin G 804 700 - 1,600 mg/dL Blood 09/15/2024 10:2 8 AM CDT 09/15/2024 1:02 PM CDT Debby Beinto MD LAB BLOOD ORDERABLES F inal Result Performing Organization Address [facility] [place] [address] * Comprehensive metabolic panel (09/15/2024 10:28 AM CDT) Pathologist [facility] Sodium 143 135 - 145 mmol/L Potassium, pl 4.3 3.3 - 4.9 mmol/L [facility] Chloride 106 97 - 110 mmol/L [facility] CO2 27 22 - 32 mmol/L [facility] Anion gap 10 2 - 15 mmol/L [facility] BUN 17 6 - 25 mg/dL [facility] Creatinine 1.02 0.80 - 1.30 mg/dL [facility] Glucose 80 70 - 199 mg/dL [facility] Comment: Interpretive Data Fasting glucose >/= 126 [...] 2022. Calcium 9.4 8.5 - 10.3 mg/dL [facility] Bilirubin, total 0.6 0.1 - 1.2 mg/dL [facility] Protein, pl 7.0 6.5 - 8.5 g/dL [facility] Albumin 4.1 3.5 - 5.0 g/dL [facility] Alk phos 102 40 - 130 Units/L [facility] ALT 25 7 - 55 Units/L [facility] AST 27 10 - 50 Units/L [facility] Blood 09/15/2024 10:2 8 AM CDT 09/15/2024 10:45 AM CDT us Sarah Velarde Preston BOW TACKER LAB BLOOD ORDERABLES Final Res ult [facility] Department [place] [address] * eGFR (08/18/2024 8:12 AM CDT) eGFR [...] CDT 08/18/2024 8:21 AM CDT us Sarah Simon BOW TACKER LAB BLOOD ORDERABLES Final Res ult LD SWEET [facility] Department [place] [address] * Differential, auto (08/18/2024 8:12 AM CDT) Neutrophil abs 2.6 1.5 - 6.5 K/cumm Comment:Testing performed by : [facility], [address] [place], [place] [phone] Lymphocyte abs 1.7 0.8 - 3.3 K/cumm CERJOSE MARTIN BJ Comment:Testing performed by : [facility], [address] [place] [phone] Monocyte abs 0.4 0.2 - 0.8 K/cumm CERJOSE MARTIN BJ Comment:Testing performed by : [facility], [address] [place] [phone] Eosinophil abs 0.5 0.0 - 0.5 K/cumm CERJOSE MARTIN BJ Comment:Testing performed by : [facility], [address] [place] [phone] Basophil abs 0.1 0.0 - 0.1 K/cumm CERJOSE MARTIN BJ Comment:Testing performed by : [facility], [address] [place] [phone] Neutrophil pct 48.8 % CERJOSE MARTIN SWEET Comment: Interpretive Data Percent cell count reference ranges are not reported, since discordance with absolute values may lead to misinterpretation of CBC data. Current Interpretive Data was last revised on 2017. Testing performed by: [facility], [address] [place] [phone] Lymphocyte pct 32.7 % LD SWEET Comment: Interpretive Data Percent cell count reference ranges are not reported, since discordance with absolute values may lead to misinterpretation of CBC data. Current Interpretive Data was last revised on 2017. Testing performed by: [facility], [address] [place] [phone] Monocyte pct 8.1 % LD SWEET Comment: Interpretive Data Percent cell count reference ranges are not reported, since discordance with absolute values may lead to misinterpretation of CBC data. Current Interpretive Data was last revised on 2017. Testing performed by: [facility], [address] [place] [phone] Eosinophil pct 8.7 % LD SWEET Comment: Interpretive Data Percent cell count reference ranges are not reported, since discordance with absolute values may lead to misinterpretation of CBC data. Current Interpretive Data was last revised on 2017. Testing performed by: [facility], [address] [place] [phone] Basophil pct 1.7 % LD SWEET Comment: Interpretive Data Percent cell count reference ranges are not reported, since discordance with absolute values may lead to misinterpretation of CBC data. Current Interpretive Data was last revised on 2017. Testing performed by: [facility], [address] [place] [phone] Blood 08/18/2024 8:12 AM CDT 08/18/2024 8:21 AM CDT us Sarah Edwardsr BOW TACKER LAB BLOOD ORDERABLES Final Res ult LD SWEET [facility] Department [place] [address] * (ABNORMAL) CBC with auto differential (08/18/2024 8:12 AM CDT) WBC 5.2 3.8 - 9.9 K/cumm Comment:Testing performed by : [facility], [address] [place] [address] Hgb 13.5 13.0 - 17.5 g/dL CERNER BJ Comment:Testing performed by : [facility], [address] [place] [address] Hct 39.8 38.9 - 50.3 % CERNER BJ Comment:Testing performed by : [facility], [address] [place] [address] Plt 314 150 - 400 K/cumm CERNER BJ Comment:Testing performed by : [facility], [address] [place] [address] MPV 8.6 6.8 - 10.4 fL CERNER BJ Comment:Testing performed by : [facility], [address] [place] [address] RBC 4.07(L) 4.30 - 5.80 M/cumm CERNER BJ Comment:Testing performed by : [facility], [address] [place] [address] MCV 97.9(H) 81.3 - 96.4 fL CERNER BJ Comment:Testing performed by : [facility], [address] [place] [address] MCH 33.3 27.1 - 33.3 pg CERNER BJ Comment:Testing performed by : [facility], [address] [place] [address] MCHC 34.0 32.3 - 35.7 g/dL CERNER BJ Comment:Testing performed by : [facility], [address] [place] [address] RDW CV 14.8 11.1 - 14.9 % CERNER BJ Comment:Testing performed by : [facility], [address] [place] [address] NRBC abs 0.00 0.00 - 0.01 K/cumm [facility] Comment:Testing performed by : [facility], [address] [place] [phone] Blood 08/18/2024 8:12 AM CDT 08/18/2024 8:21 AM CDT us Sarah SNatacha Edwardsr BOW TACKER LAB BLOOD ORDERABLES Final Res ult Performing Organization Address City/[facility]/ZIP Co de Phone Number [facility] Department [place] [address] * Lactate dehydrogenase (LD) (08/18/2024 8:12 AM CDT) Pathologist [facility] Lactate dehydrogenase (LDH) 177 100 - 250 Units/L Blood 08/18/2024 8:12 AM CDT 08/18/2024 8:21 AM CDT Sarah Simon BOW TACKER LAB BLOOD ORDERABLES Final Res ult Performing Organization Address [facility] Co de Phone Number [facility] [place] [address] * IgG (08/18/2024 8:12 AM CDT) Pathologist [facility] Immunoglobulin G 819 700 - 1,600 mg/dL Blood 08/18/2024 8:12 AM CDT 08/18/2024 8:43 AM CDT Sarah SNatacha Preston BOW TACKER LAB BLOOD ORDERABLES Final Res ult Performing Organization Address City/[facility] Co de Phone Number [facility] [place] [address] * Comprehensive metabolic panel (08/18/2024 8:12 AM CDT) Sodium 143 135 - 145 mmol/L Potassium, pl 4.1 3.3 - 4.9 mmol/L [facility] Chloride 109 97 - 110 mmol/L [facility] CO2 26 22 - 32 mmol/L [facility] Anion gap 8 2 - 15 mmol/L [facility] BUN 16 6 - 25 mg/dL [facility] Creatinine 1.00 0.80 - 1.30 mg/dL [facility] Glucose 86 70 - 199 mg/dL [facility] Comment: Interpretive Data Fasting glucose >/= 126 [...] 2022. Calcium 9.1 8.5 - 10.3 mg/dL [facility] Bilirubin, total 0.3 0.1 - 1.2 mg/dL [facility] Protein, pl 6.8 6.5 - 8.5 g/dL [facility] Albumin 4.1 3.5 - 5.0 g/dL [facility] Alk phos 92 40 - 130 Units/L [facility] ALT 27 7 - 55 Units/L [facility] AST 28 10 - 50 Units/L [facility] Blood 08/18/2024 8:12 AM CDT 08/18/2024 8:21 AM CDT Sarah Simon NP LAB BLOOD ORDERABLES Final Res ult [facility] Department of Laboratories [place], [place] [id number] * Blood culture Blood Peripheral (08/16/2024 11:43 AM CDT) Report Final Report: No growth Blood (Peripheral) 08/16/2024 11:43 AM CDT 08/16/2024 12:18 PM CDT Narrative LD SWEET Jaxon 08/20/2024 4:00 PM CDT 1. Blood cultures [...] performance characteristics have been verified by the [facility]. For questions about this culture, contact the Microbiology Laboratory at [phone]. Interpretive data was last revised on 24. Kelly Mauricio NP LAB MICROBIOLOGY - GENERA L ORDERABLES Final Result LD GERMAN [facility] Department [place] [address] * Blood culture Blood Peripheral (08/16/2024 11:35 AM CDT) Report Final Report: No growth Blood (Peripheral) 08/16/2024 11:35 AM CDT 08/16/2024 12:18 PM CDT Narrative LD SWEET Jaxon 08/20/2024 4:00 PM CDT 1. Blood cultures [...] performance characteristics have been verified by the [facility]. For questions about this culture, contact the Microbiology Laboratory at [phone]. Interpretive data was last revised on 24. us Kelly Mauricio NP LAB MICROBIOLOGY - GENERA L ORDERABLES Final Result [facility] Department [place] [address] * (ABNORMAL) Urinalysis reflex to microscopic and culture Urine, clean voided (08/16/2024 11:22 AM CDT) Color, ur Yellow Yellow Clarity, ur Clear Clear [facility] Specific gravity, ur 1.031(H) 1.003 - 1.030 [facility] pH, urine 5.5 [facility] Comment: Interpretive Data U rine pH is affected by diet, medications, systemic acid-base disturbances, and renal tubular function. pH may affect urinary stone formation. For example, urine pH below 6.0 may help reduce the tendency for calcium phosphate stones and pH greater than 6.0 may reduce the tendency for uric acid stone formation. Source: [facility] Current Interpretive Data was last revised on 2017 Protein, ur ql 1+(A) Negative [facility] Glucose, ur ql Negative Negative [facility] Ketones, ur Negative Negative [facility] Bilirubin, ur Negative Negative [facility] Blood, ur Negative Negative [facility] Urobilinogen, ur <2.0 <2.0 mg/dL [facility] Nitrite, ur Negative Negative [facility] Leukocyte esterase, ur Negative Negative [facility] UA reflex comment Reflex to microscopic UA will be performed. [facility] Urine, clean voided 08/16/2024 11:22 AM CDT 08/16/2024 11:58 AM CDT Kelly Mauricio NP LAB MICROBIOLOGY - GENERA L ORDERABLES Final Result Performing Organization Address [facility] Co de Phone Number [facility] Department [place] [address] * (ABNORMAL) Urinalysis, microscopic only (08/16/2024 11:22 AM CDT) WBC, ur 0-5 0 - 5 /HPF RBC, ur 0-2 0 - 2 /HPF [facility] Epithelial cells, renal, ur 1-5(A) 0 - 0 /HPF [facility] Epithelial cells, transitional, ur 1-5 0 - 0 /HPF [facility] Mucous, ur Present(A) [facility] Hyaline casts, ur 6-10 0 - 10 /LPF [facility] Culture Reflex Comment Reflex conditions for urine culture (WBC >10) not met. [facility] Urine, clean voided 08/16/2024 11:22 AM CDT 08/16/2024 11:58 AM CDT Kelly Mauricio NP LAB URINE ORDERABLES Narda l Result Performing Organization Address [facility] Co de Phone Number [facility] Department [place] [address] * XR Chest Pa Lateral 2 Views [...] by: Elly Newton M.D. us Kelly Mauricio BOW TACKER IMG XR PROCEDURES Final R esult * POC Blood Gas and Chemistries, Arterial - (08/16/2024 10:51 AM CDT) Pathologist [facility] Lactate, POC 1.2 0.7 - 2.0 mmol/L Blood 08/16/2024 10:5 1 AM CDT 08/16/2024 10:51 AM CDT Rico Pérez MD LAB POCT ORDERABLES - DEVIC E Final Result Performing Organization Address City/State/[facility] Phone Number [facility] Department [place] [address] * eGFR (08/16/2024 10:46 AM CDT) Pathologist [facility] eGFR >90 >=60 mL/min/1. 73 m2 Comment: [...] 6 AM CDT 08/16/2024 11:06 AM CDT us Kelly Mauricio NP LAB BLOOD ORDERABLES Narda wagner Result [facility] Department [place] [address] * Differential, auto (08/16/2024 10:46 AM CDT) Pathologist [facility] Neutrophil abs 5.2 1.5 - 6.5 K/cumm Imm gran abs 0.1 0.0 - 0.1 K/cumm [facility] Lymphocyte abs 1.6 0.8 - 3.3 K/cumm [facility] Monocyte abs 0.8 0.2 - 0.8 K[facility]cumm [facility] Eosinophil abs 0.4 0.0 - 0.5 K/cumm [facility] Basophil abs 0.1 0.0 - 0.1 K/cumm [facility] Neutrophil pct 63.7 % [facility] Comment: Interpretive Data Percent cell count reference ranges are not reported, since discordance with absolute values may lead to misinterpretation of CBC data. Current Interpretive Data was last revised on 2017. Imm gran pct 1.2 % [facility] Comment: Interpretive Data Percent cell count reference ranges are not reported, since discordance with absolute values may lead to misinterpretation of CBC data. Current Interpretive Data was last revised on 2017. Lymphocyte pct 19.4 % [facility] Comment: Interpretive Data Percent cell count reference ranges are not reported, since discordance with absolute values may lead to misinterpretation of CBC data. Current Interpretive Data was last revised on 2017. Monocyte pct 9.5 % [facility] Comment: Interpretive Data Percent cell count reference ranges are not reported, since discordance with absolute values may lead to misinterpretation of CBC data. Current Interpretive Data was last revised on 2017. Eosinophil pct 5.0 % [facility] Comment: Interpretive Data Percent cell count reference ranges are not reported, since discordance with absolute values may lead to misinterpretation of CBC data. Current Interpretive Data was last revised on 2017. Basophil pct 1.2 % [facility] Comment: Interpretive Data Percent cell count reference ranges are not reported, since discordance with absolute values may lead to misinterpretation of CBC data. Current Interpretive Data was last revised on 2017. Blood 08/16/2024 10:4 6 AM CDT 08/16/2024 11:05 AM CDT Kelly Mauricio BOW TACKER LAB BLOOD ORDERABLES Narda wagner Result [facility] Department [place] [address] * Respiratory pathogen panel Nasopharyngeal (08/16/2024 10:46 AM CDT) Pathologist [facility] Influenza A RNA Not Detected Not Detected Influenza B RNA Not Detected Not Detected [facility] RSV RNA Not Detected Not Detected [facility] COVID-19 RNA Not Detected Not Detected [facility] Coronavirus 229E RNA Not Detected Not Detected [facility] Coronavirus HKU1 RNA Not Detected Not Detected [facility] Coronavirus NL63 RNA Not Detected Not Detected [facility] Coronavirus OC43 RNA Not Detected Not Detected [facility] Adenovirus DNA Not Detected Not Detected [facility] Metapneumovirus RNA Not Detected Not Detected [facility] Rhinovirus/Enterov irus RNA Not Detected Not Detected [facility] Parainfluenza 1 RNA Not Detected Not Detected [facility] Parainfluenza 2 RNA Not Detected Not Detected [facility] Parainfluenza 3 RNA Not Detected Not Detected [facility] Parainfluenza 4 RNA Not Detected Not Detected [facility] B. pertussis DNA Not Detected Not Detected [facility] B. parapertussis DNA Not Detected Not Detected [facility] C. pneumoniae DNA Not Detected Not Detected [facility] M. pneumoniae DNA Not Detected Not Detected [facility] Nasopharyngeal 08/16/2024 10 :46 AM CDT 08/16/2024 10:58 AM CDT Narrative [facility] - 08/16/2024 12:02 PM CDT Is the Patient experiencing symptoms consistent with COVID?->Yes Surveillance testing for transplant patient?->No Interpretive Data The [employer] FilmArray Respiratory Panel (RP2.1) assay is a [...] assay has FDA clearance for testing of BOW TACKER swabs. The performance of additional specimen types has been assessed by the performing laboratory. The performance characteristics of this assay have been determined by [facility] Molecular Infectious Disease Laboratory. Current interpretive data was last revised on 22. Kelly Mauricio BOW TACKER LAB MICROBIOLOGY - GENERA L ORDERABLES Final Result [facility] Department [place] [address] * (ABNORMAL) CBC with auto differential (08/16/2024 10:46 AM CDT) WBC 8.1 3.8 - 9.9 K/cumm Hgb 14.4 13.0 - 17.5 g/dL [facility] Hct 41.6 38.9 - 50.3 % [facility] Plt 309 150 - 400 K/cumm [facility] MPV 10.2 9.1 - 12.3 fL [facility] RBC 4.29(L) 4.30 - 5.80 M/cumm [facility] MCV 97.0(H) 81.3 - 96.4 fL [facility] MCH 33.6(H) 27.1 - 33.3 pg [facility] MCHC 34.6 32.3 - 35.7 g/dL [facility] RDW CV 15.2(H) 11.1 - 14.9 % [facility] RDW SD 54.0(H) 35.7 - 48.1 fL [facility] NRBC abs 0.00 0.00 - 0.01 K/cumm [facility] Blood 08/16/2024 10:4 6 AM CDT 08/16/2024 11:05 AM CDT Kelly Mauricio NP LAB BLOOD ORDERABLES Narda l Result [facility] [place] [address] * Phosphorus (08/16/2024 10:46 AM CDT) Pathologist [facility] Phosphorus, pl 2.8 2.3 - 4.5 mg/dL Blood Venous blood specimen / Unknown 08/16/2024 10:46 AM CDT 08/16/2024 11:06 AM CDT Kelly Mauricio NP LAB BLOOD ORDERABLES Narda l Result Performing Organization Address [facility] Co de Phone Number [facility] [place] [address] * Magnesium (08/16/2024 10:46 AM CDT) [facility] Magnesium 2.2 1.4 - 2.5 mg/dL Blood Venous blood specimen / Unknown 08/16/2024 10:46 AM CDT 08/16/2024 11:06 AM CDT Kelly Mauricio NP LAB BLOOD ORDERABLES Narda l Result Performing Organization Address City/[facility] Co de Phone Number [facility] [place] [address] * Comprehensive metabolic panel (08/16/2024 10:46 AM CDT) Pathologist [facility] Sodium 142 135 - 145 mmol/L Potassium, pl 4.4 3.3 - 4.9 mmol/L [facility] Chloride 107 97 - 110 mmol/L [facility] CO2 27 22 - 32 mmol/L [facility] Anion gap 8 2 - 15 mmol/L [facility] BUN 20 6 - 25 mg/dL [facility] Creatinine 0.99 0.80 - 1.30 mg/dL [facility] Glucose 72 70 - 199 mg/dL [facility] Comment: Interpretive Data Fasting glucose >/= 126 [...] 2022. Calcium 9.4 8.5 - 10.3 mg/dL [facility] Bilirubin, total 0.5 0.1 - 1.2 mg/dL [facility] Protein, pl 7.1 6.5 - 8.5 g/dL [facility] Albumin 4.3 3.5 - 5.0 g/dL [facility] Alk phos 95 40 - 130 Units/L [facility] ALT 34 7 - 55 Units/L [facility] AST 32 10 - 50 Units/L [facility] Blood 08/16/2024 10:4 6 AM CDT 08/16/2024 11:06 AM CDT Kelly Mauricio NP LAB BLOOD ORDERABLES Narda wagner Result [facility] Department [place] [address] * eGFR (07/14/2024 11:39 AM DRYING MACHINE OPERATOR) eGFR >90 >=60 mL/min/1. 73 m2 Comment: [...] reviewed 2021. Blood 07/14/2024 11:3 9 AM DRYING MACHINE OPERATOR 07/14/2024 11:45 AM DRYING MACHINE OPERATOR us Debby Benito MD LAB BLOOD ORDERABLES F inal Result LD [facility] Department [place] [address] * Differential, auto (07/14/2024 11:39 AM DRYING MACHINE OPERATOR) Neutrophil abs 2.5 1.5 - 6.5 K/cumm Comment:Testing performed by : [facility], [address] [place] [phone] Lymphocyte abs 1.4 0.8 - 3.3 K/cumm CERJOSE MARTIN SWEET Comment:Testing performed by : [facility], [address] [place] [phone] Monocyte abs 0.5 0.2 - 0.8 K/cumm LD SWEET Comment:Testing performed by : [facility], [address] [place] [phone] Eosinophil abs 0.4 0.0 - 0.5 K/cumm CERJOSE MARTIN BJ Comment:Testing performed by : [facility], [address] [place] [phone] Basophil abs 0.1 0.0 - 0.1 K/cumm CERJOSE MARTIN BJ Comment:Testing performed by : [facility], [address] [place] [phone] Neutrophil pct 50.3 % CERJOSE MARTIN SWEET Comment: Interpretive Data Percent cell count reference ranges are not reported, since discordance with absolute values may lead to misinterpretation of CBC data. Current Interpretive Data was last revised on 2017. Testing performed by: [facility], [address] [place] [phone] Lymphocyte pct 28.9 % CERJOSE MARTIN [facility] Comment: Interpretive Data Percent cell count reference ranges are not reported, since discordance with absolute values may lead to misinterpretation of CBC data. Current Interpretive Data was last revised on 2017. Testing performed by: [facility], [address] [place] [phone] Monocyte pct 9.9 % CERJOSE MARTIN SWEET Comment: Interpretive Data Percent cell count reference ranges are not reported, since discordance with absolute values may lead to misinterpretation of CBC data. Current Interpretive Data was last revised on 2017. Testing performed by: [facility], [address] [place], [place] [phone] Eosinophil pct 8.2 % LD SWEET Comment: Interpretive Data Percent cell count reference ranges are not reported, since discordance with absolute values may lead to misinterpretation of CBC data. Current Interpretive Data was last revised on 2017. Testing performed by: [facility], [address] [place] [phone] Basophil pct 2.7 % CERJOSE MARTIN [facility] Comment: Interpretive Data Percent cell count reference ranges are not reported, since discordance with absolute values may lead to misinterpretation of CBC data. Current Interpretive Data was last revised on 2017. Testing performed by: [facility], [address] [place] [phone] Blood 07/14/2024 11:3 9 AM DRYING MACHINE OPERATOR 07/14/2024 11:43 AM DRYING MACHINE OPERATOR us Debby Benito MD LAB BLOOD ORDERABLES F inal Result [facility] Department [place] [address] * (ABNORMAL) CBC with auto differential (07/14/2024 11:39 AM DRYING MACHINE OPERATOR) WBC 5.0 3.8 - 9.9 K/cumm Comment:Testing performed by : [facility], [address] [place] [address] Hgb 14.0 13.0 - 17.5 g/dL CERNER BJ Comment:Testing performed by : [facility], [address] [place] [address] Hct 42.4 38.9 - 50.3 % CERNER BJ Comment:Testing performed by : [facility], [address] [place] [address] Plt 387 150 - 400 K/cumm CERNER BJ Comment:Testing performed by : [facility], [address] [place], [place] [phone] MPV 8.3 6.8 - 10.4 fL CERNER BJ Comment:Testing performed by : [facility], [address] [place] [address] RBC 4.17(L) 4.30 - 5.80 M/cumm CERNER BJ Comment:Testing performed by : [facility], [address] [place] [address] MCV 101.5(H) 81.3 - 96.4 fL [facility]ERNER BJ Comment:Testing performed by : [facility], [address] [place] [address] MCH 33.4(H) 27.1 - 33.3 pg CERNER BJ Comment:Testing performed by : [facility], [address] [place] [address] MCHC 32.9 32.3 - 35.7 g/dL [facility]ER BJ Comment:Testing performed by : [facility], [address] [place] [address] RDW CV 14.9 11.1 - 14.9 % CERNER BJ Comment:Testing performed by : [facility], [address] [place] [address] NRBC abs 0.00 0.00 - 0.01 K/cumm [facility] Comment:Testing performed by : [facility], [address] [place] [phone] Blood 07/14/2024 11:3 9 AM DRYING MACHINE OPERATOR 07/14/2024 11:43 AM DRYING MACHINE OPERATOR Debby Benito MD LAB BLOOD ORDERABLES F inal Result Performing Organization Address City/[facility] Co de Phone Number [facility] [place] [address] * Lactate dehydrogenase (LD) (07/14/2024 11:39 AM DRYING MACHINE OPERATOR) Lactate dehydrogenase (LDH) 190 100 - 250 Units/L Blood 07/14/2024 11:3 9 AM DRYING MACHINE OPERATOR 07/14/2024 11:45 AM DRYING MACHINE OPERATOR Result [facility] Debby Benito MD LAB BLOOD ORDERABLES F inal Result Performing Organization Address [facility] [place] [address] * IgG (07/14/2024 11:39 AM DRYING MACHINE OPERATOR) Immunoglobulin G 864 700 - 1,600 mg/dL Blood 07/14/2024 11:3 9 AM DRYING MACHINE OPERATOR 07/14/2024 11:57 AM DRYING MACHINE OPERATOR Debby Benito MD LAB BLOOD ORDERABLES F inal Result Performing Organization Address [facility] [place] [address] * (ABNORMAL) Lipid panel (07/14/2024 11:39 AM DRYING MACHINE OPERATOR) Cholesterol 235(H) 30 - 199 mg/dL Comment: [...] revised on 2018. Triglycerides 210(H) <=149 mg/dL LD [facility] Comment: Interpretive Data Ages < or [...] on 2018. HDL 31(L) >=40 mg/dL LD SWEET Comment: Interpretive Data Ages < or = [...] 2018. LDL, calculated 165(H) <=129 mg/dL LD SWE[facility] Comment: Interpretive Data Ages < or = [...] revised on 2024. Non-HDL Cholesterol 204 mg/dL [facility] Comment: Interpretive Data Ages < or [...] last revised on 2018. Chol/HDL ratio 8 [facility] Blood 07/14/2024 11:3 9 AM DRYING MACHINE OPERATOR 07/14/2024 11:45 AM DRYING MACHINE OPERATOR us Rico Pérez MD LAB BLOOD ORDERABLES Final Result Performing Organization Address City/State/[facility] Co de Phone Number [facility] Department [place] [address] * Comprehensive metabolic panel (07/14/2024 11:39 AM DRYING MACHINE OPERATOR) Sodium 142 135 - 145 mmol/L Potassium, pl 3.9 3.3 - 4.9 mmol/L [facility] Chloride 108 97 - 110 mmol/L [facility] CO2 28 22 - 32 mmol/L [facility] Anion gap 6 2 - 15 mmol/L [facility] BUN 14 6 - 25 mg/dL [facility] Creatinine 1.00 0.80 - 1.30 mg/dL [facility] Glucose 127 70 - 199 mg/dL [facility] Comment: Interpretive Data Fasting glucose >/= 126 [...] 2022. 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 Does NOT exclude the possibility of recent exposure to HCV. Current interpretive data was last revised on 22 Blood 02/11/2024 8:03 AM CDT 02/11/2024 8:22 AM CDT Debby Benito MD LAB MICROBIOLOGY - GEN ERAL ORDERABLES Final Result [facility] [place] [address] * Colonoscopy (02/07/2022) Anatomical Region Laterality Modality Other us Historical Provider ENDOSCOPY PROCEDURES Narda l Result from Last 3 Months or Most Recently Relevant to Health Maintenance Insurance [facility] Address: [place] [address] [facility] Address: [address] [address] [place] [address] [facility] Address: [address] [address] [place] [address] [employer] TRANS[employer]ANT [employer] [place] [id number] [employer] Advance Directives For more information, please contact: [phone] * Full Code (Latest Code Status on [...] 3:00 PM 03/04/2024 10:17 PM Care Teams K 9 Police Officer Relationship Specialty Start Date End Date Rico Pérez MD [address] [place] [address] PCP - General Family Medicine 11/07/22 [place] [address] [place] [address] Consulting Physician Endocrinology Diabetes & Metabolism 07/24/22 Ramón Watts MD [address] [place] [address] Consulting Physician General Surgery 11/25/22 Huseyin Reese MD [address] [place] [address] Medical Oncologist/Principal Technical Specialist Hematology and Oncology 12/19/22 Debby Benito MD [address] [place] [address] Consulting Physician Medical Oncology 12/25/22
--- OUTSIDE RECORDS SUMMARY | 2024-10-07 11:53 | XMS_ITS | Encounter Summary ---
Author Organization [facility] Address [address] [place] [address] Care Team Providers Care Drawbench Operator Name Role Phone Delon Jain MD Unavailable Rico Pérez MD Primary Care Provider [phone] Ramón Watts MD Unavailable [phone] Huseyin Reese MD Unavailable [phone] Debby Greene MD Unavailable [phone] Reason for Referral * Diagnostic Imaging (Routine) - Closed Specialty Diagnoses / Procedures Referred By Contac t Referred To Contact Radiology Diagnoses 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) Procedures IR Tunneled Line Placement > 5 Years Consult to Interventional Radiology Consult to Interventional Radiology Debby Greene MD [address] [employer], [address] [place] [address] Phone: tel: fax: [place] [address] [address] [place] [address] Referral ID Status Reason Start Date Expiration Date Visits Re quested Visits Authorized [id number] Closed 10/04/2024 11/03/2025 1 1 Reason for Visit * Diagnostic Imaging (Routine) - Closed Specialty Diagnoses / Procedures Referred By Contac t Referred To Contact Radiology Diagnoses 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) Procedures IR Tunneled Line Placement > 5 Years Consult to Interventional Radiology Consult to Interventional Radiology Debby Greene MD [address] [facility] [employer], [address] [place] [address] Phone: tel: fax: [facility] [id number] [place], [place] [phone] Referral ID Status Reason Start Date Expiration Date Visits Re quested Visits Authorized [id number] Closed 10/04/2024 11/03/2025 1 1 Encounter Details Date Type Department Care Team (Latest Contact Info) Description 10/07/2024 6:46 AM CDT Hospital Encounter [facility] [id number] [place] [address] Hannah Cadet RN Garcia, Susan, RN 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) Social History Tobacco Use Types Packs/Day Years Used Date Smoking Tobacco: Never Cigarettes Passive Smoke Exposure: Never Smokeless Tobacco: Current Chew Alcohol Use Standard Drinks/Week Comments Yes 0 (1 standard drink = 0.6 oz pur e alcohol) [facility] Utilities Answer Date Recorded In the past 12 months has [employer] electric, gas, oil, or water [employer] threatened to shut off services in your [...] often do you attend chur ch or jew services? Never 09/23/2024 Do you belong to any clubs o r organizations such as buddhism groups, unions, fraternal or athletic groups, or [...] place to sleep or slept in a intermediate (including now)? No 07/15/2023 Housing Stability Vital Sign Answer Eladio e Recorded In the last 12 months, was t here a time when you were not able to pay the mortgage or rent on time? No 09/23/2024 In the past 12 months, how m any times have you moved where you were living? 0 09/23/2024 At any time in the past 12 m onths, were you homeless or living in a intermediate (including now)? No 09/23/2024 Personal Safety Answer Date Recorded Have you ever been in or are you currently in a harmful physical or emotional relationship or is someone making you feel afraid or unsafe? 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 Gender Identity Not on file Sexual Orientation Not on file Occupation Industry Job Start Date Job End Date Not on file Not on file Not on file Not on file documented as of this encounter Last Filed Vital Signs Vital Sign Reading [...] Mass Index 27.4 10/07/2024 7:19 AM CDT documented in this encounter Miscellaneous Notes * Post-Procedure Note - Ramón Ocasio MD - 10/07/2024 8:00 AM CDT Radiology Brief Post Procedure Note Attending: Ramón Ocasio MD Powder Hand: none Sedation/Anesthesia: Min Sedation Pre-Op/Pre-Procedure Diagnosis: trifusion Post-Op/Post-Procedure Diagnosis: same Procedure Performed: same Procedure Findings: same Complications: None Estimated Blood Loss: None Specimens: None Condition: Stable Full report to follow. * Pre-Procedure Note - Ramón Ocasio MD - 10/07/2024 8:00 AM CDT Radiology Short Sedation Form Indication: stem cell transplant Planned Procedure: tunneled line Planned Sedation/Anesthesia: minimal sedation Adjunctive Procedures: Neural Monitoring History of Sedation/Anesthesia Complications: No See H&P dated 10/06/2024 for details of history, review of systems, physical exam, labs, imaging data and assessment. Changes in patient condition since prior assessment: none Most Recent Vitals: Vitals: 10/07/24 0840 BP: 115/79 Pulse: 100 Resp: 19 Temp: SpO2: 97% Airway assessment: normal ASA Score: ASA 3 - Patient with moderate systemic disease with functional limitations NPO time: after midnight Benefits, risks and alternatives of procedure and planned sedation have been discussed with the patient and/or their banking representative. All questions answered and they agree to proceed. documented in this encounter Plan of Treatment Not on file documented as of this encounter Procedures Procedure Name Priority Date/Time Associated Diagnosis Comments TUNNELED LINE PLACEMENT > 5 YEARS Schedule Routine, Read Routine (OP Routine) 10/07/2024 8:36 AM CDT 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) documented in this encounter Results * IR Tunneled Line Placement > 5 [...] completed, removal can be scheduled by calling [facility] - [phone] [facility] - [phone] Electronically signed by: Ramón Ocasio M.D. Narrative 10/07/2024 9:24 AM CDT EXAMINATION: TUNNELED CENTRAL VENOUS CATHETER PLACEMENT USING ULTRASOUND GUIDANCE HISTORY/INDICATION: Patient with mantle cell lymphoma undergoing stem cell transplant. Tunneled tri-fusion catheter requested. Of note, we clarified with Dr. Debby Greene prior to the procedure that the request [...] was obtained. Prior to beginning the procedure, Honeydew Protocol was used to confirm the patient's [...] Of note, we clarified with Dr. Debby Greene prior to the procedure that the request [...] was obtained. Prior to beginning the procedure, Honeydew Protocol was used to confirm the patient's [...] completed, removal can be scheduled by calling [facility] - [phone] [facility] - [phone] Electronically signed by: Ramón Ocasio M.D. Debby Greene MD IMG IR PROCEDURES Narda l Result documented in this encounter Visit Diagnoses Diagnosis 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) documented in this encounter Administered Medications Inactive Administered Medications - up to 3 most recent administrations Medication Order MAR Action Action Date Dose Rate Site fentaNYL (SUBLIMAZE) preservative free injection intravenous, As needed, Starting on Sarah 10/07/24 at 0806, Intra-Op Given 10/07/2024 8:12 AM CDT 50 mcg Given 10/07/2024 8:06 AM CDT 50 mcg heparin 100 unit/mL injection As needed, Starting on Sarah 10/07/24 at 0818, Intra-Op, Indications: Maintain Patency of Indwelling Vascular CatheterIndications:Maintain Patency of Indwelling Vascular Catheter Given 10/07/2024 8:18 AM CDT 5 mL heparin 100 unit/mL injection As needed, Starting on Sarah 10/07/24 at 0830, Intra-Op, Indications: Maintain Patency of Indwelling Vascular CatheterIndications:Maintain Patency of Indwelling Vascular Catheter Given 10/07/2024 8:30 AM CDT 5 mL lidocaine (PF) (XYLOCAINE) 10 mg/mL (1 %) preservative free injection As needed, Starting on Sarah 10/07/24 at 0812, Intra-Procedure (IR), Indications: Administration of Local AnesthesiaIndications:Administration of Local Anesthesia Given 10/07/2024 8:15 AM CDT 6 mL Left Chest Given 10/07/2024 8:12 AM CDT 6 mL Le ft Neck midazolam (VERSED) 1 mg/mL injection Administer over 2 Minutes, As needed, Starting on Sarah 10/07/24 at 0806, Intra-Op Given 10/07/2024 8:12 AM CDT 1 mg Given 10/07/2024 8:06 AM CDT 1 mg sodium chloride 0.9% infusion intravenous, Continuous PRN, Starting on Sarah 10/07/24 at 0806, Intra-Op New Bag 10/07/2024 8:06 AM CDT 150 mL/hr 150 mL/hr documented in this encounter Orders Medications Ordered That Royal ht Not Have Been Administered Count Last Ordered Date First Ordered Date Carrier Fluids for Secondary Infusion - 0.9% Sodium Chloride 1 10/07/2024 heparin 100 unit/mL injection 500 Units 1 0 10/07/2024 sodium chloride 0.9% flush 0.5-20 mL 2 12/2024 sodium chloride 0.9% flush 10 mL 1 10/08/19 sodium chloride 0.9% flush 10-20 mL 2 10/07 sodium chloride 0.9% infusion 1 10/07/2024 Nursing Count Last Ordered Date First Orde red Date MAINTAIN IV ACCESS 2 10/07/2024 SKIN PREP 1 10/07/2024 VITAL SIGNS 1 10/07/2024 VOID AMBULATORY CARE COORDINATOR TO OR 1 10/07/2024 Code Status Count Last Ordered Date First Orde red Date FULL CODE 1 10/07/2024 IV Count Last Ordered Date First Orde red Date ACCESS IMPLANTED PORT 1 10/07/2024 DECANNULATE IMPLANTED PORT 1 10/07/2024 INSERT PERIPHERAL IV 1 10/07/2024 Discharge Count Last Ordered Date First Orde red Date DISCHARGE PATIENT 1 10/07/2024 documented in this encounter Care Teams Drawbench Operator Relationship Specialty Start Date End Date Rico Pérez MD [address] [place] [address] PCP - General Family Medicine 11/07/[place] [address] [facility] [address] [place] [address] Consulting Physician Endocrinology Diabetes & Metabolism 07/24/22 Ramón Watts MD [address] [place] [address] Consulting Physician General Surgery 11/25/22 Huseyin Reese MD [address] [place] [address] Medical Oncologist/Manager Leadership Development Hematology and Oncology 12/19/22 Debby Greene MD [address] [place] [address] Consulting Physician Medical Oncology 12/25/22 documented as of this encounter
[2024-10-07 11:54] VITALS: BP 165/112; PULSE 99; RESP 38; TEMP 36.6; O2SAT 99
--- OUTSIDE RECORDS SUMMARY | 2024-10-07 11:54 | XMS_ITS | Encounter Summary ---
Author Organization [facility] Address [address] [place] [address] Phone Care Team Providers Care Clinical Education Assistant Name Role Phone Delon Jain MD Unavailable Rico Pérez MD Primary Care Provider Ramón Watts MD Unavailable [phone] Huseyin Reese MD Unavailable Debby Greene MD Unavailable [phone] Encounter Details Date Type Department Care Team (Late st Contact Info) Description 10/06/2024 11:00 AM CDT Office Visit [facility] Bone Marrow Transplant [address] [facility] Floor 6 [place] [address] Debby Greene MD [address] DIV IM BONE MARROW TRANSPLANT, [address] [place] [address] 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 Dx) Social History Tobacco Use Types Packs/Day Years Used Date Smoking Tobacco: Never Cigarettes Passive Smoke Exposure: Never Smokeless Tobacco: Current Chew Alcohol Use Standard Drinks/Week Comments Yes 0 (1 standard drink = 0.6 oz pur e alcohol) [facility] Utilities Answer Date Recorded In the past 12 months has th e electric, gas, oil, or water [facility] threatened to shut off services in your [...] often do you attend chur ch or restorationist services? Never 09/23/2024 Do you belong to any clubs o r organizations such as congregational groups, unions, fraternal or athletic groups, or [...] any time in the past 12 m [facility], were you homeless or living in a penitentiary (including now)? No 09/23/2024 Personal Safety Answer Date Recorded Have you ever been in or are you currently in a harmful physical or emotional relationship or is someone making you feel afraid or unsafe? 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 Gender Identity Not on file Sexual Orientation Not on file Occupation Industry Job Start Date Job End Date Not on file Not on file Not on file Not on file documented as of this encounter Last Filed Vital Signs Vital Sign Reading Time Taken Comments Blood Pressure 114/81 10/06/2024 10:13 AM CDT Pulse 110 10/06/2024 10:13 AM CDT Temperature 36.6 C (97.9 F) 10/06/2024 10:13 AM CDT Respiratory Rate 18 10/06/2024 10:13 AM CDT Oxygen Saturation 98% 10/06/2024 10:13 AM CDT Inhaled Oxygen Concentration - - Weight 94.3 kg (208 lb) 10/06/2024 10:13 AM CDT Height - - Body Mass Index 29.84 09/29/2024 12:50 PM CDT documented in this encounter Progress Notes * Debby Greene MD - 10/06/2024 11:00 AM CDT BMT Progress Note Oncology History Overview Note Diangosis: Mantle cell lymphoma Referring MD: Huseyin Reese MD Date of diagnosis: 11/21/22 Initial sites of disease: Spleen (splenic rupture), diffuse LAD, blood and BM MIPI score = low risk 1991 Pineal tumor, 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 He was admitted from 09/29-10/01 with an acute reaction to his first doseof venetoclax. He had severe muscle cramps and pain after the first dose, which improved with supportive care (IV fluid and pain meds) in the hospital. He resumed venetoclax while inpatient, without recurrent muscle cramps nor laboratory evidence of TLS. He then escalated to venetoclax 50 mg, with the last dose 2 days ago. I instructed him to hold acalabrutinib and venetoclax beginning yesterday in anticipation of pheresis for brexu-latha on Friday. He says he still has some soreness in his left arm, but otherwise is free of pain. He has not noticed any new lymph nodes. He does not report fever or infections. Performance Status: 1 Objective Vitals: BP: 114/81 Temp: 36.6 ??C (97.9 ??F) Temp src: Transdermal Pulse: 110 Resp: 18 SpO2: 98 % Weight: 94.3 kg (208 lb) Physical exam: The patient is in no acute distress. HEENT: atraumatic, OP clear Lungs: Clear to auscultation bilaterally Heart: regular rate and rhythm Abdomen: soft and non-tender Extremities: full range of motion, no edema Skin: Dry skin but no rash Neuro: no focal deficits Nodes: I can not feel any cervical or axillary adenopathy Lab/Radiology/Diagnostic Review: CBC: Lab Results Component Value Date/Time WBC 2.84 (L) 10/04/2024 01:24 PM WBC 6.4 09/15/2021 07:46 AM HGB 12.3 (L) 10/06/2024 10:01 AM HGB 15.0 09/15/2021 07:46 AM HCT 36.4 (L) 10/06/2024 10:01 AM HCT 45.3 09/15/2021 07:46 AM LABPLAT 64 (L) 10/06/2024 10:01 AM LABPLAT 225 09/15/2021 07:46 AM NEUTROABS 0.98 (L) 10/04/2024 01:24 PM NEUTROABS 3,360 09/15/2021 07:46 AM BLASTS 1.0 (H) 09/23/2024 01:16 PM CMP: Lab Results Component Value Date/Time SODIUM 139 10/04/2024 01:26 PM SODIUM 140 09/15/2021 07:46 AM POTASSIUM 3.6 10/04/2024 01:26 PM POTASSIUM 4.7 09/15/2021 07:46 AM CO2 26 10/04/2024 01:26 PM CO2 30 09/15/2021 07:46 AM BUNSER 15 10/04/2024 01:26 PM BUNSER 24 09/15/2021 07:46 AM GLUCOSE 119 10/04/2024 01:26 PM GLUCOSE 87 09/15/2021 07:46 AM CREATININE 0.83 10/04/2024 01:26 PM CREATININE 1.08 09/15/2021 07:46 AM CALCIUM 9.2 10/04/2024 01:26 PM CALCIUM 9.3 09/15/2021 07:46 AM CHLORIDE 103 10/04/2024 01:26 PM CHLORIDE 104 09/15/2021 07:46 AM ALBUMIN 3.8 10/04/2024 01:26 PM ALBUMIN 4.5 09/15/2021 07:46 AM AST 25 10/04/2024 01:26 PM AST 21 09/15/2021 07:46 AM ALT 18 10/04/2024 01:26 PM ALT 22 09/15/2021 07:46 AM ALKPHOS 109 10/04/2024 01:26 PM ALKPHOS 61 09/15/2021 07:46 AM BILITOT 0.2 10/04/2024 01:26 PM BILITOT 0.6 09/15/2021 07:46 AM PROT 6.8 10/04/2024 01:26 PM ANIONGAP 10 10/04/2024 01:26 PM LDH: Lab Results Component Value Date/Time LDH 220 10/04/2024 01:26 PM Radiology: None today Assessment and Plan: This is a 49-year-old man with relapsed stage IV mantle cell lymphoma. Mantle cell lymphoma. He achieved complete remission after 3 cycles of BR and 3 cycles of R cytarabine. He enrolled in the [id number] study, and MRD testing was indeterminate. 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 He was treated with 2 cycles of Obin/Glofitamab on study [id number] but had progressive disease. He started calquence on 04/11/24. After an initial response, PET-CT scan on September 15 showed progressive disease in lymphadenopathy above and below the diaphragm as well as FDG uptake in the bone marrow. He is now on a ramp up of venetoclax to provide disease control while we proceed with brexu-latha as his next line of therapy. He willhold venetoclax and acalabrutinib until we collect his cells on 10/08. I instructed him to resume venetoclax and acalabrutinib after that. I will monitor his tumor lysis labs and CBC before each step up dose, beginning on Friday. Pancytopenia. I note that his ANC and platelet count have declined in the past week. This is most likely a side effect of venetoclax, although progressive lymphoma in the bone marrow is another possibility. The medications are on hold now, and he will get another CBC on Friday. OI prophylaxis. He is on acyclovir. Dermatitis and neuropathy. He has longstanding itching. He will continue using antihistamines, gabapentin, and Pepcid. Status post splenectomy. Hypogammaglobulinemia. We will continue IVIG monthly. documented in this encounter Nursing Notes * Ifeanyi Malhotra RN - 10/06/2024 11:00 AM CDT Tecartus collection Friday, consents today, trifusion tomorrow as below. Hold Acal/jose j until after collection, central line and labs tomorrow. Signed consents today, all questions answered,RTC next week, TLS labs on Friday. documented in this encounter Miscellaneous Notes * Addendum Note - Ifeanyi Malhotra RN - 10/06/2024 11:00 AM CDTAddended by: IFEANYI MALHOTRA on: 10/06/2024 01:32 PM Modules accepted: Orders * Addendum Note - Ifeanyi Malhotra RN - 10/06/2024 11:00 AM CDTAddended by: IFEANYI MALHOTRA on: 10/06/2024 01:40 PM Modules accepted: Orders documented in this encounter Plan of Treatment Scheduled Orders Name Type Priority Associated Diagnoses Orde r Schedule Lactate dehydrogenase (LD) Lab Routine 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) Expected: 10/18/2024, Expires: 10/18/2025 documented as of this encounter Visit Diagnoses Diagnosis 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)- Primary documented in this encounter Orders Appointment Requests Count Last Ordered Date Fi rst Ordered Date ONCBCN CLINIC APPOINTMENT REQUEST 1 025 documented in this encounter Care Teams Clinical Education Assistant Relationship Specialty Start Date End Date Rico Pérez MD [address] [place] [address] PCP - General Family Medicine 11/07/22 [place] [address] [facility] [address] [place] [address] Consulting Physician Endocrinology Diabetes & Metabolism 07/24/22 Ramón Watts MD [address] [place] [address] Consulting Physician General Surgery 11/25/22 Huseyin Reese MD [address] [place] [address] Medical Oncologist/Technical Instructor Hematology and Oncology 12/19/22 Debby Greene MD [address] [place] [address] Consulting Physician Medical Oncology 12/25/22 documented as of this encounter
--- OUTSIDE RECORDS SUMMARY | 2024-10-07 11:54 | XMS_ITS | Encounter Summary ---
Author Organization [facility] Address [address] [place] [address] Care Team Providers Care Psychiatric Clinician Name Role Phone Delon Jain MD Unavailable Rico Pérez MD Primary Care Provider [phone] Ramón Watts MD Unavailable [phone] Huseyin Reese MD Unavailable [phone] Debby Greeen MD Unavailable [phone] Encounter Details Date Type Department Care Team (Latest Contact Info) Description 10/06/2024 9:45 AM CDT Clinical Support [facility] [place] - Lab Collection [address] [facility] Floor [address] [place] [address] 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 Never 09/23/2024 Do you belong to [...] place to sleep or slept in a fdc (including now)? No 07/15/2023 Housing Stability Vital Sign Answer Eladio e Recorded In the last 12 months, was t here a time when you were not able to pay the mortgage or rent on time? No 09/23/2024 In the past 12 months, how m any times have you moved where you were living? 0 09/23/2024 At any time in the past [facility], were you homeless or living in a fdc (including now)? No 09/23/2024 Personal Safety Answer Date Recorded Have you ever been in or are you currently in a harmful physical or emotional relationship or is someone making you feel afraid or unsafe? 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) 10/06/2024 10:01 AM CDT documented as of this encounter Procedures Procedure Name Priority Date/Time Associated Diagnosis Comments EGFR Routine 10/06/2024 10:01 AM CDT Mantle [...] (HCC) documented in this encounter Results * eGFR (10/06/2024 10:01 AM CDT) eGFR [...] AM CDT 10/06/2024 10:17 AM CDT Debby Greene MD LAB BLOOD ORDERABLES F inal Result [facility] Department [place] [address] * (ABNORMAL) Manual Differential (10/06/2024 10:01 AM CDT) Cells Counted 200 Comment:Testing performed by : [facility], [address] [place] [address] Neutrophil abs 0.51(L) 1.50 - 6.50 K/cumm CERNER BJ Comment:Testing performed by : [facility], [address] [place], [place] [id number] Lymphocyte abs 0.49(L) 0.80 - 3.30 K/cumm CERNER BJ Comment:Testing performed by : [facility], [address] [place] [address] Monocyte abs 0.05(L) 0.20 - 0.80 K/cumm CERNER BJ Comment:Testing performed by : [facility], [address] [place], [place] [phone] Eosinophil abs 0.09 0.00 - 0.50 K/cumm CERNER BJ Comment:Testing performed by : [facility], [address] [place], [place] [phone] Basophil abs 0.01 0.00 - 0.10 K/cumm CERNER BJ Comment:Testing performed by : [facility], [address] [place] [address] Neutrophil pct 44.0 % C[facility]ER B[facility] Comment: Interpretive Data Percent cell count reference ranges are not reported, since discordance with absolute values may lead to misinterpretation of CBC data. Current Interpretive Data was last revised on 2017. Testing performed by: [facility], [address] [place], [place] [phone] Lymphocyte pct 42.0 % [facility] Comment: Interpretive Data Percent cell count reference ranges are not reported, since discordance with absolute values may lead to misinterpretation of CBC data. Current Interpretive Data was last revised on 2017. Testing performed by: [facility], [address] [place] [phone] Monocyte pct 4.0 % [facility] Comment: Interpretive Data Percent cell count reference ranges are not reported, since discordance with absolute values may lead to misinterpretation of CBC data. Current Interpretive Data was last revised on 2017. Testing performed by: [facility], [address] [place] [address] Eosinophil pct 8.0 % [facility] Comment: Interpretive Data Percent cell count reference ranges are not reported, since discordance with absolute values may lead to misinterpretation of CBC data. Current Interpretive Data was last revised on 2017. Testing performed by: [facility], [address] [place], [place] [id number] Basophil pct 1.0 % [facility] Comment: Interpretive Data Percent cell count reference ranges are not reported, since discordance with absolute values may lead to misinterpretation of CBC data. Current Interpretive Data was last revised on 2017. Testing performed by: [facility], [address] [place], [place] [id number] Blast pct 1.0(H) 0.0 - 0.0 % [facility] Comment: Called to Sarah Simon NP 10/06/24 11:31 by fp. Testing performed by: [facility], [address] [place], [place] [id number] Variant lymph pct 2.0(H) 0.0 - 0.0 % [facility] Comment:Testing performed by : [facility], [address] [place] [phone] RBC morphology NRBCs present(A ) [facility] Comment:Testing performed by : [facility], [address] [place], [place] [phone] Polychromasia 1+(A) [facility] Comment:Testing performed by : [facility], [address] [place] [phone] Schistocytes 1+(A) C[facility] Comment:Testing performed by : [facility], [address] [place] [address] Target cells 1+(A) LD SWEET Comment:Testing performed by : [facility], [address] [place] [address] Platelet estimate Decreased (A) LD SWEET Comment:Testing performed by : [facility], [address] [place] [address] Blood 10/06/2024 10:0 1 AM CDT 10/06/2024 10:18 AM CDT us Debby Greene MD LAB BLOOD ORDERABLES F inal Result LD SWEET [facility] Department [place] [address] * (ABNORMAL) CBC with auto differential (10/06/2024 10:01 AM CDT) WBC 1.08(L) 3.80 - 9.90 K/cumm Comment:Testing performed by : [facility], [address] [place] [address] Hgb 12.3(L) 13.0 - 17.5 g/dL LD SWEET Comment:Testing performed by : [facility], [address] [place] [address] Hct 36.4(L) 38.9 - 50.3 % LD SWEET Comment:Testing performed by : [facility], [address] [place] [address] Plt 64(L) 150 - 400 K/cumm LD SWEET Comment:Testing performed by : [facility], [address] [place] [address] MPV 9.3 6.8 - 10.4 fL LD SWEET Comment:Testing performed by : [facility], [address] [place] [address] RBC 3.75(L) 4.30 - 5.80 M/cumm LD SWEET Comment:Testing performed by : [facility], [address] [place], [place] [phone] MCV 97.1(H) 81.3 - 96.4 fL LD SWEET Comment:Testing performed by : [facility], [address] [place], [place] [phone] MCH 32.8 27.1 - 33.3 pg LD [facility] Comment:Testing performed by : [facility], [address] [place], [place] [phone] MCHC 33.8 32.3 - 35.7 g/dL LD SWEET Comment:Testing performed by : [facility], [address] [place], [place] [phone] RDW CV 15.0(H) 11.1 - 14.9 % LD [facility] Comment:Testing performed by : [facility], [address] [place], [place] [phone] NRBC abs N/A 0.00 - 0.01 K/cumm LD [facility] Comment:Testing performed by : [facility], [address] [place], [place] [phone] Blood 10/06/2024 10:0 1 AM CDT 10/06/2024 10:08 AM CDT us Debby Greene MD LAB BLOOD ORDERABLES F inal Result [facility] Department [place] [address] * Comprehensive metabolic panel (10/06/2024 10:01 AM CDT) Sodium 136 135 - 145 mmol/L Potassium, pl 4.0 3.3 - 4.9 mmol/L [facility] Chloride 97 97 - 110 mmol/L [facility] CO2 25 22 - 32 mmol/L [facility] Anion gap 14 2 - 15 mmol/L [facility] BUN 13 6 - 25 mg/dL [facility] Creatinine 0.94 0.80 - 1.30 mg/dL [facility] Glucose 97 70 - 199 mg/dL [facility] Comment: Interpretive Data Fasting glucose >/= [...] 2022. Calcium 9.9 8.5 - 10.3 mg/dL [facility] Bilirubin, total 0.5 0.1 - 1.2 mg/dL [facility] Protein, pl 7.4 6.5 - 8.5 g/dL [facility] Albumin 4.1 3.5 - 5.0 g/dL [facility] Alk phos 128 40 - 130 Units/L [facility] ALT 24 7 - 55 Units/L [facility] AST 31 10 - 50 Units/L [facility] Blood 10/06/2024 10:0 1 AM CDT 10/06/2024 10:17 AM CDT Debby Greene MD LAB BLOOD ORDERABLES F inal Result [facility] Department [place] [address] * (ABNORMAL) Hemoglobin A1c (10/06/2024 10:01 AM CDT) Hgb A1C 5.7(H) 4.0 - 5.6 % Estimated Average Glucose 117 mg/dL [facility] Comment: The ADA recommends reporting an estimated Average Glucose (eAG) with all Hemoglobin A1c results using the equation derived from a study of 507 normal and diabetic adults. Minority populations were underrepresented and children were not included. (Diabetes Care 2020; 43(S1): S66-S76). The eAG is not equivalent to a fasting glucose. Blood 10/06/2024 10:0 1 AM CDT 10/06/2024 10:16 AM CDT Debby Greene MD LAB BLOOD ORDERABLES F inal Result Performing Organization Address [facility] de Phone Number LD [facility] [place] [address] * (ABNORMAL) HSV 1 IgG Antibody Blood [...] AM CDT 10/06/2024 11:50 AM CDT Debby Greene MD LAB MICROBIOLOGY - GEN ERAL ORDERABLES Final Result Performing Organization Address [facility] de Phone Number [facility] [place] [address] * (ABNORMAL) HSV 2 IgG Antibody Blood [...] AM CDT 10/06/2024 11:50 AM CDT Debby Greene MD LAB MICROBIOLOGY - GEN ERAL ORDERABLES Final Result LD [facility] Department [place] [address] * (ABNORMAL) Lipid panel (10/06/2024 10:01 AM [...] revised on 2018. Triglycerides 186(H) <=149 mg/dL LD [facility] Comment: Interpretive Data Ages < or [...] revised on 2018. HDL 25(L) >=40 mg/dL LD [facility] Comment: Interpretive Data Ages < or [...] on 2018. LDL, calculated 137(H) <=129 mg/dL [facility] Comment: Interpretive Data Ages < or [...] revised on 2024. Non-HDL Cholesterol 171 mg/dL [facility] Comment: Interpretive Data Ages < or [...] last revised on 2018. Chol/HDL ratio 8 [facility] Blood 10/06/2024 10:0 1 AM CDT 10/06/2024 10:17 AM CDT us Debby Greene MD LAB BLOOD ORDERABLES F inal Result [facility] Department [place] [address] * Type and screen (10/06/2024 10:01 AM CDT) ABO Rh A Positive Jacob, indirect Negative [facility] Blood 10/06/2024 10:0 1 AM CDT 10/06/2024 10:19 AM CDT Narrative LD [facility] - 10/06/2024 11:34 AM CDT Has the patient had Daratumumab or Isatuximab in the past 6 months?->Unknown Debby Greene MD LAB BLOOD BANK TEST OR DERABLES Final Result [facility] [place] [address] * Lactate dehydrogenase (LD) (10/06/2024 10:01 AM CDT) Lactate dehydrogenase (LDH) 211 100 - 250 Units/L Blood 10/06/2024 10:0 1 AM CDT 10/06/2024 10:17 AM CDT Narrative [facility] - 10/06/2024 10:40 AM CDT To be drawn prior to patient taking venetoclax. Sarah Simon NP LAB BLOOD ORDERABLES Final Res ult Performing Organization Address City/[facility]/ZIP Co de Phone Number [facility] Department [place] [address] documented in this encounter Visit Diagnoses Diagnosis 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) documented in this encounter Care Teams Psychiatric Clinician Relationship Specialty Start Date End Date Rico Pérez MD [address] [place] [address] PCP - General Family Medicine 11/07/22 [place] [address] [place] [address] Consulting Physician Endocrinology Diabetes & Metabolism 07/24/22 Ramón Watts MD [address] [place] [address] Consulting Physician General Surgery 11/25/22 Huseyin Reese MD [address] [place] [address] Medical Oncologist/[facility] Hand Hematology and Oncology 12/19/22 Debby Greene MD [address] [place] [address] Consulting Physician Medical Oncology 12/25/22 documented as of this encounter
--- OUTSIDE RECORDS SUMMARY | 2024-10-07 11:54 | XMS_ITS | Encounter Summary ---
Author Organization [facility] Healthcare Address [address] [place] [address] Care Team Providers Care Cupola Worker Name Role Phone Delon Jain MD Unavailable Rico Pérez MD Primary Care Provider [phone] Ramón Watts MD Unavailable [phone] Huseyin Reese MD Unavailable [phone] Debby Greene MD Unavailable [phone] Encounter Details Date Type Department Care Team (Late st Contact Info) Description 10/06/2024 Telephone [facility] [address] [place], [place] [id number] Sharmaine Jenkins RN Social History Tobacco Use Types Packs/Day Years Used Date Smoking Tobacco: Never Cigarettes Passive Smoke Exposure: Never Smokeless Tobacco: Current Chew Alcohol Use Standard Drinks/Week Comments Yes 0 (1 standard drink = 0.6 oz pur e alcohol) [facility] Utilities Answer Date Recorded In the past 12 months has [employer], gas, oil, or water Taste Filter threatened to shut off services in your [...] often do you attend chur ch or catholic services? Never 09/23/2024 Do you belong to any clubs o r organizations such as mosque groups, unions, fraternal or athletic groups, or [...] place to sleep or slept in a detention (including now)? No 07/15/2023 Housing Stability Vital Sign Answer Eladio e Recorded In the last 12 months, was t here a time when you were not able to pay the mortgage or rent on time? No 09/23/2024 In the past 12 months, how m any times have you moved where you were living? 0 09/23/2024 At any time in the past 12 m [facility], were you homeless or living in a detention (including now)? No 09/23/2024 Personal Safety Answer Date Recorded Have you ever been in or are you currently in a harmful physical or emotional relationship or is someone making you feel afraid or unsafe? 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 Gender Identity Not on file Sexual Orientation Not on file Occupation Industry Job Start Date Job End Date Not on file Not on file Not on file Not on file documented as of this encounter Miscellaneous Notes * Telephone Encounter - Sharmaine Jenkins RN - 10/06/2024 9:22 AM CDT Confirmed with patient Preprocedure Phone Call Procedure Time Verified: Yes Arrival Time Verified: Yes Procedure Location Verified: Yes Medical History Reviewed: No NPO Status Reinforced: Yes Ride and Caregiver Arranged: Yes Patient Knows to Bring Current Medications: No Patient Knows to Bring CPAP: No Is Patient on Home Ventilator?: No Is Patient on Blood Thinners?: No documented in this encounter Plan of Treatment Not on file documented as of this encounter Visit Diagnoses Not on filedocumented in this encounter Care Teams Cupola Worker Relationship Specialty Start Date End Date Rico Pérez MD [address] [place] [address] PCP - General Family Medicine 11/07/22 [place] [address] [facility] [address] [place] [address] Consulting Physician Endocrinology Diabetes & Metabolism 07/24/22 Ramón Watts MD [address] [place] [address] Consulting Physician General Surgery 11/25/22 Huseyin Reese MD [address] [place] [address] Medical Oncologist/Label Pinker Hematology and Oncology 12/19/22 Debby Greene MD [address] [place] [address] Consulting Physician Medical Oncology 12/25/22 documented as of this encounter
--- OUTSIDE RECORDS SUMMARY | 2024-10-07 11:54 | XMS_ITS ---
Author Organization [facility] Virtual Care Address [address] [place] [phone] Phone Care Team Providers Care Paper Baler Name Role Phone Delon Jain MD Unavailable Rico Pérez MD Primary Care Provider [phone] Ramón Watts MD Unavailable [phone] Huseyin Reese MD Unavailable [phone] Debby Greene MD Unavailable [phone] Active Problems Patient Care Coordination No te Formatting of this note is d ifferent from the original. BMT Inpatient Care Coordination Overview Diagnosis [facility] Floor [address] Treatment Plan Obin+Glofit (study) Reason for Admission Chemo - study Transplant/IEC Planning BMT/IEC Plan BEAM Auto 07/18/2023 HLA typing/IDMs [] Insurance Approval [] Discharge Planning Anticipated Discharge Date TBD Patient Education Completed [] Issue to be Resolved Before Discharge Discharge Disposition Requests Sent to Case Management, Pharmacy PA Team, or Medical Assistants Post-Discharge Follow-Up Living Situation/Distance from [place], [place] [address] Caregiver Lab/Transfusion Frequency Venous Access & Care implanted vascular device Local Oncologist Contact Phone: Fax: Post-Discharge Office Visit (H30) ARUN (SALES ADMINISTRATOR [place])- 03/10 w/ study chemo Miscellaneous Notes: Problem [...] need blabs and fluid infusion appointments in [facility]. Assessment & Plan (09/30/2024 7:50 AM [...] 07/04 Assessment & Plan (07/27/2023 2:14 PM CARD ASSEMBLER): Neutropenic, febrile 07/22, blood cultures 1/ positive for Streptococcus salivarius 07/22. 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 On cetirizine at home. - cetirizine 10 mg BID, Sarna lotion daily PRN Dermatitis 07/02/2023 Autologous donor of stem cells 06/27/2023 Well adult exam 06/14/2023 Overview (06/14/2023): h/o mantle cell cancer, under treatment, s/p resection Assessment & Plan (06/14/2023 3:24 PM CARD ASSEMBLER): A(n) yearly well adult visit has been performed today. Saqib Brewster is up to date on screening tests. [...] (10/01/2024 2:33 PM CDT): Robert with Dr. Greene, s/p multiple lines of therapy including BEAM/AUTO in 07/2023 Continue Calquence and started on venetoclax in addition as of 09/28 as above. He is pending initiation of CAR T-Cell therapy. Patient was using home supply in the hospital. Assessment & Plan (09/30/2024 1:35 PM CDT): Robert with Dr. Greene, s/p multiple lines of therapy including BEAM/AUTO in 07/2023 - most recently on Calquence and started on venetoclax in addition as of 09/28 as above. He is pending initiation of CAR T-Cell therapy. Resume calquence and venetoclax per protocol. Assessment & Plan (09/29/2024 7:13 PM CDT): Robert with Dr. Greene, s/p multiple lines of therapy including BEAM/AUTO [...] CRS\ICANS Assessment & Plan (07/27/2023 2:11 PM CARD ASSEMBLER): Follows with Dr. Greene in [place]. Diagnosed 11/21/2022 for splenic rupture found with diffuse lymphadenopathy, s/p splenectomy, found with stage IV mantle cell. Underwent BR X 3 with complete remission, R-cytarabine X 3 with PET scan 05/16/2023 showing CR. Enrolled in [id number] study, MRD testing indeterminate. Assigned to Arm [...] establish care has been performed today. Saqib Brewster is up to date on screening tests. [...] 06/19/2022 Assessment & Plan (06/19/2022 3:49 PM CARD ASSEMBLER): He has a massive goiter, with [...] (12/10/2021): Added automatically from request for surgery [id number] Visual changes 08/22/2021 Testicular hypofunction 10/16/2013 Overview (09/05/2016): TESTICULAR HYPOFUNC NEC Assessment & Plan (06/19/2022 3:47 PM CARD ASSEMBLER): Will check T , free and total . FSH and LH, prolactin. Depending of results, will consider starting T replacement Patient agrees. Current Treatment and Therapy Plans Acalabrutinib PO 28 Day Cycles - MCL/CLL* Plan Start Date:03/31/2024 Plan Provider:Debby Greene MD Linked Problems Mantle cell lymphoma of lymp h nodes of multiple regions (HCC) Treatment Medications Current Day (Day 1 , Cycle 4 - Planned for 07/01/2024) acalabrutinib maleate (CALQUENCE) acalab rutinib maleate (CALQUENCE) 100 mg tablet Adult BMT/ONC - Blood and/or Platelet Administration for Outpatient* Plan Start Date:07/19/2023 Plan Provider:Franco Porter MD Linked Problems Mantle cell lymphoma, unspec ified body region (HCC) Treatment Medications No medications scheduled. Apheresis Cellular Therapy Cell Collection* Plan Start Date:10/08/2024 Plan Provider:Debby Greene MD Linked Problems Autologous donor of stem altha ls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) Treatment Medications No medications scheduled. Immune Globulin (GAMUNEX) - 10% (LANDRY PREFERRED)* Plan Start Date:03/31/2024 Plan Provider:Debby Greene MD Linked Problems Mantle cell lymphoma, unspec ified body region (HCC)Hypogammaglobulinemia Treatment Medications No medications scheduled. IV Maintenance Therapy Plan & Alteplase (CATHFLO ACTIVASE) - orders for occluded catheters* Plan Start Date:08/08/2023 Plan Provider:Debby Greene MD Linked Problems Mantle cell lymphoma of lymp h nodes of multiple regions (HCC) Treatment Medications No medications scheduled. Oncology Electrolyte Replacement ([facility]) & Hydration Therapy Plan* Plan Start Date:10/02/2024 Plan Provider:Debby Greene MD Linked Problems Mantle cell lymphoma, unspec ified body region (HCC) Treatment Medications No medications scheduled. OUTPT - Venetoclax + Acalabrutinib - 28 Day Cycles - MCL* Plan Start Date: 09/14/2024 Plan Provider:Debby Greene MD Linked Problems Mantle cell lymphoma of lymp h nodes of multiple regions (HCC) Treatment Medications Current Day (Day 4 , Cycle 1 - Planned for 10/08/2024) Next Day (Day 5, Cycle 1 - Planned for 10/09/2024) acalabrutinib maleate (CALQUENCE)venetoclax (VENCLEXTA) No medications scheduled. No medications scheduled. Post-SCT Vaccinations* Plan Start Date:05/12/2024 Plan Provider:Debby Greene MD Linked Problems Autologous donor of stem latha ls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) Treatment Medications Current Day (Day 1 , 3rd Series (at least 12 months post-SCT) - Planned for 11/10/2024) Next Day (Day 1, 4th Series (at least 15 months post-SCT) - Planned for 02/08/2025) No medications scheduled. No medications schedul ed. No medications scheduled. Past Treatment and Therapy Plans BMT/ONC IP BLOOD PRODUCTS Plan Name Start Date Discontinue Date Treatment Medications Discontinue Reason Plan Provider BMT Adult Blood and Platelet Administration for Inpatient 07/24/2023 07/31/2023 No medications scheduled. Patient Discharged Thanh Luo MD Line Care Plan Name Start Date Discontinue Date Treatment Medications Discontinue Reason Plan Provider IV Maintenance Therapy Plan w/ carrier fluids 12/10/2022 07/18/2023 No medications scheduled. Orders Huseyin Reese MD Oncology Chemotherapy Treatment Plan Name Start Date Discontinue Date Treatment Medications Discontinue Reason Plan Provider Cycles - INPT/OUTPT - [facility] - Lymphoma - [id number] -Obinutuzumab pre-treatment followed by Glofitamab ([id number]) monotherapy WITH step dosing 03/31/2024 INV-[facility] (/SALES ADMINISTRATOR [id number]) Glofitamab ([id number]) IVPB in 22.5 mL (ANTI-LAG-3)INV -[facility] (/SALES ADMINISTRATOR [id number]) Glofitamab ([id number]) IVPB in 50 mL (ANTI-LAG-3)INV -[facility] (/SALES ADMINISTRATOR [id number]) obinutuzumab IVPB in 500 mLINV-[facility] Glofitamab ([id number]) (/SALES ADMINISTRATOR [id number])INV-[facility] sodium chloride 0.9 % Progression Debby Greene MD 4 of 10 cycles started RiTUXimab Maintenance Every 8 Weeks - Lymphoma 10/06/2023 02/06/2024 riTUXimab-abbs (TRUXIMA)riTUXi mab-abbs (TRUXIMA) IVPB in 500 mL Progressive Disease Huseyin Reese MD 2 of 12 cycles started BMT - Standard Hematopoietic Progenitor Cell Mobilization (Auto) Standard GCSF and Plerixafor (Mozobil) 07/04/2023 08/05/2023 plerixafor (MOZOBIL) Therapy Complete Debby Greene MD 1 of 1 cycle started OUTPT Bendamustine / RiTUXimab followed by INPT Cytarabine / RiTUXimab 28 Day Cycles - Mantle Cell Lymphoma 3 06/27/2023 bendamustine (BENDEKA) IVPB in 50 mLcytarabine (GEORGIA-C) IVPB (for doses > 1,000 mg/m2)dexAMETHa sone (DECADRON)riTUX imab-pvvr (RUXIENCE) IVPB in 500 mL Therapy Complete Huseyin Reese MD 6 of 6 cycles started Oncology Supportive Care Plan Name Start Date Discontinue Date Treatment Medications Discontinue Reason Plan Provider Electrolyte Replacement & Hydration Therapy Plan 07/19/2023 05/28/2024 No medications scheduled. Therapy Complete Debby Greene MD Oncology Treatment (2) Plan Name Start Date Discontinue Date Treatment Medications Discontinue Reason Plan Provider Cycles INPT - BEAM: (carmustine / etoposide / cytarabine / melphalan) - BMT - Lymphoma 08/05/2023 carmustine (BICNU) IVPB in 1,000 mLcytarabine (GEORGIA-C) IVPB (for doses <1,000 mg/m2)etoposide (VEPESID) IVPB in 750 mLmelphalan (ALKERAN) IVPB in 250 mL Therapy Complete Debby Greene MD 1 of 1 cycle started Oncology Treatment (3) Plan Name Start Date Discontinue Date Treatment Medications Discontinue Reason Plan Provider Cycles Zanubrutinib PO 28 Day Cycles - MCL 03/31/20 24 03/31/2024 zanubrutinib (BRUKINSA) Provider Discretion Debby Greene MD Treatment not started PHERESIS Plan Name Start Date Discontinue Date Treatment Medications Discontinue Reason Plan Provider Apheresis Cellular Therapy Cell Collection 07/08/2023 08/05/2023 No medications scheduled. Therapy Complete Debby Greene MD Lifetime Dose Tracking * Chemical Lifetime Dose Automatic Entry Manual Entr y Fluoro Time 13.6 minutes 13.6 minutes 0 minutes carmustine 288.343 mg/m2 (619.9 38 mg) 288.343 mg/m2 (619.938 mg) 0 mg/m2 (0 mg) etoposide 780.964 mg/m2 (1,680 mg) 780.964 mg/m2 (1,680 mg) 0 mg/m2 (0 mg) Air kerma at the reference point (Ka,r) 302.4 mGy 302.4 mGy 0 mGy DLP 2,897.9 mGycm 2,897.9 mGycm 0 mGycm Resolved Problems Problem Noted Date Diagnosed Date Resolved Date Pancytopenia, acquired 11/14/202208/05 Thyroid mass 07/26/2022 09/24/2022
--- OUTSIDE RECORDS SUMMARY | 2024-10-07 11:54 | XMS_ITS | Encounter Summary ---
Author Organization [facility] Address [address] [place] [address] Phone Care Team Providers Care Machine Sneller Name Role Phone Delon Jain MD Unavailable Rico Pérez MD Primary Care Provider [phone] Ramón Watts MD Unavailable [phone] Huseyin Reese MD Unavailable [phone] Debby Greene MD Unavailable [phone] Encounter Details Date Type Department Care Team (Late st Contact Info) Description 10/06/2024 Orders Only [facility] Bone Marrow Transplant [address] [facility] [address] [place] [address] Radha Souza [facility] Social History Tobacco Use Types Packs/Day Years Used Date Smoking Tobacco: Never Cigarettes Passive Smoke Exposure: Never Smokeless Tobacco: Current Chew Alcohol Use Standard Drinks/Week Comments Yes 0 (1 standard drink = 0.6 oz pur e alcohol) [facility] Utilities Answer Date Recorded In the [...] often do you attend chur ch or rastafari services? Never 09/23/2024 Do you belong to any clubs o r organizations such as adventism groups, unions, fraternal or athletic groups, or [...] place to sleep or slept in a mcfp (including now)? No 07/15/2023 Housing Stability Vital Sign Answer Eladio e Recorded In the last 12 months, was t here a time when you were not able to pay the mortgage or rent on time? No 09/23/2024 In the past 12 months, how m any times have you moved where you were living? 0 09/23/2024 At any time in the past 12 m [facility], were you homeless or living in a mcfp (including now)? No 09/23/2024 Personal Safety Answer Date Recorded Have you ever been in or are you currently in a harmful physical or emotional relationship or is someone making you feel afraid or unsafe? 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 DIRECTOR Gender Identity Not on file Sexual Orientation Not on file Occupation Industry Job Start Date Job End Date Not on file Not on file Not on file Not on file documented as of this encounter Plan of Treatment Not on file documented as of this encounter Visit Diagnoses Not on filedocumented in this encounter Care Teams Machine Sneller Relationship Specialty Start Date End Date Rico Pérez MD [address] [place] [address] PCP - General Family Medicine 11/07/22 [place] [address] [address] Consulting Physician Endocrinology Diabetes & Metabolism 07/24/22 Ramón Watts MD [address] [place] [address] Consulting Physician General Surgery 11/25/22 Huseyin Reese MD [address] [place] [address] Medical Oncologist/Continuous Improvement Intern Hematology and Oncology 12/19/22 Debby Greene MD [address] [place] [address] Consulting Physician Medical Oncology 12/25/22 documented as of this encounter
--- OUTSIDE RECORDS SUMMARY | 2024-10-07 11:54 | XMS_ITS | Encounter Summary ---
Author Organization [facility] Address [facility] [place] [address] Care Team Providers Care Screening Tech Name Role Phone Mitch Montes Primary Care Provider Unavailab Mitch Brandon Unavailable Unavailable Encounter Details Date Type Department Care Team (Late st Contact Info) Description 02/19/2019 Lab Requisition [facility] DermPath Lab [address] [facility] [place] [address] Megan Villeda MD [address] [facility] [address] [place] [address] Social History Tobacco Use Types Packs/Day Years Used Date Smoking Tobacco: Never Assessed Sex and Gender Information Value Date Recorded Sex Assigned at Not on file Legal Sex Male 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 Gender Identity Not on file Sexual Orientation Not on file documented as of this encounter Plan of Treatment Not on file documented as of this encounter Procedures Procedure Name Priority Date/Time Associated Diagnosis Comments DERMATOPATHOLOGY Routine 02/18/2019 12:0 0 AM CDT documented in this encounter Results * DERMATOPATHOLOGY (02/18/2019 12:00 AM CDT) Case Report Dermatopathology Report Case: [id number] Authorizing Provider: Megan Villeda MD Collected: 02/18/2019 12:00 AM Ordering Location: [facility] Derm[facility] Lab Received: 02/19/2019 10:16 AM Pathologist: Princess Duarte MD Specimen: Skin, left scalp 9 1:34 PM CDT DERMATOPATHOLOGY LABORATORY Final Diagnosis Specimen A. SKIN, left scalp: DERMAL SCAR RESIDUAL BASAL CELL CARCINOMA NOT IDENTIFIED (L90.5) 1:34 PM CDT DERMATOPATHOLOGY LABORATORY Clinical History R/O nodular type BCC, biopsy proven. See [id number] 1:34 PM CDT DERMATOPATHOLOGY LABORATORY Gross Description Specimen A: Received is one formalin filled container labeled with the patient's name and designated left scalp.The specimen consists of an ellipse measuring 16o17v9 mm and is oriented with the suture/notch at the 12 o'clock position not labeled on the requisition. The 12 to 6 o'clock margin is inked green. The 6 o'clock to 12 o'clock margin is inked black. The 12 o'clock tip is submitted in cassette 1. The 6 o'clock tip is submitted in cassette 2. The remainder of the ellipse is serially sectioned and submitted in cassettes 3-4. Jar 0. 1:34 PM CDT DERMATOPATHOLOGY LABORATORY Microscopic Description Specimen A. SKIN, left scalp: There are fibroblasts and collagen bundles oriented parallel to the skin surface. There are elongated blood vessels, some of which are oriented perpendicular to the skin surface. No basal cell carcinoma is identified. 1:34 PM CDT DERMATOPATHOLOGY LABORATORY Disclaimer An external and internal positive and negative controls are appropriate for the histochemical, immunohistochemical and immunofluorescence stain(s) in this case (if any), except where stated explicitly. The performance characteristics of the stain(s) cited in this report were developed and its performance characteristic determined by the Dermatopathology Laboratory at [facility], directed by Dr. Karl Zhao. These tests need not be, and therefore are not, approved by the [place] Food and Drug Administration. The tests are used for clinical purposes. Billing Codes Specimen Charges Stain Charges 58275 1 1:34 PM CDT DERMATOPATHOLOGY LABORATORY Embedded Images 1:34 PM CDT DERMATOPATHOLOGY LABORATORY Pathology/Cytolog y TISSUE SPECIMEN FROM SKIN / Unknown 02/18/2019 02/19/2019 10:16 AM CDT us Megan Villeda MD LAB - PATHOLOGY/CYTOLOGY ORD ERABLES Final Result DERMATOPATHOLOGY LABORATORY [facility] - Department of Dermatology [address] [facility] [place] [address], [facility] [phone] documented in this encounter Visit Diagnoses Not on filedocumented in this encounter Care Teams Screening Tech Relationship Specialty Start Date End Date Mitch Montes Update Information PCP - General 12/31/18 Mitch Montes Update Information 12/31/18 documented as of this encounter
--- OUTSIDE RECORDS SUMMARY | 2024-10-07 11:54 | XMS_ITS | Encounter Summary ---
Author Organization [facility] Address [facility] [place] [address] Care Team Providers Care Home Therapy Teacher Name Role Phone Mitch Montes Primary Care Provider Unavailab Mitch Brandon Unavailable Unavailable Encounter Details Date Type Department Care Team (Late st Contact Info) Description 01/01/[address] 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 Gender Identity Not on file Sexual Orientation Not on file documented as of this encounter Plan of Treatment Not on file documented as of this encounter Procedures Procedure Name Priority Date/Time Associated Diagnosis Comments DERMATOPATHOLOGY Routine 12/31/2018 12:0 0 AM CDT documented in this encounter Results * DERMATOPATHOLOGY (12/31/2018 12:00 AM CDT) Case Report Dermatopathology Report Case: [id number] Authorizing Provider: Megan Villeda MD Collected: 12/31/2018 12:00 AM Pathologist: Princess Duarte MD Received: 01/01/2019 06:44 AM Specimens: A) - Skin, left scalp B) - Skin, left cheek C) - Skin, left abdomen 9 3:30 PM CDT DERMATOPATHOLOGY LABORATORY Final Diagnosis Specimen A. SKIN, left scalp: BASAL CELL CARCINOMA, NODULAR TYPE (C44.41) Specimen B. SKIN, left cheek: DERMAL FIBROSIS AND DILATED VESSELS, CONSISTENT WITH ANGIOFIBROMA (D23.30) (see microscopic description and comment) Specimen C. SKIN, left abdomen: BASAL CELL CARCINOMA, NODULAR TYPE (C44.519) 3:30 PM [facility]ERMATOP[facility]Y [facility]ORAT[facility] Clinical History A-B: R/O BCC, pink papule. 3:30 PM [facility]ERMATOP[facility]OLOG[facility]ORAT[facility] Gross Description Specimen A: Received is one formalin filled container labeled with the patient's name and designated left scalp. The specimen consists of a shave measuring [id number]. Jar 0. Specimen B: Received is one formalin filled container labeled with the patient's name and designated left cheek. The specimen consists of a shave measuring [id number]. Jar 0. Specimen C: Received is one formalin filled container labeled with the patient's name and designated left abdomen. The specimen consists of a shave measuring [id number]. Jar 0. 3:30 PM [facility]ERMATOPATHOLOGY LABORATORY Microscopic Description Specimen A. SKIN, left scalp: Within the dermis there are aggregates of basaloid cells with a high nuclear to cytoplasmic ratio and peripheral palisading. Specimen B. SKIN, left cheek: This dome-shaped lesion contains dilated blood vessels, coarse collagen bundles, and stellate fibroblasts. Additional deeper sections were obtained and reviewed. COMMENT: The histopathologic findings of the portion of the lesion sampled are most consistent with angiofibroma. However, as only superficial portions of the dermis are captured in this biopsy specimen, clinicopathological correlation is recommended as to the nature of the remaining lesion. Specimen C. SKIN, left abdomen: Within the dermis there are aggregates of basaloid cells with a high nuclear to cytoplasmic ratio and peripheral palisading. 3:30 PM [facility]ERMATOPATHOLOGY LABORATORY Disclaimer An external and internal positive and negative controls are appropriate for the histochemical, immunohistochemical and immunofluorescence stain(s) in this case (if any), except where stated explicitly. The performance characteristics of the stain(s) cited in this report were developed and its performance characteristic determined by the Dermatopathology Laboratory at [facility], directed by Dr. Karl Zhao. These tests need not be, and therefore are not, approved by the [place] Food and Drug Administration. The tests are used for clinical purposes. Billing Codes Specimen Charges Stain Charges 69142 59570 28010 1 1 1 9 3:30 PM CDT DERMATOPATHOLOGY LABORATORY Embedded Images 9 3:30 PM CDT DERMATOPATHOLOGY LABORATORY Pathology/Cytology TISSUE SPECIMEN FROM SKIN / Unknown 12/31/2018 01/01/2019 6:44 AM CDT Miscellaneous samples (specimen) TISSUE SPECIMEN FROM SKIN / Unknown 12/31/2018 01/01/2019 6:44 AM CDT Miscellaneous samples (specimen) TISSUE SPECIMEN FROM SKIN / Unknown 12/31/2018 01/01/2019 6:44 AM CDT Megan Villeda MD LAB - PATHOLOGY/CYTOLOGY ORD ERABLES Final Result DERMATOPATHOLOGY LABORATORY [facility] - Department of Dermatology [address] [place] [address], 5th Floor Lab [address] [phone] documented in this encounter Visit Diagnoses Not on filedocumented in this encounter Care Teams Home Therapy Teacher Relationship Specialty Start Date End Date Mitch Montes Update Information PCP - General 12/31/18 Mitch Montes Update Information 12/31/18 documented as of this encounter
--- OUTSIDE RECORDS SUMMARY | 2024-10-07 11:54 | XMS_ITS | Clinical Summary ---
Author Organization [facility] Address [address] [place] [address] Care Team Providers Care Supervisor Pipe Manufacture Name Role Phone Mitch Montes Primary Care Provider Unavailab le Mitch Montes Unavailable Unavailable Source Comments [facility],non-owned Affiliates and Associated Physician Practices is amultiple site organization consisting of ambulatory clinics and hospital sitesin [place], [place], [place] and [place]. This disclosure is being madepursuant to the Care Everywhere program and may not contain all information available regarding this patient. 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 Gender Identity Not on file Sexual Orientation Not on file Plan of Treatment Health Maintenance Due Date Last Done Comments COLOGUARD (AGES 45-75) - COL ON CA SCREENING 1976 COLON MONITORING 1976 COLONOSCOPY - COLON CA SCREENING 1976 CT COLONOGRAPHY - COLON CA SCREENING 1976 Colorectal Cancer Screening 1976 FIT - COLON CA SCREENING 1976 FLEX SIG - COLON CA SCREENING 1976 LIPID TESTING 1976 HIV SCREENING 1991 HEPATITIS C SCREENING 03/19/1994 DTAP/TDAP/TD VACCINES (1 - Tdap) 1995 HEPATITIS B VACCINE (1 of 3 - 19+ 3-dose series) 1995 COVID-19 VACCINE (2023-2 5 season) 2024 DEPRESSION SCREENING 06/02/2024 INFLUENZA VACCINE (Season Ended) 2025 ZOSTER VACCINE (1 of 2) 2026 HIB VACCINE Aged Out No longer eligi ble based on patient's age to complete this topic HPV VACCINE Aged Out No longer eligi ble based on patient's age to complete this topic MENINGOCOCCAL (Group B) VACC INE SHARED DECISION-MAKING Aged Out No longer eligibl e based on patient's age to complete this topic MENINGOCOCCAL GROUPS A/C/Y/W VACCINE Aged Out No longer eligible b ased on patient's age to complete this topic PNEUMOCOCCAL VACCINE Aged Out No long er eligible based on patient's age to complete this topic Insurance AETNA AETNA Care Teams Supervisor Pipe Manufacture Relationship Specialty Start Date End Date Mitch Montes Update Information PCP - General 12/31/18 Mitch Montes Update Information 12/31/18
--- OUTSIDE RECORDS SUMMARY | 2024-10-07 11:54 | XMS_ITS | Encounter Summary ---
Author Organization [facility] Address [address] [place] [address] Phone Care Team Providers Care Line Mover Name Role Phone Delon Jain MD Unavailable Rico Pérez MD Primary Care Provider [phone] Ramón Watts MD Unavailable [phone] Huseyin Reese MD Unavailable [phone] Debby Greene MD Unavailable [phone] Reason for Visit * Reason Onset Date Comments Chest Pain 10/07/2024 Pt's mother stat es that Pt just got home from hosp where he had a central line placed, and developed shortness of breath and chest pain on a scale 7/10. Enriqueta Black RN notified via phone call and will call Pt's mother. Encounter Details Date Type Department Care Team (Late st Contact Info) Description 10/07/2024 Telephone [facility] Bone Marrow Transplant [address] [facility] [address] [place] [address] Nilda Alves RMA Chest Pain (Pt's mother states that Pt just got home from hosp where he had a central line placed, and developed shortness of breath and chest pain on a scale 7/10. Enriqueta Black RN notified via phone call and will call Pt's mother.) Social History Tobacco Use Types Packs/Day Years Used Date Smoking Tobacco: Never Cigarettes Passive Smoke Exposure: Never Smokeless Tobacco: Current Chew Alcohol Use Standard Drinks/Week Comments Yes 0 (1 standard drink = 0.6 oz pur e alcohol) [facility] Utilities Answer Date Recorded In the past 12 months has th e electric, gas, oil, or water company [...] often do you attend chur ch or adventism services? Never 09/23/2024 Do you belong to any clubs o r organizations such as jewish groups, unions, fraternal or athletic groups, or [...] any time in the past 12 m [facility], were you homeless or living in a intermediate (including now)? No 09/23/2024 Personal Safety Answer Date Recorded Have you ever been in or are you currently in a harmful physical or emotional relationship or is someone making you feel afraid or unsafe? 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 Instructed to go to nearest ED or call 911. Verbalized understanding. documented in this encounter Plan of Treatment Not on file documented as of this encounter Visit Diagnoses Not on filedocumented in this encounter Care Teams Line Mover Relationship Specialty Start Date End Date Rico Pérez MD [address] [place] [address] PCP - General Family Medicine 11/07/22 [place] [address] [facility] [address] [place] [address] Consulting Physician Endocrinology Diabetes & Metabolism 07/24/22 Ramón Watts MD [address] [place] [address] Consulting Physician General Surgery 11/25/22 Huseyin Reese MD [address] [place] [address] Medical Oncologist/It Business Process Architect Hematology and Oncology 12/19/22 Debby Greene MD [address] [place] [address] Consulting Physician Medical Oncology 12/25/22 documented as of this encounter
[2024-10-07] MEDS: MORPHINE SULFATE (*CRX) 4 MG/ML INJ IV PUSH (12:16)
--- OUTSIDE RECORDS SUMMARY | 2024-10-07 12:22 | XMS_ITS | Referral Summary ---
Author Organization [facility] Virtual Care Address [address] [place] [address] Phone Care Team Providers Care Dental Surgery Doctor Name Role Phone Delon Jain MD Unavailable Rico Pérez MD Primary Care Provider [phone] Ramón Watts MD Unavailable [phone] Huseyin Reese MD Unavailable [phone] Debby Benito MD Unavailable [phone] Encounters Date Type Department Care Team Description 10/07/2024 Telephone [facility]row Transplant [address] [facility] Floor 6 [place] [address] Nilda Alves RMA Chest Pain (Pt's mother states that Pt just got home from [facility] where he had a central line placed, and developed shortness of breath and chest pain on a scale 7/10. 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 Dx) 10/04/2024 Orders Only [facility]row Transplant [address] [place] [address] 6 [place] [address] Sarah Simon NP 10/04/2024 Orders Only [facility]row Transplant [address] [place] [phone] Ifeanyi Malhotra, RN 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 Dx) 10/04/2024 Orders Only [facility]row Transplant [address] [place] [phone] Ifeanyi Malhotra, RN 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 Dx) 10/04/2024 Telephone [facility]row Transplant [address] [place] [phone] Ifeanyi Malhotra RN 10/04/2024 1:30 PM CDT Clinical Support [facility] - Lab Collection [address] [place] [address] 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) 10/02/2024 2:19 PM CDT - 10/02/2024 7:35 PM CDT Hospital Encounter [facility] ([facility]) [address] [place] [address] Mantle cell lymphoma, unspecified body region (HCC) (Primary Dx); 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) Discharge Disposition: Discharge to home or self care 10/01/2024 Orders Only [facility] Transplant [address] [place] [phone] Debby Benito MD 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 Dx) 09/29/2024 12:27 PM CDT - 10/01/2024 4:35 PM CDT Hospital En[facility] [address] [place] [address] Debby Benito MD 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) Discharge Disposition: Discharge to home or self care 09/29/2024 10:30 AM CDT Office Visit [facility] Transplant [address] [place] [phone] Sarah Simon NP 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 Dx) 09/29/2024 10:45 AM CDT Clinical Support [facility] - Lab Collection [address] [place] [address] 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) 09/29/2024 Orders Only [facility] Transplant [address] [facility] Floor 6 [place] [address] Radha Souza RPh 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 Dx) 09/27/2024 Orders Only [facility] Transplant [address] [facility] Floor 6 [place] [address] China Monique RN 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 Dx); Autologous donor of stem cells 09/23/2024 11:07 AM CDT - 09/23/2024 11:59 PM CDT Hospital Encounter [facility] [address] [place] [address] 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) Discharge Disposition: Discharge to home or self care 09/23/2024 1:24 PM CDT - 09/23/2024 11:59 PM CDT Hospital Encounter [facility] - Cardiac Diagnostic Lab [facility] Floor 8 [place] [address] 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) Discharge Disposition: Discharge to home or self care 09/23/2024 9:47 AM CDT - 09/23/2024 11:59 PM CDT Hospital Encounter [facility] [address] [facility] [address] [place] [address] 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) Discharge Disposition: Discharge to home or self care 09/21/2024 Orders Only [facility] Floor 6 [place] [phone] China Monique RN 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 Dx); Autologous donor of stem cells 09/20/2024 Orders Only [facility] Floor 6 [place] [phone] Debby Benito MD 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 Dx) 09/20/2024 Telephone [facility] [address] [address] Lucero Garcia CPhT 09/20/2024 Orders Only [facility] Transplant [address] [place] [phone] Debby Benito MD 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 Dx) 09/20/2024 Orders Only [facility] Transplant [address] [place] [phone] Sarah Simon NP 09/20/2024 Telephone [facility] Transplant [address] [place] [phone] Debby Benito MD 09/17/2024 Orders Only [facility] Transplant [address] [place] [phone] China Monique RN 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 Dx) 09/16/2024 Orders Only [address] [phone] Savanna Becerra Mantle cell lymphoma, unspecified body region (HCC) (Primary Dx) 09/16/2024 Orders Only [facility] Transplant [address] [place] [phone] Sarah Simon, FOIL SPINNER 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 Dx) 09/15/2024 Documentation [facility] [address] [address] Lucero Garcia CPhT Prior Auth (VENCLEXTA) 09/15/2024 Orders Only [facility] Transplant [address] [place] [phone] Radha Stafford RPh 09/15/2024 Orders Only [facility]row Transplant [address] [place] [phone] Radha Souza [facility] 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 Dx) 09/15/2024 10:15 AM CDT Clinical Support [facility] [place] - Lab Collection [address] [place] [address] 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) 09/15/2024 12:30 PM CDT Infusion [facility]fusion [address] Floor 5 [place] [address] Mantle cell lymphoma, unspecified body region (HCC) (Primary Dx); 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); Hypogammaglobulinemia 09/15/2024 11:45 AM CDT Office Visit [facility] [address] Floor [address] [place] [address] Debby Benito MD 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 Dx) 09/15/2024 7:38 AM CDT - 09/15/2024 11:59 PM CDT Hospital Encounter [facility] - PET [address] Floor 8 [place] [address] Discharge Disposition: Discharge to home or self care 09/15/2024 7:38 AM CDT - 09/15/2024 11:59 PM CDT Hospital Encounter [facility] - PET [address] Floor 8 [place] [address] 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) Discharge Disposition: Discharge to home or self care 08/18/2024 10:00 AM CDT Infusion [facility] - Infusion [address] Floor 5 [place] [address] Mantle cell lymphoma, unspecified body region (HCC) (Primary Dx); 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); Hypogammaglobulinemia 08/18/2024 8:15 AM CDT Clinical Support [facility] - Lab Collection [address] Floor [address] [place] [address] 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) 08/18/2024 9:15 AM CDT Office Visit [facility]row Transplant [address] [place] [address] Avenue Floor 6 [place] [address] Debby Benito MD 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 Dx) 08/16/2024 10:55 AM CDT - 08/16/2024 11:59 PM CDT Hospital Encounter [facility] [address] [place] [address] Discharge Disposition: Discharge to home or self care 08/16/2024 9:30 AM CDT - 08/16/2024 1:45 PM CDT Hospital Encounter [facility] [address] [place] [address] Dehydration (Primary Dx); 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) Discharge Disposition: Discharge to home or self care 08/15/2024 Telephone [facility] Marrow Transplant [address] [place] [phone] Penelope Barragan NP 07/23/2024 9:00 AM SCRAP METAL COLLECTOR Infusion [facility] - Infusion [facility] [address] [address] Mantle cell lymphoma, unspecified body region (HCC) (Primary Dx); 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); Hypogammaglobulinemia 07/14/2024 1:30 PM SCRAP METAL COLLECTOR Office Visit [facility]row Transplant [address] [place] [phone] Sarah Simon NP 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 Dx); Autologous donor of stem cells 07/14/2024 2:45 PM SCRAP METAL COLLECTOR Infusion [facility] Floor [address] [place] [address] Autologous donor of stem cells (Primary Dx); 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) 07/13/2024 Orders Only [facility]row Transplant [address] [place] [phone] China Monique RN Hypogammaglobulinemia (Primary Dx) 07/13/2024 2:00 PM SCRAP METAL COLLECTOR Office Visit [facility] Medical Group Primary Care at [address] [phone] Rico Pérez MD Well adult [...] Inpatient Care Coordination Overview Diagnosis [facility] Floor [address] Treatment Plan Obin+Glofit (study) Reason for Admission Chemo - study Transplant/IEC Planning BMT/IEC Plan BEAM Auto 07/18/2023 HLA typing/IDMs [] Insurance Approval [] Discharge Planning Anticipated Discharge Date TBD Patient Education Completed [] Issue to be Resolved Before Discharge Discharge Disposition Requests Sent to Case Management, Pharmacy PA Team, or Medical Assistants Post-Discharge Follow-Up Living Situation/Distance from [place], [place] [address] Caregiver Lab/Transfusion Frequency Venous Access & Care implanted vascular device Local Oncologist Contact Phone: Fax: Post-Discharge Office Visit (H30) ARUN (FOIL SPINNER Pheba)- 03/10 w/ study chemo Miscellaneous Notes: Problem [...] need blabs and fluid infusion appointments in [facility]. 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 On cetirizine at home. - cetirizine 10 mg BID, Sarna lotion daily PRN Dermatitis 07/02/2023 Autologous donor of stem cells 06/27/2023 Well adult exam 06/14/2023 Overview (06/14/2023): h/o mantle cell cancer, under treatment, s/p resection Assessment & Plan (06/14/2023 3:24 PM SCRAP METAL COLLECTOR): A(n) yearly well adult visit has been [...] CRS\ICANS Assessment & Plan (07/27/2023 2:11 PM SCRAP METAL COLLECTOR): Follows with Dr. Benito in [place]. Diagnosed 11/21/2022 for splenic rupture found with diffuse lymphadenopathy, s/p splenectomy, found with stage IV mantle cell. Underwent BR X 3 with complete remission, R-cytarabine X 3 with PET scan 05/16/2023 showing CR. Enrolled in MG0405 study, MRD testing indeterminate. Assigned to Arm [...] 06/19/2022 Assessment & Plan (06/19/2022 3:49 PM SCRAP METAL COLLECTOR): He has a massive goiter, with bilateral [...] (12/10/2021): Added automatically from request for surgery [id number] Visual changes 08/22/2021 Testicular hypofunction 10/16/2013 Overview (09/05/2016): TESTICULAR HYPOFUNC NEC Assessment & Plan (06/19/2022 3:47 PM SCRAP METAL COLLECTOR): Will check T , free and total [...] drink = 0.6 oz pur e alcohol) [facility] Utilities Answer Date Recorded In the past 12 months has e [employer], gas, oil, or water company threatened to [...] often do you attend chur ch or denominational services? Never 09/23/2024 Do you belong to any clubs o r organizations such as sikh groups, unions, fraternal or athletic groups, or [...] any time in the past 12 m [facility], were you homeless or living [...] on file Legal Sex Male 12:33 AM SCRAP METAL COLLECTOR Gender Identity Not on file Sexual Orientation [...] on file Medical Devices Implanted Type Area Engraver Wood Device Identifier Shelf Expiration Date Model / Serial / Lot Biomonitor Merissa Angio-Seal Vip 6fr Closere Device [id number] - [id number] Implanted:Qty: 1 on 11/21/2022 at [facility] [employer] Merissa 06/01/2023 [id number] / / [id number] [employer] Merissa Coil Emolization Coated Detachable Embold [id number] [place] Tungsten [id number] - [id number] Implanted:Qty: 1 on 11/21/2022 at [facility] [employer] Merissa [id number] 04/07/2025 [id number] / / [id number] Medtronic Inc Coil Embolization Coated Detachable Helical Concerto [id number] Nylon Ki-8-55-Barnhart - [id number] Implanted:Qty: 1 on 11/21/2022 at [facility] [employer] Inc NV-8-30 -HE LIX / / Med[employer] Inc Coil Embolization Coated Detachable Helical Concerto 0dus30tz Nylon Ls-0-12-Barnhart - [id number] Implanted:Qty: 1 on 11/21/2022 at [facility] [employer] NV-8-30 -HE LIX / / [employer] Powerport Isp Mri Airguard 8fr 1 Lumen Attachable Catheter Open Latex Free [id number] - [id number] Implanted:Qty: 1 on 12/02/2022 by Ottoniel Hernandez MD at [facility] Right: Chest [employer] 03/01/2024 [id number] / / [id number] Explanted Type Area Engraver Wood Device Identifier Shelf Expiration Date Model / Serial / Lot [employer] Merissa Coil Emolization Coated Detachable Embold [id number] [place] Tungsten [id number] - [id number] Explanted:Qty: 1 on 11/21/2022 at [facility] [employer] Merissa [id number] 04/07/2025 [id number] / / [id number] Procedures Procedure Name Priority Date/Time Associated Diagnosis [...] AM CDT EGFR Routine 07/14/2024 11:39 AM SCRAP METAL COLLECTOR 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) DIFFERENTIAL AUTO Routine 07/14/2024 11: 39 AM SCRAP METAL COLLECTOR 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) LIPID PANEL Routine 07/14/2024 11:39 AM SCRAP METAL COLLECTOR Screening, lipid IGG Routine 07/14/2024 11:39 AM SCRAP METAL COLLECTOR Hypogammaglobulin emia CBC WITH AUTO DIFFERENTIAL Routine 07/14/2024 11:39 AM SCRAP METAL COLLECTOR 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) COMPREHENSIVE METABOLIC PANEL Routine 07/14/2024 11:39 AM SCRAP METAL COLLECTOR 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) LACTATE DEHYDROGENASE Routine 07/14/2024 11:39 AM SCRAP METAL COLLECTOR 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) HEPATITIS C ANTIBODY Routine 02/11/2024 8:03 AM CDT 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) COLONOSCOPY Routine 02/07/2022 from Last 3 Months or Most Recently Relevant to Health Maintenance Results * (ABNORMAL) CBC with auto differential (10/07/2024 9:14 AM CDT) WBC 1.93(L) 3.80 - 9.90 K/cumm Comment:Testing performed by : [facility], [facility] [address], [address], [place] [address] Hgb 11.9(L) 13.0 - 17.5 g/dL LD [facility] Comment:Testing performed by : [facility], [facility], [address], [place] [address] Hct 35.1(L) 38.9 - 50.3 % [facility] Comment:Testing performed by : [facility], [facility], [address], [place] [address] Plt 63(L) 150 - 400 K/cumm [facility] Comment:Testing performed by : [place] [address], [address], [place] [address] MPV 11.9 9.1 - 12.3 fL [facility] Comment:Testing performed by : [place] [address], [address] [place] [address] RBC 3.60(L) 4.30 - 5.80 M/cumm [facility] Comment:Testing performed by : [place] [address], [address], [place] [address] MCV 97.5(H) 81.3 - 96.4 fL [facility] Comment:Testing performed by : [facility], [facility], [address], [place] [address] MCH 33.1 27.1 - 33.3 pg [facility] Comment:Testing performed by : [place] [address], [address], [place] [address] MCHC 33.9 32.3 - 35.7 g/dL [facility] Comment:Testing performed by : [facility], [address], [place] [address] RDW CV 15.2(H) 11.1 - 14.9 % [facility] Comment:Testing performed by : [place] [address], [address], [place] [address] RDW SD 54.0(H) 35.7 - 48.1 fL [facility] Comment:Testing performed by : [place] [address], [address], [place] [address] NRBC abs 0.61(H) 0.00 - 0.01 K/cumm LD [facility] Comment:Testing performed by : [place] [address], [address] [place] [address] ANC Prelim 0.81(L) 1.50 - 6.50 K/cumm LD [facility] Comment: Interpretive Data The rapid ANC is a preliminary automated count and may vary from the final ANC (Neut Abs) reported in the WBC differential that follows. Current interpretive data was last revised 2024. Testing performed by: [place] [address], [place] [address] Blood 10/07/2024 9:14 AM CDT 10/07/2024 9:18 AM CDT us Debby Benito MD LAB BLOOD ORDERABLES F inal Result LD [facility] [address] [facility] Department [place] [address] * (ABNORMAL) Manual Differential (10/07/2024 9:14 AM CDT) Differential Manual Comment:Testing performed by : [place] [address] [place] [address] Cells Counted 100 LD [facility] Comment:Testing performed by : [place] [address], [address] [place] [address] Neutrophil abs 0.89(L) 1.50 - 6.50 K/cumm LD [facility] Comment:Testing performed by : [place] [address], [address] [place] [address] Imm gran abs 0.02 0.00 - 0.10 K/cumm LD [facility] Comment:Testing performed by : [place] [address], [address] [place] [address] Lymphocyte abs 0.69(L) 0.80 - 3.30 K/cumm [facility] Comment:Testing performed by : [facility], [facility], [address] [place] [address] Monocyte abs 0.12(L) 0.20 - 0.80 K/cumm [facility] Comment:Testing performed by : [facility], [facility], [address] [place] [address] Eosinophil abs 0.19 0.00 - 0.50 K/cumm [facility] Comment:Testing performed by : [facility], [facility], [address] [place] [address] Basophil abs 0.02 0.00 - 0.10 K/cumm [facility] Comment:Testing performed by : [facility], [facility], [address] [place] [address] Neutrophil pct 46.0 % [facility] Comment: Interpretive Data Percent cell count reference ranges are not reported, since discordance with absolute values may lead to misinterpretation of CBC data. Current Interpretive Data was last revised on 2017. Testing performed by: [facility] [facility], [address] [place] [address] Lymphocyte pct 36.0 % CERNER BJWCH Comment: Interpretive Data Percent cell count reference ranges are not reported, since discordance with absolute values may lead to misinterpretation of CBC data. Current Interpretive Data was last revised on 2017. Testing performed by: [facility], [facility], [address] [place] [address] Monocyte pct 6.0 % CERNER BJWCH Comment: Interpretive Data Percent cell count reference ranges are not reported, since discordance with absolute values may lead to misinterpretation of CBC data. Current Interpretive Data was last revised on 2017. Testing performed by: [facility], [facility], [address] [place] [address] Eosinophil pct 10.0 % CERNER BJWCH Comment: Interpretive Data Percent cell count reference ranges are not reported, since discordance with absolute values may lead to misinterpretation of CBC data. Current Interpretive Data was last revised on 2017. Testing performed by: [facility], [facility], [address] [place] [address] Basophil pct 1.0 % LD VENTURA Comment: Interpretive Data Percent cell count reference ranges are not reported, since discordance with absolute values may lead to misinterpretation of CBC data. Current Interpretive Data was last revised on 2017. Testing performed by: [facility], [facility], [address] [place] [address] Metamyelocyte pct 1.0(H) 0.0 - 0.0 % LD VENTURA Comment:Testing performed by : [facility], [facility], [address] [place] [address] RBC morphology Present(A) LD VENTURA Comment:Testing performed by : [place] [address], [address] [place] [address] Anisocytosis Slight(A) LD VENTURA Comment:Testing performed by : [facility], [facility], [address] [place] [address] Poikilocytosis Slight(A) LD VENTURA Comment:Testing performed by : [facility], [facility], [address] [place] [address] Platelet estimate Automated Count Confirmed LD VENTURA Comment:Testing performed by : [place] [address], [address] [place] [address] Blood 10/07/2024 9:14 AM CDT 10/07/2024 9:18 AM CDT us Debby Benito MD LAB BLOOD ORDERABLES F inal Result LD BJWCH [address] [facility]. [place] [address] * Uric acid (10/07/2024 9:14 AM CDT) Uric acid 5.0 3.0 - 8.0 mg/dL Comment:Testing performed by : [facility], [address] [place] [address] Blood 10/07/2024 9:14 AM CDT 10/07/2024 9:38 AM CDT Debby Benito MD LAB BLOOD ORDERABLES F inal Result Performing Organization Address [facility] Co de Phone Number LD BJWCH [address] [facility]. [facility] [place] [address] * Phosphorus (10/07/2024 9:14 AM CDT) Phosphorus, pl 3.7 2.3 - 4.5 mg/dL Comment:Testing performed by : [facility], [id number] [place] [address] Blood 10/07/2024 9:14 AM CDT 10/07/2024 9:38 AM CDT Debby Benito MD LAB BLOOD ORDERABLES F inal Result Performing Organization Address [facility] de Phone Number LD BJWCH [address] [facility]. [facility] [place] [address] * IR Tunneled Line Placement > 5 [...] completed, removal can be scheduled by calling [facility] - [phone] [facility] - [phone] Electronically signed by: Ramón Ocasio M.D. Narrative [...] was obtained. Prior to beginning the procedure, Hunt Protocol was used to confirm the patient's [...] was obtained. Prior to beginning the procedure, Hunt Protocol was used to confirm the patient's [...] completed, removal can be scheduled by calling [facility] - [phone] [facility] - [phone] Electronically signed by: Ramón Ocasio M.D. Debby Benito MD IMG IR PROCEDURES Narda l Result * eGFR (10/06/2024 10:01 AM CDT) Pathologist [facility] eGFR >90 >=60 mL/min/1. 73 m2 Comment: [...] LAB BLOOD ORDERABLES F inal Result LD [facility] One [facility] [place] [address] * (ABNORMAL) CBC with auto differential (10/06/2024 10:01 AM CDT) [facility] WBC 1.08(L) 3.80 - 9.90 K/cumm Comment:Testing performed by : [facility], [address] [place], [place] [phone] Hgb 12.3(L) 13.0 - 17.5 g/dL CERNER BJ Comment:Testing performed by : [facility], [address] [place], [place] [phone] Hct 36.4(L) 38.9 - 50.3 % CERNER BJ Comment:Testing performed by : [facility], [address] [place], [place] [phone] Plt 64(L) 150 - 400 K/cumm CERNER BJ Comment:Testing performed by : [facility], [address] [place], [place] [phone] MPV 9.3 6.8 - 10.4 fL CERNER BJ Comment:Testing performed by : [facility], [address] [place] [address] RBC 3.75(L) 4.30 - 5.80 M/cumm CERNER BJ Comment:Testing performed by : [facility], [address] [place] [address] MCV 97.1(H) 81.3 - 96.4 fL CERNER BJ Comment:Testing performed by : [facility], [address] [place] [address] MCH 32.8 27.1 - 33.3 pg CERNER BJ Comment:Testing performed by : [facility], [address] [place] [address] MCHC 33.8 32.3 - 35.7 g/dL CERNER BJ Comment:Testing performed by : [facility], [address] [place] [address] RDW CV 15.0(H) 11.1 - 14.9 % CERNER BJ Comment:Testing performed by : [facility], [address] [place] [address] NRBC abs N/A 0.00 - 0.01 K/cumm CERNER BJ Comment:Testing performed by : [facility], [address] [place], [place] [id number] Blood 10/06/2024 10:0 1 AM CDT 10/06/2024 10:08 AM CDT Debby Benito MD LAB BLOOD ORDERABLES F inal Result LD SWEET One [facility] Department [place] [address] * (ABNORMAL) Manual Differential (10/06/2024 10:01 AM CDT) Cells Counted 200 Comment:Testing performed by : [facility], [address] [place] [address] Neutrophil abs 0.51(L) 1.50 - 6.50 K/cumm LD SWEET Comment:Testing performed by : [facility], [address] [place], [place] [phone] Lymphocyte abs 0.49(L) 0.80 - 3.30 K/cumm LD SWEET Comment:Testing performed by : [facility], [address] [place] [address] Monocyte abs 0.05(L) 0.20 - 0.80 K/cumm LD SWEET Comment:Testing performed by : [facility], [address] [place] [phone] Eosinophil abs 0.09 0.00 - 0.50 K/cumm LD BJ Comment:Testing performed by : [facility], [address] [place], [place] [phone] Basophil abs 0.01 0.00 - 0.10 K/cumm LD BJ Comment:Testing performed by : [facility], [address] [place] [address] Neutrophil pct 44.0 % LD SWEET Comment: Interpretive Data Percent cell count reference ranges are not reported, since discordance with absolute values may lead to misinterpretation of CBC data. Current Interpretive Data was last revised on 2017. Testing performed by: [facility], [address] [place] [phone] Lymphocyte pct 42.0 % CERNER BJH Comment: Interpretive Data Percent cell count reference ranges are not reported, since discordance with absolute values may lead to misinterpretation of CBC data. Current Interpretive Data was last revised on 2017. Testing performed by: [facility], [address] [place] [address] Monocyte pct 4.0 % CERNER BJH Comment: Interpretive Data Percent cell count reference ranges are not reported, since discordance with absolute values may lead to misinterpretation of CBC data. Current Interpretive Data was last revised on 2017. Testing performed by: [facility], [address] [place] [address] Eosinophil pct 8.0 % CERNER BJH Comment: Interpretive Data Percent cell count reference ranges are not reported, since discordance with absolute values may lead to misinterpretation of CBC data. Current Interpretive Data was last revised on 2017. Testing performed by: [facility], [address] [place] [address] Basophil pct 1.0 % CERNER BJ Comment: Interpretive Data Percent cell count reference ranges are not reported, since discordance with absolute values may lead to misinterpretation of CBC data. Current Interpretive Data was last revised on 2017. Testing performed by: [facility], [address] [place] [address] Blast pct 1.0(H) 0.0 - 0.0 % CERNER BJ Comment: Called to Sarah Simon NP 10/06/24 11:31 by fp. Testing performed by: [facility], [address] [place] [address] Variant lymph pct 2.0(H) 0.0 - 0.0 % CERNER BJH Comment:Testing performed by : [facility], [address] [place] [address] RBC morphology NRBCs present(A ) CERNER BJH Comment:Testing performed by : [facility], [address] [place] [phone] Polychromasia 1+(A) LD [facility] Comment:Testing performed by : [facility], [address] [place] [phone] Schistocytes 1+(A) LD [facility] Comment:Testing performed by : [facility], [address] [place] [phone] Target cells 1+(A) LD [facility] Comment:Testing performed by : [facility], [address] [place] [phone] Platelet estimate Decreased (A) LD [facility] Comment:Testing performed by : [facility], [address] [place], [place] [phone] Blood 10/06/2024 10:0 1 AM CDT 10/06/2024 10:18 AM CDT Debby Benito MD LAB BLOOD ORDERABLES F inal Result Performing Organization Address [facility]/ZIP Co de Phone Number [facility] Department [place] [address] * (ABNORMAL) HSV 2 IgG Antibody Blood [...] MICROBIOLOGY - GEN ERAL ORDERABLES Final Result [facility] [place] [address] * (ABNORMAL) HSV 1 IgG Antibody Blood [...] ERAL ORDERABLES Final Result Performing Organization Address [facility]/[place] [address] * Type and screen (10/06/2024 10:01 AM CDT) Pathologist [facility] ABO Rh A Positive Jacob, indirect Negative [facility] Blood 10/06/2024 10:0 1 AM CDT 10/06/2024 10:19 AM CDT Narrative [facility] - 10/06/2024 11:34 AM CDT Has the patient had Daratumumab or Isatuximab in the past 6 months?->Unknown Debby Benito MD LAB BLOOD BANK TEST OR [place] [address] * Lactate dehydrogenase (LD) (10/06/2024 10:01 AM CDT) Lactate dehydrogenase (LDH) 211 100 - 250 Units/L Blood 10/06/2024 10:0 1 AM CDT 10/06/2024 10:17 AM CDT Narrative [facility] - 10/06/2024 10:40 AM CDT To be drawn prior to patient taking venetoclax. Sarah Simon NP LAB BLOOD ORDERABLES Final Res ult Performing Organization Address [facility] de Phone Number [facility] [place] [address] * (ABNORMAL) Hemoglobin A1c (10/06/2024 10:01 AM CDT) Hgb A1C 5.7(H) 4.0 - 5.6 % Estimated Average Glucose 117 mg/dL [facility] Comment: The ADA recommends reporting an estimated [...] ORDERABLES F inal Result Performing Organization Address [facility] de Phone Number [facility] [place] [address] * (ABNORMAL) Lipid panel (10/06/2024 10:01 AM [...] revised on 2018. Triglycerides 186(H) <=149 mg/dL [facility] Comment: Interpretive Data Ages < or = [...] revised on 2018. HDL 25(L) >=40 mg/dL [facility] Comment: Interpretive Data Ages < or = [...] on 2018. LDL, calculated 137(H) <=129 mg/dL [facility] Comment: Interpretive Data Ages < or = [...] revised on 2024. Non-HDL Cholesterol 171 mg/dL [facility] Comment: Interpretive Data Ages < or = [...] last revised on 2018. Chol/HDL ratio 8 [facility] Blood 10/06/2024 10:0 1 AM CDT 10/06/2024 10:17 AM CDT us Debby Benito MD LAB BLOOD ORDERABLES F inal Result [facility] One [facility] [place] [address] * Comprehensive metabolic panel (10/06/2024 10:01 AM CDT) Sodium 136 135 - 145 mmol/L Potassium, pl 4.0 3.3 - 4.9 mmol/L [facility] Chloride 97 97 - 110 mmol/L [facility] CO2 25 22 - 32 mmol/L [facility] Anion gap 14 2 - 15 mmol/L [facility] BUN 13 6 - 25 mg/dL [facility] Creatinine 0.94 0.80 - 1.30 mg/dL [facility] Glucose 97 70 - 199 mg/dL [facility] Comment: Interpretive Data Fasting glucose >/= 126 [...] AST 31 10 - 50 Units/L CERNER [facility] Blood 10/06/2024 10:0 1 AM CDT 10/06/2024 10:17 AM CDT Debby Benito MD LAB BLOOD ORDERABLES F inal Result [facility] One [facility] [place] [address] * eGFR (10/04/2024 1:26 PM CDT) eGFR [...] ORDERABLES F inal Result Performing Organization Address City/[facility]/ZIP Co de Phone Number [facility] [place] [address] * Uric acid (10/04/2024 1:26 PM CDT) Pathologist [facility] Uric acid 5.0 3.0 - 8.0 mg/dL Blood 10/04/2024 1:26 PM CDT 10/04/2024 1:29 PM CDT Narrative [facility] - 10/04/2024 1:54 PM CDT To be drawn prior to patient taking venetoclax. Debby Benito MD LAB BLOOD ORDERABLES F inal Result Performing Organization Address [facility] [place] [address] * Phosphorus (10/04/2024 1:26 PM CDT) Pathologist [facility] Phosphorus, pl 2.8 2.3 - 4.5 mg/dL Blood 10/04/2024 1:26 PM CDT 10/04/2024 1:29 PM CDT Narrative [facility] 10/04/2024 1:54 PM CDT To be drawn prior to patient taking venetoclax. Debby Benito MD LAB BLOOD ORDERABLES F inal Result [facility] [address] [place], [place] [id number] * Lactate dehydrogenase (LD) (10/04/2024 1:26 PM CDT) Pathologist [facility] Lactate dehydrogenase (LDH) 220 100 - 250 Units/L Blood 10/04/2024 1:26 PM CDT 10/04/2024 1:29 PM CDT Narrative [facility] - 10/04/2024 1:54 PM CDT To be drawn prior to patient taking venetoclax. Debby Benito MD LAB BLOOD ORDERABLES F inal Result [facility] One [facility] [place] [address] * Comprehensive metabolic panel (10/04/2024 1:26 PM CDT) Pathologist [facility] Sodium 139 135 - 145 mmol/L Potassium, pl 3.6 3.3 - 4.9 mmol/L [facility] Chloride 103 97 - 110 mmol/L [facility] CO2 26 22 - 32 mmol/L [facility] Anion gap 10 2 - 15 mmol/L [facility] BUN 15 6 - 25 mg/dL [facility] Creatinine 0.83 0.80 - 1.30 mg/dL [facility] Glucose 119 70 - 199 mg/dL [facility] Comment: Interpretive Data Fasting glucose >/= 126 [...] 2022. Calcium 9.2 8.5 - 10.3 mg/dL [facility] Bilirubin, total 0.2 0.1 - 1.2 mg/dL [facility] Protein, pl 6.8 6.5 - 8.5 g/dL [facility] Albumin 3.8 3.5 - 5.0 g/dL [facility] Alk phos 109 40 - 130 Units/L LD [facility] ALT 18 7 - 55 Units/L LD [facility] AST 25 10 - 50 Units/L LD [facility] Blood 10/04/2024 1:26 PM CDT 10/04/2024 1:29 PM CDT Narrative CERNER BJ - 10/04/2024 1:54 PM CDT To be drawn prior to patient taking venetoclax. us Debby Benito MD LAB BLOOD ORDERABLES F inal Result [facility] One [facility] [place] [address] * (ABNORMAL) CBC with auto differential (10/04/2024 1:24 PM CDT) WBC 2.84(L) 3.80 - 9.90 K/cumm Comment:Testing performed by : [facility], [address] [place] [address] Hgb 11.6(L) 13.0 - 17.5 g/dL CERJOSE MARTIN [facility] Comment:Testing performed by : [facility], [address] [place] [address] Hct 34.3(L) 38.9 - 50.3 % CERJOSE MARTIN BJ Comment:Testing performed by : [facility], [address] [place] [address] Plt 79(L) 150 - 400 K/cumm CERJOSE MARTIN [facility] Comment:Testing performed by : [facility], [address] [place] [address] MPV 8.7 6.8 - 10.4 fL CERJOSE MARTIN [facility] Comment:Testing performed by : [facility], [address] [place] [address] RBC 3.55(L) 4.30 - 5.80 M/cumm CERJOSE MARTIN BJ Comment:Testing performed by : [facility], [address] [place] [address] MCV 96.9(H) 81.3 - 96.4 fL LD SWEET Comment:Testing performed by : [facility], [address] [place], [place] [phone] MCH 32.8 27.1 - 33.3 pg LD SWEET Comment:Testing performed by : [facility], [address] [place] [address] MCHC 33.9 32.3 - 35.7 g/dL LD SWEET Comment:Testing performed by : [facility], [address] [place], [place] [phone] RDW CV 15.4(H) 11.1 - 14.9 % LD SWEET Comment:Testing performed by : [facility], [address] [place], [place] [phone] NRBC abs 0.10(H) 0.00 - 0.01 K/cumm LD [facility] Comment:Testing performed by : [facility], [address] [place], [place] [phone] Blood 10/04/2024 1:24 PM CDT 10/04/2024 1:28 PM CDT Narrative [facility] - 10/04/2024 1:38 PM CDT To be drawn prior to patient taking venetoclax. us Debby Benito MD LAB BLOOD ORDERABLES F inal Result [facility] One [facility] [place] [address] * (ABNORMAL) Manual Differential (10/04/2024 1:24 PM CDT) Cells Counted 151 Comment:Testing performed by : [facility], [address] [place], [place] [phone] Neutrophil abs 0.98(L) 1.50 - 6.50 K/cumm LD SWEET Comment:Testing performed by : [facility], [address] [place] [address] Lymphocyte abs 1.15 0.80 - 3.30 K/cumm CERNER BJH Comment:Testing performed by : [facility], [address] [place], [place] [id number] Monocyte abs 0.37 0.20 - 0.80 K/cumm CERNER [facility] Comment:Testing performed by : [facility], [address] [place], [place] [id number] Eosinophil abs 0.14 0.00 - 0.50 K/cumm CERNER [facility] Comment:Testing performed by : [facility], [address] [place], [place] [id number] Basophil abs 0.11(H) 0.00 - 0.10 K/cumm CERNER [facility] Comment:Testing performed by : [facility], [address] [place], [place] [id number] Neutrophil pct 34.0 % CERNER [facility] Comment: Interpretive Data Percent cell count reference ranges are not reported, since discordance with absolute values may lead to misinterpretation of CBC data. Current Interpretive Data was last revised on 2017. Testing performed by: [facility], [address] [place], [place] [id number] Lymphocyte pct 40.0 % CERNER BJ Comment: Interpretive Data Percent cell count reference ranges are not reported, since discordance with absolute values may lead to misinterpretation of CBC data. Current Interpretive Data was last revised on 2017. Testing performed by: [facility], [address] [place] [phone] Monocyte pct 13.0 % CERNER [facility] Comment: Interpretive Data Percent cell count reference ranges are not reported, since discordance with absolute values may lead to misinterpretation of CBC data. Current Interpretive Data was last revised on 2017. Testing performed by: [facility], [address] [place] [phone] Eosinophil pct 5.0 % CERNER [facility] Comment: Interpretive Data Percent cell count reference ranges are not reported, since discordance with absolute values may lead to misinterpretation of CBC data. Current Interpretive Data was last revised on 2017. Testing performed by: [facility], [address] [place] [phone] Basophil pct 4.0 % CERNER BJ Comment: Interpretive Data Percent cell count reference ranges are not reported, since discordance with absolute values may lead to misinterpretation of CBC data. Current Interpretive Data was last revised on 2017. Testing performed by: [facility], [address] [place], [place] [id number] Metamyelocyte pct 1.0(H) 0.0 - 0.0 % CERNER BJ Comment:Testing performed by : [facility], [address] [place] [phone] Myelocyte pct 1.0(H) 0.0 - 0.0 % CERNER BJ Comment:Testing performed by : [facility], [address] [place], [place] [id number] Variant lymph pct 3.0(H) 0.0 - 0.0 % CERNER [facility] Comment:Testing performed by : [facility], [address] [place] [phone] Anisocytosis 1+(A) CERNER [facility] Comment:Testing performed by : [facility], [address] [place], [place] [phone] Poikilocytosis 1+(A) CERNER [facility] Comment:Testing performed by : [facility], [address] [place], [place] [phone] Elliptocytes 1+(A) CERNER BJ Comment:Testing performed by : [facility], [address] [place] [phone] Target cells 1+(A) CERNER BJ Comment:Testing performed by : [facility], [address] [place], [place] [phone] Platelet estimate Decreased (A) CERNER BJ Comment:Testing performed by : [facility], [address] [place] [phone] Blood 10/04/2024 1:24 PM CDT 10/04/2024 1:28 PM CDT Debby Benito MD LAB BLOOD ORDERABLES F inal Result Performing Organization Address [facility] de Phone Number [facility] [facility] [place] [address] * eGFR (10/02/2024 2:37 PM CDT) [facility] eGFR >90 >=60 mL/min/1. 73 m2 Comment: [...] ORDERABLES F inal Result Performing Organization Address [facility] Co de Phone Number [facility] [place] [address] * (ABNORMAL) CBC with auto differential (10/02/2024 2:37 PM CDT) [facility] WBC 3.82 3.80 - 9.90 K/cumm Hgb 11.1(L) 13.0 - 17.5 g/dL [facility] Hct 31.9(L) 38.9 - 50.3 % [facility] Plt 93(L) 150 - 400 K/cumm [facility] MPV 11.3 9.1 - 12.3 fL [facility] RBC 3.37(L) 4.30 - 5.80 M/cumm [facility] MCV 94.7 81.3 - 96.4 fL [facility] MCH 32.9 27.1 - 33.3 pg [facility] MCHC 34.8 32.3 - 35.7 g/dL [facility] RDW CV 15.2(H) 11.1 - 14.9 % [facility] RDW SD 52.3(H) 35.7 - 48.1 fL [facility] NRBC abs 0.14(H) 0.00 - 0.01 K/cumm [facility] Morphologic Screen Results confirmed by manual morphology review. [facility] Blood 10/02/2024 2:37 PM CDT 10/02/2024 2:48 PM CDT us Debby Benito MD LAB BLOOD ORDERABLES F inal Result [facility] [place] [address] * (ABNORMAL) Manual Differential (10/02/2024 2:37 PM CDT) Differential Manual Cells Counted 118 [facility] Neutrophil abs 1.81 1.50 - 6.50 K/cumm [facility] Imm gran abs 0.36(H) 0.00 - 0.10 K/cumm [facility] Lymphocyte abs 1.20 0.80 - 3.30 K/cumm [facility] Monocyte abs 0.26 0.20 - 0.80 K/cumm [facility] Eosinophil abs 0.13 0.00 - 0.50 K/cumm [facility] Basophil abs 0.06 0.00 - 0.10 K/cumm [facility] Neutrophil pct 47.5 % [facility] Comment: Interpretive Data Percent cell count reference ranges are not reported, since discordance with absolute values may lead to misinterpretation of CBC data. Current Interpretive Data was last revised on 2017. Lymphocyte pct 22.0 % [facility] Comment: Interpretive Data Percent cell count reference ranges are not reported, since discordance with absolute values may lead to misinterpretation of CBC data. Current Interpretive Data was last revised on 2017. Monocyte pct 6.8 % [facility] Comment: Interpretive Data Percent cell count reference ranges are not reported, since discordance with absolute values may lead to misinterpretation of CBC data. Current Interpretive Data was last revised on 2017. Eosinophil pct 3.4 % [facility] Comment: Interpretive Data Percent cell count reference ranges are not reported, since discordance with absolute values may lead to misinterpretation of CBC data. Current Interpretive Data was last revised on 2017. Basophil pct 1.7 % [facility] Comment: Interpretive Data Percent cell count reference ranges are not reported, since discordance with absolute values may lead to misinterpretation of CBC data. Current Interpretive Data was last revised on 2017. Metamyelocyte pct 4.2(H) 0.0 - 0.0 % [facility] Myelocyte pct 5.1(H) 0.0 - 0.0 % [facility] Variant lymph pct 9.3(H) 0.0 - 0.0 % [facility] Blood 10/02/2024 2:37 PM CDT 10/02/2024 2:51 PM CDT Debby Benito MD LAB BLOOD ORDERABLES F inal Result Performing Organization Address [facility]/ZIP Co de Phone Number [facility] Department [place] [address] * Type and screen (10/02/2024 2:37 PM CDT) ABO Rh A Positive Jacob, indirect Negative [facility] Blood 10/02/2024 2:37 PM CDT 10/02/2024 2:46 PM CDT Debby Benito MD LAB BLOOD BANK TEST OR DERABLES Final Result Performing Organization Address [facility] Co de Phone Number [facility] [place] [address] * Uric acid (10/02/2024 2:37 PM CDT) [facility] Uric acid 5.6 3.0 - 8.0 mg/dL Blood 10/02/2024 2:37 PM CDT 10/02/2024 2:47 PM CDT Sarah Velarde [employer] LAB BLOOD ORDERABLES Final Res ult Performing Organization Address [facility] [place] [address] * Phosphorus (10/02/2024 2:37 PM CDT) [facility] Phosphorus, pl 3.3 2.3 - 4.5 mg/dL Blood 10/02/2024 2:37 PM CDT 10/02/2024 2:47 PM CDT Sarah Simon [employer] LAB BLOOD ORDERABLES Final Res ult Performing Organization Address [facility] de Phone Number [facility] [place] [address] * Magnesium (10/02/2024 2:37 PM CDT) [facility] Magnesium 2.1 1.4 - 2.5 mg/dL Blood 10/02/2024 2:37 PM CDT 10/02/2024 2:47 PM CDT Debby Benito MD LAB BLOOD ORDERABLES F inal Result Performing Organization Address City/[facility] Co de Phone Number [facility] [place] [address] * Comprehensive metabolic panel (10/02/2024 2:37 PM CDT) [facility] Sodium 142 135 - 145 mmol/L Potassium, pl 3.7 3.3 - 4.9 mmol/L [facility] Chloride 103 97 - 110 mmol/L [facility] CO2 26 22 - 32 mmol/L [facility] Anion gap 13 2 - 15 mmol/L [facility] BUN 13 6 - 25 mg/dL [facility] Creatinine 0.87 0.80 - 1.30 mg/dL [facility] Glucose 149 70 - 199 mg/dL [facility] Comment: Interpretive Data Fasting glucose >/= 126 [...] 2022. Calcium 9.1 8.5 - 10.3 mg/dL [facility] Bilirubin, total 0.2 0.1 - 1.2 mg/dL [facility] Protein, pl 6.9 6.5 - 8.5 g/dL [facility] Albumin 3.9 3.5 - 5.0 g/dL [facility] Alk phos 111 40 - 130 Units/L [facility] ALT 16 7 - 55 Units/L [facility] AST 27 10 - 50 Units/L [facility] Blood 10/02/2024 2:37 PM CDT 10/02/2024 2:47 PM CDT us Debby Benito MD LAB BLOOD ORDERABLES F inal Result [facility] [place] [address] * eGFR (10/01/2024 9:05 AM CDT) [facility] eGFR >90 >=60 mL/min/1. 73 m2 Comment: [...] MD LAB BLOOD ORDERABLES Final Resul t [facility] [place] [address] * Uric acid (10/01/2024 9:05 AM CDT) Uric acid 7.2 3.0 - 8.0 mg/dL Blood 10/01/2024 9:05 AM CDT 10/01/2024 9:19 AM CDT Arthur Guerra MD LAB BLOOD ORDERABLES Final Resul t [facility] [place] [address] * Phosphorus (10/01/2024 9:05 AM CDT) Phosphorus, pl 3.2 2.3 - 4.5 mg/dL Blood 10/01/2024 9:05 AM CDT 10/01/2024 9:19 AM CDT Arthur Guerra MD LAB BLOOD ORDERABLES Final Resul t Performing Organization Address [facility] Co de Phone Number [facility] Department [place] [address] * Basic metabolic panel (10/01/2024 9:05 AM CDT) Pathologist [facility] Sodium 141 135 - 145 mmol/L Potassium, pl 4.4 3.3 - 4.9 mmol/L [facility] Chloride 102 97 - 110 mmol/L [facility] CO2 25 22 - 32 mmol/L [facility] Anion gap 14 2 - 15 mmol/L [facility] BUN 16 6 - 25 mg/dL [facility] Creatinine 0.98 0.80 - 1.30 mg/dL [facility] Glucose 71 70 - 199 mg/dL [facility] Comment: Interpretive Data Fasting glucose >/= 126 [...] 2022. Calcium 9.2 8.5 - 10.3 mg/dL [facility] Blood 10/01/2024 9:05 AM CDT 10/01/2024 9:19 AM CDT Arthur Guerra MD LAB BLOOD ORDERABLES Final Resul t Performing Organization Address [facility] de Phone Number [facility] Department [place] [address] * (ABNORMAL) Lactate (10/01/2024 2:21 AM CDT) Pathologist [facility] Lactate 2.8(H) 0.7 - 2.0 mmol/L Blood 10/01/2024 2:21 AM CDT 10/01/2024 2:29 AM CDT us Onofre Castro MD LAB BLOOD ORDERABLES Final Res ult Performing Organization Address [facility]/ZIP Co de Phone Number [facility] Department [place] [address] * eGFR (10/01/2024 2:21 AM CDT) [facility] eGFR >90 >=60 mL/min/1. 73 m2 Comment: [...] ORDERABLES Final Resul t Performing Organization Address [facility]/ZIP Co de Phone Number [facility] Department [place] [address] * (ABNORMAL) Differential, auto (10/01/2024 2:21 AM CDT) Neutrophil abs 1.88 1.50 - 6.50 K/cumm Imm gran abs 0.37(H) 0.00 - 0.10 K/cumm [facility] Lymphocyte abs 1.44 0.80 - 3.30 K/cumm [facility] Monocyte abs 0.82(H) 0.20 - 0.80 K/cumm [facility] Eosinophil abs 0.11 0.00 - 0.50 K/cumm [facility] Basophil abs 0.05 0.00 - 0.10 K/cumm [facility] Neutrophil pct 40.2 % [facility] Comment: Differential consistent with previous result. Differential consistent with previous result. Interpretive Data Percent cell count reference ranges are not reported, since discordance with absolute values may lead to misinterpretation of CBC data. Current Interpretive Data was last revised on 2017. Imm gran pct 7.9 % [facility] Comment: Interpretive Data Percent cell count reference ranges are not reported, since discordance with absolute values may lead to misinterpretation of CBC data. Current Interpretive Data was last revised on 2017. Lymphocyte pct 30.8 % [facility] Comment: Interpretive Data Percent cell count reference ranges are not reported, since discordance with absolute values may lead to misinterpretation of CBC data. Current Interpretive Data was last revised on 2017. Monocyte pct 17.6 % [facility] Comment: Interpretive Data Percent cell count reference ranges are not reported, since discordance with absolute values may lead to misinterpretation of CBC data. Current Interpretive Data was last revised on 2017. Eosinophil pct 2.4 % [facility] Comment: Interpretive Data Percent cell count reference ranges are not reported, since discordance with absolute values may lead to misinterpretation of CBC data. Current Interpretive Data was last revised on 2017. Basophil pct 1.1 % [facility] Comment: Interpretive Data Percent cell count reference ranges are not reported, since discordance with absolute values may lead to misinterpretation of CBC data. Current Interpretive Data was last revised on 2017. Blood 10/01/2024 2:21 AM CDT 10/01/2024 2:29 AM CDT us Onofre Castro MD LAB BLOOD ORDERABLES Final Res ult [facility] [place] [address] * (ABNORMAL) CBC with auto differential (10/01/2024 2:21 AM CDT) WBC 4.67 3.80 - 9.90 K/cumm Hgb 11.1(L) 13.0 - 17.5 g/dL [facility] Hct 32.1(L) 38.9 - 50.3 % [facility] Plt 99(L) 150 - 400 K/cumm [facility] MPV 11.2 9.1 - 12.3 fL [facility] RBC 3.32(L) 4.30 - 5.80 M/cumm [facility] MCV 96.7(H) 81.3 - 96.4 fL [facility] MCH 33.4(H) 27.1 - 33.3 pg [facility] MCHC 34.6 32.3 - 35.7 g/dL [facility] RDW CV 15.7(H) 11.1 - 14.9 % [facility] RDW SD 55.6(H) 35.7 - 48.1 fL [facility] NRBC abs 0.13(H) 0.00 - 0.01 K/cumm [facility] Blood 10/01/2024 2:21 AM CDT 10/01/2024 2:29 AM CDT Onofre Castro MD LAB BLOOD ORDERABLES Final Res ult [facility] [place] [address] * (ABNORMAL) Lactate, whole blood (10/01/2024 2:21 AM CDT) Lactate, bld 2.9(H) 0.7 - 2.0 mmol/L Blood 10/01/2024 2:21 AM CDT 10/01/2024 2:28 AM CDT Laz Busch MD LAB BLOOD ORDERABLES Final Resu lt Performing Organization Address City/[facility] Co de Phone Number [facility] [place] [address] * Uric acid (10/01/2024 2:21 AM CDT) Uric acid 7.0 3.0 - 8.0 mg/dL Blood 10/01/2024 2:21 AM CDT 10/01/2024 2:29 AM CDT Arthur Guerra MD LAB BLOOD ORDERABLES Final Resul t Performing Organization Address [facility] de Phone Number [facility] [place] [address] * Phosphorus (10/01/2024 2:21 AM CDT) Phosphorus, pl 3.2 2.3 - 4.5 mg/dL Blood 10/01/2024 2:21 AM CDT 10/01/2024 2:29 AM CDT Arthur Guerra MD LAB BLOOD ORDERABLES Final Resul t Performing Organization Address [facility] [place] [address] * Basic metabolic panel (10/01/2024 2:21 AM CDT) Sodium 139 135 - 145 mmol/L Potassium, pl 4.2 3.3 - 4.9 mmol/L [facility] Chloride 102 97 - 110 mmol/L [facility] CO2 25 22 - 32 mmol/L [facility] Anion gap 12 2 - 15 mmol/L [facility] BUN 14 6 - 25 mg/dL [facility] Creatinine 1.01 0.80 - 1.30 mg/dL [facility] Glucose 75 70 - 199 mg/dL [facility] Comment: Interpretive Data Fasting glucose >/= 126 [...] 2022. Calcium 8.8 8.5 - 10.3 mg/dL [facility] Blood 10/01/2024 2:21 AM CDT 10/01/2024 2:29 AM CDT Arthur Guerra MD LAB BLOOD ORDERABLES Final Resul t [facility] [place] [address] * (ABNORMAL) Lactate (09/30/2024 5:42 PM CDT) Pathologist [facility] Lactate 2.9(H) 0.7 - 2.0 mmol/L Blood 09/30/2024 5:42 PM CDT 09/30/2024 6:17 PM CDT us Hanna Arias MD LAB BLOOD ORDERABLES Final Result [facility] [place] [address] * eGFR (09/30/2024 5:42 PM CDT) Pathologist [facility] eGFR 85 >=60 mL/min/1. 73 m2 Comment: [...] MD LAB BLOOD ORDERABLES F inal Result [facility] [place] [address] * (ABNORMAL) Lactate, whole blood (09/30/2024 5:42 PM CDT) Lactate, bld 3.1(H) 0.7 - 2.0 mmol/L Blood 09/30/2024 5:42 PM CDT 09/30/2024 6:16 PM CDT Debby Benito MD LAB BLOOD ORDERABLES F inal Result [facility] [place] [address] * Uric acid (09/30/2024 5:42 PM CDT) Uric acid 7.7 3.0 - 8.0 mg/dL Blood 09/30/2024 5:42 PM CDT 09/30/2024 6:17 PM CDT Laz Busch MD LAB BLOOD ORDERABLES Final Resu lt Performing Organization Address [facility]/ZIP Co de Phone Number [facility] [place] [address] * Phosphorus (09/30/2024 5:42 PM CDT) Pathologist [facility] Phosphorus, pl 2.5 2.3 - 4.5 mg/dL Blood 09/30/2024 5:42 PM CDT 09/30/2024 6:17 PM CDT Laz Busch MD LAB BLOOD ORDERABLES Final Resu lt Performing Organization Address [facility] Co de Phone Number [facility] [place] [address] * (ABNORMAL) Lactate dehydrogenase (LD) (09/30/2024 5:42 PM CDT) Pathologist [facility] Lactate dehydrogenase (LDH) 402(H) 100 - 250 Units/L Blood 09/30/2024 5:42 PM CDT 09/30/2024 6:17 PM CDT Laz Busch MD LAB BLOOD ORDERABLES Final Resu lt Performing Organization Address [facility] Co de Phone Number [facility] [place] [address] * Basic metabolic panel (09/30/2024 5:42 PM CDT) Sodium 137 135 - 145 mmol/L Potassium, pl 4.2 3.3 - 4.9 mmol/L [facility] Chloride 101 97 - 110 mmol/L [facility] CO2 28 22 - 32 mmol/L [facility] Anion gap 8 2 - 15 mmol/L [facility] BUN 13 6 - 25 mg/dL [facility] Creatinine 1.08 0.80 - 1.30 mg/dL [facility] Glucose 78 70 - 199 mg/dL [facility] Comment: Interpretive Data Fasting glucose >/= 126 [...] 2022. Calcium 8.9 8.5 - 10.3 mg/dL [facility] Blood 09/30/2024 5:42 PM CDT 09/30/2024 6:17 PM CDT Debby Benito MD LAB BLOOD ORDERABLES F inal Result Performing Organization Address City/[facility]/ZIP Co de Phone Number [facility] [place] [address] * POCT glucose (09/30/2024 9:01 AM CDT) Pathologist [facility] Glucose, POC 85 70 - 199 mg/dL Blood 09/30/2024 9:01 AM CDT 09/30/2024 9:01 AM CDT Debby Benito MD LAB POCT ORDERABLES - DEVICE Final Result Performing Organization Address [facility]/ZIP Co de Phone Number [facility] [place] [address] * eGFR (09/30/2024 8:21 AM CDT) Pathologist [facility] eGFR 80 >=60 mL/min/1. 73 m2 Comment: [...] ORDERABLES Final Res ult Performing Organization Address City/[facility]/ZIP Co de Phone Number [facility] [place] [address] * (ABNORMAL) Lactate, whole blood (09/30/2024 8:21 AM CDT) Lactate, bld 3.5(H) 0.7 - 2.0 mmol/L Blood 09/30/2024 8:21 AM CDT 09/30/2024 8:30 AM CDT us Laz Busch MD LAB BLOOD ORDERABLES Final Resu lt [facility] [place] [address] * (ABNORMAL) Uric acid (09/30/2024 8:21 AM CDT) Uric acid 8.6(H) 3.0 - 8.0 mg/dL Blood 09/30/2024 8:21 AM CDT 09/30/2024 8:32 AM CDT Onofre Castro MD LAB BLOOD ORDERABLES Final Res ult [facility] [place] [address] * Phosphorus (09/30/2024 8:21 AM CDT) Phosphorus, pl 3.1 2.3 - 4.5 mg/dL Blood 09/30/2024 8:21 AM CDT 09/30/2024 8:32 AM CDT Onofre Castro MD LAB BLOOD ORDERABLES Final Res ult Performing Organization Address [facility] Co de Phone Number [facility] Department [place] [address] * Basic metabolic panel (09/30/2024 8:21 AM CDT) [facility] Sodium 138 135 - 145 mmol/L Potassium, pl 4.0 3.3 - 4.9 mmol/L [facility] Chloride 101 97 - 110 mmol/L [facility] CO2 26 22 - 32 mmol/L [facility] Anion gap 11 2 - 15 mmol/L [facility] BUN 16 6 - 25 mg/dL [facility] Creatinine 1.13 0.80 - 1.30 mg/dL [facility] Glucose 110 70 - 199 mg/dL [facility] Comment: Interpretive Data Fasting glucose >/= 126 [...] 2022. Calcium 8.9 8.5 - 10.3 mg/dL [facility] Blood 09/30/2024 8:21 AM CDT 09/30/2024 8:32 AM CDT Onofre Castro MD LAB BLOOD ORDERABLES Final Res ult Performing Organization Address [facility] Co de Phone Number LD [facility] [place] [address] * eGFR (09/30/2024 5:08 AM CDT) eGFR [...] ORDERABLES Final Res ult Performing Organization Address City/[facility]/ZIP Co de Phone Number [facility] [place] [address] * Basic metabolic panel (09/30/2024 5:08 AM CDT) Sodium 139 135 - 145 mmol/L Potassium, pl 4.3 3.3 - 4.9 mmol/L [facility] Chloride 99 97 - 110 mmol/L [facility] CO2 25 22 - 32 mmol/L [facility] Anion gap 15 2 - 15 mmol/L [facility] BUN 15 6 - 25 mg/dL [facility] Creatinine 1.11 0.80 - 1.30 mg/dL [facility] Glucose 76 70 - 199 mg/dL [facility] Comment: Interpretive Data Fasting glucose >/= 126 [...] 2022. Calcium 8.6 8.5 - 10.3 mg/dL [facility] Blood 09/30/2024 5:08 AM CDT 09/30/2024 5:20 AM CDT Onofre Castro MD LAB BLOOD ORDERABLES Final Res ult Performing Organization Address [facility]/ZIP Co de Phone Number [facility] [place] [address] * Senior staff review (09/30/2024 2:30 AM CDT) Senior Staff Review Specimen Blood Senior Staff Review Review Done [facility] Comment:Reviewed by senior timi balderas. 10/01/2024 09:34:48 CDT GP. Blood 09/30/2024 2:30 AM CDT 09/30/2024 3:15 AM CDT Debby Benito MD LAB BLOOD ORDERABLES F inal Result Performing Organization Address City/[facility]/ZIP Co de Phone Number [facility] [place] [address] * (ABNORMAL) CBC with auto differential (09/30/2024 2:30 AM CDT) [facility] WBC 6.32 3.80 - 9.90 K/cumm Hgb 11.8(L) 13.0 - 17.5 g/dL [facility] Hct 34.4(L) 38.9 - 50.3 % [facility] Plt 117(L) 150 - 400 K/cumm [facility] MPV 11.0 9.1 - 12.3 fL [facility] RBC 3.61(L) 4.30 - 5.80 M/cumm [facility] MCV 95.3 81.3 - 96.4 fL [facility] MCH 32.7 27.1 - 33.3 pg [facility] MCHC 34.3 32.3 - 35.7 g/dL [facility] RDW CV 16.0(H) 11.1 - 14.9 % [facility] RDW SD 55.9(H) 35.7 - 48.1 fL [facility] NRBC abs 0.17(H) 0.00 - 0.01 K/cumm [facility] Blood 09/30/2024 2:30 AM CDT 09/30/2024 1:10 AM CDT Onofre Castro MD LAB BLOOD ORDERABLES Final Res ult [facility] [place] [address] * (ABNORMAL) Manual Differential (09/30/2024 2:30 AM CDT) [facility] Differential Manual Cells Counted 121 [facility] Neutrophil abs 3.19 1.50 - 6.50 K/cumm [facility] Imm gran abs 0.37(H) 0.00 - 0.10 K/cumm [facility] Lymphocyte abs 2.40 0.80 - 3.30 K/cumm [facility] Monocyte abs 0.05(L) 0.20 - 0.80 K/cumm [facility] Eosinophil abs 0.16 0.00 - 0.50 K/cumm [facility] Basophil abs 0.16(H) 0.00 - 0.10 K/cumm [facility] Neutrophil pct 50.4 % [facility] Comment: Interpretive Data Percent cell count reference ranges are not reported, since discordance with absolute values may lead to misinterpretation of CBC data. Current Interpretive Data was last revised on 2017. Lymphocyte pct 24.0 % [facility] Comment: Interpretive Data Percent cell count reference ranges are not reported, since discordance with absolute values may lead to misinterpretation of CBC data. Current Interpretive Data was last revised on 2017. Monocyte pct 0.8 % [facility] Comment: Interpretive Data Percent cell count reference ranges are not reported, since discordance with absolute values may lead to misinterpretation of CBC data. Current Interpretive Data was last revised on 2017. Eosinophil pct 2.5 % [facility] Comment: Interpretive Data Percent cell count reference ranges are not reported, since discordance with absolute values may lead to misinterpretation of CBC data. Current Interpretive Data was last revised on 2017. Basophil pct 2.5 % [facility] Comment: Interpretive Data Percent cell count reference ranges are not reported, since discordance with absolute values may lead to misinterpretation of CBC data. Current Interpretive Data was last revised on 2017. Metamyelocyte pct 1.7(H) 0.0 - 0.0 % [facility] Myelocyte pct 3.3(H) 0.0 - 0.0 % [facility] Promyelocyte pct 0.8(H) 0.0 - 0.0 % [facility] Variant lymph pct 14.0(H) 0.0 - 0.0 % [facility] [facility] RBC morphology Present(A) [facility] Anisocytosis Slight(A) [facility] Poikilocytosis Slight(A) [facility] Macrocytes 3-7/HPF(A) [facility] Platelet estimate Decreased( A) [facility]J Blood 09/30/2024 2:30 AM CDT 09/30/2024 3:15 AM CDT Onofre Castro MD LAB BLOOD ORDERABLES Final Res ult Performing Organization Address City/[facility] de Phone Number LD [facility] [place] [address] * (ABNORMAL) Lactate (09/30/2024 12:53 AM CDT) Lactate 2.8(H) 0.7 - 2.0 mmol/L Blood 09/30/2024 12:5 3 AM CDT 09/30/2024 1:10 AM CDT Onofre Castro MD LAB BLOOD ORDERABLES Final Res ult Performing Organization Address [facility] [place] [address] * aPTT (09/30/2024 12:53 AM CDT) aPTT [...] ORDERABLES Final Res ult Performing Organization Address [facility] de Phone Number [facility] [place] [address] * Protime-INR (09/30/2024 12:53 AM CDT) PT 12.0 9.7 - 13.0 sec INR 1.11 0.90 - 1.20 [facility] Comment: Interpretive data Oral anticoagulant therapeutic ranges: Venous thromboembolism prophylaxis or treatment: 2.0-3.0 CARDIOLOGY Standard range: 2.0-3.0 High-intensity range: 2.5-3.5 Refer to indication-specific guidelines for appropriate target ranges for prosthetic heart valve replacement. Current interpretive data was last revised on 2019. Blood 09/30/2024 12:5 3 AM CDT 09/30/2024 1:12 AM CDT Onofre Castro MD LAB BLOOD ORDERABLES Final Res ult Performing Organization Address [facility] Co de Phone Number [facility] [place] [address] * Type and screen (09/30/2024 12:53 AM CDT) ABO Rh A Positive Jacob, indirect Negative [facility] Blood 09/30/2024 12:5 3 AM CDT 09/30/2024 1:05 AM CDT Narrative [facility] - 09/30/2024 2:00 AM CDT Has the patient had Daratumumab or Isatuximab in the past 6 months?->Unknown Onofre Castro MD LAB BLOOD BANK TEST ORDERABLES Final Result Performing Organization Address [facility] de Phone Number [facility] [place] [address] * (ABNORMAL) Lactate dehydrogenase (LD) (09/30/2024 12:53 AM CDT) Lactate dehydrogenase (LDH) 498(H) 100 - 250 Units/L Blood 09/30/2024 12:5 3 AM CDT 09/30/2024 1:10 AM CDT Narrative [facility] - 09/30/2024 1:43 AM CDT Friday and only. Morning draw. Onofre Castro MD LAB BLOOD ORDERABLES Final Res ult Performing Organization Address [facility] Co de Phone Number [facility] [place] [address] * Hepatic function panel (09/30/2024 12:53 AM CDT) Bilirubin, total 1.1 0.1 - 1.2 mg/dL Bilirubin, direct 0.3 0.1 - 0.3 mg/dL [facility] Protein, pl 6.8 6.5 - 8.5 g/dL [facility] Albumin 3.7 3.5 - 5.0 g/dL [facility] Alk phos 107 40 - 130 Units/L [facility] ALT 16 7 - 55 Units/L [facility] AST 42 10 - 50 Units/L [facility] Blood 09/30/2024 12:5 3 AM CDT 09/30/2024 1:10 AM CDT Onofre Castro MD LAB BLOOD ORDERABLES Final Res ult Performing Organization Address [facility] de Phone Number [facility] [place] [address] * Troponin I high-sensitivity 2-hour (09/29/2024 4:38 PM CDT) Pathologist [facility] Trop I hs 6 <=35 ng/L Comment: Interpretive Data For further hscTnI resources including the diagnostic algorithm and an aid in interpretation, copy and paste this link: https://bjhlab.testcatalog.org/show/hsTrop-1 Current Interpretive Data last revised 2019. Trop I hs delta 2 ng/L [facility] Trop I hs interp Insignificant [facility] Blood 09/29/2024 4:38 PM CDT 09/29/2024 5:55 PM CDT Onofre Castro MD LAB BLOOD ORDERABLES Final Res ult Performing Organization Address [facility] Co de Phone Number [facility] [place] [address] * CT Chest PE (CTA) W Contrast [...] <=35 ng/L Comment: Interpretive Data For further [facility] resources including the diagnostic algorithm and an aid in interpretation, copy and paste this link: https://bjhlab.testcatalog.org/show/hsTrop-1 Current Interpretive Data last revised 2019. Blood 09/29/2024 2:48 PM CDT 09/29/2024 3:09 PM CDT Onofre Castro MD LAB BLOOD ORDERABLES Final Res ult [facility] [place] [address] * (ABNORMAL) Lactate (09/29/2024 2:48 PM CDT) Lactate 3.6(H) 0.7 - 2.0 mmol/L Blood 09/29/2024 2:48 PM CDT 09/29/2024 3:10 PM CDT Onofre Castro MD LAB BLOOD ORDERABLES Final Res ult Performing Organization Address [facility] Co de Phone Number [facility] [place] [address] * eGFR (09/29/2024 2:48 PM CDT) eGFR [...] ORDERABLES Final Res ult Performing Organization Address City/[facility]/ZIP Co de Phone Number [facility] [place] [address] * Senior staff review (09/29/2024 2:48 PM CDT) Senior Staff Review Specimen Blood Senior Staff Review Review Done [facility] Comment:Refer to manual diff erential pathologist comment. Blood 09/29/2024 2:48 PM CDT 09/29/2024 6:32 PM CDT Narrative [facility] - 10/01/2024 9:31 AM CDT Path review Debby Benito MD LAB BLOOD ORDERABLES F inal Result Performing Organization Address [facility] Co de Phone Number [facility] [place] [address] * (ABNORMAL) CBC with auto differential (09/29/2024 2:48 PM CDT) [facility] WBC 7.98 3.80 - 9.90 K/cumm Hgb 12.5(L) 13.0 - 17.5 g/dL [facility] Hct 35.2(L) 38.9 - 50.3 % [facility] Plt 127(L) 150 - 400 K/cumm [facility] MPV 11.1 9.1 - 12.3 fL [facility] RBC 3.69(L) 4.30 - 5.80 M/cumm [facility] MCV 95.4 81.3 - 96.4 fL [facility] MCH 33.9(H) 27.1 - 33.3 pg [facility] MCHC 35.5 32.3 - 35.7 g/dL [facility] RDW CV 16.0(H) 11.1 - 14.9 % [facility] RDW SD 55.0(H) 35.7 - 48.1 fL [facility] NRBC abs 0.15(H) 0.00 - 0.01 K/cumm [facility] Blood 09/29/2024 2:48 PM CDT 09/29/2024 3:09 PM CDT Onofre Castro MD LAB BLOOD ORDERABLES Final Res ult [facility] One [facility] [place] [address] * (ABNORMAL) Manual Differential (09/29/2024 2:48 PM CDT) Differential Manual Cells Counted 115 [facility] Neutrophil abs 3.81 1.50 - 6.50 K/cumm [facility] Imm gran abs 0.41(H) 0.00 - 0.10 K/cumm [facility] Lymphocyte abs 3.13 0.80 - 3.30 K/cumm [facility] Monocyte abs 0.34 0.20 - 0.80 K/cumm [facility] Eosinophil abs 0.28 0.00 - 0.50 K/cumm [facility] Neutrophil pct 47.8 % [facility] Comment: Interpretive Data Percent cell count reference ranges are not reported, since discordance with absolute values may lead to misinterpretation of CBC data. Current Interpretive Data was last revised on 2017. Lymphocyte pct 23.5 % [facility] Comment: Interpretive Data Percent cell count reference ranges are not reported, since discordance with absolute values may lead to misinterpretation of CBC data. Current Interpretive Data was last revised on 2017. Monocyte pct 4.3 % [facility] Comment: Interpretive Data Percent cell count reference ranges are not reported, since discordance with absolute values may lead to misinterpretation of CBC data. Current Interpretive Data was last revised on 2017. Eosinophil pct 3.5 % [facility] Comment: Interpretive Data Percent cell count reference ranges are not reported, since discordance with absolute values may lead to misinterpretation of CBC data. Current Interpretive Data was last revised on 2017. Metamyelocyte pct 1.7(H) 0.0 - 0.0 % [facility] Myelocyte pct 2.6(H) 0.0 - 0.0 % [facility] Promyelocyte pct 0.9(H) 0.0 - 0.0 % [facility] Variant lymph pct 15.7(H) 0.0 - 0.0 % [facility] RBC morphology Present(A) CERNER BJ Anisocytosis Slight(A) CERNER BJ Poikilocytosis Slight(A) CERNER [facility] Macrocytes 3-7/HPF(A) [facility] Platelet estimate Decreased(A) [facility] Pathologist comment Reviewed by Hematopatholog ist/Hematologi Luis E owens M.D. 10/01/2024 09:30:47 CDT Atypical lymphocytes noted. Suggest flow cytometry. [facility] Blood 09/29/2024 2:48 PM CDT 09/29/2024 6:32 PM CDT Onofre Castro MD LAB BLOOD ORDERABLES Edited Re sult - Final Performing Organization Address City/[facility]/ZIP Co de Phone Number [facility] [place] [address] * Type and screen (09/29/2024 2:48 PM CDT) Pathologist [facility] Jacob, indirect Negative ABO Rh A Positive [facility] Blood 09/29/2024 2:48 PM CDT 09/29/2024 3:21 PM CDT Narrative [facility] - 09/29/2024 4:29 PM CDT Has the patient had Daratumumab or Isatuximab in the past 6 months?->Unknown Onofre Castro MD LAB BLOOD BANK TEST ORDERABLES Final Result Performing Organization Address City/[facility]/ZIP Co de Phone Number [facility] [place] [address] * (ABNORMAL) Uric acid (09/29/2024 2:48 PM CDT) Pathologist [facility] Uric acid 9.9(H) 3.0 - 8.0 mg/dL Blood 09/29/2024 2:48 PM CDT 09/29/2024 3:10 PM CDT Onofre Castro MD LAB BLOOD ORDERABLES Final Res ult Performing Organization Address [facility] Co de Phone Number [facility] [place] [address] * Phosphorus (09/29/2024 2:48 PM CDT) Phosphorus, pl 4.4 2.3 - 4.5 mg/dL Blood 09/29/2024 2:48 PM CDT 09/29/2024 3:10 PM CDT Onofre Castro MD LAB BLOOD ORDERABLES Final Res ult Performing Organization Address [facility] de Phone Number [facility] [place] [place] [address] * Magnesium (09/29/2024 2:48 PM CDT) Magnesium 2.2 1.4 - 2.5 mg/dL Blood 09/29/2024 2:48 PM CDT 09/29/2024 3:10 PM CDT Onofre Castro MD LAB BLOOD ORDERABLES Final Res ult Performing Organization Address [facility] de Phone Number [facility] [place] [address] * (ABNORMAL) Lactate dehydrogenase (LD) (09/29/2024 2:48 PM CDT) Lactate dehydrogenase (LDH) 592(H) 100 - 250 Units/L Blood 09/29/2024 2:48 PM CDT 09/29/2024 3:10 PM CDT Onofre Castro MD LAB BLOOD ORDERABLES Final Res ult Performing Organization Address City/[facility]/ZIP Co de Phone Number [facility] One [facility] [place] [address] * Creatine kinase (CK), total (09/29/2024 2:48 PM CDT) Pathologist [facility] CK 121 40 - 300 Units/L Blood 09/29/2024 2:48 PM CDT 09/29/2024 3:10 PM CDT Onofre Castro MD LAB BLOOD ORDERABLES Final Res ult Performing Organization Address [facility] de Phone Number [facility] [place] [address] * (ABNORMAL) Comprehensive metabolic panel (09/29/2024 2:48 PM CDT) [facility] Sodium 139 135 - 145 mmol/L Potassium, pl 4.5 3.3 - 4.9 mmol/L [facility] Chloride 103 97 - 110 mmol/L [facility] CO2 26 22 - 32 mmol/L [facility] Anion gap 10 2 - 15 mmol/L [facility] BUN 19 6 - 25 mg/dL [facility] Creatinine 0.99 0.80 - 1.30 mg/dL [facility] Glucose 81 70 - 199 mg/dL [facility] Comment: Interpretive Data Fasting glucose >/= 126 [...] 2022. Calcium 9.4 8.5 - 10.3 mg/dL [facility] Bilirubin, total 0.4 0.1 - 1.2 mg/dL [facility] Protein, pl 7.2 6.5 - 8.5 g/dL [facility] Albumin 3.9 3.5 - 5.0 g/dL [facility] Alk phos 115 40 - 130 Units/L [facility] ALT 21 7 - 55 Units/L [facility] AST 76(H) 10 - 50 Units/L [facility] Blood 09/29/2024 2:48 PM CDT 09/29/2024 3:10 PM CDT us Onofre Castro MD LAB BLOOD ORDERABLES Final Res ult [facility] One [facility] [place] [address] * XR Chest 1 View (09/29/2024 2:01 [...] 12 lead (09/29/2024 1:10 PM CDT) Pathologist [facility] Ventricular Rate EKG/Min 98 BPM [facility] Atrial Rate 98 BPM [facility] WI-Interval (MSEC) 166 ms [facility] QRS-Interval (MSEC) 82 ms [facility] QT-Interval (MSEC) 344 ms [facility] QTc 439 ms [facility] P Bryant 29 degrees [facility] R Bryant 24 degrees [facility] T Bryant 6 degrees [facility] Diagnosis Normal sinus rhythm Possible Inferior infarct (cited on or before 23-SEP-2024) Anterior infarct (cited on or before 23-SEP-2024) Abnormal ECG When compared with ECG of 23-SEP-2024 11:31, No significant change was found Confirmed by LEA NICKERSON M.D ([id number]) on 10/01/2024 9:54:23 AM [facility] 09/29/2024 1:10 PM CDT 10/01/2024 9:54 AM CDT Onofre Castro MD ECG ORDERABLES Final Result [facility] * eGFR (09/29/2024 10:52 AM CDT) Pathologist [facility] eGFR >90 >=60 mL/min/1. 73 m2 Comment: [...] 09/29/2024 11:09 AM CDT us Sarah S. Pheba [employer] LAB BLOOD ORDERABLES Final Res ult Performing Organization Address [facility] Co de Phone Number [facility] [place] [address] * (ABNORMAL) Uric acid (09/29/2024 10:52 AM CDT) Uric acid 9.1(H) 3.0 - 8.0 mg/dL Blood 09/29/2024 10:5 2 AM CDT 09/29/2024 11:09 AM CDT us Sarah S. [employer] LAB BLOOD ORDERABLES Final Res ult Performing Organization Address [facility] Co de Phone Number [facility] [place] [address] * Phosphorus (09/29/2024 10:52 AM CDT) Phosphorus, pl 4.3 2.3 - 4.5 mg/dL Blood 09/29/2024 10:5 2 AM CDT 09/29/2024 11:09 AM CDT Sarah S. Pheba [employer] LAB BLOOD ORDERABLES Final Res ult Performing Organization Address City/[facility] Co de Phone Number [facility] [place] [address] * Basic metabolic panel (09/29/2024 10:52 AM CDT) Sodium 142 135 - 145 mmol/L Potassium, pl 4.7 3.3 - 4.9 mmol/L [facility] Chloride 105 97 - 110 mmol/L [facility] CO2 25 22 - 32 mmol/L [facility] Anion gap 12 2 - 15 mmol/L [facility] BUN 19 6 - 25 mg/dL [facility] Creatinine 0.98 0.80 - 1.30 mg/dL [facility] Glucose 82 70 - 199 mg/dL [facility] Comment: Interpretive Data Fasting glucose >/= 126 [...] 2022. Calcium 9.5 8.5 - 10.3 mg/dL [facility] Blood 09/29/2024 10:5 2 AM CDT 09/29/2024 11:09 AM CDT us Sarah Velarde [employer] LAB BLOOD ORDERABLES Final Res ult [facility] [place] [address] * TRANSTHORACIC ECHO (TTE) COMPLETE W DOPPLER/CF W CONTRAST (09/23/2024 4:03 PM CDT) Anatomical Region Laterality Modality Ultrasound 09/23/2024 3:10 PM CDT Narrative 09/23/2024 5:16 PM CDT [facility] [place] [address] Transthoracic Echocardiographic Report Patient Name: SAQIB DEWEY J : 1975 (49y 6m) Gender: M Study Date: 09/23/2024 03:10:18 PM Ht(Inch): 72 Wt(Lb): 216.93 BSA: 2.24 Insurance Billing Specialist: Sunshine Baez, MARRY, [facility] Location: [facility] Order Provider: DEBBY BENITO Heart Rate: 73 [...] Procedure Note Precious Rodriguez MD - 09/23/2024 [facility] [place] [address] Transthoracic Echocardiographic Report Patient Name: SAQIB DEWEY J : 1975 (49y 6m) Gender: M Study Date: 09/23/2024 03:10:18 PM Ht(Inch): 72 Wt(Lb): 216.93 BSA: 2.24 Insurance Billing Specialist: Sunshine Baez RDCS, [facility] Location: [facility] Order Provider:DEBBY BENITO Heart Rate: 73 BMI: [...] LA Length 4C 5.13 cm MV Decel Fmsk521.66 msec [ 104.00 - 258.00 ] LA [...] CDT) Test name, donor Confirmatory Syphilis [facility] confirm, donor Test Name: _ Syphilis (T. pallidum)Captia- G IgG Antibody Screen EIA Test Result: _Negative Testing performed by: [facility] [place] [address] CLIA [id number] [facility] Blood 09/23/2024 1:16 PM CDT 09/24/2024 8:21 AM CDT us Debby Benito MD LAB BLOOD ORDERABLES F inal Result Performing Organization Address City/[facility]/ZIP Co de Phone Number LD [facility] One [facility] [place] [address] * eGFR (09/23/2024 1:16 PM CDT) eGFR [...] LAB BLOOD ORDERABLES F inal Result LD [facility] [place] [address] * (ABNORMAL) BMT donor evaluation (09/23/2024 1:16 PM CDT) Pathologist [facility] Hep B surf Ag, donor Negative Negative CERNER [facility] Hep B core Ab, donor Positive(A) Negative CERNER BJ Hep C Ab, donor Negative Negative CERNER [facility] HIV 1-2 Ab, donor Negative Negative CERNER BJ HTLV I/II Ab, donor Negative Negative CERNER [facility] Syphilis testing, donor Positive(A) Negative CERNER BJ HIV CHRISTINA, donor Negative Negative [facility] HCV CHRISTINA, donor Negative Negative [facility] HBV CHRISTINA, donor Negative Negative [facility] WNV CHRISTINA, donor Negative Negative [facility] CMV testing, donor Positive(A) Negative [facility] Comment: Interpretive Data Testing performed by [facility] [place] [address] CLIA [id number] Panel consists of testing for Hepatitis B, Hepatitis C, HIV, HTLV, Syphilis, CMV, West Nile Virus and Chagas disease.Current interpretive data was last revised on 2022. Chagas testing, donor Negative Negative [facility] Blood 09/23/2024 1:16 PM CDT 09/24/2024 8:21 AM CDT Debby Benito MD LAB BLOOD ORDERABLES F inal Result Performing Organization Address [facility] Co de Phone Number LD [facility] Department [place] [address] * (ABNORMAL) CBC with auto differential (09/23/2024 1:16 PM CDT) [facility] WBC 8.83 3.80 - 9.90 K/cumm Comment:Testing performed by : [facility], [address] [place] [phone] Hgb 12.7(L) 13.0 - 17.5 g/dL [facility] Comment:Testing performed by : [facility]e [facility], [address] [place], [place] [phone] Hct 37.9(L) 38.9 - 50.3 % C[facility]ER [facility] Comment:Testing performed by : [facility], [address] [place], [place] [phone] Plt 179 150 - 400 K/cumm CERNER [facility] Comment:Testing performed by : [facility], [address] [place], [place] [phone] MPV 9.3 6.8 - 10.4 fL [facility] Comment:Testing performed by : [facility], [address] [place], [place] [phone] RBC 3.85(L) 4.30 - 5.80 M/cumm CERNER [facility] Comment:Testing performed by : [facility], [address] [place], [place] [phone] MCV 98.5(H) 81.3 - 96.4 fL [facility] Comment:Testing performed by : [facility], [address] [place] [address] MCH 33.0 27.1 - 33.3 pg [facility] Comment:Testing performed by : [facility], [address] [place] [address] MCHC 33.5 32.3 - 35.7 g/dL [facility] Comment:Testing performed by : [facility], [address] [place] [address] RDW CV 15.8(H) 11.1 - 14.9 % [facility] Comment:Testing performed by : [facility], [address] [place] [address] NRBC abs 0.00 0.00 - 0.01 K/cumm CERNER [facility] Comment:Testing performed by : [facility], [address] [place] [address] Blood 09/23/2024 1:16 PM CDT 09/23/2024 1:24 PM CDT Debby Benito MD LAB BLOOD ORDERABLES F inal Result [facility] One [facility] [place] [address] * (ABNORMAL) Manual Differential (09/23/2024 1:16 PM CDT) Cells Counted 196 Comment:Testing performed by : [facility], [address] [place] [phone] Neutrophil abs 4.94 1.50 - 6.50 K/cumm [facility]ER [facility] Comment:Testing performed by : [facility], [address] [place] [phone] Lymphocyte abs 1.85 0.80 - 3.30 K/cumm CERNER BJ Comment:Testing performed by : [facility], [address] [place], [place] [phone] Monocyte abs 0.53 0.20 - 0.80 K/cumm CERNER BJ Comment:Testing performed by : [facility], [address] [place], [place] [phone] Eosinophil abs 0.44 0.00 - 0.50 K/cumm C[facility]ER [facility] Comment:Testing performed by : [facility], [address] [place] [phone] Basophil abs 0.18(H) 0.00 - 0.10 K/cumm C[facility]ER [facility] Comment:Testing performed by : [facility], [address] [place], [place] [phone] Neutrophil pct 56.0 % [facility] Comment: Interpretive Data Percent cell count reference ranges are not reported, since discordance with absolute values may lead to misinterpretation of CBC data. Current Interpretive Data was last revised on 2017. Testing performed by: [facility], [address] [place] [phone] Lymphocyte pct 21.0 % [facility] Comment: Interpretive Data Percent cell count reference ranges are not reported, since discordance with absolute values may lead to misinterpretation of CBC data. Current Interpretive Data was last revised on 2017. Testing performed by: [facility], [address] [place] [phone] Monocyte pct 6.0 % [facility] Comment: Interpretive Data Percent cell count reference ranges are not reported, since discordance with absolute values may lead to misinterpretation of CBC data. Current Interpretive Data was last revised on 2017. Testing performed by: [facility], [address] [place] [phone] Eosinophil pct 5.0 % [facility] Comment: Interpretive Data Percent cell count reference ranges are not reported, since discordance with absolute values may lead to misinterpretation of CBC data. Current Interpretive Data was last revised on 2017. Testing performed by: [facility], [address] [place] [phone] Basophil pct 2.0 % [facility] Comment: Interpretive Data Percent cell count reference ranges are not reported, since discordance with absolute values may lead to misinterpretation of CBC data. Current Interpretive Data was last revised on 2017. Testing performed by: [facility], [address] [place] [phone] Metamyelocyte pct 3.0(H) 0.0 - 0.0 % [facility] Comment:Testing performed by : [facility], [address] [place] [phone] Myelocyte pct 2.0(H) 0.0 - 0.0 % [facility] Comment:Testing performed by : [facility], [address] [place] [phone] Promyelocyte pct 1.0(H) 0.0 - 0.0 % [facility] Comment:Testing performed by : [facility], [address] [place] [phone] Blast pct 1.0(H) 0.0 - 0.0 % [facility] Comment: Date-Time 09/23/2024 1440 Critical called to Tabby Lay MA and read back by ZITA Testing performed by: [facility], [address] [place] [phone] Variant lymph pct 5.0(H) 0.0 - 0.0 % [facility]ER [facility] Comment:Testing performed by : [facility], [address] [place], [place] [id number] RBC morphology NRBCs present(A) LD SWEET Comment:Testing performed by : [facility], [address] [place] [phone] Hypochromasia 1+(A) LD SWEET Comment:Testing performed by : [facility], [address] [place], [place] [id number] Anisocytosis 1+(A) LD [facility] Comment:Testing performed by : [facility], [address] [place], [place] [id number] Poikilocytosis 1+(A) LD [facility] Comment:Testing performed by : [facility], [address] [place], [place] [id number] Schistocytes 1+(A) LD [facility] Comment:Testing performed by : [facility], [address] [place], [place] [id number] Elliptocytes 1+(A) LD [facility] Comment:Testing performed by : [facility], [address] [place], [place] [id number] Target cells 1+(A) LD [facility] Comment:Testing performed by : [facility], [address] [place], [place] [id number] Platelet estimate Adequate LD [facility] Comment:Testing performed by : [facility], [address] [place], [place] [id number] Blood 09/23/2024 1:16 PM CDT 09/23/2024 1:24 PM CDT us Debby Benito MD LAB BLOOD ORDERABLES F inal Result LD SWEET One [facility] [place] [address] * (ABNORMAL) HSV 2 IgG Antibody Blood (09/23/2024 1:16 PM CDT) Pathologist [facility] HSV 2 IgG Reactive( A) Nonreactive Comment: [...] ERAL ORDERABLES Final Result Performing Organization Address [facility] Co de Phone Number [facility] [place] [address] * (ABNORMAL) HSV 1 IgG Antibody Blood (09/23/2024 1:16 PM CDT) [facility] HSV 1 IgG Reactive( A) Nonreactive Comment: [...] ERAL ORDERABLES Final Result Performing Organization Address [facility] de Phone Number [facility] [address] * Sickle cell screen (09/23/2024 1:16 PM CDT) [facility] Sickle cell, solubility Negative Negative Comment: Interpretive [...] ORDERABLES F inal Result Performing Organization Address [facility] de Phone Number [facility] [place] [address] * aPTT (09/23/2024 1:16 PM CDT) aPTT [...] ORDERABLES F inal Result Performing Organization Address [facility] de Phone Number [facility] [place] [address] * Protime-INR (09/23/2024 1:16 PM CDT) PT 10.7 9.7 - 13.0 sec INR 0.99 0.90 - 1.20 [facility] Comment: Interpretive data Oral anticoagulant therapeutic ranges: Venous thromboembolism prophylaxis or treatment: 2.0-3.0 CARDIOLOGY Standard range: 2.0-3.0 High-intensity range: 2.5-3.5 Refer to indication-specific guidelines for appropriate target ranges for prosthetic heart valve replacement. Current interpretive data was last revised on 2019. Blood 09/23/2024 1:16 PM CDT 09/23/2024 1:40 PM CDT Debby Benito MD LAB BLOOD ORDERABLES F inal Result Performing Organization Address [facility] [place] [address] * Type and screen (09/23/2024 1:16 PM CDT) Jacob, indirect Negative ABO Rh A Positive [facility] Blood 09/23/2024 1:16 PM CDT 09/23/2024 1:35 PM CDT Narrative [facility] - 09/23/2024 2:36 PM CDT Has the patient had Daratumumab or Isatuximab in the past 6 months?->Unknown Debby Benito MD LAB BLOOD BANK TEST OR DERABLES Final Result Performing Organization Address [facility] de Phone Number [facility] [place] [place] [address] * Uric acid (09/23/2024 1:16 PM CDT) Uric acid 7.2 3.0 - 8.0 mg/dL Blood 09/23/2024 1:16 PM CDT 09/23/2024 1:29 PM CDT Debby Benito MD LAB BLOOD ORDERABLES F inal Result Performing Organization Address [facility] Co de Phone Number [facility] [place] [address] * Magnesium (09/23/2024 1:16 PM CDT) Magnesium 2.2 1.4 - 2.5 mg/dL Blood 09/23/2024 1:16 PM CDT 09/23/2024 1:29 PM CDT Debby Benito MD LAB BLOOD ORDERABLES F inal Result Performing Organization Address [facility] Co de Phone Number [facility] [place] [place] [address] * (ABNORMAL) Hemoglobin A1c (09/23/2024 1:16 PM CDT) Hgb A1C 5.7(H) 4.0 - 5.6 % Estimated Average Glucose 117 mg/dL [facility] Comment: The ADA recommends reporting an estimated [...] ORDERABLES F inal Result Performing Organization Address [facility] de Phone Number [facility] Department [place] [address] * (ABNORMAL) Lipid panel (09/23/2024 1:16 PM [...] revised on 2018. Triglycerides 259(H) <=149 mg/dL [facility] Comment: Interpretive Data Ages < or = [...] revised on 2018. HDL 23(L) >=40 mg/dL [facility] Comment: Interpretive Data Ages < or = [...] on 2018. LDL, calculated 101 <=129 mg/dL [facility] Comment: Interpretive Data Ages < or = [...] revised on 2024. Non-HDL Cholesterol 146 mg/dL [facility] Comment: Interpretive Data Ages < or = [...] last revised on 2018. Chol/HDL ratio 7 [facility] Blood 09/23/2024 1:16 PM CDT 09/23/2024 1:29 PM CDT Debby Benito MD LAB BLOOD ORDERABLES F inal Result [facility] One [facility] [place] [address] * Comprehensive metabolic panel (09/23/2024 1:16 PM CDT) Sodium 138 135 - 145 mmol/L Potassium, pl 3.9 3.3 - 4.9 mmol/L [facility] Chloride 102 97 - 110 mmol/L [facility] CO2 25 22 - 32 mmol/L [facility] Anion gap 11 2 - 15 mmol/L [facility] BUN 17 6 - 25 mg/dL [facility] Creatinine 0.98 0.80 - 1.30 mg/dL [facility] Glucose 169 70 - 199 mg/dL [facility] Comment: Interpretive Data Fasting glucose >/= 126 [...] 2022. Calcium 9.4 8.5 - 10.3 mg/dL [facility] Bilirubin, total 0.5 0.1 - 1.2 mg/dL [facility] Protein, pl 7.2 6.5 - 8.5 g/dL [facility] Albumin 4.0 3.5 - 5.0 g/dL [facility] Alk phos 101 40 - 130 Units/L [facility] ALT 19 7 - 55 Units/L [facility] AST 27 10 - 50 Units/L [facility] Blood 09/23/2024 1:16 PM CDT 09/23/2024 1:29 PM CDT Debby Benito MD LAB BLOOD ORDERABLES F inal Result Performing Organization Address [facility] Co de Phone Number [facility] One [facility] Department [place] [address] * ECG 12 lead (09/23/2024 11:31 AM CDT) [facility] Ventricular Rate EKG/Min 86 BPM [facility] Atrial Rate 86 BPM [facility] WI-Interval (MSEC) 166 ms [facility] QRS-Interval (MSEC) 84 ms [facility] QT-Interval (MSEC) 374 ms [facility] QTc 447 ms [facility] P Bryant 27 degrees [facility] R Bryant 47 degrees [facility] T Bryant 11 degrees [facility] Diagnosis Normal sinus rhythm Possible Inferior infarct , age undetermined Cannot rule out Anterior infarct (cited on or before 23-SEP-2024) Abnormal ECG When compared with ECG of 02-MAR-2024 15:04, Nonspecific T wave abnormality no longer evident in Anterior leads Confirmed by LEA NICKERSON M.D ([id number]) on 09/24/2024 1:54:23 PM [facility] 09/23/2024 11:3 1 AM CDT 09/24/2024 1:54 PM CDT Debby Benito MD ECG ORDERABLES Final Result Performing Organization Address City/[facility]/ZIP Co de Phone Number [facility] * XR Chest Pa Lateral [...] 10:28 AM CDT) FVC PRE 3.10 L [facility] FVC %PRE PRED 58 % [facility] FVC POST 3.37 L [facility] FVC %POST PRED 63 % [facility] FEV1 PRE 2.68 L [facility] FEV1 %PRE PRED 64 % [facility] FEV1 POST 2.61 L [facility] FEV1 %POST PRED 62 % [facility] FEV1/FVC PRE 86.3 % [facility] FEV1/FVC POST 77.3 % [facility] FRC PL PRE 2.61 L [facility] FRC PL %PRE PRED 66 % [facility] RV PRE 1.40 L [facility] RV %PRE PRED 64 % [facility] TLC PRE 4.85 L [facility] TLC %PRE PRED 64 % [facility] DLCO PRE 19.2 ml/min/mmH g [facility] DLCO %PRE PRED 59 % [facility] Anatomical Region Laterality Modality PFT 09/23/2024 10:0 [...] is age dependent. However, the [facility] defines hypoxemia as a PO2 <55 or a %HbO2 <89. Starting on June 2024 the [facility] utilizes race neutral GLI Global normative equations. Narrative 09/24/2024 8:41 AM CDT PFT performed at:->[facility] Adult PFT Lab- CAM-8D Procedure:->Spirometry with Bronchodilator [...] FDG-PET/CT IMAGING DATE OF STUDY: 09/15/2024 SCANNER: [employer] (SQ1). This is a high-resolution scanner, which [...] obtained. The study was interpreted on the [employer] workstation. The mean liver SUV (reported for engagement quality consultant purposes) is 3.4. The total scanned area [...] FDG-PET/CT IMAGING DATE OF STUDY: 09/15/2024 SCANNER: [facility] [employer] (SQ1). This is a high-resolution scanner, which [...] obtained. The study was interpreted on the [employer] workstation. The mean liver SUV (reported for engagement quality consultant purposes) is 3.4. The total scanned area [...] signed by: Ramandeep Whaley M.D. Sarah Velarde P[employer] IMG PET PROCEDURES Final Resul t * [...] CDT 09/15/2024 10:45 AM CDT Sarah Simon [employer] LAB BLOOD ORDERABLES Final Res ult LD SWEET One [facility] [place] [address] * (ABNORMAL) CBC with auto differential (09/15/2024 10:28 AM CDT) WBC 8.68 3.80 - 9.90 K/cumm Comment:Testing performed by : [facility], [address] [place] [address] Hgb 13.6 13.0 - 17.5 g/dL LD SWEET Comment:Testing performed by : [facility], [address] [place] [address] Hct 40.3 38.9 - 50.3 % LD SWEET Comment:Testing performed by : [facility], [address] [place] [address] Plt 262 150 - 400 K/cumm LD SWEET Comment:Testing performed by : [facility], [address] [place] [address] MPV 8.7 6.8 - 10.4 fL LD SWEET Comment:Testing performed by : [facility], [address] [place] [address] RBC 4.11(L) 4.30 - 5.80 M/cumm LD SWEET Comment:Testing performed by : [facility], [address] [place] [phone] MCV 98.1(H) 81.3 - 96.4 fL LD SWEET Comment:Testing performed by : [facility], [address] [place] [address] MCH 33.1 27.1 - 33.3 pg LD SWEET Comment:Testing performed by : [facility], [address] [place] [address] MCHC 33.7 32.3 - 35.7 g/dL LD SWEET Comment:Testing performed by : [facility], [address] [place] [address] RDW CV 15.0(H) 11.1 - 14.9 % LD SWEET Comment:Testing performed by : [facility], [address] [place] [address] NRBC abs 0.00 0.00 - 0.01 K/cumm LD SWEET Comment:Testing performed by : [facility], [address] [place] [address] Blood 09/15/2024 10:2 8 AM CDT 09/15/2024 10:37 AM CDT Sarah Simon [employer] LAB BLOOD ORDERABLES Edited Re felice - Final LD SWEET One [facility] Department of Laboratories [place], [place] [id number] * (ABNORMAL) Manual Differential (09/15/2024 10:28 AM CDT) Cells Counted 198 Comment:Testing performed by : [facility], [address] [place] [address] Neutrophil abs 5.38 1.50 - 6.50 K/cumm LD SWEET Comment:Testing performed by : [facility], [address] [place] [address] Lymphocyte abs 2.00 0.80 - 3.30 K/cumm LD SWEET Comment:Testing performed by : [facility], [address] [place] [phone] Monocyte abs 0.52 0.20 - 0.80 K/cumm [facility] Comment:Testing performed by : [facility], [address] [place] [phone] Eosinophil abs 0.26 0.00 - 0.50 K/cumm [facility] Comment:Testing performed by : [facility], [address] [place] [phone] Basophil abs 0.09 0.00 - 0.10 K/cumm [facility] Comment:Testing performed by : [facility], [address] [place] [phone] Neutrophil pct 62.0 % [facility] Comment: Interpretive Data Percent cell count reference ranges are not reported, since discordance with absolute values may lead to misinterpretation of CBC data. Current Interpretive Data was last revised on 2017. Testing performed by: [facility], [address] [place] [phone] Lymphocyte pct 23.0 % [facility] Comment: Interpretive Data Percent cell count reference ranges are not reported, since discordance with absolute values may lead to misinterpretation of CBC data. Current Interpretive Data was last revised on 2017. Testing performed by: [facility], [address] [place] [phone] Monocyte pct 6.0 % [facility] Comment: Interpretive Data Percent cell count reference ranges are not reported, since discordance with absolute values may lead to misinterpretation of CBC data. Current Interpretive Data was last revised on 2017. Testing performed by: [facility], [address] [place] [phone] Eosinophil pct 3.0 % [facility] Comment: Interpretive Data Percent cell count reference ranges are not reported, since discordance with absolute values may lead to misinterpretation of CBC data. Current Interpretive Data was last revised on 2017. Testing performed by: [facility], [address] [place] [phone] Basophil pct 1.0 % [facility] Comment: Interpretive Data Percent cell count reference ranges are not reported, since discordance with absolute values may lead to misinterpretation of CBC data. Current Interpretive Data was last revised on 2017. Testing performed by: [facility], [address] [place], [place] [id number] Myelocyte pct 2.0(H) 0.0 - 0.0 % [facility] Comment:Testing performed by : [facility], [address] [place], [place] [id number] Promyelocyte pct 1.0(H) 0.0 - 0.0 % [facility] Comment:Testing performed by : [facility], [address] [place], [place] [id number] Variant lymph pct 3.0(H) 0.0 - 0.0 % [facility] Comment:Testing performed by : [facility], [address] [place], [place] [id number] Anisocytosis 1+(A) [facility] Comment:Testing performed by : [facility], [address] [place] [phone] Poikilocytosis 1+(A) [facility] Comment:Testing performed by : [facility], [address] [place] [phone] Macrocytes 1+(A) [facility]ER [facility] Comment:Testing performed by : [facility], [address] [place] [phone] Elliptocytes 1+(A) [facility] Comment:Testing performed by : [facility], [address] [place] [phone] Target cells 1+(A) [facility] Comment:Testing performed by : [facility], [address] [place] [phone] Echinocytes 1+(A) [facility] Comment:Testing performed by : [facility], [address] [place] [phone] Platelet estimate Adequate [facility] Comment:Testing performed by : [facility], [address] [place] [phone] Blood 09/15/2024 10:2 8 AM CDT 09/15/2024 10:37 AM CDT Sarah Velarde Pheba [employer] LAB BLOOD ORDERABLES Final Res ult Performing Organization Address [facility] de Phone Number [facility] [place] [address] * Lactate dehydrogenase (LD) (09/15/2024 10:28 AM CDT) Pathologist [facility] Lactate dehydrogenase (LDH) 194 100 - 250 Units/L Blood 09/15/2024 10:2 8 AM CDT 09/15/2024 10:45 AM CDT Sarah Edwardsr [employer]NER LAB BLOOD ORDERABLES Final Res ult Performing Organization Address [facility] de Phone Number [facility] [place] [address] * IgG (09/15/2024 10:28 AM CDT) Pathologist [facility] Immunoglobulin G 804 700 - 1,600 mg/dL Blood 09/15/2024 10:2 8 AM CDT 09/15/2024 1:02 PM CDT Debby Benito MD LAB BLOOD ORDERABLES F inal Result Performing Organization Address [facility] [place] [address] * Comprehensive metabolic panel (09/15/2024 10:28 AM CDT) Pathologist [facility] Sodium 143 135 - 145 mmol/L Potassium, pl 4.3 3.3 - 4.9 mmol/L [facility] Chloride 106 97 - 110 mmol/L [facility] CO2 27 22 - 32 mmol/L [facility] Anion gap 10 2 - 15 mmol/L [facility] BUN 17 6 - 25 mg/dL [facility] Creatinine 1.02 0.80 - 1.30 mg/dL [facility] Glucose 80 70 - 199 mg/dL [facility] Comment: Interpretive Data Fasting glucose >/= 126 [...] 2022. Calcium 9.4 8.5 - 10.3 mg/dL [facility] Bilirubin, total 0.6 0.1 - 1.2 mg/dL [facility] Protein, pl 7.0 6.5 - 8.5 g/dL [facility] Albumin 4.1 3.5 - 5.0 g/dL [facility] Alk phos 102 40 - 130 Units/L [facility] ALT 25 7 - 55 Units/L [facility] AST 27 10 - 50 Units/L [facility] Blood 09/15/2024 10:2 8 AM CDT 09/15/2024 10:45 AM CDT us Sarah Velarde Pheba [employer] LAB BLOOD ORDERABLES Final Res ult [facility] One [facility] [place] [address] * eGFR (08/18/2024 8:12 AM CDT) eGFR [...] 08/18/2024 8:21 AM CDT us Sarah Simon [employer] LAB BLOOD ORDERABLES Final Res ult LD SWEET One [facility] [place] [address] * Differential, auto (08/18/2024 8:12 AM CDT) Neutrophil abs 2.6 1.5 - 6.5 K/cumm Comment:Testing performed by : [facility], [address] [place], [place] [phone] Lymphocyte abs 1.7 0.8 - 3.3 K/cumm CERJOSE MARTIN BJ Comment:Testing performed by : [facility], [address] [place] [phone] Monocyte abs 0.4 0.2 - 0.8 K/cumm CERJOSE MARTIN BJ Comment:Testing performed by : [facility], [address] [place] [phone] Eosinophil abs 0.5 0.0 - 0.5 K/cumm CERJOSE MARTIN BJ Comment:Testing performed by : [facility], [address] [place] [phone] Basophil abs 0.1 0.0 - 0.1 K/cumm CERJOSE MARTIN BJ Comment:Testing performed by : [facility], [address] [place] [phone] Neutrophil pct 48.8 % CERJOSE MARTIN SWEET Comment: Interpretive Data Percent cell count reference ranges are not reported, since discordance with absolute values may lead to misinterpretation of CBC data. Current Interpretive Data was last revised on 2017. Testing performed by: [facility], [address] [place] [phone] Lymphocyte pct 32.7 % LD SWEET Comment: Interpretive Data Percent cell count reference ranges are not reported, since discordance with absolute values may lead to misinterpretation of CBC data. Current Interpretive Data was last revised on 2017. Testing performed by: [facility], [address] [place] [phone] Monocyte pct 8.1 % LD SWEET Comment: Interpretive Data Percent cell count reference ranges are not reported, since discordance with absolute values may lead to misinterpretation of CBC data. Current Interpretive Data was last revised on 2017. Testing performed by: [facility], [address] [place] [phone] Eosinophil pct 8.7 % LD SWEET Comment: Interpretive Data Percent cell count reference ranges are not reported, since discordance with absolute values may lead to misinterpretation of CBC data. Current Interpretive Data was last revised on 2017. Testing performed by: [facility], [address] [place] [phone] Basophil pct 1.7 % LD SWEET Comment: Interpretive Data Percent cell count reference ranges are not reported, since discordance with absolute values may lead to misinterpretation of CBC data. Current Interpretive Data was last revised on 2017. Testing performed by: [facility], [address] [place] [phone] Blood 08/18/2024 8:12 AM CDT 08/18/2024 8:21 AM CDT us Sarah Edwardsr FOIL SPINNER LAB BLOOD ORDERABLES Final Res ult LD SWEET One [facility] [place] [address] * (ABNORMAL) CBC with auto differential (08/18/2024 8:12 AM CDT) WBC 5.2 3.8 - 9.9 K/cumm Comment:Testing performed by : [facility], [address] [place] [address] Hgb 13.5 13.0 - 17.5 g/dL CERNER BJ Comment:Testing performed by : [facility], [address] [place] [address] Hct 39.8 38.9 - 50.3 % CERNER BJ Comment:Testing performed by : [facility], [address] [place] [address] Plt 314 150 - 400 K/cumm CERNER BJ Comment:Testing performed by : [facility], [address] [place] [address] MPV 8.6 6.8 - 10.4 fL CERNER BJ Comment:Testing performed by : [facility], [address] [place] [address] RBC 4.07(L) 4.30 - 5.80 M/cumm CERNER BJ Comment:Testing performed by : [facility], [address] [place] [address] MCV 97.9(H) 81.3 - 96.4 fL CERNER BJ Comment:Testing performed by : [facility], [address] [place] [address] MCH 33.3 27.1 - 33.3 pg CERNER BJ Comment:Testing performed by : [facility], [address] [place] [address] MCHC 34.0 32.3 - 35.7 g/dL CERNER BJ Comment:Testing performed by : [facility], [address] [place] [address] RDW CV 14.8 11.1 - 14.9 % CERNER BJ Comment:Testing performed by : [facility], [address] [place] [address] NRBC abs 0.00 0.00 - 0.01 K/cumm [facility] Comment:Testing performed by : [facility], [address] [place] [phone] Blood 08/18/2024 8:12 AM CDT 08/18/2024 8:21 AM CDT us Sarah SNatacha Edwardsr FOIL SPINNER LAB BLOOD ORDERABLES Final Res ult Performing Organization Address City/[facility]/ZIP Co de Phone Number [facility] Department [place] [address] * Lactate dehydrogenase (LD) (08/18/2024 8:12 AM CDT) Pathologist [facility] Lactate dehydrogenase (LDH) 177 100 - 250 Units/L Blood 08/18/2024 8:12 AM CDT 08/18/2024 8:21 AM CDT Sarah Simon FOIL SPINNER LAB BLOOD ORDERABLES Final Res ult Performing Organization Address [facility] Co de Phone Number [facility] [place] [address] * IgG (08/18/2024 8:12 AM CDT) Pathologist [facility] Immunoglobulin G 819 700 - 1,600 mg/dL Blood 08/18/2024 8:12 AM CDT 08/18/2024 8:43 AM CDT Sarah SNatacha Pheba FOIL SPINNER LAB BLOOD ORDERABLES Final Res ult Performing Organization Address City/[facility] Co de Phone Number [facility] [place] [address] * Comprehensive metabolic panel (08/18/2024 8:12 AM CDT) Sodium 143 135 - 145 mmol/L Potassium, pl 4.1 3.3 - 4.9 mmol/L [facility] Chloride 109 97 - 110 mmol/L [facility] CO2 26 22 - 32 mmol/L [facility] Anion gap 8 2 - 15 mmol/L [facility] BUN 16 6 - 25 mg/dL [facility] Creatinine 1.00 0.80 - 1.30 mg/dL [facility] Glucose 86 70 - 199 mg/dL [facility] Comment: Interpretive Data Fasting glucose >/= 126 [...] 2022. Calcium 9.1 8.5 - 10.3 mg/dL [facility] Bilirubin, total 0.3 0.1 - 1.2 mg/dL [facility] Protein, pl 6.8 6.5 - 8.5 g/dL [facility] Albumin 4.1 3.5 - 5.0 g/dL [facility] Alk phos 92 40 - 130 Units/L [facility] ALT 27 7 - 55 Units/L [facility] AST 28 10 - 50 Units/L [facility] Blood 08/18/2024 8:12 AM CDT 08/18/2024 8:21 AM CDT Sarah Simon NP LAB BLOOD ORDERABLES Final Res ult [facility] One [facility] Department of Laboratories [place], [place] [id number] * Blood culture Blood Peripheral (08/16/2024 11:43 [...] performance characteristics have been verified by the [facility]. For questions about this culture, contact the Microbiology Laboratory at [phone]. Interpretive data was last revised on 24. Kelly Mauricio NP LAB MICROBIOLOGY - GENERA L ORDERABLES Final Result LD GERMAN One [facility] [place] [address] * Blood culture Blood Peripheral (08/16/2024 11:35 [...] performance characteristics have been verified by the [facility]. For questions about this culture, contact the Microbiology Laboratory at [phone]. Interpretive data was last revised on 24. us Kelly Mauricio NP LAB MICROBIOLOGY - GENERA L ORDERABLES Final Result [facility] One [facility] [place] [address] * (ABNORMAL) Urinalysis reflex to microscopic and culture Urine, clean voided (08/16/2024 11:22 AM CDT) Color, ur Yellow Yellow Clarity, ur Clear Clear [facility] Specific gravity, ur 1.031(H) 1.003 - 1.030 [facility] pH, urine 5.5 [facility] Comment: Interpretive Data U rine pH is affected by diet, medications, systemic acid-base disturbances, and renal tubular function. pH may affect urinary stone formation. For example, urine pH below 6.0 may help reduce the tendency for calcium phosphate stones and pH greater than 6.0 may reduce the tendency for uric acid stone formation. Source: [facility] Current Interpretive Data was last revised on 2017 Protein, ur ql 1+(A) Negative [facility] Glucose, ur ql Negative Negative [facility] Ketones, ur Negative Negative [facility] Bilirubin, ur Negative Negative [facility] Blood, ur Negative Negative [facility] Urobilinogen, ur <2.0 <2.0 mg/dL [facility] Nitrite, ur Negative Negative [facility] Leukocyte esterase, ur Negative Negative [facility] UA reflex comment Reflex to microscopic UA will be performed. [facility] Urine, clean voided 08/16/2024 11:22 AM CDT 08/16/2024 11:58 AM CDT Kelly Mauricio NP LAB MICROBIOLOGY - GENERA L ORDERABLES Final Result Performing Organization Address [facility] Co de Phone Number [facility] Department [place] [address] * (ABNORMAL) Urinalysis, microscopic only (08/16/2024 11:22 AM CDT) WBC, ur 0-5 0 - 5 /HPF RBC, ur 0-2 0 - 2 /HPF [facility] Epithelial cells, renal, ur 1-5(A) 0 - 0 /HPF [facility] Epithelial cells, transitional, ur 1-5 0 - 0 /HPF [facility] Mucous, ur Present(A) [facility] Hyaline casts, ur 6-10 0 - 10 /LPF [facility] Culture Reflex Comment Reflex conditions for urine culture (WBC >10) not met. [facility] Urine, clean voided 08/16/2024 11:22 AM CDT 08/16/2024 11:58 AM CDT Kelly Mauricio NP LAB URINE ORDERABLES Narda l Result Performing Organization Address [facility] Co de Phone Number [facility] Department [place] [address] * XR Chest Pa Lateral 2 Views [...] by: Elly Newton M.D. us Kelly Mauricio FOIL SPINNER IMG XR PROCEDURES Final R esult * POC Blood Gas and Chemistries, Arterial - (08/16/2024 10:51 AM CDT) Pathologist [facility] Lactate, POC 1.2 0.7 - 2.0 mmol/L Blood 08/16/2024 10:5 1 AM CDT 08/16/2024 10:51 AM CDT Rico Pérez MD LAB POCT ORDERABLES - DEVIC E Final Result Performing Organization Address City/State/[facility] Phone Number [facility] Department [place] [address] * eGFR (08/16/2024 10:46 AM CDT) Pathologist [facility] eGFR >90 >=60 mL/min/1. 73 m2 Comment: [...] NP LAB BLOOD ORDERABLES Narda wagner Result [facility] One [facility] [place] [address] * Differential, auto (08/16/2024 10:46 AM CDT) Pathologist [facility] Neutrophil abs 5.2 1.5 - 6.5 K/cumm Imm gran abs 0.1 0.0 - 0.1 K/cumm [facility] Lymphocyte abs 1.6 0.8 - 3.3 K/cumm [facility] Monocyte abs 0.8 0.2 - 0.8 K/cumm [facility] Eosinophil abs 0.4 0.0 - 0.5 K/cumm [facility] Basophil abs 0.1 0.0 - 0.1 K/cumm [facility] Neutrophil pct 63.7 % [facility] Comment: Interpretive Data Percent cell count reference ranges are not reported, since discordance with absolute values may lead to misinterpretation of CBC data. Current Interpretive Data was last revised on 2017. Imm gran pct 1.2 % [facility] Comment: Interpretive Data Percent cell count reference ranges are not reported, since discordance with absolute values may lead to misinterpretation of CBC data. Current Interpretive Data was last revised on 2017. Lymphocyte pct 19.4 % [facility] Comment: Interpretive Data Percent cell count reference ranges are not reported, since discordance with absolute values may lead to misinterpretation of CBC data. Current Interpretive Data was last revised on 2017. Monocyte pct 9.5 % [facility] Comment: Interpretive Data Percent cell count reference ranges are not reported, since discordance with absolute values may lead to misinterpretation of CBC data. Current Interpretive Data was last revised on 2017. Eosinophil pct 5.0 % [facility] Comment: Interpretive Data Percent cell count reference ranges are not reported, since discordance with absolute values may lead to misinterpretation of CBC data. Current Interpretive Data was last revised on 2017. Basophil pct 1.2 % [facility] Comment: Interpretive Data Percent cell count reference ranges are not reported, since discordance with absolute values may lead to misinterpretation of CBC data. Current Interpretive Data was last revised on 2017. Blood 08/16/2024 10:4 6 AM CDT 08/16/2024 11:05 AM CDT Kelly Mauricio FOIL SPINNER LAB BLOOD ORDERABLES Narda wagner Result [facility] One [facility] [place] [address] * Respiratory pathogen panel Nasopharyngeal (08/16/2024 10:46 AM CDT) Pathologist [facility] Influenza A RNA Not Detected Not Detected Influenza B RNA Not Detected Not Detected [facility] RSV RNA Not Detected Not Detected [facility] COVID-19 RNA Not Detected Not Detected [facility] Coronavirus 229E RNA Not Detected Not Detected [facility] Coronavirus HKU1 RNA Not Detected Not Detected [facility] Coronavirus NL63 RNA Not Detected Not Detected [facility] Coronavirus OC43 RNA Not Detected Not Detected [facility] Adenovirus DNA Not Detected Not Detected [facility] Metapneumovirus RNA Not Detected Not Detected [facility] Rhinovirus/Enterov irus RNA Not Detected Not Detected [facility] Parainfluenza 1 RNA Not Detected Not Detected [facility] Parainfluenza 2 RNA Not Detected Not Detected [facility] Parainfluenza 3 RNA Not Detected Not Detected [facility] Parainfluenza 4 RNA Not Detected Not Detected [facility] B. pertussis DNA Not Detected Not Detected [facility] B. parapertussis DNA Not Detected Not Detected [facility] C. pneumoniae DNA Not Detected Not Detected [facility] M. pneumoniae DNA Not Detected Not Detected [facility] Nasopharyngeal 08/16/2024 10 :46 AM CDT 08/16/2024 10:58 AM CDT Narrative [facility] - 08/16/2024 12:02 PM CDT Is the Patient experiencing symptoms consistent with COVID?->Yes Surveillance testing for transplant patient?->No Interpretive Data The [employer] FilmArray Respiratory Panel (RP2.1) assay is a [...] assay has FDA clearance for testing of FOIL SPINNER swabs. The performance of additional specimen types has been assessed by the performing laboratory. The performance characteristics of this assay have been determined by [facility] Molecular Infectious Disease Laboratory. Current interpretive data was last revised on 22. Kelly Mauricio FOIL SPINNER LAB MICROBIOLOGY - GENERA L ORDERABLES Final Result [facility] One [facility] [place] [address] * (ABNORMAL) CBC with auto differential (08/16/2024 10:46 AM CDT) WBC 8.1 3.8 - 9.9 K/cumm Hgb 14.4 13.0 - 17.5 g/dL [facility] Hct 41.6 38.9 - 50.3 % [facility] Plt 309 150 - 400 K/cumm [facility] MPV 10.2 9.1 - 12.3 fL [facility] RBC 4.29(L) 4.30 - 5.80 M/cumm [facility] MCV 97.0(H) 81.3 - 96.4 fL [facility] MCH 33.6(H) 27.1 - 33.3 pg [facility] MCHC 34.6 32.3 - 35.7 g/dL [facility] RDW CV 15.2(H) 11.1 - 14.9 % [facility] RDW SD 54.0(H) 35.7 - 48.1 fL [facility] NRBC abs 0.00 0.00 - 0.01 K/cumm [facility] Blood 08/16/2024 10:4 6 AM CDT 08/16/2024 11:05 AM CDT Kelly Mauricio NP LAB BLOOD ORDERABLES Narda l Result [facility] [place] [address] * Phosphorus (08/16/2024 10:46 AM CDT) Pathologist [facility] Phosphorus, pl 2.8 2.3 - 4.5 mg/dL Blood Venous blood specimen / Unknown 08/16/2024 10:46 AM CDT 08/16/2024 11:06 AM CDT Kelly Mauricio NP LAB BLOOD ORDERABLES Narda l Result Performing Organization Address [facility] Co de Phone Number [facility] [place] [address] * Magnesium (08/16/2024 10:46 AM CDT) [facility] Magnesium 2.2 1.4 - 2.5 mg/dL Blood Venous blood specimen / Unknown 08/16/2024 10:46 AM CDT 08/16/2024 11:06 AM CDT Kelly Mauricio NP LAB BLOOD ORDERABLES Narda l Result Performing Organization Address City/[facility] Co de Phone Number [facility] [place] [address] * Comprehensive metabolic panel (08/16/2024 10:46 AM CDT) Pathologist [facility] Sodium 142 135 - 145 mmol/L Potassium, pl 4.4 3.3 - 4.9 mmol/L [facility] Chloride 107 97 - 110 mmol/L [facility] CO2 27 22 - 32 mmol/L [facility] Anion gap 8 2 - 15 mmol/L [facility] BUN 20 6 - 25 mg/dL [facility] Creatinine 0.99 0.80 - 1.30 mg/dL [facility] Glucose 72 70 - 199 mg/dL [facility] Comment: Interpretive Data Fasting glucose >/= 126 [...] 2022. Calcium 9.4 8.5 - 10.3 mg/dL [facility] Bilirubin, total 0.5 0.1 - 1.2 mg/dL [facility] Protein, pl 7.1 6.5 - 8.5 g/dL [facility] Albumin 4.3 3.5 - 5.0 g/dL [facility] Alk phos 95 40 - 130 Units/L [facility] ALT 34 7 - 55 Units/L [facility] AST 32 10 - 50 Units/L [facility] Blood 08/16/2024 10:4 6 AM CDT 08/16/2024 11:06 AM CDT Kelly Mauricio NP LAB BLOOD ORDERABLES Narda wagner Result [facility] One [facility] [place] [address] * eGFR (07/14/2024 11:39 AM SCRAP METAL COLLECTOR) eGFR >90 >=60 mL/min/1. 73 m2 Comment: [...] reviewed 2021. Blood 07/14/2024 11:3 9 AM SCRAP METAL COLLECTOR 07/14/2024 11:45 AM SCRAP METAL COLLECTOR us Debby Beinto MD LAB BLOOD ORDERABLES F inal Result LD SWEET One [facility] [place] [address] * Differential, auto (07/14/2024 11:39 AM SCRAP METAL COLLECTOR) Neutrophil abs 2.5 1.5 - 6.5 K/cumm Comment:Testing performed by : [facility], [address] [place] [phone] Lymphocyte abs 1.4 0.8 - 3.3 K/cumm CERJOSE MARTIN SWEET Comment:Testing performed by : [facility], [address] [place] [phone] Monocyte abs 0.5 0.2 - 0.8 K/cumm LD SWEET Comment:Testing performed by : [facility], [address] [place] [phone] Eosinophil abs 0.4 0.0 - 0.5 K/cumm CERJOSE MARTIN BJ Comment:Testing performed by : [facility], [address] [place] [phone] Basophil abs 0.1 0.0 - 0.1 K/cumm CERJOSE MARTIN BJ Comment:Testing performed by : [facility], [address] [place] [phone] Neutrophil pct 50.3 % CERJOSE MARTIN SWEET Comment: Interpretive Data Percent cell count reference ranges are not reported, since discordance with absolute values may lead to misinterpretation of CBC data. Current Interpretive Data was last revised on 2017. Testing performed by: [facility], [address] [place] [phone] Lymphocyte pct 28.9 % CERJOSE MARTIN [facility] Comment: Interpretive Data Percent cell count reference ranges are not reported, since discordance with absolute values may lead to misinterpretation of CBC data. Current Interpretive Data was last revised on 2017. Testing performed by: [facility], [address] [place] [phone] Monocyte pct 9.9 % CERJOSE MARTIN SWEET Comment: Interpretive Data Percent cell count reference ranges are not reported, since discordance with absolute values may lead to misinterpretation of CBC data. Current Interpretive Data was last revised on 2017. Testing performed by: [facility], [address] [place], [place] [phone] Eosinophil pct 8.2 % LD SWEET Comment: Interpretive Data Percent cell count reference ranges are not reported, since discordance with absolute values may lead to misinterpretation of CBC data. Current Interpretive Data was last revised on 2017. Testing performed by: [facility], [address] [place] [phone] Basophil pct 2.7 % CERJOSE MARTIN [facility] Comment: Interpretive Data Percent cell count reference ranges are not reported, since discordance with absolute values may lead to misinterpretation of CBC data. Current Interpretive Data was last revised on 2017. Testing performed by: [facility], [address] [place] [phone] Blood 07/14/2024 11:3 9 AM SCRAP METAL COLLECTOR 07/14/2024 11:43 AM SCRAP METAL COLLECTOR us Debby Benito MD LAB BLOOD ORDERABLES F inal Result [facility] One [facility] [place] [address] * (ABNORMAL) CBC with auto differential (07/14/2024 11:39 AM SCRAP METAL COLLECTOR) WBC 5.0 3.8 - 9.9 K/cumm Comment:Testing performed by : [facility], [address] [place] [address] Hgb 14.0 13.0 - 17.5 g/dL CERNER BJ Comment:Testing performed by : [facility], [address] [place] [address] Hct 42.4 38.9 - 50.3 % CERNER BJ Comment:Testing performed by : [facility], [address] [place] [address] Plt 387 150 - 400 K/cumm CERNER BJ Comment:Testing performed by : [facility], [address] [place], [place] [phone] MPV 8.3 6.8 - 10.4 fL CERNER BJ Comment:Testing performed by : [facility], [address] [place] [address] RBC 4.17(L) 4.30 - 5.80 M/cumm CERNER BJ Comment:Testing performed by : [facility], [address] [place] [address] MCV 101.5(H) 81.3 - 96.4 fL CERNER BJ Comment:Testing performed by : [facility], [address] [place] [address] MCH 33.4(H) 27.1 - 33.3 pg CERNER BJ Comment:Testing performed by : [facility], [address] [place] [address] MCHC 32.9 32.3 - 35.7 g/dL CERNER BJ Comment:Testing performed by : [facility], [address] [place] [address] RDW CV 14.9 11.1 - 14.9 % CERNER BJ Comment:Testing performed by : [facility], [address] [place] [address] NRBC abs 0.00 0.00 - 0.01 K/cumm CERNER [facility]JH Comment:Testing performed by : [facility], [address] [place] [phone] Blood 07/14/2024 11:3 9 AM SCRAP METAL COLLECTOR 07/14/2024 11:43 AM SCRAP METAL COLLECTOR Debby Benito MD LAB BLOOD ORDERABLES F inal Result Performing Organization Address City/[facility] Co de Phone Number [facility] [place] [address] * Lactate dehydrogenase (LD) (07/14/2024 11:39 AM SCRAP METAL COLLECTOR) Lactate dehydrogenase (LDH) 190 100 - 250 Units/L Blood 07/14/2024 11:3 9 AM SCRAP METAL COLLECTOR 07/14/2024 11:45 AM SCRAP METAL COLLECTOR Result [facility] Debby Benito MD LAB BLOOD ORDERABLES F inal Result Performing Organization Address [facility] [place] [address] * IgG (07/14/2024 11:39 AM SCRAP METAL COLLECTOR) Immunoglobulin G 864 700 - 1,600 mg/dL Blood 07/14/2024 11:3 9 AM SCRAP METAL COLLECTOR 07/14/2024 11:57 AM SCRAP METAL COLLECTOR Debby Benito MD LAB BLOOD ORDERABLES F inal Result Performing Organization Address [facility] [place] [address] * (ABNORMAL) Lipid panel (07/14/2024 11:39 AM SCRAP METAL COLLECTOR) Cholesterol 235(H) 30 - 199 mg/dL Comment: [...] on 2018. Triglycerides 210(H) <=149 mg/dL LD [facility] Comment: Interpretive Data Ages < or [...] revised on 2024. Non-HDL Cholesterol 204 mg/dL [facility] Comment: Interpretive Data Ages < or = [...] last revised on 2018. Chol/HDL ratio 8 [facility] Blood 07/14/2024 11:3 9 AM SCRAP METAL COLLECTOR 07/14/2024 11:45 AM SCRAP METAL COLLECTOR us Rico Pérez MD LAB BLOOD ORDERABLES Final Result Performing Organization Address City/State/[facility] Co de Phone Number [facility] One [facility] [place] [address] * Comprehensive metabolic panel (07/14/2024 11:39 AM SCRAP METAL COLLECTOR) Sodium 142 135 - 145 mmol/L Potassium, pl 3.9 3.3 - 4.9 mmol/L [facility] Chloride 108 97 - 110 mmol/L [facility] CO2 28 22 - 32 mmol/L [facility] Anion gap 6 2 - 15 mmol/L [facility] BUN 14 6 - 25 mg/dL [facility] Creatinine 1.00 0.80 - 1.30 mg/dL [facility] Glucose 127 70 - 199 mg/dL [facility] Comment: Interpretive Data Fasting glucose >/= 126 [...] 2022. Calcium 9.0 8.5 - 10.3 mg/dL [facility] Bilirubin, total 0.4 0.1 - 1.2 mg/dL [facility] Protein, pl 6.7 6.5 - 8.5 g/dL [facility] Albumin 4.1 3.5 - 5.0 g/dL [facility] Alk phos 88 40 - 130 Units/L [facility] ALT 37 7 - 55 Units/L [facility] AST 35 10 - 50 Units/L [facility] Blood 07/14/2024 11:3 9 AM SCRAP METAL COLLECTOR 07/14/2024 11:45 AM SCRAP METAL COLLECTOR Debby Benito MD LAB BLOOD ORDERABLES F inal Result Performing Organization Address [facility]/State/ZIP Co de Phone Number [facility] One [facility] [place] [address] * Hepatitis C antibody Blood (02/11/2024 8:03 AM CDT) Hep C Ab Nonreactive Nonreactive Comment:Antibodies to HCV no t detected. Does NOT exclude the possibility of recent exposure to HCV. Current interpretive data was last revised on 22 Blood 02/11/2024 8:03 AM CDT 02/11/2024 8:22 AM CDT Debby Benito MD LAB MICROBIOLOGY - GEN ERAL ORDERABLES Final Result [facility] One [facility] [place] [address] * Colonoscopy (02/07/2022) Anatomical Region Laterality Modality Other us Historical Provider ENDOSCOPY PROCEDURES Narda l Result from Last 3 Months or Most Recently Relevant to Health Maintenance Insurance [facility] CHOICE PLUS [facility] CHO[facility] PLUS [facility] CHOICE PLUS TRANSPLANT [employer] TRANSPLANT [facility] [place] [id number] [employer] Advance Directives For more information, please contact: [phone] * Full Code (Latest Code Status on [...] 3:00 PM 03/04/2024 10:17 PM Care Teams Dental Surgery Doctor Relationship Specialty Start Date End Date Rico Pérez MD [address] [place] [address] PCP - General Family Medicine 11/07/22 [place] [address] [place] [address] Consulting Physician Endocrinology Diabetes & Metabolism 07/24/22 Ramón Watts MD [address] [place] [address] Consulting Physician General Surgery 11/25/22 Huseyin Reese MD [address] [place] [address] Medical Oncologist/Product Expert Hematology and Oncology 12/19/22 Debby Benito MD [address] [place] [address] Consulting Physician Medical Oncology 12/25/22
--- OUTSIDE RECORDS SUMMARY | 2024-10-07 12:23 | XMS_ITS | Encounter Summary ---
Author Organization [facility] Address [facility] [place] [address] Care Team Providers Care Clinical Trials Systems Administrator Name Role Phone Mitch Montes Primary Care Provider Unavailab Mitch Brandon Unavailable Unavailable Encounter Details Date Type Department Care Team (Late st Contact Info) Description 01/01/2019 Lab Requisition [facility] Care DermPath Lab [address] [facility], [place] [id number] Megan Villeda MD [address] [facility] [address] [place] [address] Social History Tobacco Use Types Packs/Day Years Used Date Smoking Tobacco: Never Assessed Sex and Gender Information Value Date Recorded Sex Assigned at Not on file 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 Gender Identity Not on file Sexual Orientation Not on file documented as of this encounter Plan of Treatment Not on file documented as of this encounter Procedures Procedure Name Priority Date/Time Associated Diagnosis Comments DERMATOPATHOLOGY Routine 12/31/2018 12:0 0 AM CDT documented in this encounter Results * DERMATOPATHOLOGY (12/31/2018 12:00 AM CDT) Case Report Dermatopathology Report Case: [id number] Authorizing Provider: Megan Villeda MD Collected: 12/31/2018 [...] CELL CARCINOMA, NODULAR TYPE (C44.519) 3:30 PM [facility] D[facility] Clinical History A-B: R/O BCC, pink papule. 3:30 PM [facility] DERMATOP[facility]OLOG[facility]OR[facility] Gross Description Specimen A: Received is one formalin filled container labeled with the patient's name and designated left scalp. The specimen consists of a shave measuring [id number]. Jar 0. Specimen B: Received is one formalin filled container labeled with the patient's name and designated left cheek. The specimen consists of a shave measuring [id number]. Jar 0. Specimen C: Received is one formalin filled container labeled with the patient's name and designated left abdomen. The specimen consists of a shave measuring [id number]. Jar 0. 3:30 PM [facility] DERMATOPATHOLOG[facility]ORATORY Microscopic Description Specimen A. SKIN, [...] cytoplasmic ratio and peripheral palisading. 3:30 PM [facility] DERMATOPATHOLOG[facility]ORATORY Disclaimer An external and internal positive and negative controls are appropriate for the histochemical, immunohistochemical and immunofluorescence stain(s) in this case (if any), except where stated explicitly. The performance characteristics of the stain(s) cited in this report were developed and its performance characteristic determined by the Dermatopathology Laboratory at [facility], directed by Dr. Karl Zhao. These tests need not be, and therefore are not, approved by the [place] Food and Drug Administration. The tests are used for clinical purposes. Billing Codes Specimen Charges Stain Charges 07336 [id number] 1 1 1 9 3:30 PM CDT [...] PATHOLOGY/CYTOLOGY ORD ERABLES Final Result DERMATOPATHOLOGY LABORATORY [facility] - Department of Dermatology [address] [place] [address], 5th Floor Lab [address] [phone] documented in this encounter Visit Diagnoses Not on filedocumented in this encounter Care Teams Clinical Trials Systems Administrator Relationship Specialty Start Date End Date Mitch Montes Update Information PCP - General 12/31/18 Mitch Montes Update Information 12/31/18 documented as of this encounter
--- OUTSIDE RECORDS SUMMARY | 2024-10-07 12:23 | XMS_ITS | Encounter Summary ---
Author Organization [facility] Healthcare Address [address] [place] [address] Care Team Providers Care Welder And Fitter Name Role Phone Delon Jain MD Unavailable Rico Pérez MD Primary Care Provider [phone] Ramón Watts MD Unavailable [phone] Huseyin Reese MD Unavailable [phone] Debby Greene MD Unavailable [phone] Encounter Details Date Type Department Care Team (Latest Contact Info) Description 10/06/2024 9:45 AM CDT Clinical Support [facility] [place] - Lab Collection [address] [facility] Floor [address] [place] [address] 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 No 07/15/2023 Housing Stability Vital Sign Answer Eladio e Recorded In the last 12 months, was t here a time when you were not able to pay the mortgage or rent on time? No 09/23/2024 In the past 12 months, how m any times have you moved where you were living? 0 09/23/2024 At any time in the past 12 m [facility] [place], were you homeless or living in a custodial (including now)? No 09/23/2024 Personal Safety Answer Date Recorded Have you ever been in or are you currently in a harmful physical or emotional relationship or is someone making you feel afraid or unsafe? 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 Gender Identity Not on file Sexual Orientation [...] MD LAB BLOOD ORDERABLES F inal Result [facility] One [facility] Department [place] [address] * (ABNORMAL) Manual Differential (10/06/2024 10:01 AM CDT) Cells Counted 200 Comment:Testing performed by : [facility], [address] [place] [address] Neutrophil abs 0.51(L) 1.50 - 6.50 K/cumm [facility] Comment:Testing performed by : [facility], [address] [place], [place] [id number] Lymphocyte abs 0.49(L) 0.80 - 3.30 K/cumm [facility] Comment:Testing performed by : [facility], [address] [place] [address] Monocyte abs 0.05(L) 0.20 - 0.80 K/cumm [facility] Comment:Testing performed by : [facility], [address] [place], [place] [id number] Eosinophil abs 0.09 0.00 - 0.50 K/cumm [facility] Comment:Testing performed by : [facility], [address] [place], [place] [id number] Basophil abs 0.01 0.00 - 0.10 K/cumm [facility] Comment:Testing performed by : [facility], [address] [place] [address] Neutrophil pct 44.0 % [facility] Comment: Interpretive Data Percent cell count reference ranges are not reported, since discordance with absolute values may lead to misinterpretation of CBC data. Current Interpretive Data was last revised on 2017. Testing performed by: [facility], [address] [place], [place] [id number] Lymphocyte pct 42.0 % [facility] Comment: Interpretive Data Percent cell count reference ranges are not reported, since discordance with absolute values may lead to misinterpretation of CBC data. Current Interpretive Data was last revised on 2017. Testing performed by: [facility], [address] [place] [phone] Monocyte pct 4.0 % [facility] Comment: Interpretive Data Percent cell count reference ranges are not reported, since discordance with absolute values may lead to misinterpretation of CBC data. Current Interpretive Data was last revised on 2017. Testing performed by: [facility], [address] [place] [address] Eosinophil pct 8.0 % [facility] Comment: Interpretive Data Percent cell count reference ranges are not reported, since discordance with absolute values may lead to misinterpretation of CBC data. Current Interpretive Data was last revised on 2017. Testing performed by: [facility], [address] [place], [place] [id number] Basophil pct 1.0 % [facility] Comment: Interpretive Data Percent cell count reference ranges are not reported, since discordance with absolute values may lead to misinterpretation of CBC data. Current Interpretive Data was last revised on 2017. Testing performed by: [facility], [address] [place], [place] [id number] Blast pct 1.0(H) 0.0 - 0.0 % [facility] Comment: Called to Sarah Simon NP 10/06/24 11:31 by fp. Testing performed by: [facility], [address] [place], [place] [id number] Variant lymph pct 2.0(H) 0.0 - 0.0 % [facility] Comment:Testing performed by : [facility], [address] [place] [phone] RBC morphology NRBCs present(A ) [facility] Comment:Testing performed by : [facility], [address] [place], [place] [id number] Polychromasia 1+(A) [facility] Comment:Testing performed by : [facility], [address] [place] [phone] Schistocytes 1+(A) [facility] Comment:Testing performed by : [facility], [address] [place] [address] Target cells 1+(A) LD [facility] Comment:Testing performed by : [facility], [address] [place] [address] Platelet estimate Decreased (A) [facility] Comment:Testing performed by : [facility], [address] [place] [address] Blood 10/06/2024 10:0 1 AM CDT 10/06/2024 10:18 AM CDT us Debby Greene MD LAB BLOOD ORDERABLES F inal Result [facility] One [facility] Department [place] [address] * (ABNORMAL) CBC with auto differential (10/06/2024 10:01 AM CDT) WBC 1.08(L) 3.80 - 9.90 K/cumm Comment:Testing performed by : [facility], [address] [place] [address] Hgb 12.3(L) 13.0 - 17.5 g/dL [facility] Comment:Testing performed by : [facility], [address] [place] [address] Hct 36.4(L) 38.9 - 50.3 % [facility] Comment:Testing performed by : [facility], [address] [place] [address] Plt 64(L) 150 - 400 K/cumm [facility] Comment:Testing performed by : [facility], [address] [place] [address] MPV 9.3 6.8 - 10.4 fL [facility] Comment:Testing performed by : [facility], [address] [place] [address] RBC 3.75(L) 4.30 - 5.80 M/cumm [facility] Comment:Testing performed by : [facility], [address] [place], [place] [id number] MCV 97.1(H) 81.3 - 96.4 fL [facility] Comment:Testing performed by : [facility], [address] [place], [place] [id number] MCH 32.8 27.1 - 33.3 pg [facility] Comment:Testing performed by : [facility], [address] [place], [place] [id number] MCHC 33.8 32.3 - 35.7 g/dL [facility] Comment:Testing performed by : [facility], [address] [place], [place] [id number] RDW CV 15.0(H) 11.1 - 14.9 % LD [facility] Comment:Testing performed by : [facility], [address] [place], [place] [id number] NRBC abs N/A 0.00 - 0.01 K/cumm [facility] Comment:Testing performed by : [facility], [address] [place], [place] [id number] Blood 10/06/2024 10:0 1 AM CDT 10/06/2024 10:08 AM CDT us Debby Greene MD LAB BLOOD ORDERABLES F inal Result [facility] Department [place] [address] * Comprehensive metabolic panel (10/06/2024 10:01 AM CDT) Sodium 136 135 - 145 mmol/L Potassium, pl 4.0 3.3 - 4.9 mmol/L [facility] Chloride 97 97 - 110 mmol/L [facility] CO2 25 22 - 32 mmol/L [facility] Anion gap 14 2 - 15 mmol/L [facility] BUN 13 6 - 25 mg/dL [facility] Creatinine 0.94 0.80 - 1.30 mg/dL [facility] Glucose 97 70 - 199 mg/dL [facility] Comment: Interpretive Data Fasting glucose [...] 2022. Calcium 9.9 8.5 - 10.3 mg/dL [facility] Bilirubin, total 0.5 0.1 - 1.2 mg/dL [facility] Protein, pl 7.4 6.5 - 8.5 g/dL [facility] Albumin 4.1 3.5 - 5.0 g/dL [facility] Alk phos 128 40 - 130 Units/L [facility] ALT 24 7 - 55 Units/L [facility] AST 31 10 - 50 Units/L [facility] Blood 10/06/2024 10:0 1 AM CDT 10/06/2024 10:17 AM CDT Debby Greene MD LAB BLOOD ORDERABLES F inal Result [facility] Department [place] [address] * (ABNORMAL) Hemoglobin A1c (10/06/2024 10:01 AM CDT) Hgb A1C 5.7(H) 4.0 - 5.6 % Estimated Average Glucose 117 mg/dL [facility] Comment: The ADA recommends reporting [...] ORDERABLES F inal Result Performing Organization Address [facility] de Phone Number LD [facility] [place] [address] * (ABNORMAL) HSV 1 IgG Antibody Blood [...] ERAL ORDERABLES Final Result Performing Organization Address [facility] de Phone Number [facility] [place] [address] * (ABNORMAL) HSV 2 IgG Antibody Blood [...] ERAL ORDERABLES Final Result [facility] Department [place] [address] * (ABNORMAL) Lipid panel (10/06/2024 10:01 AM [...] on 2018. Triglycerides 186(H) <=149 mg/dL LD [facility] Comment: Interpretive Data Ages < or = [...] on 2018. HDL 25(L) >=40 mg/dL LD [facility] Comment: Interpretive Data Ages < or = [...] on 2018. LDL, calculated 137(H) <=129 mg/dL [facility] Comment: Interpretive Data Ages < or = [...] revised on 2024. Non-HDL Cholesterol 171 mg/dL [facility] Comment: Interpretive Data Ages < [...] last revised on 2018. Chol/HDL ratio 8 [facility] Blood 10/06/2024 10:0 1 AM CDT 10/06/2024 10:17 AM CDT us Debby Greene MD LAB BLOOD ORDERABLES F inal Result [facility] Department [place] [address] * Type and screen (10/06/2024 10:01 AM CDT) ABO Rh A Positive Jacob, indirect Negative [facility] Blood 10/06/2024 10:0 1 AM CDT 10/06/2024 10:19 AM CDT Narrative LD [facility] - 10/06/2024 11:34 AM CDT Has the patient had Daratumumab or Isatuximab in the past 6 months?->Unknown Debby Greene MD LAB BLOOD BANK TEST OR DERABLES Final Result [facility] Department [place] [employer] [place] [address] * Lactate dehydrogenase (LD) (10/06/2024 10:01 AM CDT) Lactate dehydrogenase (LDH) 211 100 - 250 Units/L Blood 10/06/2024 10:0 1 AM CDT 10/06/2024 10:17 AM CDT Narrative [facility] - 10/06/2024 10:40 AM CDT To be drawn prior to patient taking venetoclax. Sarah Simon NP LAB BLOOD ORDERABLES Final Res ult Performing Organization Address City/[facility]/ZIP Co de Phone Number [facility] Department [place] [address] documented in this encounter Visit Diagnoses Diagnosis Mantle cell lymphoma of lymph nodes of multiple regions (HCC) documented in this encounter Care Teams Welder And Fitter Relationship Specialty Start Date End Date Rico Pérez MD [address] [place] [address] PCP - General Family Medicine 11/07/22 [place] [address] [place] [address] Consulting Physician Endocrinology Diabetes & Metabolism 07/24/22 Ramón Watts MD [address] [place] [address] Consulting Physician General Surgery 11/25/22 Huseyin Reese MD [address] [place] [address] Medical Oncologist/Motor Route Carrier Hematology and Oncology 12/19/22 Debby Greene MD [address] [place] [address] Consulting Physician Medical Oncology 12/25/22 documented as of this encounter
--- OUTSIDE RECORDS SUMMARY | 2024-10-07 12:23 | XMS_ITS ---
Literature References: 1. Expert Panel on Integrated Guidelines for Cardiovascular Health and Risk Reduction in Children and Adolescents. Pediatrics 2011;128:S213 2. NCEP Expert Panel. Circulation 2004;110:227 Current Interpretive Data was last revised on 2018. Chol/HDL ratio 7 [facility] Blood 09/23/2024 1:16 PM CDT 09/23/2024 1:29 PM CDT Debby Benito MD LAB BLOOD ORDERABLES F inal Result [facility] [place] [address] * Comprehensive metabolic panel (09/23/2024 1:16 PM CDT) Sodium 138 135 - 145 mmol/L Potassium, pl 3.9 3.3 - 4.9 mmol/L [facility] Chloride 102 97 - 110 mmol/L [facility] CO2 25 22 - 32 mmol/L [facility] Anion gap 11 2 - 15 mmol/L [facility] BUN 17 6 - 25 mg/dL [facility] Creatinine 0.98 0.80 - 1.30 mg/dL [facility] Glucose 169 70 - 199 mg/dL [facility] Comment: Interpretive Data Fasting glucose >/= 126 [...] 2022. Calcium 9.4 8.5 - 10.3 mg/dL [facility] Bilirubin, total 0.5 0.1 - 1.2 mg/dL [facility] Protein, pl 7.2 6.5 - 8.5 g/dL [facility] Albumin 4.0 3.5 - 5.0 g/dL [facility] Alk phos 101 40 - 130 Units/L [facility] ALT 19 7 - 55 Units/L [facility] AST 27 10 - 50 Units/L [facility] Blood 09/23/2024 1:16 PM CDT 09/23/2024 1:29 PM CDT Debby Benito MD LAB BLOOD ORDERABLES F inal Result Performing Organization Address City/[facility]/ZIP Co de Phone Number [facility] [place] [address] * ECG 12 lead (09/23/2024 11:31 AM CDT) Pathologist [facility] Ventricular Rate EKG/Min 86 BPM [facility] Atrial Rate 86 BPM [facility] SD-Interval (MSEC) 166 ms [facility] QRS-Interval (MSEC) 84 ms [facility] QT-Interval (MSEC) 374 ms [facility] QTc 447 ms [facility] P Boring 27 degrees [facility] R Boring 47 degrees [facility] T Boring 11 degrees [facility] Diagnosis Normal sinus rhythm Possible Inferior infarct , age undetermined Cannot rule out Anterior infarct (cited on or before 23-SEP-2024) Abnormal ECG When compared with ECG of 02-MAR-2024 15:04, Nonspecific T wave abnormality no longer evident in Anterior leads Confirmed by LEA NICKERSON M.D ([id number]) on 09/24/2024 1:54:23 PM [facility] 09/23/2024 11:3 1 AM CDT 09/24/2024 1:54 PM CDT us Debby Benito MD ECG ORDERABLES Final Result Performing Organization Address [facility]/ZIP Co de Phone Number [facility] * XR Chest Pa Lateral [...] 10:28 AM CDT) FVC PRE 3.10 L [facility] FVC %PRE PRED 58 % [facility] FVC POST 3.37 L [facility] FVC %POST PRED 63 % [facility] FEV1 PRE 2.68 L [facility] FEV1 %PRE PRED 64 % [facility] FEV1 POST 2.61 L [facility] FEV1 %POST PRED 62 % [facility] FEV1/FVC PRE 86.3 % [facility] FEV1/FVC POST 77.3 % [facility] FRC PL PRE 2.61 L [facility] FRC PL %PRE PRED 66 % [facility] RV PRE 1.40 L [facility] RV %PRE PRED 64 % [facility] TLC PRE 4.85 L [facility] TLC %PRE PRED 64 % [facility] DLCO PRE 19.2 ml/min/mmH g [facility] DLCO %PRE PRED 59 % [facility] Anatomical Region Laterality Modality PFT 09/23/2024 10:0 [...] Narrative 09/24/2024 8:41 AM CDT PFT performed at:->[facility] Adult PFT Lab- CAM-8D Procedure:->Spirometry with Bronchodilator [...] FDG-PET/CT IMAGING DATE OF STUDY: 09/15/2024 SCANNER: [facility] [employer] (SQ1). This is a high-resolution scanner, which [...] obtained. The study was interpreted on the BitX workstation. The mean liver SUV (reported for lead quality technician purposes) is 3.4. The total scanned area [...] FDG-PET/CT IMAGING DATE OF STUDY: 09/15/2024 SCANNER: [facility] [employer] (SQ1). This is a high-resolution scanner, which [...] obtained. The study was interpreted on the [employer] workstation. The mean liver SUV (reported for lead quality technician purposes) is 3.4. The total scanned area [...] signed by: Ramandeep Whaley M.D. Sarah Simon RELIGIOUS LEADER IMG PET PROCEDURES Final Resul t * [...] CDT 09/15/2024 10:45 AM CDT us Sarah Edwardsr RELIGIOUS LEADER LAB BLOOD ORDERABLES Final Res ult [facility] [place] [address] * (ABNORMAL) CBC with auto differential (09/15/2024 10:28 AM CDT) WBC 8.68 3.80 - 9.90 K/cumm Comment:Testing performed by : [facility], [address] [place] [address] Hgb 13.6 13.0 - 17.5 g/dL LD SWEET Comment:Testing performed by : [facility], [address] [place] [address] Hct 40.3 38.9 - 50.3 % LD SWEET Comment:Testing performed by : [facility], [address] [place] [address] Plt 262 150 - 400 K/cumm LD SWEET Comment:Testing performed by : [facility], [address] [place] [address] MPV 8.7 6.8 - 10.4 fL LD BJ Comment:Testing performed by : [facility], [address] [place] [address] RBC 4.11(L) 4.30 - 5.80 M/cumm LD BJ Comment:Testing performed by : [facility], [address] [place] [address] MCV 98.1(H) 81.3 - 96.4 fL LD SWEET Comment:Testing performed by : [facility], [address] [place] [address] MCH 33.1 27.1 - 33.3 pg LD SWEET Comment:Testing performed by : [facility], [address] [place] [address] MCHC 33.7 32.3 - 35.7 g/dL LD SWEET Comment:Testing performed by : [facility], [address] [place] [address] RDW CV 15.0(H) 11.1 - 14.9 % LD SWEET Comment:Testing performed by : [facility], [address] [place] [address] NRBC abs 0.00 0.00 - 0.01 K/cumm LD SWEET Comment:Testing performed by : [facility], [address] [place] [address] Blood 09/15/2024 10:2 8 AM CDT 09/15/2024 10:37 AM CDT Sarah Simon RELIGIOUS LEADER LAB BLOOD ORDERABLES Edited Re sult - Final LD [facility] [place] [address] * (ABNORMAL) Manual Differential (09/15/2024 10:28 AM CDT) Cells Counted 198 Comment:Testing performed by : [facility], [address] [place] [address] Neutrophil abs 5.38 1.50 - 6.50 K/cumm LD SWEET Comment:Testing performed by : [facility], [address] [place] [address] Lymphocyte abs 2.00 0.80 - 3.30 K/cumm LD SWEET Comment:Testing performed by : [facility], [address] [place] [address] Monocyte abs 0.52 0.20 - 0.80 K/cumm LD SWEET Comment:Testing performed by : [facility], [address] [place] [address] Eosinophil abs 0.26 0.00 - 0.50 K/cumm LD SWEET Comment:Testing performed by : [facility], [address] [place] [phone] Basophil abs 0.09 0.00 - 0.10 K/cumm C[facility]ER [facility] Comment:Testing performed by : [facility], [address] [place] [phone] Neutrophil pct 62.0 % CERNER BJ Comment: Interpretive Data Percent cell count reference ranges are not reported, since discordance with absolute values may lead to misinterpretation of CBC data. Current Interpretive Data was last revised on 2017. Testing performed by: [facility], [address] [place] [phone] Lymphocyte pct 23.0 % CERNER [facility] Comment: Interpretive Data Percent cell count reference ranges are not reported, since discordance with absolute values may lead to misinterpretation of CBC data. Current Interpretive Data was last revised on 2017. Testing performed by: [facility], [address] [place] [phone] Monocyte pct 6.0 % CERNER [facility] Comment: Interpretive Data Percent cell count reference ranges are not reported, since discordance with absolute values may lead to misinterpretation of CBC data. Current Interpretive Data was last revised on 2017. Testing performed by: [facility], [address] [place] [phone] Eosinophil pct 3.0 % CERNER [facility] Comment: Interpretive Data Percent cell count reference ranges are not reported, since discordance with absolute values may lead to misinterpretation of CBC data. Current Interpretive Data was last revised on 2017. Testing performed by: [facility], [address] [place] [phone] Basophil pct 1.0 % CERNER [facility] Comment: Interpretive Data Percent cell count reference ranges are not reported, since discordance with absolute values may lead to misinterpretation of CBC data. Current Interpretive Data was last revised on 2017. Testing performed by: [facility], [address] [place] [phone] Myelocyte pct 2.0(H) 0.0 - 0.0 % [facility] Comment:Testing performed by : [facility], [address] [place], [place] [id number] Promyelocyte pct 1.0(H) 0.0 - 0.0 % LD SWEET Comment:Testing performed by : [facility], [address] [place] [phone] Variant lymph pct 3.0(H) 0.0 - 0.0 % LD SWEET Comment:Testing performed by : [facility], [address] [place], [place] [id number] Anisocytosis 1+(A) LD SWEET Comment:Testing performed by : [facility], [address] [place], [place] [phone] Poikilocytosis 1+(A) LD SWEET Comment:Testing performed by : [facility], [address] [place], [place] [phone] Macrocytes 1+(A) LD SWEET Comment:Testing performed by : [facility], [address] [place], [place] [id number] Elliptocytes 1+(A) LD [facility] Comment:Testing performed by : [facility], [address] [place], [place] [phone] Target cells 1+(A) LD [facility] Comment:Testing performed by : [facility], [address] [place], [place] [id number] Echinocytes 1+(A) LD [facility] Comment:Testing performed by : [facility], [address] [place], [place] [phone] Platelet estimate Adequate LD [facility] Comment:Testing performed by : [facility], [address] [place], [place] [id number] Blood 09/15/2024 10:2 8 AM CDT 09/15/2024 10:37 AM CDT us Sarah Velarde [place] RELIGIOUS LEADER LAB BLOOD ORDERABLES Final Res ult LD SWEET [facility] [place] [address] * Lactate dehydrogenase (LD) (09/15/2024 10:28 AM CDT) Pathologist [facility] Lactate dehydrogenase (LDH) 194 100 - 250 Units/L Blood 09/15/2024 10:2 8 AM CDT 09/15/2024 10:45 AM CDT Sarah Simon RELIGIOUS LEADER LAB BLOOD ORDERABLES Final Res ult [facility] [place] [address] * IgG (09/15/2024 10:28 AM CDT) [facility] Immunoglobulin G 804 700 - 1,600 mg/dL Blood 09/15/2024 10:2 8 AM CDT 09/15/2024 1:02 PM CDT Debby Benito MD LAB BLOOD ORDERABLES F inal Result Performing Organization Address City/[facility]/[place] [address] * Comprehensive metabolic panel (09/15/2024 10:28 AM CDT) [facility] Sodium 143 135 - 145 mmol/L Potassium, pl 4.3 3.3 - 4.9 mmol/L [facility] Chloride 106 97 - 110 mmol/L [facility] CO2 27 22 - 32 mmol/L [facility] Anion gap 10 2 - 15 mmol/L [facility] BUN 17 6 - 25 mg/dL [facility] Creatinine 1.02 0.80 - 1.30 mg/dL [facility] Glucose 80 70 - 199 mg/dL [facility] Comment: Interpretive Data Fasting glucose >/= 126 [...] 2022. Calcium 9.4 8.5 - 10.3 mg/dL CERNER [facility] Bilirubin, total 0.6 0.1 - 1.2 mg/dL [facility] Protein, pl 7.0 6.5 - 8.5 g/dL [facility] Albumin 4.1 3.5 - 5.0 g/dL C[facility] Alk phos 102 40 - 130 Units/L [facility] ALT 25 7 - 55 Units/L [facility] AST 27 10 - 50 Units/L CERNER [facility] Blood 09/15/2024 10:2 8 AM CDT 09/15/2024 10:45 AM CDT Sarah Simon RELIGIOUS LEADER LAB BLOOD ORDERABLES Final Res ult [facility] [place] [address] * eGFR (08/18/2024 8:12 AM CDT) eGFR [...] 08/18/2024 8:21 AM CDT us Sarah SNatacha [place] RELIGIOUS LEADER LAB BLOOD ORDERABLES Final Res ult [facility] Department [place] [address] * Differential, auto (08/18/2024 8:12 AM CDT) Neutrophil abs 2.6 1.5 - 6.5 K/cumm Comment:Testing performed by : [facility], [address] [place] [phone] Lymphocyte abs 1.7 0.8 - 3.3 K/cumm CERNER [facility] Comment:Testing performed by : [facility], [address] [place] [phone] Monocyte abs 0.4 0.2 - 0.8 K/cumm CERNER [facility]J Comment:Testing performed by : [facility], [address] [place] [phone] Eosinophil abs 0.5 0.0 - 0.5 K/cumm CERNER [facility]J Comment:Testing performed by : [facility], [address] [place] [phone] Basophil abs 0.1 0.0 - 0.1 K/cumm CERNER BJ Comment:Testing performed by : [facility], [address] [place] [phone] Neutrophil pct 48.8 % CERNER [facility] Comment: Interpretive Data Percent cell count reference ranges are not reported, since discordance with absolute values may lead to misinterpretation of CBC data. Current Interpretive Data was last revised on 2017. Testing performed by: [facility], [address] [place] [phone] Lymphocyte pct 32.7 % CERNER [facility] Comment: Interpretive Data Percent cell count reference ranges are not reported, since discordance with absolute values may lead to misinterpretation of CBC data. Current Interpretive Data was last revised on 2017. Testing performed by: [facility], [address] [place] [phone] Monocyte pct 8.1 % LD SWEET Comment: Interpretive Data Percent cell count reference ranges are not reported, since discordance with absolute values may lead to misinterpretation of CBC data. Current Interpretive Data was last revised on 2017. Testing performed by: [facility], [address] [place] [phone] Eosinophil pct 8.7 % LD SWEET Comment: Interpretive Data Percent cell count reference ranges are not reported, since discordance with absolute values may lead to misinterpretation of CBC data. Current Interpretive Data was last revised on 2017. Testing performed by: [facility], [address] [place] [phone] Basophil pct 1.7 % LD SWEET Comment: Interpretive Data Percent cell count reference ranges are not reported, since discordance with absolute values may lead to misinterpretation of CBC data. Current Interpretive Data was last revised on 2017. Testing performed by: [facility], [address] [place] [phone] Blood 08/18/2024 8:12 AM CDT 08/18/2024 8:21 AM CDT us Sarah Velarde [place] RELIGIOUS LEADER LAB BLOOD ORDERABLES Final Res ult [facility] [place] [address] * (ABNORMAL) CBC with auto differential (08/18/2024 8:12 AM CDT) WBC 5.2 3.8 - 9.9 K/cumm Comment:Testing performed by : [facility], [address] [place] [phone] Hgb 13.5 13.0 - 17.5 g/dL C[facility]ER [facility] Comment:Testing performed by : [facility], [address] [place] [address] Hct 39.8 38.9 - 50.3 % CERNER [facility] Comment:Testing performed by : [facility], [address] [place] [address] Plt 314 150 - 400 K/cumm CERNER [facility]J Comment:Testing performed by : [facility], [address] [place] [address] MPV 8.6 6.8 - 10.4 fL CERNER [facility] Comment:Testing performed by : [facility], [address] [place] [address] RBC 4.07(L) 4.30 - 5.80 M/cumm CERNER [facility]J Comment:Testing performed by : [facility], [address] [place] [address] MCV 97.9(H) 81.3 - 96.4 fL CERNER [facility] Comment:Testing performed by : [facility], [address] [place] [address] MCH 33.3 27.1 - 33.3 pg CERNER BJ Comment:Testing performed by : [facility], [address] [place] [address] MCHC 34.0 32.3 - 35.7 g/dL C[facility]ER [facility] Comment:Testing performed by : [facility], [address] [place] [address] RDW CV 14.8 11.1 - 14.9 % CERNER [facility] Comment:Testing performed by : [facility], [address] [place] [address] NRBC abs 0.00 0.00 - 0.01 K/cumm CERNER [facility]J Comment:Testing performed by : [facility], [address] [place] [address] Blood 08/18/2024 8:12 AM CDT 08/18/2024 8:21 AM CDT us Sarah Velarde [place] RELIGIOUS LEADER LAB BLOOD ORDERABLES Final Res ult Performing Organization Address [facility] Co de Phone Number [facility] [place] [address] * Lactate dehydrogenase (LD) (08/18/2024 8:12 AM CDT) Pathologist [facility] Lactate dehydrogenase (LDH) 177 100 - 250 Units/L Blood 08/18/2024 8:12 AM CDT 08/18/2024 8:21 AM CDT Sarah Velarde [place] RELIGIOUS LEADER LAB BLOOD ORDERABLES Final Res ult Performing Organization Address [facility] Co de Phone Number [facility] [place] [address] * IgG (08/18/2024 8:12 AM CDT) Pathologist [facility] Immunoglobulin G 819 700 - 1,600 mg/dL Blood 08/18/2024 8:12 AM CDT 08/18/2024 8:43 AM CDT Sarah Simon RELIGIOUS LEADER LAB BLOOD ORDERABLES Final Res ult Performing Organization Address [facility] [place] [address] * Comprehensive metabolic panel (08/18/2024 8:12 AM CDT) Pathologist [facility] Sodium 143 135 - 145 mmol/L Potassium, pl 4.1 3.3 - 4.9 mmol/L [facility] Chloride 109 97 - 110 mmol/L [facility] CO2 26 22 - 32 mmol/L [facility] Anion gap 8 2 - 15 mmol/L [facility] BUN 16 6 - 25 mg/dL [facility] Creatinine 1.00 0.80 - 1.30 mg/dL [facility] Glucose 86 70 - 199 mg/dL [facility] Comment: Interpretive Data Fasting glucose >/= 126 [...] 2022. Calcium 9.1 8.5 - 10.3 mg/dL [facility] Bilirubin, total 0.3 0.1 - 1.2 mg/dL [facility] Protein, pl 6.8 6.5 - 8.5 g/dL [facility] Albumin 4.1 3.5 - 5.0 g/dL [facility] Alk phos 92 40 - 130 Units/L [facility] ALT 27 7 - 55 Units/L [facility] AST 28 10 - 50 Units/L [facility] Blood 08/18/2024 8:12 AM CDT 08/18/2024 8:21 AM CDT Sarah Velarde [place] RELIGIOUS LEADER LAB BLOOD ORDERABLES Final Res ult [facility] [place] [address] * Blood culture Blood Peripheral (08/16/2024 11:43 AM CDT) Report Final Report: No growth Blood (Peripheral) 08/16/2024 11:43 AM CDT 08/16/2024 12:18 PM CDT Narrative [facility] - 08/20/2024 4:00 PM CDT 1. Blood [...] characteristics have been verified by the [facility] Microbiology Laboratory. For questions about this culture, contact the Microbiology Laboratory at [phone]. Interpretive data was last revised on 24. Kelly Mauricio NP LAB MICROBIOLOGY - GENERA L ORDERABLES Final Result LD SWEET [facility] [place] [address] * Blood culture Blood Peripheral (08/16/2024 11:35 AM CDT) Report Final Report: No growth Blood (Peripheral) 08/16/2024 11:35 AM CDT 08/16/2024 12:18 PM CDT [facility] LD [facility] 08/20/2024 4:00 PM CDT 1. Blood cultures [...] characteristics have been verified by the [facility] Microbiology Laboratory. For questions about this culture, contact the Microbiology Laboratory at [phone]. Interpretive data was last revised on 24. Kelly Mauricio NP LAB MICROBIOLOGY - GENERA L ORDERABLES Final Result [facility] [place] [address] * (ABNORMAL) Urinalysis reflex to microscopic and culture Urine, clean voided (08/16/2024 11:22 AM CDT) Color, ur Yellow Yellow Clarity, ur Clear Clear [facility] Specific gravity, ur 1.031(H) 1.003 - 1.030 [facility] pH, urine 5.5 [facility] Comment: Interpretive Data U rine pH is affected by diet, medications, systemic acid-base disturbances, and renal tubular function. pH may affect urinary stone formation. For example, urine pH below 6.0 may help reduce the tendency for calcium phosphate stones and pH greater than 6.0 may reduce the tendency for uric acid stone formation. Source: [facility] Current Interpretive Data was last revised on 2017 Protein, ur ql 1+(A) Negative [facility] Glucose, ur ql Negative Negative [facility] Ketones, ur Negative Negative [facility] Bilirubin, ur Negative Negative [facility] Blood, ur Negative Negative [facility] [facility] Urobilinogen, ur <2.0 <2.0 mg/dL [facility] Nitrite, ur Negative Negative [facility] Leukocyte esterase, ur Negative Negative [facility] UA reflex comment Reflex to microscopic UA will be performed. [facility] Urine, clean voided 08/16/2024 11:22 AM CDT 08/16/2024 11:58 AM CDT us Kelly Mauricio NP LAB MICROBIOLOGY - GENERA L ORDERABLES Final Result Performing Organization Address [facility] Co de Phone Number [facility] [place] [address] * (ABNORMAL) Urinalysis, microscopic only (08/16/2024 11:22 AM CDT) WBC, ur 0-5 0 - 5 /HPF RBC, ur 0-2 0 - 2 /HPF [facility] Epithelial cells, renal, ur 1-5(A) 0 - 0 /HPF [facility] Epithelial cells, transitional, ur 1-5 0 - 0 /HPF [facility] Mucous, ur Present(A) [facility] Hyaline casts, ur 6-10 0 - 10 /LPF [facility] Culture Reflex Comment Reflex conditions for urine culture (WBC >10) not met. [facility] Urine, clean voided 08/16/2024 11:22 AM CDT 08/16/2024 11:58 AM CDT Kelly Mauricio NP LAB URINE ORDERABLES Narda l Result Performing Organization Address [facility] Co de Phone Number [facility] [place] [address] * XR Chest Pa Lateral 2 Views [...] by: Elly Newton M.D. us Kelly Mauricio NP IMG XR PROCEDURES Final R esult * POC Blood Gas and Chemistries, Arterial - (08/16/2024 10:51 AM CDT) Lactate, POC 1.2 0.7 - 2.0 mmol/L Blood 08/16/2024 10:5 1 AM CDT 08/16/2024 10:51 AM CDT us Rico Pérez MD LAB POCT ORDERABLES - DEVIC E Final Result [facility] [place] [address] * eGFR (08/16/2024 10:46 AM CDT) eGFR >90 >=60 mL/min/1. 73 [...] Kelly Mauricio NP LAB BLOOD ORDERABLES Narda kristy Result [facility] [place] [address] * Differential, auto (08/16/2024 10:46 AM CDT) Neutrophil abs 5.2 1.5 - 6.5 K/cumm Imm gran abs 0.1 0.0 - 0.1 K/cumm [facility] Lymphocyte abs 1.6 0.8 - 3.3 K/cumm [facility] Monocyte abs 0.8 0.2 - 0.8 K/cumm [facility] Eosinophil abs 0.4 0.0 - 0.5 K/cumm [facility] Basophil abs 0.1 0.0 - 0.1 K/cumm [facility] Neutrophil pct 63.7 % [facility] Comment: Interpretive Data Percent cell count reference ranges are not reported, since discordance with absolute values may lead to misinterpretation of CBC data. Current Interpretive Data was last revised on 2017. Imm gran pct 1.2 % [facility] Comment: Interpretive Data Percent cell count reference ranges are not reported, since discordance with absolute values may lead to misinterpretation of CBC data. Current Interpretive Data was last revised on 2017. Lymphocyte pct 19.4 % [facility] Comment: Interpretive Data Percent cell count reference ranges are not reported, since discordance with absolute values may lead to misinterpretation of CBC data. Current Interpretive Data was last revised on 2017. Monocyte pct 9.5 % [facility] Comment: Interpretive Data Percent cell count reference ranges are not reported, since discordance with absolute values may lead to misinterpretation of CBC data. Current Interpretive Data was last revised on 2017. Eosinophil pct 5.0 % [facility] Comment: Interpretive Data Percent cell count reference ranges are not reported, since discordance with absolute values may lead to misinterpretation of CBC data. Current Interpretive Data was last revised on 2017. Basophil pct 1.2 % [facility] Comment: Interpretive Data Percent cell count reference ranges are not reported, since discordance with absolute values may lead to misinterpretation of CBC data. Current Interpretive Data was last revised on 2017. Blood 08/16/2024 10:4 6 AM CDT 08/16/2024 11:05 AM CDT Kelly Mauricio NP LAB BLOOD ORDERABLES Narda wagner Result [facility] [place] [address] * Respiratory pathogen panel Nasopharyngeal (08/16/2024 10:46 AM CDT) Pathologist [facility] Influenza A RNA Not Detected Not Detected Influenza B RNA Not Detected Not Detected [facility] RSV RNA Not Detected Not Detected [facility] COVID-19 RNA Not Detected Not Detected [facility] Coronavirus 229E RNA Not Detected Not Detected [facility] Coronavirus HKU1 RNA Not Detected Not Detected [facility] Coronavirus NL63 RNA Not Detected Not Detected [facility] Coronavirus OC43 RNA Not Detected Not Detected [facility] Adenovirus DNA Not Detected Not Detected [facility] Metapneumovirus RNA Not Detected Not Detected [facility] Rhinovirus/Enterov irus RNA Not Detected Not Detected [facility] Parainfluenza 1 RNA Not Detected Not Detected [facility] Parainfluenza 2 RNA Not Detected Not Detected [facility] Parainfluenza 3 RNA Not Detected Not Detected [facility] Parainfluenza 4 RNA Not Detected Not Detected [facility] B. pertussis DNA Not Detected Not Detected [facility] B. parapertussis DNA Not Detected Not Detected [facility] C. pneumoniae DNA Not Detected Not Detected [facility] M. pneumoniae DNA Not Detected Not Detected [facility] Nasopharyngeal 08/16/2024 10 :46 AM CDT 08/16/2024 10:58 AM CDT Narrative [facility] - 08/16/2024 12:02 PM CDT Is the Patient experiencing symptoms consistent with COVID?->Yes Surveillance testing for transplant patient?->No Interpretive Data The [employer] FilmArray Respiratory Panel (RP2.1) assay is a [...] assay has FDA clearance for testing of RELIGIOUS LEADER swabs. The performance of additional specimen types has been assessed by the performing laboratory. The performance characteristics of this assay have been determined by [facility] Molecular Infectious Disease Laboratory. Current interpretive data was last revised on 22. Kelly Mauricio RELIGIOUS LEADER LAB MICROBIOLOGY - GENERA L ORDERABLES Final Result Performing Organization Address City/[facility]/ZIP Co de Phone Number [facility] [place] [address] * (ABNORMAL) CBC with auto differential (08/16/2024 10:46 AM CDT) Pathologist [facility] WBC 8.1 3.8 - 9.9 K/cumm Hgb 14.4 13.0 - 17.5 g/dL [facility] Hct 41.6 38.9 - 50.3 % [facility] Plt 309 150 - 400 K/cumm [facility] MPV 10.2 9.1 - 12.3 fL [facility] RBC 4.29(L) 4.30 - 5.80 M/cumm [facility] MCV 97.0(H) 81.3 - 96.4 fL [facility] MCH 33.6(H) 27.1 - 33.3 pg [facility] MCHC 34.6 32.3 - 35.7 g/dL [facility] RDW CV 15.2(H) 11.1 - 14.9 % [facility] RDW SD 54.0(H) 35.7 - 48.1 fL [facility] NRBC abs 0.00 0.00 - 0.01 K/cumm [facility] Blood 08/16/2024 10:4 6 AM CDT 08/16/2024 11:05 AM CDT Kelly Mauricio RELIGIOUS LEADER LAB BLOOD ORDERABLES Narda l Result Performing Organization Address City/[facility]/ZIP Co de Phone Number [facility] [place] [address] * Phosphorus (08/16/2024 10:46 AM CDT) Pathologist [facility] Phosphorus, pl 2.8 2.3 - 4.5 mg/dL Blood Venous blood specimen / Unknown 08/16/2024 10:46 AM CDT 08/16/2024 11:06 AM CDT Kelly Mauricio RELIGIOUS LEADER LAB BLOOD ORDERABLES Narda l Result Performing Organization Address City/[facility]/ZIP Co de Phone Number [facility] [place] [address] * Magnesium (08/16/2024 10:46 AM CDT) [facility] Magnesium 2.2 1.4 - 2.5 mg/dL Blood Venous blood specimen / Unknown 08/16/2024 10:46 AM CDT 08/16/2024 11:06 AM CDT Kelly Mauricio NP LAB BLOOD ORDERABLES Nrada l Result Performing Organization Address City/[facility] Co de Phone Number [facility] [place] [place] [address] * Comprehensive metabolic panel (08/16/2024 10:46 AM CDT) [facility] Sodium 142 135 - 145 mmol/L Potassium, pl 4.4 3.3 - 4.9 mmol/L [facility] Chloride 107 97 - 110 mmol/L [facility] CO2 27 22 - 32 mmol/L [facility] Anion gap 8 2 - 15 mmol/L [facility] BUN 20 6 - 25 mg/dL [facility] Creatinine 0.99 0.80 - 1.30 mg/dL [facility] Glucose 72 70 - 199 mg/dL [facility] Comment: Interpretive Data Fasting glucose >/= 126 [...] 2022. Calcium 9.4 8.5 - 10.3 mg/dL [facility] Bilirubin, total 0.5 0.1 - 1.2 mg/dL [facility] Protein, pl 7.1 6.5 - 8.5 g/dL [facility] Albumin 4.3 3.5 - 5.0 g/dL [facility] Alk phos 95 40 - 130 Units/L [facility] ALT 34 7 - 55 Units/L [facility] AST 32 10 - 50 Units/L [facility] Blood 08/16/2024 10:4 6 AM CDT 08/16/2024 11:06 AM CDT Kelly Mauricio RELIGIOUS LEADER LAB BLOOD ORDERABLES Narda wagner Result [facility] [place] [address] * eGFR (07/14/2024 11:39 AM LIFE SKILLS COACH) eGFR >90 >=60 mL/min/1. 73 m2 Comment: [...] reviewed 2021. Blood 07/14/2024 11:3 9 AM LIFE SKILLS COACH 07/14/2024 11:45 AM LIFE SKILLS COACH us Debby Benito MD LAB BLOOD ORDERABLES F inal Result [facility] [place] [address] * Differential, auto (07/14/2024 11:39 AM LIFE SKILLS COACH) Neutrophil abs 2.5 1.5 - 6.5 K/cumm Comment:Testing performed by : [facility], [address] [place] [phone] Lymphocyte abs 1.4 0.8 - 3.3 K/cumm [facility] Comment:Testing performed by : [facility], [address] [place] [phone] Monocyte abs 0.5 0.2 - 0.8 K/cumm [facility] Comment:Testing performed by : [facility], [address] [place] [phone] Eosinophil abs 0.4 0.0 - 0.5 K/cumm [facility] Comment:Testing performed by : [facility], [address] [place] [phone] Basophil abs 0.1 0.0 - 0.1 K/cumm [facility] Comment:Testing performed by : [facility], [address] [place] [phone] Neutrophil pct 50.3 % [facility] Comment: Interpretive Data Percent cell count reference ranges are not reported, since discordance with absolute values may lead to misinterpretation of CBC data. Current Interpretive Data was last revised on 2017. Testing performed by: [facility], [address] [place] [phone] Lymphocyte pct 28.9 % [facility] Comment: Interpretive Data Percent cell count reference ranges are not reported, since discordance with absolute values may lead to misinterpretation of CBC data. Current Interpretive Data was last revised on 2017. Testing performed by: [facility], [address] [place] [phone] Monocyte pct 9.9 % [facility] Comment: Interpretive Data Percent cell count reference ranges are not reported, since discordance with absolute values may lead to misinterpretation of CBC data. Current Interpretive Data was last revised on 2017. Testing performed by: [facility], [address] [place] [phone] Eosinophil pct 8.2 % [facility] Comment: Interpretive Data Percent cell count reference ranges are not reported, since discordance with absolute values may lead to misinterpretation of CBC data. Current Interpretive Data was last revised on 2017. Testing performed by: [facility], [address] [place] [phone] Basophil pct 2.7 % [facility] Comment: Interpretive Data Percent cell count reference ranges are not reported, since discordance with absolute values may lead to misinterpretation of CBC data. Current Interpretive Data was last revised on 2017. Testing performed by: [facility], [address] [place] [phone] Blood 07/14/2024 11:3 9 AM LIFE SKILLS COACH 07/14/2024 11:43 AM LIFE SKILLS COACH Debby Benito MD LAB BLOOD ORDERABLES F inal Result [facility] Department of Laboratories [place], [place] [id number] * (ABNORMAL) CBC with auto differential (07/14/2024 11:39 AM LIFE SKILLS COACH) WBC 5.0 3.8 - 9.9 K/cumm Comment:Testing performed by : [facility], [address] [place] [phone] Hgb 14.0 13.0 - 17.5 g/dL [facility] Comment:Testing performed by : [facility], [address] [place], [place] [phone] Hct 42.4 38.9 - 50.3 % [facility] Comment:Testing performed by : [facility], [address] [place], [place] [phone] Plt 387 150 - 400 K/cumm [facility] Comment:Testing performed by : [facility], [address] [place], [place] [phone] MPV 8.3 6.8 - 10.4 fL [facility] Comment:Testing performed by : [facility], [address] [place], [place] [phone] RBC 4.17(L) 4.30 - 5.80 M/cumm [facility] Comment:Testing performed by : [facility], [address] [place], [place] [phone] MCV 101.5(H) 81.3 - 96.4 fL [facility] Comment:Testing performed by : [facility], [address] [place], [place] [phone] MCH 33.4(H) 27.1 - 33.3 pg [facility] Comment:Testing performed by : [facility], [address] [place], [place] [phone] MCHC 32.9 32.3 - 35.7 g/dL [facility] Comment:Testing performed by : [facility], [address] [place], [place] [phone] RDW CV 14.9 11.1 - 14.9 % [facility] Comment:Testing performed by : [facility], [address] [place] [address] NRBC abs 0.00 0.00 - 0.01 K/cumm [facility] Comment:Testing performed by : [facility], [address] [place], [place] [phone] Blood 07/14/2024 11:3 9 AM LIFE SKILLS COACH 07/14/2024 11:43 AM LIFE SKILLS COACH Debby Benito MD LAB BLOOD ORDERABLES F inal Result Performing Organization Address [facility] Co de Phone Number [facility] [place] [address] * Lactate dehydrogenase (LD) (07/14/2024 11:39 AM LIFE SKILLS COACH) Lactate dehydrogenase (LDH) 190 100 - 250 Units/L Blood 07/14/2024 11:3 9 AM LIFE SKILLS COACH 07/14/2024 11:45 AM LIFE SKILLS COACH Debby Benito MD LAB BLOOD ORDERABLES F inal Result Performing Organization Address [facility] de Phone Number [facility] [place] [address] * IgG (07/14/2024 11:39 AM LIFE SKILLS COACH) Immunoglobulin G 864 700 - 1,600 mg/dL Blood 07/14/2024 11:3 9 AM LIFE SKILLS COACH 07/14/2024 11:57 AM LIFE SKILLS COACH Debby Benito MD LAB BLOOD ORDERABLES F inal Result Performing Organization Address [facility] Co de Phone Number [facility] [place] [address] * (ABNORMAL) Lipid panel (07/14/2024 11:39 AM LIFE SKILLS COACH) Cholesterol 235(H) 30 - 199 mg/dL Comment: [...] revised on 2018. Triglycerides 210(H) <=149 mg/dL [facility] Comment: Interpretive Data Ages < or = [...] revised on 2018. HDL 31(L) >=40 mg/dL [facility] Comment: Interpretive Data Ages < or = [...] on 2018. LDL, calculated 165(H) <=129 mg/dL [facility] Comment: Interpretive Data Ages < or = [...] revised on 2024. Non-HDL Cholesterol 204 mg/dL [facility] Comment: Interpretive Data Ages < or = [...] last revised on 2018. Chol/HDL ratio 8 [facility] Blood 07/14/2024 11:3 9 AM LIFE SKILLS COACH 07/14/2024 11:45 AM LIFE SKILLS COACH us Rico Pérez MD LAB BLOOD ORDERABLES Final Result [facility] [place] [address] * Comprehensive metabolic panel (07/14/2024 11:39 AM LIFE SKILLS COACH) Sodium 142 135 - 145 mmol/L Potassium, pl 3.9 3.3 - 4.9 mmol/L [facility] Chloride 108 97 - 110 mmol/L [facility] CO2 28 22 - 32 mmol/L [facility] Anion gap 6 2 - 15 mmol/L [facility] BUN 14 6 - 25 mg/dL [facility] Creatinine 1.00 0.80 - 1.30 mg/dL [facility] Glucose 127 70 - 199 mg/dL [facility] Comment: Interpretive Data Fasting glucose >/= 126 [...] 2022. Calcium 9.0 8.5 - 10.3 mg/dL [facility] Bilirubin, total 0.4 0.1 - 1.2 mg/dL [facility] Protein, pl 6.7 6.5 - 8.5 g/dL [facility] Albumin 4.1 3.5 - 5.0 g/dL [facility] Alk phos 88 40 - 130 Units/L [facility] ALT 37 7 - 55 Units/L [facility] AST 35 10 - 50 Units/L [facility] Blood 07/14/2024 11:3 9 AM LIFE SKILLS COACH 07/14/2024 11:45 AM LIFE SKILLS COACH Debby Benito MD LAB BLOOD ORDERABLES F inal Result Performing Organization Address City/[facility]/ZIP Co de Phone Number [facility] [place] [address] * Hepatitis C antibody Blood (02/11/2024 8:03 AM CDT) Hep C Ab Nonreactive Nonreactive Comment:Antibodies to HCV no t detected. Does NOT exclude the possibility of recent exposure to HCV. Current interpretive data was last revised on 22 Blood 02/11/2024 8:03 AM CDT 02/11/2024 8:22 AM CDT Debby Benito MD LAB MICROBIOLOGY - GEN ERAL ORDERABLES Final Result [facility] [place] [address] * Colonoscopy (02/07/2022) Anatomical Region Laterality Modality Other us Historical Provider ENDOSCOPY PROCEDURES Narda wagner Result from Last 3 Months or Most Recently Relevant to Health Maintenance Insurance [facility] CHOICE [employer]US [facility] HMO/PPO Address: [place] [address] [facility] CHOICE [facility] HMO/PPO Address: [place] [address] [facility] CHOICE [employer] [facility] HMO/PPO Address: [address] [address] [place] [address] [address] [id number] [employer] [employer] Advance Directives For more information, please contact: [phone] * Full Code (Latest Code Status on [...] 3:00 PM 03/04/2024 10:17 PM Care Teams Sample Taker Operator Relationship Specialty Start Date End Date Rico Pérez MD [address] [place] [address] PCP - General Family Medicine 11/07/22 [place] [address] [address] Consulting Physician Endocrinology Diabetes & Metabolism 07/24/22 Ramón Watts MD [address] [place] [address] Consulting Physician General Surgery 11/25/22 Huseyin Reese MD [address] [place] [address] Medical Oncologist/Track Announcer Hematology and Oncology 12/19/22 Debby Benito MD [address] [place] [address] Consulting Physician Medical Oncology 12/25/22 Clinical Summary Created on: October 07, 2024 Saqib Dewey : 1975 Sex: Male Author Organization [facility] Virtual Care Address [address] [place] [address] Phone Care Team Providers Care Sample Taker Operator Name Role Phone Delon Jain MD Unavailable Rico Pérez MD Primary Care Provider Ramón Watts MD Unavailable Huseyin Reese MD Unavailable [phone] Debby Benito MD Unavailable Allergies Active Allergy Reactions Criticality Noted Date [...] Inpatient Care Coordination Overview Diagnosis [facility] Floor [address] Treatment Plan Obin+Glofit (study) Reason for Admission Chemo - study Transplant/IEC Planning BMT/IEC Plan BEAM Auto 07/18/2023 HLA typing/IDMs [] Insurance Approval [] Discharge Planning Anticipated Discharge Date TBD Patient Education Completed [] Issue to be Resolved Before Discharge Discharge Disposition Requests Sent to Case Management, Pharmacy PA Team, or Medical Assistants Post-Discharge Follow-Up Living Situation/Distance from [place], [place] [address] Caregiver Lab/Transfusion Frequency Venous Access & Care implanted vascular device Local Oncologist Contact Phone: Fax: Post-Discharge Office Visit (H30) ARUN (RELIGIOUS LEADER [place])- 03/10 w/ study chemo Miscellaneous Notes: Problem [...] need blabs and fluid infusion appointments in [facility]. 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 On cetirizine at home. - cetirizine 10 mg BID, Sarna lotion daily PRN Dermatitis 07/02/2023 Autologous donor of stem cells 06/27/2023 Well adult exam 06/14/2023 Overview (06/14/2023): h/o mantle cell cancer, under treatment, s/p resection Assessment & Plan (06/14/2023 3:24 PM LIFE SKILLS COACH): A(n) yearly well adult visit has been [...] Assessment & Plan (09/29/2024 7:13 PM CDT): Follwos with Dr. Benito, s/p multiple lines of [...] CRS\ICANS Assessment & Plan (07/27/2023 2:11 PM LIFE SKILLS COACH): Follows with Dr. Benito in [place]. Diagnosed 11/21/2022 for splenic rupture found with diffuse lymphadenopathy, s/p splenectomy, found with stage IV mantle cell. Underwent BR X 3 with complete remission, R-cytarabine X 3 with PET scan 05/16/2023 showing CR. Enrolled in [id number] study, MRD testing indeterminate. Assigned to Arm [...] 06/19/2022 Assessment & Plan (06/19/2022 3:49 PM LIFE SKILLS COACH): He has a massive goiter, with bilateral [...] (12/10/2021): Added automatically from request for surgery [id number] Visual changes 08/22/2021 Testicular hypofunction 10/16/2013 Overview (09/05/2016): TESTICULAR HYPOFUNC NEC Assessment & Plan (06/19/2022 3:47 PM LIFE SKILLS COACH): Will check T , free and total . FSH and LH, prolactin. Depending of results, will consider starting T replacement Patient agrees. Resolved Problems Problem Noted Date Diagnosed Date Resolved Date Pancytopenia, acquired 11/14/202208/05 Thyroid mass 07/26/2022 09/24/2022 Encounters Date Type Department Care Team Description 10/07/2024 9:15 AM CDT Clinical Support [facility] Cancer Center at [facility] 10 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) 10/06/2024 Orders Only [facility] [address] [place] [address] 6 [place] [phone] Ifeanyi Malhotra, REJI 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 Dx) 10/06/2024 Orders Only [facility] [address] [place] [address] Floor 6 [place] [address] Radha Souza RPh 10/06/2024 Telephone [facility] Imaging [address] [place] [address] Sharmaine Jenkins RN 10/04/2024 1:30 PM CDT Clinical Support [facility] - Lab Collection [address] [facility] Floor 6 [place] [address] 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) 10/04/2024 Orders Only [facility] Floor 6 [place] [address] Ifeanyi Malhotra, REJI 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 Dx) 10/04/2024 Orders Only [facility] 6 [place] [address] Sarah Simon NP 10/04/2024 Orders Only [facility] [address] [place] [address] 6 [place] [phone] Ifeanyi Malhotra, REJI 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 Dx) 10/04/2024 Orders Only [facility] 6 [place] [phone] Ifeanyi Malhotra, REJI 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 Dx) 10/04/2024 Telephone [facility] 6 [place] [phone] Ifeanyi Malhotra, REJI 10/02/2024 2:19 PM CDT - 10/02/2024 7:35 PM CDT Hospital Encounter [facility] [address] [place] [address] Mantle cell lymphoma, unspecified body region (HCC) (Primary Dx); 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) Discharge Disposition: Discharge to home or self care 10/01/2024 Orders Only [facility] [address] [place] [address] 6 [place] [phone] Debby Benito MD 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 - Infusion Pharmacy [address] [place] [address] Lucero Garcia CPhT 09/24/2024 Telephone [facility] Medical [facility] Primary Care at [address] [phone] Rico Pérez MD PA for Famotidine 20MG tablets 09/24/2024 Telephone 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) Discharge Disposition: Discharge to home or self care 09/23/2024 1:00 PM CDT Clinical Support [facility] [place] - Lab Collection [address] [facility] Floor 6 [place] [address] 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 Dx); Autologous donor of stem cells 09/23/2024 11:41 AM CDT - 09/23/2024 11:59 PM CDT Hospital Encounter [facility] Pheresis [address] [facility] [address], [place] [address] Debby Benito MD 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) Discharge Disposition: Discharge to home or self care 09/23/2024 11:07 AM CDT - 09/23/2024 11:59 PM CDT Hospital Encounter [facility] Radiology [facility] [address] [place] [address] 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) Discharge Disposition: Discharge to home or self care 09/23/2024 11:06 AM CDT - 09/23/2024 11:59 PM CDT Hospital Encounter [facility] Radiology [facility] [address] [place] [address] 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) Discharge Disposition: Discharge to home or self care 09/23/2024 11:00 AM CDT Social Work [facility] [address] [place] [address] for Advance Medicine, 8th Floor, [place] [address] Amara David LCSW 09/23/2024 9:47 AM CDT - 09/23/2024 11:59 PM CDT Hospital Encounter [facility] Pulmonary [address] [facility] [address] [place] [address] Mantle cell lymphoma of lymph nodes of multiple regions (HCC) Discharge Disposition: Discharge to home or self care 09/23/2024 Orders Only [facility] 6 [place] [phone] ReynaldoRadha arrieta LTAC, located within 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 Dx) 09/20/2024 Orders Only [facility] [address] [place] [phone] Sarah Simon NP 09/20/2024 Telephone [facility] [address] [place] [phone] Debby Benito MD 09/17/2024 Orders Only [facility] [address] [place] [phone] China Monique RN 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) 09/15/2024 7:38 AM CDT - 09/15/2024 11:59 PM CDT Hospital Encounter [facility] [place] - PET [address] Floor 8 [place] [address] Discharge Disposition: Discharge to home or self care 09/15/2024 7:38 AM CDT - 09/15/2024 11:59 PM CDT Hospital Encounter [facility] - PET [address] Floor 8 [place] [address] Mantle cell lymphoma of lymph nodes of multiple regions (HCC) Discharge Disposition: Discharge to home or self care 09/15/2024 Documentation [facility] [place] - Infusion Pharmacy [address] Floor 6 [place] [address] Lucero Garcia, Jarrett Prior Auth (VENCLEXTA) 09/15/2024 Orders Only [facility] [address] [facility] Floor 6 [place] [phone] Radha Stafford LTAC, located within [facility] 09/15/2024 Orders Only [facility] Floor 6 [place] [address] Radha Souza LTAC, located within 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 Dx) 08/18/2024 10:00 AM CDT Infusion [facility] [place] - Infusion [address] [facility] Floor 5 [place] [address] Mantle cell lymphoma, unspecified body region (HCC) (Primary Dx); Mantle cell lymphoma of lymph nodes of multiple regions (HCC); Hypogammaglobulinemia 08/18/2024 9:15 AM CDT Office Visit [facility]plant [address] [place] [address] 6 [place] [address] Debby Benito MD 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 Dx) 08/18/2024 8:15 AM CDT Clinical Support [facility] - Lab Collection [address] [place] [address] 6 [place] [address] Mantle cell lymphoma of lymph nodes of multiple regions (HCC) 08/16/2024 10:55 AM CDT - 08/16/2024 11:59 PM CDT Hospital Encounter [facility] [address] [place] [address] Discharge Disposition: Discharge to home or self care 08/16/2024 9:30 AM CDT - 08/16/2024 1:45 PM CDT Hospital Encounter [facility] [address] [place] [address] Dehydration (Primary Dx); 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 Dx); Autologous donor of stem cells 07/13/2024 2:00 PM [employer] Office Visit [facility] Medical Group Primary Care at [address] [address] Rico Pérez MD Well adult exam (Primary Dx); Screening, lipid 07/13/2024 Orders Only [facility] [address] [place] [phone] China Monique RN Hypogammaglobulinemia (Primary Dx) from Last 3 Months Immunizations Immunization Administration Dates Next Due DTaP 07/14/2024,05/12/2024 Hep B, Dialysis 07/14/2024,05/12/2024 Hib (PRP-T) 07/14/2024,05/12/2024,11/25/2022 IPV 07/14/2024,05/12/2024 Influenza, Trivalent, Preser vative Free, Intramuscular 03/31/2024 Influenza, Unspecified 06/12/2023(Deferr ed: Patient Refused),07/24/2022(Deferred: Patient Refused),06/02/2022(Deferred: Patient Refused),06/02/2021(Deferred: Patient Refused),06/02/2020(Deferred: Patient Refused) Meningococcal B, OMV (Bexsero) 11/25/2022 Meningococcal Conjugate (Menveo) 11/25/2022 Pneumococcal Conjugate Pcv20 07/14/2024,05/12/20,11/26/2022 Tdap 08/28/2014 ZOSTER Recombinant 07/14/2024,05/12/2024 Surgical History [...] drink = 0.6 oz pur e alcohol) [facility] Utilities Answer Date Recorded In the past 12 months has [employer], gas, oil, or water company threatened to [...] any clubs o r organizations such as evangelical groups, unions, fraternal or athletic groups, or [...] place to sleep or slept in a nursing home (including now)? No 07/15/2023 Housing Stability Vital Sign Answer Eladio e Recorded In the last 12 months, was t here a time when you were not able to pay the mortgage or rent on time? No 09/23/2024 In the past 12 months, how m any times have you moved where you were living? 0 09/23/2024 At any time in the past 12 m [facility], were you homeless or living in a nursing home (including now)? No 09/23/2024 Personal Safety Answer Date Recorded Have you ever been in or are you currently in a harmful physical or emotional relationship or is someone making you feel afraid or unsafe? Denies 09/29/2024 Sex and Gender Information Value Date Recorded Sex Assigned at Not on file Legal Sex Male 12:33 AM [employer] Gender Identity Not on file Sexual Orientation [...] 07/14/2024, 05/12/2024 Medical Devices Implanted Type Area Field Staff Device Identifier Shelf Expiration Date Model / Serial / Lot Iron [employer] Angio-Seal Vip 6fr Closere Device [id number] - [id number] Implanted:Qty: 1 on 11/21/2022 at [facility] [employer] Merissa 06/01/2023 [id number] / / [id number] [employer] Merissa Coil Emolization Coated Detachable Embold [id number] Kiana Tungsten [id number] - [id number] Implanted:Qty: 1 on 11/21/2022 at [facility] [employer] Merissa [id number] 04/07/2025 [id number] / / [id number] Med[employer] Inc Coil Embolization Coated Detachable Helical Concerto [id number] Nylon Hh-8-97-Glynn - [id number] Implanted:Qty: 1 on 11/21/2022 at [facility] [employer] NV-8-30 -HE LIX / / Med[employer] Inc Coil Embolization Coated Detachable Helical Concerto [id number] Nylon Az-0-64-Glynn - [id number] Implanted:Qty: 1 on 11/21/2022 at [facility] [employer] NV-8-30 -HE LIX / / [employer] Powerport Isp Mri Airguard 8fr 1 Lumen Attachable Catheter Open Latex Free [id number] - [id number] Implanted:Qty: 1 on 12/02/2022 by Ottoniel Hernadnez MD at [facility] Right: Chest [employer] 03/01/2024 [id number] / / [id number] Explanted Type Area Field Staff Device Identifier Shelf Expiration Date Model / Serial / Lot [employer]Comment[employer] Merissa Coil Emolization Coated Detachable Embold [id number] Kiana Tungsten [id number] - [id number] Explanted:Qty: 1 on 11/21/2022 at [facility] [employer]issa [id number] 04/07/2025 [id number] / / [id number] Procedures Procedure Name Priority Date/Time Associated Diagnosis [...] AM CDT EGFR Routine 07/14/2024 11:39 AM [employer] 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) DIFFERENTIAL AUTO Routine 07/14/2024 11: 39 AM [employer] Mantle cell 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) LIPID PANEL Routine 07/14/2024 11:39 AM [employer] Screening, lipid IGG Routine 07/14/2024 11:39 AM [employer] Hypogammaglobulin emia CBC WITH AUTO DIFFERENTIAL Routine 07/14/2024 11:39 AM [employer] Mantle cell lymphoma of lymph nodes of multiple regions (HCC) COMPREHENSIVE METABOLIC PANEL Routine 07/14/2024 11:39 AM [employer] 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) LACTATE DEHYDROGENASE Routine 07/14/2024 11:39 AM [employer] Mantle cell lymphoma of lymph nodes of [...] K/cumm Comment:Testing performed by : [facility] 2, [address] [place] [address] Hgb 11.9(L) 13.0 - 17.5 g/dL CERNER BJWCH Comment:Testing performed by : [place] [address], [address] [place] [address] Hct 35.1(L) 38.9 - 50.3 % CERNER [facility] Comment:Testing performed by : [facility] 2, [address] [place] [address] Plt 63(L) 150 - 400 K/cumm CERNER BJWCH Comment:Testing performed by : [facility] 2, [address] [place] [address] MPV 11.9 9.1 - 12.3 fL CERNER [facility] Comment:Testing performed by : [facility] 2, [address] [place] [address] RBC 3.60(L) 4.30 - 5.80 M/cumm CERNER [facility] Comment:Testing performed by : [facility] 2, [address] [place] [address] MCV 97.5(H) 81.3 - 96.4 fL CERJOSE MARTIN BJWCH Comment:Testing performed by : [facility] 2, [address] [place] [address] MCH 33.1 27.1 - 33.3 pg LD HOLMANCH Comment:Testing performed by : [facility], [facility] 2, [address] [place] [address] MCHC 33.9 32.3 - 35.7 g/dL LD HOLMANCH Comment:Testing performed by : [facility] 2, [address] [place] [address] RDW CV 15.2(H) 11.1 - 14.9 % LD HOLMANCH Comment:Testing performed by : [place] [address], [address] [place] [address] RDW SD 54.0(H) 35.7 - 48.1 fL LD SWEETWCH Comment:Testing performed by : [facility] 2, [address] [place] [address] NRBC abs 0.61(H) 0.00 - 0.01 K/cumm LD VENTURA Comment:Testing performed by : [facility] 2, [address] [place] [address] ANC Prelim 0.81(L) 1.50 - 6.50 K/cumm LD VENTURA Comment: Interpretive Data The rapid ANC is a preliminary automated count and may vary from the final ANC (Neut Abs) reported in the WBC differential that follows. Current interpretive data was last revised 2024. Testing performed by: [address] [place] [address] Blood 10/07/2024 9:14 AM CDT 10/07/2024 9:18 AM CDT us Debby Benito MD LAB BLOOD ORDERABLES F inal Result LD SWEETWCH [address] [facility]. Department [place] [address] * (ABNORMAL) Manual Differential (10/07/2024 9:14 AM CDT) Differential Manual Comment:Testing performed by : [facility] 2, [address] [place] [address] Cells Counted 100 CERNER BJW[facility] Comment:Testing performed by : [facility] 2, [address] [place] [address] Neutrophil abs 0.89(L) 1.50 - 6.50 K/cumm CERNER [facility]JW[facility] Comment:Testing performed by : [facility] 2, [address] [place] [address] Imm gran abs 0.02 0.00 - 0.10 K/cumm CERNER [facility] Comment:Testing performed by : [place] [address], [address] [place] [address] Lymphocyte abs 0.69(L) 0.80 - 3.30 K/cumm CERNER B[facility] Comment:Testing performed by : [place] [address], [address] [place] [address] Monocyte abs 0.12(L) 0.20 - 0.80 K/cumm CERNER [facility]JW[facility] Comment:Testing performed by : [place] [address], [address] [place] [address] Eosinophil abs 0.19 0.00 - 0.50 K/cumm CERNER [facility] Comment:Testing performed by : [place] [address], [address] [place] [address] Basophil abs 0.02 0.00 - 0.10 K/cumm CERNER [facility] Comment:Testing performed by : [place] [address], [address] [place] [address] Neutrophil pct 46.0 % CERNER [facility] Comment: Interpretive Data Percent cell count reference ranges are not reported, since discordance with absolute values may lead to misinterpretation of CBC data. Current Interpretive Data was last revised on 2017. Testing performed by: [facility] 2, [address] [place] [address] Lymphocyte pct 36.0 % CERNER [facility] Comment: Interpretive Data Percent cell count reference ranges are not reported, since discordance with absolute values may lead to misinterpretation of CBC data. Current Interpretive Data was last revised on 2017. Testing performed by: [facility], [facility] 2, [address] [place] [address] Monocyte pct 6.0 % CERNER [facility] Comment: Interpretive Data Percent cell count reference ranges are not reported, since discordance with absolute values may lead to misinterpretation of CBC data. Current Interpretive Data was last revised on 2017. Testing performed by: [facility], [facility] 2, [address] [place] [address] Eosinophil pct 10.0 % CERNER [facility] Comment: Interpretive Data Percent cell count reference ranges are not reported, since discordance with absolute values may lead to misinterpretation of CBC data. Current Interpretive Data was last revised on 2017. Testing performed by: [facility], [facility] 2, [address] [place] [address] Basophil pct 1.0 % CERNER [facility] Comment: Interpretive Data Percent cell count reference ranges are not reported, since discordance with absolute values may lead to misinterpretation of CBC data. Current Interpretive Data was last revised on 2017. Testing performed by: [facility], [facility] 2, [address] [place] [address] Metamyelocyte pct 1.0(H) 0.0 - 0.0 % CERNER BJWCH Comment:Testing performed by : [facility], [facility] 2, [address] [place] [address] RBC morphology Present(A) CERNER BJWCH Comment:Testing performed by : [facility], [facility] 2, [address] [place] [address] Anisocytosis Slight(A) CERNER BJWCH Comment:Testing performed by : [facility], [facility] 2, [address], [place] [address] Poikilocytosis Slight(A) CERNER BJWCH Comment:Testing performed by : [facility], [facility], [address] [place] [address] Platelet estimate Automated Count Confirmed LD VENTURA Comment:Testing performed by : [facility], [facility], [address] [place] [address] Blood 10/07/2024 9:14 AM CDT 10/07/2024 9:18 AM CDT Debby Benito MD LAB BLOOD ORDERABLES F inal Result Performing Organization Address [facility] de Phone Number LD BJWCH [address] [place] [address] [facility] [place] [address] * Uric acid (10/07/2024 9:14 AM CDT) Uric acid 5.0 3.0 - 8.0 mg/dL Comment:Testing performed by : [facility], [address] [place] [address] Blood 10/07/2024 9:14 AM CDT 10/07/2024 9:38 AM CDT Debby Benito MD LAB BLOOD ORDERABLES F inal Result Performing Organization Address [facility] de Phone Number LD BJWCH [address] [place] [employer] [facility] [place] [address] * Phosphorus (10/07/2024 9:14 AM CDT) Phosphorus, pl 3.7 2.3 - 4.5 mg/dL Comment:Testing performed by : [facility], [address] [place] [address] Blood 10/07/2024 9:14 AM CDT 10/07/2024 9:38 AM CDT Debby Benito MD LAB BLOOD ORDERABLES F inal Result Performing Organization Address City/[facility] Co de Phone Number LD BJWCH [address] [address] [facility]. [place] [address] * IR Tunneled Line Placement > 5 [...] be scheduled by calling [facility] - [phone] [facility] - [phone] Electronically signed by: Ramón Ocasio M.D. Narrative [...] was obtained. Prior to beginning the procedure, [place] Protocol was used to confirm the patient's [...] was obtained. Prior to beginning the procedure, [place] Protocol was used to confirm the patient's [...] be scheduled by calling [facility] - [phone] [facility] - [phone] Electronically signed by: Ramón Ocasio M.D. Debby [...] MD LAB BLOOD ORDERABLES F inal Result [facility] Department [place] [address] * (ABNORMAL) CBC with auto differential (10/06/2024 10:01 AM CDT) WBC 1.08(L) 3.80 - 9.90 K/cumm Comment:Testing performed by : [facility], [address] [place] [address] Hgb 12.3(L) 13.0 - 17.5 g/dL LD SWEET Comment:Testing performed by : [facility], [address] [place] [address] Hct 36.4(L) 38.9 - 50.3 % LD [facility] Comment:Testing performed by : [facility], [address] [place] [address] Plt 64(L) 150 - 400 K/cumm LD [facility] Comment:Testing performed by : [facility], [address] [place] [address] MPV 9.3 6.8 - 10.4 fL CERJOSE MARTIN SWEET Comment:Testing performed by : [facility], [address] [place] [address] RBC 3.75(L) 4.30 - 5.80 M/cumm LD SWEET Comment:Testing performed by : [facility], [address] [place] [address] MCV 97.1(H) 81.3 - 96.4 fL LD [facility] Comment:Testing performed by : [facility], [address] [place] [address] MCH 32.8 27.1 - 33.3 pg LD SWEET Comment:Testing performed by : [facility], [address] [place] [address] MCHC 33.8 32.3 - 35.7 g/dL LD SWEET Comment:Testing performed by : [facility], [address] [place] [address] RDW CV 15.0(H) 11.1 - 14.9 % LD SWEET Comment:Testing performed by : [facility], [address] [place], [place] [phone] NRBC abs N/A 0.00 - 0.01 K/cumm LD [facility] Comment:Testing performed by : [facility], [address] [place] [address] Blood 10/06/2024 10:0 1 AM CDT 10/06/2024 10:08 AM CDT us Debby Benito MD LAB BLOOD ORDERABLES F inal Result [facility] Department [place] [address] * (ABNORMAL) Manual Differential (10/06/2024 10:01 AM CDT) Cells Counted 200 Comment:Testing performed by : [facility], [address] [place] [address] Neutrophil abs 0.51(L) 1.50 - 6.50 K/cumm LD SWEET Comment:Testing performed by : [facility], [address] [place] [address] Lymphocyte abs 0.49(L) 0.80 - 3.30 K/cumm LD SWEET Comment:Testing performed by : [facility], [address] [place] [phone] Monocyte abs 0.05(L) 0.20 - 0.80 K/cumm CERNER BJH Comment:Testing performed by : [facility], [address] [place], [place] [phone] Eosinophil abs 0.09 0.00 - 0.50 K/cumm CERNER BJH Comment:Testing performed by : [facility], [address] [place], [place] [phone] Basophil abs 0.01 0.00 - 0.10 K/cumm CERNER BJH Comment:Testing performed by : [facility], [address] [place] [address] Neutrophil pct 44.0 % CERNER BJH Comment: Interpretive Data Percent cell count reference ranges are not reported, since discordance with absolute values may lead to misinterpretation of CBC data. Current Interpretive Data was last revised on 2017. Testing performed by: [facility], [address] [place] [address] Lymphocyte pct 42.0 % CERNER BJH Comment: Interpretive Data Percent cell count reference ranges are not reported, since discordance with absolute values may lead to misinterpretation of CBC data. Current Interpretive Data was last revised on 2017. Testing performed by: [facility], [address] [place] [phone] Monocyte pct 4.0 % CERNER BJH Comment: Interpretive Data Percent cell count reference ranges are not reported, since discordance with absolute values may lead to misinterpretation of CBC data. Current Interpretive Data was last revised on 2017. Testing performed by: [facility], [address] [place] [phone] Eosinophil pct 8.0 % CERNER BJH Comment: Interpretive Data Percent cell count reference ranges are not reported, since discordance with absolute values may lead to misinterpretation of CBC data. Current Interpretive Data was last revised on 2017. Testing performed by: [facility], [address] [place] [phone] Basophil pct 1.0 % CERNER BJH Comment: Interpretive Data Percent cell count reference ranges are not reported, since discordance with absolute values may lead to misinterpretation of CBC data. Current Interpretive Data was last revised on 2017. Testing performed by: [facility], [address] [place], [place] [id number] Blast pct 1.0(H) 0.0 - 0.0 % LD [facility] Comment: Called to Sarah Simon NP 10/06/24 11:31 by fp. Testing performed by: [facility], [address] [place], [place] [id number] Variant lymph pct 2.0(H) 0.0 - 0.0 % LD [facility] Comment:Testing performed by : [facility], [address] [place], [place] [id number] RBC morphology NRBCs present(A ) LD [facility] Comment:Testing performed by : [facility], [address] [place], [place] [id number] Polychromasia 1+(A) LD [facility] Comment:Testing performed by : [facility], [address] [place], [place] [id number] Schistocytes 1+(A) LD [facility] Comment:Testing performed by : [facility], [address] [place], [place] [id number] Target cells 1+(A) LD [facility] Comment:Testing performed by : [facility], [address] [place] [address] Platelet estimate Decreased (A) LD [facility] Comment:Testing performed by : [facility], [address] [place], [place] [id number] Blood 10/06/2024 10:0 1 AM CDT 10/06/2024 10:18 AM CDT us Debby Benito MD LAB BLOOD ORDERABLES F inal Result [facility] Department [place] [address] * (ABNORMAL) HSV 2 IgG Antibody Blood [...] ERAL ORDERABLES Final Result Performing Organization Address [facility] Co de Phone Number [facility] [place] [address] * (ABNORMAL) HSV 1 IgG Antibody Blood (10/06/2024 10:01 AM CDT) Pathologist [facility] HSV 1 IgG Reactive( A) Nonreactive Comment: [...] MICROBIOLOGY - GEN ERAL ORDERABLES Final Result [facility] [place] [address] * Type and screen (10/06/2024 10:01 AM CDT) Pathologist [facility] ABO Rh A Positive Jacob, indirect Negative [facility] Blood 10/06/2024 10:0 1 AM CDT 10/06/2024 10:19 AM CDT Narrative [facility] - 10/06/2024 11:34 AM CDT Has the patient had Daratumumab or Isatuximab in the past 6 months?->Unknown Debby Benito MD LAB BLOOD BANK TEST OR DERABLES Final Result Performing Organization Address [facility] Co de Phone Number [facility] Department [place] [address] * Lactate dehydrogenase (LD) (10/06/2024 10:01 AM CDT) Pathologist [facility] Lactate dehydrogenase (LDH) 211 100 - 250 Units/L Blood 10/06/2024 10:0 1 AM CDT 10/06/2024 10:17 AM CDT Narrative [facility] - 10/06/2024 10:40 AM CDT To be drawn prior to patient taking venetoclax. Sarah Simon NP LAB BLOOD ORDERABLES Final Res ult Performing Organization Address [facility] de Phone Number [facility] [place] [address] * (ABNORMAL) Hemoglobin A1c (10/06/2024 10:01 AM CDT) Hgb A1C 5.7(H) 4.0 - 5.6 % Estimated Average Glucose 117 mg/dL [facility] Comment: The ADA recommends reporting an estimated [...] LAB BLOOD ORDERABLES F inal Result LD [facility] Department [place] [address] * (ABNORMAL) Lipid panel (10/06/2024 10:01 AM [...] on 2018. Triglycerides 186(H) <=149 mg/dL LD [facility] Comment: Interpretive Data Ages < or [...] on 2018. HDL 25(L) >=40 mg/dL LD [facility] Comment: Interpretive Data Ages < or [...] on 2018. LDL, calculated 137(H) <=129 mg/dL LD [facility] Comment: Interpretive Data Ages < or [...] revised on 2024. Non-HDL Cholesterol 171 mg/dL LD [facility] Comment: Interpretive Data Ages < or [...] last revised on 2018. Chol/HDL ratio 8 [facility] Blood 10/06/2024 10:0 1 AM CDT 10/06/2024 10:17 AM CDT us Debby Benito MD LAB BLOOD ORDERABLES F inal Result [facility] Department [place] [address] * Comprehensive metabolic panel (10/06/2024 10:01 AM CDT) Sodium 136 135 - 145 mmol/L Potassium, pl 4.0 3.3 - 4.9 mmol/L [facility] Chloride 97 97 - 110 mmol/L [facility] CO2 25 22 - 32 mmol/L [facility] Anion gap 14 2 - 15 mmol/L [facility] BUN 13 6 - 25 mg/dL [facility] Creatinine 0.94 0.80 - 1.30 mg/dL [facility] Glucose 97 70 - 199 mg/dL [facility] Comment: Interpretive Data Fasting glucose >/= 126 [...] 2022. Calcium 9.9 8.5 - 10.3 mg/dL [facility] Bilirubin, total 0.5 0.1 - 1.2 mg/dL [facility] Protein, pl 7.4 6.5 - 8.5 g/dL [facility] Albumin 4.1 3.5 - 5.0 g/dL [facility] Alk phos 128 40 - 130 Units/L [facility] ALT 24 7 - 55 Units/L [facility] AST 31 10 - 50 Units/L [facility] Blood 10/06/2024 10:0 1 AM CDT 10/06/2024 10:17 AM CDT us Debby Benito MD LAB BLOOD ORDERABLES F inal Result [facility] [place] [address] * eGFR (10/04/2024 1:26 PM CDT) eGFR [...] MD LAB BLOOD ORDERABLES F inal Result [facility] [place] [address] * Uric acid (10/04/2024 1:26 PM CDT) Pathologist [facility] Uric acid 5.0 3.0 - 8.0 mg/dL Blood 10/04/2024 1:26 PM CDT 10/04/2024 1:29 PM CDT Narrative [facility] - 10/04/2024 1:54 PM CDT To be drawn prior to patient taking venetoclax. Debby Benito MD LAB BLOOD ORDERABLES F inal Result [facility] [place] [address] * Phosphorus (10/04/2024 1:26 PM CDT) [facility] Phosphorus, pl 2.8 2.3 - 4.5 mg/dL Blood 10/04/2024 1:26 PM CDT 10/04/2024 1:29 PM CDT Narrative [facility] - 10/04/2024 1:54 PM CDT To be drawn prior to patient taking venetoclax. Debby Benito MD LAB BLOOD ORDERABLES F inal Result Performing Organization Address City/[facility]/[place] [address] * Lactate dehydrogenase (LD) (10/04/2024 1:26 PM CDT) [facility] Lactate dehydrogenase (LDH) 220 100 - 250 Units/L Blood 10/04/2024 1:26 PM CDT 10/04/2024 1:29 PM CDT Narrative [facility] - 10/04/2024 1:54 PM CDT To be drawn prior to patient taking venetoclax. Debby Benito MD LAB BLOOD ORDERABLES F inal Result Performing Organization Address City/[facility] [place] [address] * Comprehensive metabolic panel (10/04/2024 1:26 PM CDT) [facility] Sodium 139 135 - 145 mmol/L Potassium, pl 3.6 3.3 - 4.9 mmol/L [facility] Chloride 103 97 - 110 mmol/L [facility] CO2 26 22 - 32 mmol/L [facility] Anion gap 10 2 - 15 mmol/L [facility] BUN 15 6 - 25 mg/dL [facility] Creatinine 0.83 0.80 - 1.30 mg/dL [facility] Glucose 119 70 - 199 mg/dL [facility] Comment: Interpretive Data Fasting glucose >/= 126 [...] 2022. Calcium 9.2 8.5 - 10.3 mg/dL [facility] Bilirubin, total 0.2 0.1 - 1.2 mg/dL [facility] Protein, pl 6.8 6.5 - 8.5 g/dL [facility] Albumin 3.8 3.5 - 5.0 g/dL [facility] Alk phos 109 40 - 130 Units/L [facility] ALT 18 7 - 55 Units/L [facility] AST 25 10 - 50 Units/L [facility] Blood 10/04/2024 1:26 PM CDT 10/04/2024 1:29 PM CDT Narrative [facility] - 10/04/2024 1:54 PM CDT To be drawn prior to patient taking venetoclax. us Debby Benito MD LAB BLOOD ORDERABLES F inal Result [facility] [place] [address] * (ABNORMAL) CBC with auto differential (10/04/2024 1:24 PM CDT) WBC 2.84(L) 3.80 - 9.90 K/cumm Comment:Testing performed by : [facility], [address] [place] [phone] Hgb 11.6(L) 13.0 - 17.5 g/dL [facility] Comment:Testing performed by : [facility], [address] [place], [place] [phone] Hct 34.3(L) 38.9 - 50.3 % CERNER BJ Comment:Testing performed by : [facility], [address] [place], [place] [phone] Plt 79(L) 150 - 400 K/cumm CERNER BJ Comment:Testing performed by : [facility], [address] [place], [place] [phone] MPV 8.7 6.8 - 10.4 fL CERNER BJ Comment:Testing performed by : [facility], [address] [place], [place] [phone] RBC 3.55(L) 4.30 - 5.80 M/cumm CERNER BJ Comment:Testing performed by : [facility], [address] [place], [place] [phone] MCV 96.9(H) 81.3 - 96.4 fL CERNER BJ Comment:Testing performed by : [facility], [address] [place], [place] [phone] MCH 32.8 27.1 - 33.3 pg CERNER BJ Comment:Testing performed by : [facility], [address] [place] [address] MCHC 33.9 32.3 - 35.7 g/dL CERNER BJ Comment:Testing performed by : [facility], [address] [place] [address] RDW CV 15.4(H) 11.1 - 14.9 % CERNER BJ Comment:Testing performed by : [facility], [address] [place] [address] NRBC abs 0.10(H) 0.00 - 0.01 K/cumm CERNER BJ Comment:Testing performed by : [facility], [address] [place] [address] Blood 10/04/2024 1:24 PM CDT 10/04/2024 1:28 PM CDT Narrative CERNER BJ - 10/04/2024 1:38 PM CDT To be drawn prior to patient taking venetoclax. us Debby Benito MD LAB BLOOD ORDERABLES F inal Result LD SWEET [facility] [place] [address] * (ABNORMAL) Manual Differential (10/04/2024 1:24 PM CDT) Cells Counted 151 Comment:Testing performed by : [facility], [address] [place] [phone] Neutrophil abs 0.98(L) 1.50 - 6.50 K/cumm LD SWEET Comment:Testing performed by : [facility], [address] [place], [place] [phone] Lymphocyte abs 1.15 0.80 - 3.30 K/cumm LD SWEET Comment:Testing performed by : [facility], [address] [place], [place] [phone] Monocyte abs 0.37 0.20 - 0.80 K/cumm LD SWEET Comment:Testing performed by : [facility], [address] [place] [phone] Eosinophil abs 0.14 0.00 - 0.50 K/cumm LD SWEET Comment:Testing performed by : [facility], [address] [place] [phone] Basophil abs 0.11(H) 0.00 - 0.10 K/cumm LD SWEET Comment:Testing performed by : [facility], [address] [place] [phone] Neutrophil pct 34.0 % CERJOSE MARTIN SWEET Comment: Interpretive Data Percent cell count reference ranges are not reported, since discordance with absolute values may lead to misinterpretation of CBC data. Current Interpretive Data was last revised on 2017. Testing performed by: [facility], [address] [place] [phone] Lymphocyte pct 40.0 % CERJOSE MARTIN SWEET Comment: Interpretive Data Percent cell count reference ranges are not reported, since discordance with absolute values may lead to misinterpretation of CBC data. Current Interpretive Data was last revised on 2017. Testing performed by: [facility], [address] [place] [phone] Monocyte pct 13.0 % CERNER BJH Comment: Interpretive Data Percent cell count reference ranges are not reported, since discordance with absolute values may lead to misinterpretation of CBC data. Current Interpretive Data was last revised on 2017. Testing performed by: [facility], [address] [place] [address] Eosinophil pct 5.0 % CERNER [facility] Comment: Interpretive Data Percent cell count reference ranges are not reported, since discordance with absolute values may lead to misinterpretation of CBC data. Current Interpretive Data was last revised on 2017. Testing performed by: [facility], [address] [place], [place] [id number] Basophil pct 4.0 % CERNER [facility] Comment: Interpretive Data Percent cell count reference ranges are not reported, since discordance with absolute values may lead to misinterpretation of CBC data. Current Interpretive Data was last revised on 2017. Testing performed by: [facility], [address] [place], [place] [id number] Metamyelocyte pct 1.0(H) 0.0 - 0.0 % CERNER [facility] Comment:Testing performed by : [facility], [address] [place] [address] Myelocyte pct 1.0(H) 0.0 - 0.0 % CERNER BJ[facility] Comment:Testing performed by : [facility], [address] [place] [address] Variant lymph pct 3.0(H) 0.0 - 0.0 % CERNER BJ[facility] Comment:Testing performed by : [facility], [address] [place], [place] [phone] Anisocytosis 1+(A) CERNER [facility] Comment:Testing performed by : [facility], [address] [place] [phone] Poikilocytosis 1+(A) CERNER BJ[facility] Comment:Testing performed by : [facility], [facility] [place] [phone] Elliptocytes 1+(A) LD [facility] Comment:Testing performed by : [facility], [address] [place] [phone] Target cells 1+(A) [facility] Comment:Testing performed by : [facility], [address] [place] [phone] Platelet estimate Decreased (A) [facility] Comment:Testing performed by : [facility], [address] [place] [phone] Blood 10/04/2024 1:24 PM CDT 10/04/2024 1:28 PM CDT us Debby Benito MD LAB BLOOD ORDERABLES F inal Result [facility] [place] [address] * eGFR (10/02/2024 2:37 PM CDT) eGFR [...] MD LAB BLOOD ORDERABLES F inal Result [facility] [place] [address] * (ABNORMAL) CBC with auto differential (10/02/2024 2:37 PM CDT) [facility] WBC 3.82 3.80 - 9.90 K/cumm Hgb 11.1(L) 13.0 - 17.5 g/dL [facility] Hct 31.9(L) 38.9 - 50.3 % [facility] Plt 93(L) 150 - 400 K/cumm [facility] MPV 11.3 9.1 - 12.3 fL [facility] RBC 3.37(L) 4.30 - 5.80 M/cumm [facility] MCV 94.7 81.3 - 96.4 fL [facility] MCH 32.9 27.1 - 33.3 pg [facility] MCHC 34.8 32.3 - 35.7 g/dL [facility] RDW CV 15.2(H) 11.1 - 14.9 % [facility] RDW SD 52.3(H) 35.7 - 48.1 fL [facility] NRBC abs 0.14(H) 0.00 - 0.01 K/cumm [facility] Morphologic Screen Results confirmed by manual morphology review. [facility] Blood 10/02/2024 2:37 PM CDT 10/02/2024 2:48 PM CDT Debby Benito MD LAB BLOOD ORDERABLES F inal Result [facility] [place] [address] * (ABNORMAL) Manual Differential (10/02/2024 2:37 PM CDT) Differential Manual Cells Counted 118 [facility] Neutrophil abs 1.81 1.50 - 6.50 K/cumm [facility] Imm gran abs 0.36(H) 0.00 - 0.10 K/cumm [facility] Lymphocyte abs 1.20 0.80 - 3.30 K/cumm [facility] Monocyte abs 0.26 0.20 - 0.80 K/cumm [facility] Eosinophil abs 0.13 0.00 - 0.50 K/cumm [facility] Basophil abs 0.06 0.00 - 0.10 K/cumm [facility] Neutrophil pct 47.5 % [facility] Comment: Interpretive Data Percent cell count reference ranges are not reported, since discordance with absolute values may lead to misinterpretation of CBC data. Current Interpretive Data was last revised on 2017. Lymphocyte pct 22.0 % [facility] Comment: Interpretive Data Percent cell count reference ranges are not reported, since discordance with absolute values may lead to misinterpretation of CBC data. Current Interpretive Data was last revised on 2017. Monocyte pct 6.8 % [facility] Comment: Interpretive Data Percent cell count reference ranges are not reported, since discordance with absolute values may lead to misinterpretation of CBC data. Current Interpretive Data was last revised on 2017. Eosinophil pct 3.4 % [facility] Comment: Interpretive Data Percent cell count reference ranges are not reported, since discordance with absolute values may lead to misinterpretation of CBC data. Current Interpretive Data was last revised on 2017. Basophil pct 1.7 % [facility] Comment: Interpretive Data Percent cell count reference ranges are not reported, since discordance with absolute values may lead to misinterpretation of CBC data. Current Interpretive Data was last revised on 2017. Metamyelocyte pct 4.2(H) 0.0 - 0.0 % [facility] Myelocyte pct 5.1(H) 0.0 - 0.0 % [facility] Variant lymph pct 9.3(H) 0.0 - 0.0 % [facility] Blood 10/02/2024 2:37 PM CDT 10/02/2024 2:51 PM CDT Debby Benito MD LAB BLOOD ORDERABLES F inal Result Performing Organization Address [facility] de Phone Number [facility] [place] [address] * Type and screen (10/02/2024 2:37 PM CDT) ABO Rh A Positive Jacob, indirect Negative [facility] Blood 10/02/2024 2:37 PM CDT 10/02/2024 2:46 PM CDT Debby Benito MD LAB BLOOD BANK TEST OR DERABLES Final Result Performing Organization Address [facility] Phone Number [facility] [place] [address] * Uric acid (10/02/2024 2:37 PM CDT) Uric acid 5.6 3.0 - 8.0 mg/dL Blood 10/02/2024 2:37 PM CDT 10/02/2024 2:47 PM CDT Sarah S. [place] RELIGIOUS LEADER LAB BLOOD ORDERABLES Final Res ult Performing Organization Address [facility] Phone Number [facility] [place] [address] * Phosphorus (10/02/2024 2:37 PM CDT) Phosphorus, pl 3.3 2.3 - 4.5 mg/dL Blood 10/02/2024 2:37 PM CDT 10/02/2024 2:47 PM CDT Sarah S. [place] RELIGIOUS LEADER LAB BLOOD ORDERABLES Final Res ult [facility] [place] [address] * Magnesium (10/02/2024 2:37 PM CDT) [facility] Magnesium 2.1 1.4 - 2.5 mg/dL Blood 10/02/2024 2:37 PM CDT 10/02/2024 2:47 PM CDT Debby Benito MD LAB BLOOD ORDERABLES F inal Result [facility] [place] [address] * Comprehensive metabolic panel (10/02/2024 2:37 PM CDT) [facility] Sodium 142 135 - 145 mmol/L Potassium, pl 3.7 3.3 - 4.9 mmol/L [facility] Chloride 103 97 - 110 mmol/L [facility] CO2 26 22 - 32 mmol/L [facility] Anion gap 13 2 - 15 mmol/L [facility] BUN 13 6 - 25 mg/dL [facility] Creatinine 0.87 0.80 - 1.30 mg/dL [facility] Glucose 149 70 - 199 mg/dL [facility] Comment: Interpretive Data Fasting glucose >/= 126 [...] 2022. Calcium 9.1 8.5 - 10.3 mg/dL [facility] Bilirubin, total 0.2 0.1 - 1.2 mg/dL [facility] Protein, pl 6.9 6.5 - 8.5 g/dL [facility] Albumin 3.9 3.5 - 5.0 g/dL [facility] Alk phos 111 40 - 130 Units/L [facility] ALT 16 7 - 55 Units/L [facility] AST 27 10 - 50 Units/L [facility] Blood 10/02/2024 2:37 PM CDT 10/02/2024 2:47 PM CDT us Debby Benito MD LAB BLOOD ORDERABLES F inal Result [facility] [place] [address] * eGFR (10/01/2024 9:05 AM CDT) eGFR [...] 9:05 AM CDT 10/01/2024 9:19 AM CDT us Arthur Guerra MD LAB BLOOD ORDERABLES Final Resul t Performing Organization Address City/[facility]/ZIP Co de Phone Number [facility] [place] [address] * Uric acid (10/01/2024 9:05 AM CDT) Pathologist [facility] Uric acid 7.2 3.0 - 8.0 mg/dL Blood 10/01/2024 9:05 AM CDT 10/01/2024 9:19 AM CDT Arthur Guerra MD LAB BLOOD ORDERABLES Final Resul t Performing Organization Address City/[facility] Co de Phone Number [facility] [place] [address] * Phosphorus (10/01/2024 9:05 AM CDT) Pathologist [facility] Phosphorus, pl 3.2 2.3 - 4.5 mg/dL Blood 10/01/2024 9:05 AM CDT 10/01/2024 9:19 AM CDT Arthur Guerra MD LAB BLOOD ORDERABLES Final Resul t Performing Organization Address [facility] de Phone Number [facility] [place] [address] * Basic metabolic panel (10/01/2024 9:05 AM CDT) Pathologist [facility] Sodium 141 135 - 145 mmol/L Potassium, pl 4.4 3.3 - 4.9 mmol/L [facility] Chloride 102 97 - 110 mmol/L [facility] CO2 25 22 - 32 mmol/L [facility] Anion gap 14 2 - 15 mmol/L [facility] BUN 16 6 - 25 mg/dL [facility] Creatinine 0.98 0.80 - 1.30 mg/dL [facility] Glucose 71 70 - 199 mg/dL [facility] Comment: Interpretive Data Fasting glucose >/= 126 [...] 2022. Calcium 9.2 8.5 - 10.3 mg/dL [facility] Blood 10/01/2024 9:05 AM CDT 10/01/2024 9:19 AM CDT us Arthur Guerra MD LAB BLOOD ORDERABLES Final Resul t [facility] [place] [address] * (ABNORMAL) Lactate (10/01/2024 2:21 AM CDT) Lactate 2.8(H) 0.7 - 2.0 mmol/L Blood 10/01/2024 2:21 AM CDT 10/01/2024 2:29 AM CDT us Onofre Castro MD LAB BLOOD ORDERABLES Final Res ult Performing Organization Address [facility] Co de Phone Number [facility] Department [place] [address] * eGFR (10/01/2024 2:21 AM CDT) eGFR [...] MD LAB BLOOD ORDERABLES Final Resul t [facility] [place] [address] * (ABNORMAL) Differential, auto (10/01/2024 2:21 AM CDT) Neutrophil abs 1.88 1.50 - 6.50 K/cumm Imm gran abs 0.37(H) 0.00 - 0.10 K/cumm [facility] Lymphocyte abs 1.44 0.80 - 3.30 K/cumm [facility] Monocyte abs 0.82(H) 0.20 - 0.80 K/cumm [facility] Eosinophil abs 0.11 0.00 - 0.50 K/cumm [facility] Basophil abs 0.05 0.00 - 0.10 K/cumm [facility] Neutrophil pct 40.2 % [facility] Comment: Differential consistent with previous result. Differential consistent with previous result. Interpretive Data Percent cell count reference ranges are not reported, since discordance with absolute values may lead to misinterpretation of CBC data. Current Interpretive Data was last revised on 2017. Imm gran pct 7.9 % [facility] Comment: Interpretive Data Percent cell count reference ranges are not reported, since discordance with absolute values may lead to misinterpretation of CBC data. Current Interpretive Data was last revised on 2017. Lymphocyte pct 30.8 % [facility] Comment: Interpretive Data Percent cell count reference ranges are not reported, since discordance with absolute values may lead to misinterpretation of CBC data. Current Interpretive Data was last revised on 2017. Monocyte pct 17.6 % [facility] Comment: Interpretive Data Percent cell count reference ranges are not reported, since discordance with absolute values may lead to misinterpretation of CBC data. Current Interpretive Data was last revised on 2017. Eosinophil pct 2.4 % [facility] Comment: Interpretive Data Percent cell count reference ranges are not reported, since discordance with absolute values may lead to misinterpretation of CBC data. Current Interpretive Data was last revised on 2017. Basophil pct 1.1 % [facility] Comment: Interpretive Data Percent cell count reference ranges are not reported, since discordance with absolute values may lead to misinterpretation of CBC data. Current Interpretive Data was last revised on 2017. Blood 10/01/2024 2:21 AM CDT 10/01/2024 2:29 AM CDT us Onofre Castro MD LAB BLOOD ORDERABLES Final Res ult [facility] Department [place] [address] * (ABNORMAL) CBC with auto differential (10/01/2024 2:21 AM CDT) WBC 4.67 3.80 - 9.90 K/cumm Hgb 11.1(L) 13.0 - 17.5 g/dL [facility] Hct 32.1(L) 38.9 - 50.3 % [facility] Plt 99(L) 150 - 400 K/cumm [facility] MPV 11.2 9.1 - 12.3 fL [facility] RBC 3.32(L) 4.30 - 5.80 M/cumm [facility] MCV 96.7(H) 81.3 - 96.4 fL [facility] MCH 33.4(H) 27.1 - 33.3 pg [facility] MCHC 34.6 32.3 - 35.7 g/dL [facility] RDW CV 15.7(H) 11.1 - 14.9 % [facility] RDW SD 55.6(H) 35.7 - 48.1 fL [facility] NRBC abs 0.13(H) 0.00 - 0.01 K/cumm [facility] Blood 10/01/2024 2:21 AM CDT 10/01/2024 2:29 AM CDT us Onofre Castro MD LAB BLOOD ORDERABLES Final Res ult Performing Organization Address [facility] Co de Phone Number [facility] [place] [address] * (ABNORMAL) Lactate, whole blood (10/01/2024 2:21 AM CDT) Lactate, bld 2.9(H) 0.7 - 2.0 mmol/L Blood 10/01/2024 2:21 AM CDT 10/01/2024 2:28 AM CDT us Laz Busch MD LAB BLOOD ORDERABLES Final Resu lt Performing Organization Address [facility] de Phone Number [facility] [place] [address] * Uric acid (10/01/2024 2:21 AM CDT) Uric acid 7.0 3.0 - 8.0 mg/dL Blood 10/01/2024 2:21 AM CDT 10/01/2024 2:29 AM CDT us Arthur Guerra MD LAB BLOOD ORDERABLES Final Resul t Performing Organization Address [facility] de Phone Number [facility] [place] [address] * Phosphorus (10/01/2024 2:21 AM CDT) Phosphorus, pl 3.2 2.3 - 4.5 mg/dL Blood 10/01/2024 2:21 AM CDT 10/01/2024 2:29 AM CDT Arthur Guerra MD LAB BLOOD ORDERABLES Final Resul t Performing Organization Address [facility] de Phone Number [facility] [place] [address] * Basic metabolic panel (10/01/2024 2:21 AM CDT) [facility] Sodium 139 135 - 145 mmol/L Potassium, pl 4.2 3.3 - 4.9 mmol/L [facility] Chloride 102 97 - 110 mmol/L [facility] CO2 25 22 - 32 mmol/L [facility] Anion gap 12 2 - 15 mmol/L [facility] BUN 14 6 - 25 mg/dL [facility] Creatinine 1.01 0.80 - 1.30 mg/dL [facility] Glucose 75 70 - 199 mg/dL [facility] Comment: Interpretive Data Fasting glucose >/= 126 [...] 2022. Calcium 8.8 8.5 - 10.3 mg/dL [facility] Blood 10/01/2024 2:21 AM CDT 10/01/2024 2:29 AM CDT Arthur Guerra MD LAB BLOOD ORDERABLES Final Resul t Performing Organization Address [facility] de Phone Number [facility] [place] [address] * (ABNORMAL) Lactate (09/30/2024 5:42 PM CDT) Lactate 2.9(H) 0.7 - 2.0 mmol/L Blood 09/30/2024 5:42 PM CDT 09/30/2024 6:17 PM CDT Hanna Arias MD LAB BLOOD ORDERABLES Final Result Performing Organization Address [facility] Co de Phone Number LD [facility] Department [place] [address] * eGFR (09/30/2024 5:42 PM CDT) eGFR [...] ORDERABLES F inal Result Performing Organization Address City/[facility]/ZIP Co de Phone Number [facility] [place] [address] * (ABNORMAL) Lactate, whole blood (09/30/2024 5:42 PM CDT) Pathologist [facility] Lactate, bld 3.1(H) 0.7 - 2.0 mmol/L Blood 09/30/2024 5:42 PM CDT 09/30/2024 6:16 PM CDT Debby Benito MD LAB BLOOD ORDERABLES F inal Result Performing Organization Address City/[facility]/ZIP Co de Phone Number [facility] [place] [address] * Uric acid (09/30/2024 5:42 PM CDT) [facility] Uric acid 7.7 3.0 - 8.0 mg/dL Blood 09/30/2024 5:42 PM CDT 09/30/2024 6:17 PM CDT Laz Busch MD LAB BLOOD ORDERABLES Final Resu lt Performing Organization Address [facility] Co de Phone Number [facility] [place] [address] * Phosphorus (09/30/2024 5:42 PM CDT) [facility] Phosphorus, pl 2.5 2.3 - 4.5 mg/dL Blood 09/30/2024 5:42 PM CDT 09/30/2024 6:17 PM CDT Laz Busch MD LAB BLOOD ORDERABLES Final Resu lt Performing Organization Address [facility] Co de Phone Number [facility] [place] [address] * (ABNORMAL) Lactate dehydrogenase (LD) (09/30/2024 5:42 PM CDT) [facility] Lactate dehydrogenase (LDH) 402(H) 100 - 250 Units/L Blood 09/30/2024 5:42 PM CDT 09/30/2024 6:17 PM CDT Laz Busch MD LAB BLOOD ORDERABLES Final Resu lt Performing Organization Address City/[facility]/ZIP Co de Phone Number [facility] [place] [address] * Basic metabolic panel (09/30/2024 5:42 PM CDT) [facility] Sodium 137 135 - 145 mmol/L Potassium, pl 4.2 3.3 - 4.9 mmol/L [facility] Chloride 101 97 - 110 mmol/L [facility] CO2 28 22 - 32 mmol/L [facility] Anion gap 8 2 - 15 mmol/L [facility] BUN 13 6 - 25 mg/dL [facility] Creatinine 1.08 0.80 - 1.30 mg/dL [facility] Glucose 78 70 - 199 mg/dL [facility] Comment: Interpretive Data Fasting glucose >/= 126 [...] 2022. Calcium 8.9 8.5 - 10.3 mg/dL [facility] Blood 09/30/2024 5:42 PM CDT 09/30/2024 6:17 PM CDT Debby Benito MD LAB BLOOD ORDERABLES F inal Result Performing Organization Address [facility] Co de Phone Number [facility] [place] [address] * POCT glucose (09/30/2024 9:01 AM CDT) Glucose, POC 85 70 - 199 mg/dL Blood 09/30/2024 9:01 AM CDT 09/30/2024 9:01 AM CDT us Debby Benito MD LAB POCT ORDERABLES - DEVICE Final Result Performing Organization Address [facility] Co de Phone Number LD [facility] [place] [address] * eGFR (09/30/2024 8:21 AM CDT) eGFR [...] ORDERABLES Final Res ult Performing Organization Address [facility]/ZIP Co de Phone Number [facility] [place] [address] * (ABNORMAL) Lactate, whole blood (09/30/2024 8:21 AM CDT) Pathologist [facility] Lactate, bld 3.5(H) 0.7 - 2.0 mmol/L Blood 09/30/2024 8:21 AM CDT 09/30/2024 8:30 AM CDT Laz Busch MD LAB BLOOD ORDERABLES Final Resu lt Performing Organization Address [facility] Co de Phone Number [facility] [place] [address] * (ABNORMAL) Uric acid (09/30/2024 8:21 AM CDT) Uric acid 8.6(H) 3.0 - 8.0 mg/dL Blood 09/30/2024 8:21 AM CDT 09/30/2024 8:32 AM CDT Onofre Castro MD LAB BLOOD ORDERABLES Final Res ult Performing Organization Address [facility] de Phone Number [facility] [place] [address] * Phosphorus (09/30/2024 8:21 AM CDT) Pathologist [facility] Phosphorus, pl 3.1 2.3 - 4.5 mg/dL Blood 09/30/2024 8:21 AM CDT 09/30/2024 8:32 AM CDT Onofre Castro MD LAB BLOOD ORDERABLES Final Res ult Performing Organization Address [facility] [place] [address] * Basic metabolic panel (09/30/2024 8:21 AM CDT) Sodium 138 135 - 145 mmol/L Potassium, pl 4.0 3.3 - 4.9 mmol/L [facility] Chloride 101 97 - 110 mmol/L [facility] CO2 26 22 - 32 mmol/L [facility] Anion gap 11 2 - 15 mmol/L [facility] BUN 16 6 - 25 mg/dL [facility] Creatinine 1.13 0.80 - 1.30 mg/dL [facility] Glucose 110 70 - 199 mg/dL [facility] Comment: Interpretive Data Fasting glucose >/= 126 [...] 2022. Calcium 8.9 8.5 - 10.3 mg/dL [facility] Blood 09/30/2024 8:21 AM CDT 09/30/2024 8:32 AM CDT us Onofre Castro MD LAB BLOOD ORDERABLES Final Res ult [facility] [place] [address] * eGFR (09/30/2024 5:08 AM CDT) eGFR [...] MD LAB BLOOD ORDERABLES Final Res ult [facility] [place] [address] * Basic metabolic panel (09/30/2024 5:08 AM CDT) Sodium 139 135 - 145 mmol/L Potassium, pl 4.3 3.3 - 4.9 mmol/L [facility] Chloride 99 97 - 110 mmol/L [facility] CO2 25 22 - 32 mmol/L [facility] Anion gap 15 2 - 15 mmol/L [facility] BUN 15 6 - 25 mg/dL [facility] Creatinine 1.11 0.80 - 1.30 mg/dL [facility] Glucose 76 70 - 199 mg/dL [facility] Comment: Interpretive Data Fasting glucose >/= 126 [...] 2022. Calcium 8.6 8.5 - 10.3 mg/dL [facility] Blood 09/30/2024 5:08 AM CDT 09/30/2024 5:20 AM CDT us Onofre Castro MD LAB BLOOD ORDERABLES Final Res ult [facility] [place] [address] * Senior staff review (09/30/2024 2:30 AM CDT) [facility] Senior Staff Review Specimen Blood Senior Staff Review Review Done [facility] Comment:Reviewed by senior timi balderas. 10/01/2024 09:34:48 CDT GP. Blood 09/30/2024 2:30 AM CDT 09/30/2024 3:15 AM CDT us Debby Benito MD LAB BLOOD ORDERABLES F inal Result [facility] [place] [address] * (ABNORMAL) CBC with auto differential (09/30/2024 2:30 AM CDT) [facility] WBC 6.32 3.80 - 9.90 K/cumm Hgb 11.8(L) 13.0 - 17.5 g/dL [facility] Hct 34.4(L) 38.9 - 50.3 % [facility] Plt 117(L) 150 - 400 K/cumm [facility] MPV 11.0 9.1 - 12.3 fL [facility] RBC 3.61(L) 4.30 - 5.80 M/cumm [facility] MCV 95.3 81.3 - 96.4 fL [facility] MCH 32.7 27.1 - 33.3 pg [facility] MCHC 34.3 32.3 - 35.7 g/dL [facility] RDW CV 16.0(H) 11.1 - 14.9 % [facility] RDW SD 55.9(H) 35.7 - 48.1 fL [facility] NRBC abs 0.17(H) 0.00 - 0.01 K/cumm [facility] Blood 09/30/2024 2:30 AM CDT 09/30/2024 1:10 AM CDT us Onofre Castro MD LAB BLOOD ORDERABLES Final Res ult [facility] [place] [address] * (ABNORMAL) Manual Differential (09/30/2024 2:30 AM CDT) Differential Manual Cells Counted 121 [facility] Neutrophil abs 3.19 1.50 - 6.50 K/cumm [facility] Imm gran abs 0.37(H) 0.00 - 0.10 K/cumm [facility] Lymphocyte abs 2.40 0.80 - 3.30 K/cumm [facility] Monocyte abs 0.05(L) 0.20 - 0.80 K/cumm [facility] Eosinophil abs 0.16 0.00 - 0.50 K/cumm [facility] Basophil abs 0.16(H) 0.00 - 0.10 K/cumm [facility] Neutrophil pct 50.4 % [facility] Comment: Interpretive Data Percent cell count reference ranges are not reported, since discordance with absolute values may lead to misinterpretation of CBC data. Current Interpretive Data was last revised on 2017. Lymphocyte pct 24.0 % [facility] Comment: Interpretive Data Percent cell count reference ranges are not reported, since discordance with absolute values may lead to misinterpretation of CBC data. Current Interpretive Data was last revised on 2017. Monocyte pct 0.8 % [facility] Comment: Interpretive Data Percent cell count reference ranges are not reported, since discordance with absolute values may lead to misinterpretation of CBC data. Current Interpretive Data was last revised on 2017. Eosinophil pct 2.5 % [facility] Comment: Interpretive Data Percent cell count reference ranges are not reported, since discordance with absolute values may lead to misinterpretation of CBC data. Current Interpretive Data was last revised on 2017. Basophil pct 2.5 % [facility] Comment: Interpretive Data Percent cell count reference ranges are not reported, since discordance with absolute values may lead to misinterpretation of CBC data. Current Interpretive Data was last revised on 2017. Metamyelocyte pct 1.7(H) 0.0 - 0.0 % [facility] Myelocyte pct 3.3(H) 0.0 - 0.0 % [facility] Promyelocyte pct 0.8(H) 0.0 - 0.0 % [facility] Variant lymph pct 14.0(H) 0.0 - 0.0 % [facility] RBC morphology Present(A) [facility] Anisocytosis Slight(A) [facility] Poikilocytosis Slight(A) [facility] Macrocytes 3-7/HPF(A) [facility] Platelet estimate Decreased( A) [facility] Blood 09/30/2024 2:30 AM CDT 09/30/2024 3:15 AM CDT Onofre Castro MD LAB BLOOD ORDERABLES Final Res ult Performing Organization Address [facility] Co de Phone Number [facility] [place] [address] * (ABNORMAL) Lactate (09/30/2024 12:53 AM CDT) Lactate 2.8(H) 0.7 - 2.0 mmol/L Blood 09/30/2024 12:5 3 AM CDT 09/30/2024 1:10 AM CDT Onofre Castro MD LAB BLOOD ORDERABLES Final Res ult Performing Organization Address [facility] Co de Phone Number [facility] [place] [address] * aPTT (09/30/2024 12:53 AM CDT) aPTT [...] ORDERABLES Final Res ult Performing Organization Address City/[facility] Co de Phone Number [facility] [place] [address] * Protime-INR (09/30/2024 12:53 AM CDT) PT 12.0 9.7 - 13.0 sec INR 1.11 0.90 - 1.20 [facility] Comment: Interpretive data Oral anticoagulant therapeutic ranges: Venous thromboembolism prophylaxis or treatment: 2.0-3.0 CARDIOLOGY Standard range: 2.0-3.0 High-intensity range: 2.5-3.5 Refer to indication-specific guidelines for appropriate target ranges for prosthetic heart valve replacement. Current interpretive data was last revised on 2019. Blood 09/30/2024 12:5 3 AM CDT 09/30/2024 1:12 AM CDT Onofre Castro MD LAB BLOOD ORDERABLES Final Res ult Performing Organization Address [facility] de Phone Number [facility] [place] [address] * Type and screen (09/30/2024 12:53 AM CDT) ABO Rh A Positive Jacob, indirect Negative [facility] Blood 09/30/2024 12:5 3 AM CDT 09/30/2024 1:05 AM CDT Narrative [facility] - 09/30/2024 2:00 AM CDT Has the patient had Daratumumab or Isatuximab in the past 6 months?->Unknown Onofre Castro MD LAB BLOOD BANK TEST ORDERABLES Final Result Performing Organization Address City/[facility] Co de Phone Number [facility] [place] [address] * (ABNORMAL) Lactate dehydrogenase (LD) (09/30/2024 12:53 AM CDT) [facility] Lactate dehydrogenase (LDH) 498(H) 100 - 250 Units/L Blood 09/30/2024 12:5 3 AM CDT 09/30/2024 1:10 AM CDT Narrative [facility] - 09/30/2024 1:43 AM CDT Friday and only. Morning draw. Onofre Castro MD LAB BLOOD ORDERABLES Final Res ult Performing Organization Address [facility] [place] [address] * Hepatic function panel (09/30/2024 12:53 AM CDT) [facility] Bilirubin, total 1.1 0.1 - 1.2 mg/dL Bilirubin, direct 0.3 0.1 - 0.3 mg/dL [facility] Protein, pl 6.8 6.5 - 8.5 g/dL [facility] Albumin 3.7 3.5 - 5.0 g/dL [facility] Alk phos 107 40 - 130 Units/L [facility] ALT 16 7 - 55 Units/L [facility] AST 42 10 - 50 Units/L [facility] Blood 09/30/2024 12:5 3 AM CDT 09/30/2024 1:10 AM CDT Onofre Castro MD LAB BLOOD ORDERABLES Final Res ult Performing Organization Address [facility]/[place] [address] * Troponin I high-sensitivity 2-hour (09/29/2024 4:38 PM CDT) [facility] Trop I hs 6 <=35 ng/L Comment: Interpretive Data For further hscTnI resources including the diagnostic algorithm and an aid in interpretation, copy and paste this link: https://bjhlab.testcatalog.org/show/hsTrop-1 Current Interpretive Data last revised 2019. Trop I hs delta 2 ng/L [facility] Trop I hs interp Insignificant [facility] Blood 09/29/2024 4:38 PM CDT 09/29/2024 5:55 PM CDT us Onofre Castro MD LAB BLOOD ORDERABLES Final Res ult [facility] [place] [address] * CT Chest PE (CTA) W Contrast [...] by: Desmond Ayers M.D. Onofre Castro MD IMG CT PROCEDURES Final Result * Troponin I high-sensitivity series (baseline, 2hr, 4hr, 6hr) (09/29/2024 2:48 PM CDT) Pathologist [facility] Trop I hs 4 <=35 ng/L Comment: Interpretive Data For further hscTnI resources including the diagnostic algorithm and an aid in interpretation, copy and paste this link: https://bjhlab.testcatalog.org/show/hsTrop-1 Current Interpretive Data last revised 2019. Blood 09/29/2024 2:48 PM CDT 09/29/2024 3:09 PM CDT Onofre Castro MD LAB BLOOD ORDERABLES Final Res ult Performing Organization Address City/[facility]/ZIP Co de Phone Number LD [facility] [place] [place] [address] * (ABNORMAL) Lactate (09/29/2024 2:48 PM CDT) [facility] Lactate 3.6(H) 0.7 - 2.0 mmol/L Blood 09/29/2024 2:48 PM CDT 09/29/2024 3:10 PM CDT Onofre Castro MD LAB BLOOD ORDERABLES Final Res ult [place] [address] * eGFR (09/29/2024 2:48 PM CDT) [facility] eGFR >90 >=60 mL/min/1. 73 m2 [...] ORDERABLES Final Res ult Performing Organization Address City/[facility] Co de Phone Number [facility] Department [place] [address] * Senior staff review (09/29/2024 2:48 PM CDT) Senior Staff Review Specimen Blood Senior Staff Review Review Done [facility] Comment:Refer to manual diff erential pathologist comment. Blood 09/29/2024 2:48 PM CDT 09/29/2024 6:32 PM CDT Narrative [facility] - 10/01/2024 9:31 AM CDT Path review us Debby Benito MD LAB BLOOD ORDERABLES F inal Result Performing Organization Address [facility] Co de Phone Number [facility] Department [place] [address] * (ABNORMAL) CBC with auto differential (09/29/2024 2:48 PM CDT) WBC 7.98 3.80 - 9.90 K/cumm Hgb 12.5(L) 13.0 - 17.5 g/dL [facility] Hct 35.2(L) 38.9 - 50.3 % [facility] Plt 127(L) 150 - 400 K/cumm [facility] MPV 11.1 9.1 - 12.3 fL [facility] RBC 3.69(L) 4.30 - 5.80 M/cumm [facility] MCV 95.4 81.3 - 96.4 fL [facility] MCH 33.9(H) 27.1 - 33.3 pg [facility] MCHC 35.5 32.3 - 35.7 g/dL [facility] RDW CV 16.0(H) 11.1 - 14.9 % [facility] RDW SD 55.0(H) 35.7 - 48.1 fL [facility] NRBC abs 0.15(H) 0.00 - 0.01 K/cumm [facility] Blood 09/29/2024 2:48 PM CDT 09/29/2024 3:09 PM CDT us Onofre Castro MD LAB BLOOD ORDERABLES Final Res ult [facility] [place] [address] * (ABNORMAL) Manual Differential (09/29/2024 2:48 PM CDT) Differential Manual Cells Counted 115 [facility] Neutrophil abs 3.81 1.50 - 6.50 K/cumm [facility] Imm gran abs 0.41(H) 0.00 - 0.10 K/cumm [facility] Lymphocyte abs 3.13 0.80 - 3.30 K/cumm [facility] Monocyte abs 0.34 0.20 - 0.80 K/cumm [facility] Eosinophil abs 0.28 0.00 - 0.50 K/cumm [facility] Neutrophil pct 47.8 % [facility] Comment: Interpretive Data Percent cell count reference ranges are not reported, since discordance with absolute values may lead to misinterpretation of CBC data. Current Interpretive Data was last revised on 2017. Lymphocyte pct 23.5 % [facility] Comment: Interpretive Data Percent cell count reference ranges are not reported, since discordance with absolute values may lead to misinterpretation of CBC data. Current Interpretive Data was last revised on 2017. Monocyte pct 4.3 % [facility] Comment: Interpretive Data Percent cell count reference ranges are not reported, since discordance with absolute values may lead to misinterpretation of CBC data. Current Interpretive Data was last revised on 2017. Eosinophil pct 3.5 % [facility] Comment: Interpretive Data Percent cell count reference ranges are not reported, since discordance with absolute values may lead to misinterpretation of CBC data. Current Interpretive Data was last revised on 2017. Metamyelocyte pct 1.7(H) 0.0 - 0.0 % [facility] Myelocyte pct 2.6(H) 0.0 - 0.0 % [facility] Promyelocyte pct 0.9(H) 0.0 - 0.0 % [facility] Variant lymph pct 15.7(H) 0.0 - 0.0 % [facility] RBC morphology Present(A) [facility] Anisocytosis Slight(A) [facility] Poikilocytosis Slight(A) [facility] Macrocytes 3-7/HPF(A) [facility] Platelet estimate Decreased(A) [facility] Pathologist comment Reviewed by Hematopatholog ist/Hematologi Luis E owens M.D. 10/01/2024 09:30:47 CDT Atypical lymphocytes noted. Suggest flow cytometry. [facility] Blood 09/29/2024 2:48 PM CDT 09/29/2024 6:32 PM CDT us Onofre Castro MD LAB BLOOD ORDERABLES Edited Re sult - Final [facility] [place] [address] * Type and screen (09/29/2024 2:48 PM CDT) Pathologist [facility] Jacob, indirect Negative ABO Rh A Positive [facility] Blood 09/29/2024 2:48 PM CDT 09/29/2024 3:21 PM CDT Narrative [facility] - 09/29/2024 4:29 PM CDT Has the patient had Daratumumab or Isatuximab in the past 6 months?->Unknown Onofre Castro MD LAB BLOOD BANK TEST ORDERABLES Final Result Performing Organization Address City/[facility] Co de Phone Number [facility] [place] [address] * (ABNORMAL) Uric acid (09/29/2024 2:48 PM CDT) [facility] Uric acid 9.9(H) 3.0 - 8.0 mg/dL Blood 09/29/2024 2:48 PM CDT 09/29/2024 3:10 PM CDT Onofre Castro MD LAB BLOOD ORDERABLES Final Res ult Performing Organization Address [facility] Co de Phone Number [facility] [place] [address] * Phosphorus (09/29/2024 2:48 PM CDT) Pathologist [facility] Phosphorus, pl 4.4 2.3 - 4.5 mg/dL Blood 09/29/2024 2:48 PM CDT 09/29/2024 3:10 PM CDT Onofre Castro MD LAB BLOOD ORDERABLES Final Res ult Performing Organization Address [facility] [place] [address] * Magnesium (09/29/2024 2:48 PM CDT) Pathologist [facility] Magnesium 2.2 1.4 - 2.5 mg/dL Blood 09/29/2024 2:48 PM CDT 09/29/2024 3:10 PM CDT Onofre Castro MD LAB BLOOD ORDERABLES Final Res ult Performing Organization Address [facility] de Phone Number [facility] [place] [address] * (ABNORMAL) Lactate dehydrogenase (LD) (09/29/2024 2:48 PM CDT) [facility] Lactate dehydrogenase (LDH) 592(H) 100 - 250 Units/L Blood 09/29/2024 2:48 PM CDT 09/29/2024 3:10 PM CDT Onofre Castro MD LAB BLOOD ORDERABLES Final Res ult Performing Organization Address [facility] de Phone Number [facility] [place] [address] * Creatine kinase (CK), total (09/29/2024 2:48 PM CDT) [facility] CK 121 40 - 300 Units/L Blood 09/29/2024 2:48 PM CDT 09/29/2024 3:10 PM CDT Onofre Castro MD LAB BLOOD ORDERABLES Final Res ult Performing Organization Address [facility] de Phone Number [facility] [place] [address] * (ABNORMAL) Comprehensive metabolic panel (09/29/2024 2:48 PM CDT) [facility] Sodium 139 135 - 145 mmol/L Potassium, pl 4.5 3.3 - 4.9 mmol/L [facility] Chloride 103 97 - 110 mmol/L [facility] CO2 26 22 - 32 mmol/L [facility] Anion gap 10 2 - 15 mmol/L [facility] BUN 19 6 - 25 mg/dL [facility] Creatinine 0.99 0.80 - 1.30 mg/dL [facility] Glucose 81 70 - 199 mg/dL [facility] Comment: Interpretive Data Fasting glucose >/= 126 [...] 2022. Calcium 9.4 8.5 - 10.3 mg/dL [facility] Bilirubin, total 0.4 0.1 - 1.2 mg/dL [facility] Protein, pl 7.2 6.5 - 8.5 g/dL [facility] Albumin 3.9 3.5 - 5.0 g/dL [facility] Alk phos 115 40 - 130 Units/L [facility] ALT 21 7 - 55 Units/L [facility] AST 76(H) 10 - 50 Units/L [facility] Blood 09/29/2024 2:48 PM CDT 09/29/2024 3:10 PM CDT us Onofre Castro MD LAB BLOOD ORDERABLES Final Res ult [facility] Department [place] [address] * XR Chest 1 View (09/29/2024 2:01 [...] ECG 12 lead (09/29/2024 1:10 PM CDT) Ventricular Rate EKG/Min 98 BPM [facility] Atrial Rate 98 BPM [facility] SD-Interval (MSEC) 166 ms [facility] QRS-Interval (MSEC) 82 ms [facility] QT-Interval (MSEC) 344 ms [facility] QTc 439 ms [facility] P Boring 29 degrees [facility] R Boring 24 degrees [facility] T Boring 6 degrees [facility] Diagnosis Normal sinus rhythm Possible Inferior infarct (cited on or before 23-SEP-2024) Anterior infarct (cited on or before 23-SEP-2024) Abnormal ECG When compared with ECG of 23-SEP-2024 11:31, No significant change was found Confirmed by LEA NICKERSON M.D ([id number]) on 10/01/2024 9:54:23 AM [facility] 09/29/2024 1:10 PM CDT 10/01/2024 9:54 AM CDT Onofre Castro MD ECG ORDERABLES Final Result Performing Organization Address City/[facility]/ZIP Co de Phone Number [facility] * eGFR (09/29/2024 10:52 AM CDT) eGFR >90 >=60 mL/min/1. 73 [...] AM CDT 09/29/2024 11:09 AM CDT Sarah Simon NP LAB BLOOD ORDERABLES Final Res ult Performing Organization Address City/[facility]/ZIP Co de Phone Number LD [facility] Department [place] [address] * (ABNORMAL) Uric acid (09/29/2024 10:52 AM CDT) Uric acid 9.1(H) 3.0 - 8.0 mg/dL Blood 09/29/2024 10:5 2 AM CDT 09/29/2024 11:09 AM CDT Sarah S. [place] RELIGIOUS LEADER LAB BLOOD ORDERABLES Final Res ult Performing Organization Address City/[facility]/ZIP Co de Phone Number [facility] [place] [address] * Phosphorus (09/29/2024 10:52 AM CDT) Pathologist [facility] Phosphorus, pl 4.3 2.3 - 4.5 mg/dL Blood 09/29/2024 10:5 2 AM CDT 09/29/2024 11:09 AM CDT [facility]. [place] RELIGIOUS LEADER LAB BLOOD ORDERABLES Final Res ult Performing Organization Address [facility] Co de Phone Number [facility] [place] [address] * Basic metabolic panel (09/29/2024 10:52 AM CDT) [facility] Sodium 142 135 - 145 mmol/L Potassium, pl 4.7 3.3 - 4.9 mmol/L [facility] Chloride 105 97 - 110 mmol/L [facility] CO2 25 22 - 32 mmol/L [facility] Anion gap 12 2 - 15 mmol/L [facility] BUN 19 6 - 25 mg/dL [facility] Creatinine 0.98 0.80 - 1.30 mg/dL [facility] Glucose 82 70 - 199 mg/dL [facility] Comment: Interpretive Data Fasting glucose >/= 126 [...] 2022. Calcium 9.5 8.5 - 10.3 mg/dL [facility] Blood 09/29/2024 10:5 2 AM CDT 09/29/2024 11:09 AM CDT us Sarah Simon RELIGIOUS LEADER LAB BLOOD ORDERABLES Final Res ult LD [facility] [place] [address] * TRANSTHORACIC ECHO (TTE) COMPLETE W DOPPLER/CF W CONTRAST (09/23/2024 4:03 PM CDT) Anatomical Region Laterality Modality Ultrasound 09/23/2024 3:1 0 PM CDT Narrative 09/23/2024 5:16 PM CDT [facility] [place] [address] Transthoracic Echocardiographic Report Patient Name: SAQIB DEWEY J : 1975 (49y 6m) Gender: M Study Date: 09/23/2024 03:10:18 PM Ht(Inch): 72 Wt(Lb): 216.93 BSA: 2.24 Health Data Analyst: Sunshine Baez RDCS [facility] Location: [facility] Order Provider: DEBBY BENITO Heart Rate: 73 [...] Procedure Note Precious Rodriguez MD - 09/23/2024 [facility] [place] [place] [address] Transthoracic Echocardiographic Report Patient Name: SAQIB DEWEY J : 1975 (49y 6m) Gender: M Study Date: 09/23/2024 03:10:18 PM Ht(Inch): 72 Wt(Lb): 216.93 BSA: 2.24 Health Data Analyst: Sunshine Baez RDCS, RCCS Location: [facility] Order Provider:DEBBY BENITO Heart Rate: 73 BMI: 29.42 BP: 112 / 80 Ref Provider: EDBBY BENITO PROCEDURES: Echocardiographic Report: Transthoracic complete echo [...] LA Length 4C 5.13 cm MV Decel Ycej435.66 msec [ 104.00 - 258.00 ] LA [...] Precious Rodriguez M.D. 09/23/2024 5:15:31 PM CDT Debby Benito MD CV ECHO PROCEDURES Fin al Result * Donor Confirmation (09/23/2024 1:16 PM CDT) Test name, donor Confirmatory Syphilis testing [facility] confirm, donor Test Name: _ Syphilis (T. pallidum)Captia- G IgG Antibody Screen EIA Test Result: _Negative Testing performed by: [facility] [place] [address] CLIA [id number] [facility] Blood 09/23/2024 1:16 PM CDT 09/24/2024 8:21 AM CDT Debby Benito MD LAB BLOOD ORDERABLES F inal Result [facility] [place] [address] * eGFR (09/23/2024 1:16 PM CDT) Pathologist [facility] eGFR >90 >=60 mL/min/1. 73 m2 Comment: [...] MD LAB BLOOD ORDERABLES F inal Result [facility] [place] [address] * (ABNORMAL) BMT donor evaluation (09/23/2024 1:16 PM CDT) Hep B surf Ag, donor Negative Negative [facility] Hep B core Ab, donor Positive(A) Negative [facility] Hep C Ab, donor Negative Negative [facility] HIV 1-2 Ab, donor Negative Negative [facility] HTLV I/II Ab, donor Negative Negative [facility] Syphilis testing, donor Positive(A) Negative [facility] HIV CHRISTINA, donor Negative Negative [facility] HCV CHRISTINA, donor Negative Negative [facility] HBV CHRISTINA, donor Negative Negative [facility] WNV CHRISTINA, donor Negative Negative [facility] CMV testing, donor Positive(A) Negative [facility] Comment: Interpretive Data Testing performed by [facility] [place] [address] CLIA [id number] Panel consists of testing for Hepatitis B, Hepatitis C, HIV, HTLV, Syphilis, CMV, West Nile Virus and Chagas disease.Current interpretive data was last revised on 2022. Chagas testing, donor Negative Negative [facility] Blood 09/23/2024 1:16 PM CDT 09/24/2024 8:21 AM CDT us Debby Benito MD LAB BLOOD ORDERABLES F inal Result [facility] [place] [address] * (ABNORMAL) CBC with auto differential (09/23/2024 1:16 PM CDT) WBC 8.83 3.80 - 9.90 K/cumm Comment:Testing performed by : [facility], [address] [place] [address] Hgb 12.7(L) 13.0 - 17.5 g/dL [facility] Comment:Testing performed by : [facility], [address] [place] [address] Hct 37.9(L) 38.9 - 50.3 % [facility] Comment:Testing performed by : [facility], [address] [place] [address] Plt 179 150 - 400 K/cumm [facility] Comment:Testing performed by : [facility], [address] [place] [address] MPV 9.3 6.8 - 10.4 fL [facility] Comment:Testing performed by : [facility], [address] [place] [address] RBC 3.85(L) 4.30 - 5.80 M/cumm [facility] Comment:Testing performed by : [facility], [address] [place] [address] MCV 98.5(H) 81.3 - 96.4 fL [facility] MARTIN BJ Comment:Testing performed by : [facility], [address] [place] [address] MCH 33.0 27.1 - 33.3 pg CERJOSE MARTIN SWEET Comment:Testing performed by : [facility], [address] [place] [address] MCHC 33.5 32.3 - 35.7 g/dL [facility] Comment:Testing performed by : [facility], [address] [place] [address] RDW CV 15.8(H) 11.1 - 14.9 % LD [facility] Comment:Testing performed by : [facility], [address] [place] [address] NRBC abs 0.00 0.00 - 0.01 K/cumm LD [facility] Comment:Testing performed by : [facility], [address] [place] [address] Blood 09/23/2024 1:16 PM CDT 09/23/2024 1:24 PM CDT Debby Benito MD LAB BLOOD ORDERABLES F inal Result Performing Organization Address City/State/[facility] Co de Phone Number [facility] [place] [address] * (ABNORMAL) Manual Differential (09/23/2024 1:16 PM CDT) Cells Counted 196 Comment:Testing performed by : [facility], [address] [place] [address] Neutrophil abs 4.94 1.50 - 6.50 K/cumm LD SWEET Comment:Testing performed by : [facility], [address] [place] [address] Lymphocyte abs 1.85 0.80 - 3.30 K/cumm LD SWEET Comment:Testing performed by : [facility], [address] [place] [address] Monocyte abs 0.53 0.20 - 0.80 K/cumm LD SWEET Comment:Testing performed by : [facility], [address] [place] [address] Eosinophil abs 0.44 0.00 - 0.50 K/cumm LD SWEET Comment:Testing performed by : [facility], [address] [place] [phone] Basophil abs 0.18(H) 0.00 - 0.10 K/cumm CERNER [facility] Comment:Testing performed by : [facility], [address] [place] [phone] Neutrophil pct 56.0 % C[facility]ER [facility] Comment: Interpretive Data Percent cell count reference ranges are not reported, since discordance with absolute values may lead to misinterpretation of CBC data. Current Interpretive Data was last revised on 2017. Testing performed by: [facility], [address] [place] [phone] Lymphocyte pct 21.0 % C[facility] Comment: Interpretive Data Percent cell count reference ranges are not reported, since discordance with absolute values may lead to misinterpretation of CBC data. Current Interpretive Data was last revised on 2017. Testing performed by: [facility], [address] [place] [phone] Monocyte pct 6.0 % C[facility] Comment: Interpretive Data Percent cell count reference ranges are not reported, since discordance with absolute values may lead to misinterpretation of CBC data. Current Interpretive Data was last revised on 2017. Testing performed by: [facility], [address] [place] [phone] Eosinophil pct 5.0 % [facility] Comment: Interpretive Data Percent cell count reference ranges are not reported, since discordance with absolute values may lead to misinterpretation of CBC data. Current Interpretive Data was last revised on 2017. Testing performed by: [facility], [address] [place] [phone] Basophil pct 2.0 % [facility] Comment: Interpretive Data Percent cell count reference ranges are not reported, since discordance with absolute values may lead to misinterpretation of CBC data. Current Interpretive Data was last revised on 2017. Testing performed by: [facility], [address] [place] [phone] Metamyelocyte pct 3.0(H) 0.0 - 0.0 % C[facility]ER [facility] Comment:Testing performed by : [facility], [address] [place] [address] Myelocyte pct 2.0(H) 0.0 - 0.0 % CERNER BJ Comment:Testing performed by : [facility], [address] [place], [place] [phone] Promyelocyte pct 1.0(H) 0.0 - 0.0 % CERNER BJ Comment:Testing performed by : [facility], [address] [place] [address] Blast pct 1.0(H) 0.0 - 0.0 % CERNER BJ Comment: Date-Time 09/23/2024 1440 Critical called to Tabby Lay MA and read back by ZITA Testing performed by: [facility], [address] [place] [address] Variant lymph pct 5.0(H) 0.0 - 0.0 % CERJOSE MARTIN BJ Comment:Testing performed by : [facility], [address] [place] [address] RBC morphology NRBCs present(A) CERNER BJ Comment:Testing performed by : [facility], [address] [place], [place] [phone] Hypochromasia 1+(A) CERJOSE MARTIN BJ Comment:Testing performed by : [facility], [address] [place], [place] [phone] Anisocytosis 1+(A) CERJOSE MARTIN BJ Comment:Testing performed by : [facility], [address] [place], [place] [phone] Poikilocytosis 1+(A) CERNER BJ Comment:Testing performed by : [facility], [address] [place], [place] [phone] Schistocytes 1+(A) CERJOSE MARTIN BJ Comment:Testing performed by : [facility], [address] [place], [place] [phone] Elliptocytes 1+(A) CERJOSE MARTIN BJ Comment:Testing performed by : [facility], [address] [place] [address] Target cells 1+(A) LD [facility] Comment:Testing performed by : [facility], [address] [place] [phone] Platelet estimate Adequate [facility] Comment:Testing performed by : [facility], [address] [place] [phone] Blood 09/23/2024 1:16 PM CDT 09/23/2024 1:24 PM CDT Debby Beniot MD LAB BLOOD ORDERABLES F inal Result Performing Organization Address [facility] de Phone Number [facility] [place] [address] * (ABNORMAL) HSV 2 IgG Antibody Blood (09/23/2024 1:16 PM CDT) [facility] HSV 2 IgG Reactive( A) Nonreactive [...] ERAL ORDERABLES Final Result Performing Organization Address [facility] Co de Phone Number [facility] [place] [address] * (ABNORMAL) HSV 1 IgG Antibody Blood (09/23/2024 1:16 PM CDT) [facility] HSV 1 IgG Reactive( A) Nonreactive [...] ERAL ORDERABLES Final Result Performing Organization Address [facility] de Phone Number [facility] [place] [address] * Sickle cell screen (09/23/2024 1:16 PM CDT) Sickle cell, solubility Negative Negative Comment: Interpretive [...] ORDERABLES F inal Result Performing Organization Address [facility] de Phone Number [facility] [place] [address] * aPTT (09/23/2024 1:16 PM CDT) aPTT [...] ORDERABLES F inal Result Performing Organization Address [facility] [place] [address] * Protime-INR (09/23/2024 1:16 PM CDT) Pathologist [facility] PT 10.7 9.7 - 13.0 sec INR 0.99 0.90 - 1.20 [facility] Comment: Interpretive data Oral anticoagulant therapeutic ranges: [...] inal Result Performing Organization Address [facility] [place] [address] * Type and screen (09/23/2024 1:16 PM CDT) Pathologist [facility] Jacob, indirect Negative ABO Rh A Positive [facility] Blood 09/23/2024 1:16 PM CDT 09/23/2024 1:35 PM CDT Narrative [facility] - 09/23/2024 2:36 PM CDT Has the patient had Daratumumab or Isatuximab in the past 6 months?->Unknown Debby Benito MD LAB BLOOD BANK TEST OR DERABLES Final Result Performing Organization Address [facility] [place] [address] * Uric acid (09/23/2024 1:16 PM CDT) Pathologist [facility] Uric acid 7.2 3.0 - 8.0 mg/dL Blood 09/23/2024 1:16 PM CDT 09/23/2024 1:29 PM CDT Debby Benito MD LAB BLOOD ORDERABLES F inal Result Performing Organization Address [facility] Co de Phone Number [facility] [place] [address] * Magnesium (09/23/2024 1:16 PM CDT) [facility] Magnesium 2.2 1.4 - 2.5 mg/dL Blood 09/23/2024 1:16 PM CDT 09/23/2024 1:29 PM CDT Result [facility] Debby Benito MD LAB BLOOD ORDERABLES F inal Result Performing Organization Address [facility] de Phone Number [facility] [place] [address] * (ABNORMAL) Hemoglobin A1c (09/23/2024 1:16 PM CDT) [facility] Hgb A1C 5.7(H) 4.0 - 5.6 % Estimated Average Glucose 117 mg/dL [facility] Comment: The ADA recommends reporting an estimated [...] ORDERABLES F inal Result Performing Organization Address [facility] Co de Phone Number [facility] [place] [address] * (ABNORMAL) Lipid panel (09/23/2024 1:16 PM [...] revised on 2018. Triglycerides 259(H) <=149 mg/dL [facility] Comment: Interpretive Data Ages < or [...] revised on 2018. HDL 23(L) >=40 mg/dL [facility] Comment: Interpretive Data Ages < or [...] on 2018. LDL, calculated 101 <=129 mg/dL [facility] Comment: Interpretive Data Ages < or [...] 3. Easton Rios et al. QUETA Cardiol. 2020 September 30;5(5):540-548. doi: 10.1001/jamacardio.2020.0013 Current Interpretive Data was last revised on 2024. Non-HDL Cholesterol 146 mg/dL LD SWEET Comment: Interpretive Data Ages < or = 19 years Acceptable: <120 mg/dL Borderline high: 120-144 mg/dL High: >145 mg/dL Ages > or = 20 years When triglycerides are >200 mg/dL, Non-HDL cholesterol is a secondary target of therapy with treatment goals that are 30 mg/dL greater than the LDL cholesterol target.
--- OUTSIDE RECORDS SUMMARY | 2024-10-07 12:23 | XMS_ITS | Encounter Summary ---
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) Procedures IR Tunneled Line Placement > 5 Years Consult to Interventional Radiology Consult to Interventional Radiology Debby Greene MD [address] [facility]ONE [facility]ARROW [facility]ANSPL[facility], [address] [place] [address] Phone: tel: fax: [place] [address] [address] [place] [address] Referral ID Status Reason Start Date Expiration Date Visits Re quested Visits Authorized [id number] Closed 10/04/2024 11/03/2025 1 1 Reason for [...] [facility], [address] [place] [address] Phone: tel: fax: [facility] [address] [place], [place] [address] Referral ID Status Reason Start Date Expiration Date Visits Re quested Visits Authorized [id number] Closed 10/04/2024 11/03/2025 1 1 Encounter Details Date Type Department Care Team (Latest Contact Info) Description 10/07/2024 6:46 AM CDT Hospital Encounter [facility] [id number] [place] [address] Hannah Cadet RN Garcia, Susan, RN 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 All questions answered and they agree [...] completed, removal can be scheduled by calling [facility] - [phone] [facility] - [phone] Electronically signed by: Ramón Ocasio M.D. Narrative [...] was obtained. Prior to beginning the procedure, [place] Protocol was used to confirm the patient's [...] was obtained. Prior to beginning the procedure, [place] Protocol was used to confirm the patient's [...] completed, removal can be scheduled by calling [facility] - [phone] [facility] - [phone] Electronically signed by: Ramón Ocasio M.D. Debby [...] 1 10/07/2024 VITAL SIGNS 1 10/07/2024 VOID FUR EXAMINER TO OR 1 10/07/2024 Code Status Count Last Ordered Date First Orde red Date FULL CODE 1 10/07/2024 IV Count Last Ordered Date First Orde red Date ACCESS IMPLANTED PORT 1 10/07/2024 DECANNULATE IMPLANTED PORT 1 10/07/2024 INSERT PERIPHERAL IV 1 10/07/2024 Discharge Count Last Ordered Date First Orde red Date DISCHARGE PATIENT 1 10/07/2024 documented in this encounter Care Teams Crane Man Relationship Specialty Start Date End Date Rico Pérez MD [address] [place] [address] PCP - General Family Medicine 11/07/22 [place] [address] [facility] [address] [place] [address] Consulting Physician Endocrinology Diabetes & Metabolism 07/24/22 Ramón Watts MD [address] [place] [address] Consulting Physician General Surgery 11/25/22 Huseyin Reese MD [address] [place] [address] Medical Oncologist/Ekg/Ecg Technician Hematology and Oncology 12/19/22 Debby Greene MD [address] [place] [address] Consulting Physician Medical Oncology 12/25/22 documented as of this encounter
--- OUTSIDE RECORDS SUMMARY | 2024-10-07 12:23 | XMS_ITS | Encounter Summary ---
Author Organization [facility] Address [address] [place] [address] Phone Care Team Providers Care Corporate Secretary Name Role Phone Delon Jain MD Unavailable Rico Pérez MD Primary Care Provider Ramón Watts MD Unavailable [phone] Huseyin Reese MD Unavailable [phone] Debby Greene MD Unavailable [phone] Encounter Details Date Type Department Care Team (Late st Contact Info) Description 10/06/2024 Orders Only [facility] Bone Marrow Transplant [address] [facility] [address] [place] [address] Ifeanyi Malhotra, RN Mantle cell [...] often do you attend chur ch or muslim services? Never 09/23/2024 Do you belong to any clubs o r organizations such as congregation groups, unions, fraternal or athletic groups, or [...] place to sleep or slept in a retirement (including now)? No 07/15/2023 Housing Stability Vital Sign Answer Eladio e Recorded In the last 12 months, was t here a time when you were not able to pay the mortgage or rent on time? No 09/23/2024 In the past 12 months, how m any times have you moved where you were living? 0 09/23/2024 At any time in the past 12 m [facility], were you homeless or living in a retirement (including now)? No 09/23/2024 Personal Safety Answer Date Recorded Have you ever been in or are you currently in a harmful physical or emotional relationship or is someone making you feel afraid or unsafe? 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 [address] [facility]. [place] [address] * Phosphorus (10/07/2024 9:14 AM CDT) Phosphorus, pl 3.7 2.3 - 4.5 mg/dL Comment:Testing performed by : [facility], [address] [place] [address] Blood 10/07/2024 9:14 AM CDT 10/07/2024 9:38 AM CDT Debby Greene MD LAB BLOOD ORDERABLES F inal Result Performing Organization Address [facility] Co de Phone Number LD [facility] [address] [facility]. 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 documented in this encounter Orders Appointment Requests Count Last Ordered Date Fi rst Ordered Date ONCBCN LAB APPOINTMENT 2 10/06/2024 documented in this encounter Care Teams Corporate Secretary Relationship Specialty Start Date End Date Rico Pérez MD [address] [place] [address] PCP - General Family Medicine 11/07/22 [place] [address] [address] Consulting Physician Endocrinology Diabetes & Metabolism 07/24/22 Ramón Watts MD [address] [place] [address] Consulting Physician General Surgery 11/25/22 Huseyin Reese MD [address] [place], [place] [id number] Medical Oncologist/Jointer Operator Hematology and Oncology 12/19/22 Debby Greene MD [address] [place], [place] [address] Consulting Physician Medical Oncology 12/25/22 documented as of this encounter
--- OUTSIDE RECORDS SUMMARY | 2024-10-07 12:23 | XMS_ITS ---
Author Organization [facility] Address [address] [place] [phone] Phone Care Team Providers Care Esol Teacher Assistant Name Role Phone Delon Jain MD Unavailable Rico Pérez MD Primary Care Provider Ramón Watts MD Unavailable [phone] Huseyin Reese MD Unavailable [phone] Debby Greene MD Unavailable [phone] Active Problems Patient Care Coordination No te Formatting of this note is d ifferent from the original. [facility] Inpatient Care Coordination Overview Diagnosis [facility] Floor [id number] Treatment Plan Obin+Glofit (study) Reason for Admission Chemo - study Transplant/IEC Planning BMT/IEC Plan BEAM Auto 07/18/2023 HLA typing/IDMs [] Insurance Approval [] Discharge Planning Anticipated Discharge Date TBD Patient Education Completed [] Issue to be Resolved Before Discharge Discharge Disposition Requests Sent to Case Management, Pharmacy PA Team, or Medical Assistants Post-Discharge Follow-Up Living Situation/Distance from [place], [place] [address] Caregiver Lab/Transfusion Frequency Venous Access & Care implanted vascular device Local Oncologist Contact Phone: Fax: Post-Discharge Office Visit (H30) ARUN (BRIAR CUTTER [place])- 03/10 w/ study chemo Miscellaneous Notes: Problem [...] blabs and fluid infusion appointments in [facility]. 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 On cetirizine at home. - cetirizine 10 mg BID, Sarna lotion daily PRN Dermatitis 07/02/2023 Autologous donor of stem cells 06/27/2023 Well adult exam 06/14/2023 Overview (06/14/2023): h/o mantle cell cancer, under treatment, s/p resection Assessment & Plan (06/14/2023 3:24 PM SYSTEM OPERATION SUPERINTENDENT): A(n) yearly well adult visit has been [...] CRS\ICANS Assessment & Plan (07/27/2023 2:11 PM SYSTEM OPERATION SUPERINTENDENT): Follows with Dr. Greene in [place]. Diagnosed 11/21/2022 for splenic rupture found with diffuse lymphadenopathy, s/p splenectomy, found with stage IV mantle cell. Underwent BR X 3 with complete remission, R-cytarabine X 3 with PET scan 05/16/2023 showing CR. Enrolled in [id number] study, MRD testing indeterminate. Assigned to Arm [...] establish care has been performed today. Saqib Brwester is up to date on screening tests. [...] 06/19/2022 Assessment & Plan (06/19/2022 3:49 PM SYSTEM OPERATION SUPERINTENDENT): He has a massive goiter, with bilateral [...] (12/10/2021): Added automatically from request for surgery [id number] Visual changes 08/22/2021 Testicular hypofunction 10/16/2013 Overview (09/05/2016): TESTICULAR HYPOFUNC NEC Assessment & Plan (06/19/2022 3:47 PM SYSTEM OPERATION SUPERINTENDENT): Will check T , free and total [...] Medications No medications scheduled. Oncology Electrolyte Replacement ([facility]) & Hydration Therapy Plan* Plan [...] Reason Plan Provider Cycles - INPT/OUTPT - [facility] - Lymphoma - [id number] -Obinutuzumab pre-treatment followed by Glofitamab ([id number]) monotherapy WITH step dosing 03/31/2024 INV-[facility] (/BRIAR CUTTER [id number]) Glofitamab ([id number]) IVPB in 22.5 mL (ANTI-LAG-3)INV -[facility] (/BRIAR CUTTER [id number]) Glofitamab ([id number]) IVPB in 50 mL (ANTI-LAG-3)INV -[facility] (/BRIAR CUTTER [address]) obinutuzumab IVPB in 500 mLINV-[facility] Glofitamab ([id number]) (/BRIAR CUTTER [address])INV-[facility] sodium chloride 0.9 % [...]
--- OUTSIDE RECORDS SUMMARY | 2024-10-07 12:23 | XMS_ITS | Encounter Summary ---
Author Organization [facility] Address [facility] [place] [address] Care Team Providers Care Welding Machine Operator/Tender Name Role Phone Mitch Montes Primary Care Provider Unavailab Mitch Brandon Unavailable Unavailable Encounter Details Date Type Department Care Team (Late st Contact Info) Description 02/19/2019 Lab Requisition [facility] D[facility] Lab [address], [place] [address] Megan Villeda MD [address] [facility] 3 [place] [address] Social History Tobacco Use Types Packs/Day Years Used Date Smoking Tobacco: Never Assessed Sex and Gender Information Value Date Recorded Sex Assigned at Not on file Legal Sex Male 5:35 AM GOLD RECLAIMER Gender Identity Not on file Sexual Orientation Not on file documented as of this encounter Plan of Treatment Not on file documented as of this encounter Procedures Procedure Name Priority Date/Time Associated Diagnosis Comments DERMATOPATHOLOGY Routine 02/18/2019 12:0 0 AM CDT documented in this encounter Results * DERMATOPATHOLOGY (02/18/2019 12:00 AM CDT) Case Report Dermatopathology Report Case: [id number] Authorizing Provider: Megan Villeda MD Collected: 02/18/2019 12:00 AM Ordering Location: [facility] Lab Received: 02/19/2019 10:16 AM Pathologist: Princess Duarte MD Specimen: Skin, left scalp 9 1:34 PM CDT DERMATOPATHOLOGY LABORATORY Final Diagnosis Specimen A. SKIN, left scalp: DERMAL SCAR RESIDUAL BASAL CELL CARCINOMA NOT IDENTIFIED (L90.5) 1:34 PM CDT DERMATOPATHOLOGY LABORATORY Clinical History R/O nodular type BCC, biopsy proven. See [id number] 1:34 PM CDT DERMATOPATHOLOGY LABORATORY Gross Description Specimen A: Received is one formalin filled container labeled with the patient's name and designated left scalp.The specimen consists of an ellipse measuring 10g98w3 mm and is oriented with the suture/notch [...] determined by the Dermatopathology Laboratory at [facility], directed by Dr. Karl Zhao. These tests need not be, and therefore are not, approved by the [place] Food and Drug Administration. The tests are used for clinical purposes. Billing Codes Specimen Charges Stain Charges 87419 1 1:34 PM CDT DERMATOPATHOLOGY LABORATORY Embedded Images 1:34 PM CDT DERMATOPATHOLOGY LABORATORY Pathology/Cytolog y TISSUE SPECIMEN FROM SKIN / Unknown 02/18/2019 02/19/2019 10:16 AM CDT us Megan Villeda MD LAB - PATHOLOGY/CYTOLOGY ORD ERABLES Final Result DERMATOPATHOLOGY LABORATORY [facility] - Department of Dermatology [address], 5th [place] [address], [facility] [phone] documented in this encounter Visit Diagnoses Not on filedocumented in this encounter Care Teams Welding Machine Operator/Tender Relationship Specialty Start Date End Date Mitch Montes Update Information PCP - General 12/31/18 Mitch Montes Update Information 12/31/18 documented as of this encounter
--- OUTSIDE RECORDS SUMMARY | 2024-10-07 12:23 | XMS_ITS | Encounter Summary ---
Author Organization [facility] Address [address] [place] [address] Phone Care Team Providers Care Shape Brick Molder Name Role Phone Delon Jain MD Unavailable Rico Pérez MD Primary Care Provider [phone] Ramón Watts MD Unavailable [phone] Huseyin Reese MD Unavailable [phone] Debby Greeen MD Unavailable [phone] Encounter Details Date Type Department Care Team (Late st Contact Info) Description 10/06/2024 Orders Only [facility] Bone Marrow Transplant [address] [facility] [address] [place] [address] Radha Souza [facility] Social History Tobacco Use Types Packs/Day Years Used Date Smoking Tobacco: Never Cigarettes Passive Smoke Exposure: Never Smokeless Tobacco: Current Chew Alcohol Use Standard Drinks/Week Comments Yes 0 (1 standard drink = 0.6 oz pur e alcohol) [facility] Utilities Answer Date Recorded In the [...] often do you attend chur ch or gnosticist services? Never 09/23/2024 Do you belong to any clubs o r organizations such as worship groups, unions, fraternal or athletic groups, or [...] place to sleep or slept in a group home (including now)? No 07/15/2023 Housing Stability [...] were you homeless or living in a group home (including now)? No 09/23/2024 Personal Safety Answer Date Recorded Have you ever been in or are you currently in a harmful physical or emotional relationship or is someone making you feel afraid or unsafe? 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 Gender Identity Not on file Sexual Orientation Not on file Occupation Industry Job Start Date Job End Date Not on file Not on file Not on file Not on file documented as of this encounter Plan of Treatment Not on file documented as of this encounter Visit Diagnoses Not on filedocumented in this encounter Care Teams Shape Brick Molder Relationship Specialty Start Date End Date Rico Pérez MD [address] [place] [address] PCP - General Family Medicine 11/07/22 [place] [address] [address] Consulting Physician Endocrinology Diabetes & Metabolism 07/24/22 Ramón Watts MD [address] [place] [address] Consulting Physician General Surgery 11/25/22 Huseyin Reese MD [address] [place] [address] Medical Oncologist/Mgmt Consultant Hematology and Oncology 12/19/22 Debby Greene MD [address] [place] [address] Consulting Physician Medical Oncology 12/25/22 documented as of this encounter
--- OUTSIDE RECORDS SUMMARY | 2024-10-07 12:23 | XMS_ITS | Encounter Summary ---
Author Organization [facility] Address [address] [place] [address] Phone Care Team Providers Care Fish Grader Name Role Phone Delon Jain MD Unavailable Rico Pérez MD Primary Care Provider [phone] Ramón Watts MD Unavailable [phone] Huseyin Reese MD Unavailable [phone] Debby Greene MD Unavailable [phone] Reason for Visit * Reason Onset Date [...] (Late st Contact Info) Description 10/07/2024 Telephone [facility] Transplant [address] [facility] Floor 6 [place] [address] Nilda Alves RMA Chest Pain [...] drink = 0.6 oz pur e alcohol) [facility] Utilities Answer Date Recorded In the [...] often do you attend chur ch or orthodox services? Never 09/23/2024 Do you belong to any clubs o r organizations such as pentecostal groups, unions, fraternal or athletic groups, or [...] place to sleep or slept in a halfway (including now)? No 07/15/2023 Housing Stability Vital [...] time in the past 12 m [facility], were you homeless or living in a halfway (including now)? No 09/23/2024 Personal Safety Answer Date Recorded Have you ever been in or are you currently in a harmful physical or emotional relationship or is someone making you feel afraid or unsafe? 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 Gender Identity Not on file Sexual Orientation [...] on filedocumented in this encounter Care Teams Fish Grader Relationship Specialty Start Date End Date Rico Pérez MD [address] [place] [address] PCP - General Family Medicine 11/07/22 [place] [address] [facility] [address] [place] [address] Consulting Physician Endocrinology Diabetes & Metabolism 07/24/22 Ramón Watts MD [address] [place] [address] Consulting Physician General Surgery 11/25/22 Huseyin Reese MD [address] [place] [address] Medical Oncologist/Supervisor Die Casting Hematology and Oncology 12/19/22 Debby Greene MD [address] [place] [address] Consulting Physician Medical Oncology 12/25/22 documented as of this encounter
--- OUTSIDE RECORDS SUMMARY | 2024-10-07 12:23 | XMS_ITS | Encounter Summary ---
Author Organization [facility] Address [address] [place] [address] Care Team Providers Care Mosaicist Name Role Phone Delon Jain MD Unavailable Rico Pérez MD Primary Care Provider [phone] Ramón Watts MD Unavailable [phone] Huseyin Reese MD Unavailable [phone] Debby Greene MD Unavailable [phone] Encounter Details Date Type Department Care Team (Latest Contact Info) Description 10/07/2024 9:15 AM CDT Clinical Support [facility] at [address] [address] Mantle cell lymphoma of lymph nodes of multiple regions (HCC) Social History Tobacco Use Types Packs/Day Years Used Date Smoking Tobacco: Never Cigarettes Passive Smoke Exposure: Never Smokeless Tobacco: Current Chew Alcohol Use Standard Drinks/Week Comments Yes 0 (1 standard drink = 0.6 oz pur e alcohol) [facility] Utilities Answer Date Recorded In the past [...] often do you attend chur ch or alevism services? Never 09/23/2024 Do you belong to any clubs o r organizations such as latter-day groups, unions, fraternal or athletic groups, or [...] place to sleep or slept in a prison (including now)? No 07/15/2023 Housing Stability Vital Sign Answer Eladio e Recorded In the last 12 months, was t here a time when you were not able to pay the mortgage or rent on time? No 09/23/2024 In the past 12 months, how m any times have you moved where you were living? 0 09/23/2024 At any time in the past 12 m [facility], were you homeless or living in a prison (including now)? No 09/23/2024 Personal Safety Answer Date Recorded Have you ever been in or are you currently in a harmful physical or emotional relationship or is someone making you feel afraid or unsafe? Denies 09/29/2024 Sex and Gender Information Value Date Recorded Sex Assigned at Not on file Legal Sex Male 12:33 AM DAY GUARD Gender Identity Not on file Sexual Orientation [...] CDT) Differential Manual Comment:Testing performed by : [facility], [facility], [address] [place] [address] Cells Counted 100 CERNER [facility] Comment:Testing performed by : [facility], [facility], [address] [place] [address] Neutrophil abs 0.89(L) 1.50 - 6.50 K/cumm CERNER [facility] Comment:Testing performed by : [facility], [facility], [address] [place] [address] Imm gran abs 0.02 0.00 - 0.10 K/cumm CERNER [facility] Comment:Testing performed by : [facility], [facility], [address] [place] [address] Lymphocyte abs 0.69(L) 0.80 - 3.30 K/cumm CERNER [facility] Comment:Testing performed by : [facility], [facility], [address] [place] [address] Monocyte abs 0.12(L) 0.20 - 0.80 K/cumm CERNER [facility] Comment:Testing performed by : [facility], [facility], [address] [place] [address] Eosinophil abs 0.19 0.00 - 0.50 K/cumm CERNER [facility] Comment:Testing performed by : [facility], [facility], [address] [place] [address] Basophil abs 0.02 0.00 - 0.10 K/cumm CERNER [facility] Comment:Testing performed by : [facility], [address] [place] [address] Neutrophil pct 46.0 % CERNER [facility] Comment: Interpretive Data Percent cell count reference ranges are not reported, since discordance with absolute values may lead to misinterpretation of CBC data. Current Interpretive Data was last revised on 2017. Testing performed by: [facility] 2, [address] [place] [address] Lymphocyte pct 36.0 % CERNER [facility] Comment: Interpretive Data Percent cell count reference ranges are not reported, since discordance with absolute values may lead to misinterpretation of CBC data. Current Interpretive Data was last revised on 2017. Testing performed by: [facility], [facility], [address] [place] [address] Monocyte pct 6.0 % CERNER [facility] Comment: Interpretive Data Percent cell count reference ranges are not reported, since discordance with absolute values may lead to misinterpretation of CBC data. Current Interpretive Data was last revised on 2017. Testing performed by: [facility], [facility], [address] [place] [address] Eosinophil pct 10.0 % CERNER [facility] Comment: Interpretive Data Percent cell count reference ranges are not reported, since discordance with absolute values may lead to misinterpretation of CBC data. Current Interpretive Data was last revised on 2017. Testing performed by: [facility], [address] [place] [address] Basophil pct 1.0 % CERNER [facility] Comment: Interpretive Data Percent cell count reference ranges are not reported, since discordance with absolute values may lead to misinterpretation of CBC data. Current Interpretive Data was last revised on 2017. Testing performed by: [facility], [facility], [address] [place] [address] Metamyelocyte pct 1.0(H) 0.0 - 0.0 % LD HOLMANCH Comment:Testing performed by : [facility], [address] [place] [address] RBC morphology Present(A) CERJOSE MARTIN BJWCH Comment:Testing performed by : [facility], [facility], [address] [place] [address] Anisocytosis Slight(A) LD HOLMANCH Comment:Testing performed by : [facility], [address] [place] [address] Poikilocytosis Slight(A) LD BJWCH Comment:Testing performed by : [facility] 2, [address] [place] [address] Platelet estimate Automated Count Confirmed LD SWEETWCH Comment:Testing performed by : [facility], [facility], [address], [place] [address] Blood 10/07/2024 9:14 AM CDT 10/07/2024 9:18 AM CDT Debby Greene MD LAB BLOOD ORDERABLES F inal Result Performing Organization Address City/[facility] Co de Phone Number MATHEWJOSE MARTIN SWEETCH [address] [facility] [facility] [place] [address] * Uric acid (10/07/2024 9:14 AM CDT) Uric acid 5.0 3.0 - 8.0 mg/dL Comment:Testing performed by : [facility], [address] [place] [address] Blood 10/07/2024 9:14 AM CDT 10/07/2024 9:38 AM CDT Debby Greene MD LAB BLOOD ORDERABLES F inal Result Performing Organization Address [facility] Co de Phone Number MATHEWJOSE MARTIN SWEETCH [address] [place] [address] * Phosphorus (10/07/2024 9:14 AM CDT) Phosphorus, pl 3.7 2.3 - 4.5 mg/dL Comment:Testing performed by : [facility], [address] [address] Blood 10/07/2024 9:14 AM CDT 10/07/2024 9:38 AM CDT Debby Greene MD LAB BLOOD ORDERABLES F inal Result Performing Organization Address City/[facility]/ZIP Co de Phone Number LD SWEETCH [address] [address] [facility] [place] [address] * (ABNORMAL) CBC with auto differential (10/07/2024 9:14 AM CDT) [facility] Signature WBC 1.93(L) 3.80 - 9.90 K/cumm Comment:Testing performed by : [place] [address], [address], [place] [address] Hgb 11.9(L) 13.0 - 17.5 g/dL CERNER BJW[facility] Comment:Testing performed by : [place] [address], [address] [place] [address] Hct 35.1(L) 38.9 - 50.3 % CERNER [facility] Comment:Testing performed by : [place] [address], [address] [place] [address] Plt 63(L) 150 - 400 K/cumm CERNER [facility]JW[facility] Comment:Testing performed by : [place] [address], [address], [place] [address] MPV 11.9 9.1 - 12.3 fL CERNER [facility] Comment:Testing performed by : [place] [address] [place] [address] RBC 3.60(L) 4.30 - 5.80 M/cumm CERNER [facility] Comment:Testing performed by : [place] [address], [place] [address] MCV 97.5(H) 81.3 - 96.4 fL CERNER [facility] Comment:Testing performed by : [place] [address], [address], [place] [address] MCH 33.1 27.1 - 33.3 pg CERNER [facility] Comment:Testing performed by : [facility], [address] [place] [address] MCHC 33.9 32.3 - 35.7 g/dL CERNER [facility] Comment:Testing performed by : [place] [address], [address] [place] [address] RDW CV 15.2(H) 11.1 - 14.9 % LD VENTURA Comment:Testing performed by : [facility], [facility], [address] [place] [address] RDW SD 54.0(H) 35.7 - 48.1 fL LD VENTURA Comment:Testing performed by : [facility], [address] [place] [address] NRBC abs 0.61(H) 0.00 - 0.01 K/cumm LD VENTURA Comment:Testing performed by : [facility], [address] [place] [address] ANC Prelim 0.81(L) 1.50 - 6.50 K/cumm LD VENTURA Comment: Interpretive Data The rapid ANC is a preliminary automated count and may vary from the final ANC (Neut Abs) reported in the WBC differential that follows. Current interpretive data was last revised 2024. Testing performed by: [facility], [facility], [address] [place] [address] Blood 10/07/2024 9:14 AM CDT 10/07/2024 9:18 AM CDT us Debby Greene MD LAB BLOOD ORDERABLES F inal Result Performing Organization Address City/State/[facility] Co wy Phone Number LD SWEETCH [address] [facility] Department [place] [address] documented in this encounter Visit Diagnoses Diagnosis Mantle cell lymphoma of lymph nodes of multiple regions (HCC) documented in this encounter Orders Lab Orders Without Results Count Last Ordered D ate First Ordered Date BASIC METABOLIC PANEL 1 10/07/2024 Appointment Requests Count Last Ordered Date Fi rst Ordered Date ONCBCN LAB APPOINTMENT 1 10/07/2024 documented in this encounter Care Teams Mosaicist Relationship Specialty Start Date End Date Rico Pé[place] [address] [place] [address] PCP - General Family Medicine 11/07/22 [place] [address] [address] Consulting Physician Endocrinology Diabetes & Metabolism 07/24/22 Ramón Watts MD [address] [place] [address] Consulting Physician General Surgery 11/25/22 Huseyin Reese MD [address] [place], [place] [id number] Medical Oncologist/Claim Clinician Hematology and Oncology 12/19/22 Debby Greene MD [address] [place], [place] [address] Consulting Physician Medical Oncology 12/25/22 documented as of this encounter
--- OUTSIDE RECORDS SUMMARY | 2024-10-07 12:23 | XMS_ITS | Encounter Summary ---
Author Organization [facility] Address [address] [place] [address] Phone Care Team Providers Care Mail Caller Name Role Phone Delon Jain MD Unavailable Rico Pérez MD Primary Care Provider Ramón Watts MD Unavailable [phone] Huseyin Reese MD Unavailable [phone] Debby Greene MD Unavailable [phone] Encounter Details Date Type Department Care Team (Late st Contact Info) Description 11/19/2022 Telephone [facility] Oncology [facility] Medicine 7th [place] [address] Parisa Cerna Social History Tobacco [...] often do you attend chur ch or sikhism services? 1 to 4 times per year 11/20/2022 Do you belong to any clubs o r organizations such as taoist groups, unions, fraternal or athletic groups, or [...] place to sleep or slept in a alf (including now)? 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 Gender Identity Not on file Sexual Orientation [...] Time Diarrhea 07/22/2023 07/22/2023 07/22/2023 3:06 PM GUNSTOCK SPRAY UNIT FEEDER COVID: Suspected 07/23/2023 07/23/2023 07/23/2023 2:31 PM GUNSTOCK SPRAY UNIT FEEDER COVID: Suspected 01/20/2024 01/20/2024 01/20/2024 5:36 PM CDT COVID: Suspected 01/25/2024 01/25/2024 01/25/2024 4:26 PM CDT Mycoplasma pneumonia 01/25/2024 01/25/2024 024 3:07 AM CDT COVID: Suspected 02/24/2024 02/24/2024 02/24/2024 7:36 PM CDT Mycoplasma pneumonia 02/24/2024 02/24/2024 024 3:05 AM CDT COVID: Suspected 08/16/2024 08/16/2024 08/16/2024 12:03 PM CDT documented as of this encounter Care Teams Mail Caller Relationship Specialty Start Date End Date Rico Pérez MD [address] [place] [address] PCP - General Family Medicine 11/07/22 [place] [address] [address] Consulting Physician Endocrinology Diabetes & Metabolism 07/24/22 Ramón Watts MD [address] [place] [address] Consulting Physician General Surgery 11/25/22 Huseyin Reese MD [address] [place] [address] Medical Oncologist/Application Performance Engineer Hematology and Oncology 12/19/22 Debby Greene MD [address] [place] [address] Consulting Physician Medical Oncology 12/25/22 documented as of this encounter
--- OUTSIDE RECORDS SUMMARY | 2024-10-07 12:23 | XMS_ITS | Encounter Summary ---
Author Organization [facility] Address [address] [place] [address] Phone Care Team Providers Care Advanced Registered Nurse Name Role Phone Delon Jain MD Unavailable Rico Pérez MD Primary Care Provider Ramón Watts MD Unavailable [phone] Huseyin Reese MD Unavailable [phone] Debby Greene MD Unavailable [phone] Encounter Details Date Type Department Care Team (Late st Contact Info) Description 10/06/2024 11:00 AM CDT Office Visit [facility] [address] [place] [address] Debby Greene MD [address] DIV IM BONE MARROW TRANSPLANT, [address] [place] [address] 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 Never 09/23/2024 Do you belong to any clubs o r organizations such as protestant groups, unions, fraternal or athletic groups, or [...] any time in the past 12 m [facility], were you homeless or living in a usp (including now)? No 09/23/2024 Personal Safety Answer Date Recorded Have you ever been in or are you currently in a harmful physical or emotional relationship or is someone making you feel afraid or unsafe? 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 He enrolled in the [id number] study, and MRD testing was indeterminate. 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 He was treated with 2 cycles of Obin/Glofitamab on study [id number] but had progressive disease. He started calquence [...] 025 documented in this encounter Care Teams Advanced Registered Nurse Relationship Specialty Start Date End Date Rico Pérez MD [address] [place] [address] PCP - General Family Medicine 11/07/22 [place] [address] [facility] [address] [place] [address] Consulting Physician Endocrinology Diabetes & Metabolism 07/24/22 Ramón Watts MD [address] [place] [address] Consulting Physician General Surgery 11/25/22 Huseyin Reese MD [address] [place] [address] Medical Oncologist/Harp Maker Hematology and Oncology 12/19/22 Debby Greene MD [address] [place] [address] Consulting Physician Medical Oncology 12/25/22 documented as of this encounter
--- OUTSIDE RECORDS SUMMARY | 2024-10-07 12:23 | XMS_ITS | Clinical Summary ---
Author Organization [facility] Address [address] [place] [address] Care Team Providers Care Mat Linker Name Role Phone Mitch Montes Primary Care Provider Unavailab le Mitch Montes Unavailable Unavailable Source Comments [facility],non-owned Affiliates and Associated Physician Practices is amultiple site organization consisting of ambulatory clinics and hospital sitesin [place], [place], [place] and [place]. This disclosure is being madepursuant to the Care Everywhere program and may not contain all information available regarding this patient. 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
--- OUTSIDE RECORDS SUMMARY | 2024-10-07 12:23 | XMS_ITS | Encounter Summary ---
Author Organization [facility] Healthcare Address [address] [place] [address] Care Team Providers Care Reproduction Machine Loader Name Role Phone Delon Jain MD Unavailable Rico Pérez MD Primary Care Provider [phone] Ramón Watts MD Unavailable [phone] Huseyin Reese MD Unavailable [phone] Debby Greene MD Unavailable [phone] Encounter Details Date Type Department Care Team (Late st Contact Info) Description 10/06/2024 Telephone [facility] [address] [place], [place] [id number] Sharmaine Jenkins RN Social History Tobacco Use Types Packs/Day Years Used Date Smoking Tobacco: Never Cigarettes Passive Smoke Exposure: Never Smokeless Tobacco: Current Chew Alcohol Use Standard Drinks/Week Comments Yes 0 (1 standard drink = 0.6 oz pur e alcohol) [facility] Utilities Answer Date Recorded In the past 12 months has [email or web address], gas, oil, or water [employer] threatened to shut off services in your [...] often do you attend chur ch or nondenominational services? Never 09/23/2024 Do you belong to [...] place to sleep or slept in a [place] (including now)? No 07/15/2023 Housing Stability Vital Sign Answer Eladio e Recorded In the last 12 months, was t here a time when you were not able to pay the mortgage or rent on time? No 09/23/2024 In the past 12 months, how m any times have you moved where you were living? 0 09/23/2024 At any time in the past 12 m [facility], were you homeless or living in a [place] (including now)? No 09/23/2024 Personal Safety Answer Date Recorded Have you ever been in or are you currently in a harmful physical or emotional relationship or is someone making you feel afraid or unsafe? 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 Gender Identity Not on file Sexual Orientation [...] on filedocumented in this encounter Care Teams Reproduction Machine Loader Relationship Specialty Start Date End Date Rico Pérez MD [address] [place] [address] PCP - General Family Medicine 11/07/22 [place] [address] [facility] [address] [place] [address] Consulting Physician Endocrinology Diabetes & Metabolism 07/24/22 Ramón Watts MD [address] [place] [address] Consulting Physician General Surgery 11/25/22 Huseyin Reese MD [address] [place] [address] Medical Oncologist/Senior Power Plant Operator Hematology and Oncology 12/19/22 Debby Greene MD [address] [place] [address] Consulting Physician Medical Oncology 12/25/22 documented as of this encounter
[2024-10-07 12:27] LABS: Basophils Absolute Auto 0.1 K/mm3 (0.0-0.1); Basophils Percent Auto 1.6 % (0.2-1.2); Eosinophils Absolute Auto 0.1 K/mm3 (0-0.3); Eosinophils Percent Auto 4.4 % (0-4.4); Hematocrit 36.6 % (42.0-52.0); Hemoglobin 12.1 g/dL (14.0-18.0); Immature Granulocyte Absolute 0.08 K/mm3 (0.00-0.031); Immature Granulocyte Percent A 2.5 % (0-0.5); Immature Platelet Fraction Pct 14.2 % (0.9-11.2); Lymphocytes Absolute Auto 1.64 K/mm3 (0.9-3.2); Lymphocytes Percent Auto 51.3 % (18.3-44.2); Mean Corpuscular HGB Conc 33.1 g/dl (32-36); Mean Corpuscular Hemoglobin 32.6 pg (26-34); Mean Corpuscular Volume 98.7 fl (80-100); Mean Platelet Volume 12.2 fl (7.4-10.4); Monocytes Absolute Auto 0.5 K/mm3 (0.1-0.6); Neutrophils Absolute Auto 0.8 K/mm3 (1.3-6.7); Neutrophils Percent Auto 25.2 % (45.5-73.1); Nucleated Red Blood Cells Perc 21.6 % (0.0-0.2); Platelet Count Result 64 k/mm3 (150-375); Red Blood Count 3.71 M/mm3 (4.6-6.20); Red Cell Distribution Width 15.6 % (11.5-14.5); White Blood Count 3.2 K/mm3 (4.5-10.0)
[2024-10-07 12:30] VITALS: BP 151/100; PULSE 107; RESP 23; O2SAT 97
[2024-10-07 12:36] LABS: Alanine Aminotransferase 31 U/L (6-50); Albumin Level 4.8 g/dL (3.5-5.1); Alkaline Phosphatase 129 U/L (38-126); Anion Gap 16 mmol/L (4-12); Aspartate Amino Transferase 36 U/L (17-59); Bilirubin,Total 0.5 mg/dL (0.2-1.3); Blood Urea Nitrogen 20 mg/dL (9-20); Calcium 10.1 mg/dL (8.4-10.2); Carbon Dioxide 24 mmol/L (22-30); Chloride 101 mmol/L (98-107); Estimated CRCL calculation 99 ml/min; Estimated Glomerular Filt Rate > 60; Glucose 85 mg/dL (65-110); Lipase 61 U/L (23-300); Potassium 4.1 mmol/L (3.4-5.0); Sodium 141 mmol/L (137-145)
[2024-10-07 12:37] LABS: INR 0.9; Prothrombin Time 12.2 Seconds (11.1-14.7)
[2024-10-07 12:38] LABS: Partial Thromboplastin Time 27.6 Seconds (22.3-36.8)
[2024-10-07 12:45] VITALS: PULSE 99; RESP 22; O2SAT 97
[2024-10-07 12:48] LABS: Troponin I < 0.012 ng/mL (0.000-0.034)
--- NOTE | 2024-10-07 13:33 | ED.GENADULT ---
HPI - General Adult General Chief complaint: Chest Pain Stated complaint: chest pain Time Seen by Provider: 10/07/24 11:58 History of Present Illness HPI narrative: Patient 49-year-old gentleman who presents emergency department with chief complaint of chest pain shortness of breath. Patient reports that he had a new central line placed and [place] [facility] [place] after he was diagnosed with tumor lysis syndrome and reports that it hurts to breathe Related Data Home Medications ?Medication ?Instructions ?Recorded ?Confirmed ?Last Taken ?Type cetirizine 10 mg capsule (Zyrtec) 10 mg PO DAILY 03/28/20 11/24/23 Unknown History famotidine 20 mg tablet 20 mg PO BID 11/24/23 11/24/23 Unknown History gabapentin 100 mg capsule 100 mg PO DAILY 11/24/23 11/24/23 Unknown History Allergies Allergy/AdvReac Type Severity Reaction Status Date / Time Nut Tree Allergy Unknown Anaphylactic Uncoded 11/24/23 10:21 Shock Review of Systems Review of Systems: A 10 system review of systems was completed on the patient and is negative except for what is stated in the HPI. Nursing and ancillary documentation was reviewed. [facility] Past Medical History Medical History Hypertension Brain tumor (benign) Social History Social History Smoking status: Never smoker Second hand tobacco smoke exposure: No Alcohol intake: current Drinks per week: 1 Substance use: never Exam Narrative: GENERAL: Well-appearing, well-nourished, and in moderate acute pain distress. HEAD: Normocephalic, atraumatic. EYES: PERRLA and EOMI. ENT: Nares clear, no rhinorrhea or epistaxis. Mucous membranes moist. NECK: Supple. CHEST: Clear to auscultation. No respiratory distress. HEART: Regular rate and rhythm. No murmur heard. Normal peripheral pulses. ABDOMEN: Soft, nontender, nondistended, normal active bowel sounds. EXTREMITIES: Normal range of motion. No edema. SKIN: Warm, dry, no rash. NEURO: No focal deficits. Alert and oriented x3. PSYCH: Normal mood and affect. Course Vital Signs Vital signs: Vital Signs Temperature 36.6 C 10/07/24 11:54 Pulse Rate 99 10/07/24 11:54 Respiratory Rate 38 H 10/07/24 11:54 Blood Pressure 165/112 H 10/07/24 11:54 Pulse Oximetry 99 10/07/24 11:54 Oxygen Delivery Room Air 10/07/24 11:54 Temperature 36.6 C 10/07/24 11:54 Pulse Rate 90 10/07/24 14:01 Respiratory Rate 20 10/07/24 14:01 Blood Pressure 155/98 H 10/07/24 14:01 Pulse Oximetry 97 10/07/24 14:01 Oxygen Delivery Room Air 10/07/24 11:55 Medical Decision Making MDM Narrative Medical decision making narrative: Differential diagnosis includes pneumothorax, pulmonary embolism, air embolism, Chest x-ray showed no pneumothorax CTA chest showed no acute abnormality Troponin was 0 hour and 3 hour Patient's white count was 3.2 hemoglobin was 12.1 and platelet count was 64 uric acid was normal Vital Signs Vital Signs: Vital Signs Temperature 36.6 C 10/07/24 11:54 Pulse Rate 99 10/07/24 11:54 Respiratory Rate 38 H 10/07/24 11:54 Blood Pressure 165/112 H 10/07/24 11:54 Pulse Oximetry 99 10/07/24 11:54 Oxygen Delivery Room Air 10/07/24 11:54 Temperature 36.6 C 10/07/24 11:54 Pulse Rate 90 10/07/24 14:01 Respiratory Rate 20 10/07/24 14:01 Blood Pressure 155/98 H 10/07/24 14:01 Pulse Oximetry 97 10/07/24 14:01 Oxygen Delivery Room Air 10/07/24 11:55 Lab Data 10/07/24 12:17 10/07/24 12:17 Labs: Lab Results 10/07/24 10/07/24 Range/Units 12:17 14:20 WBC 3.2 L (4.5-10.0) K/mm3 RBC 3.71 L (4.6-6.20) M/mm3 Hgb 12.1 L (14.0-18.0) g/dL Hct 36.6 L (42.0-52.0) % MCV 98.7 (80-100) fl MCH 32.6 (26-34) pg MCHC 33.1 (32-36) g/dl RDW 15.6 H (11.5-14.5) % Plt Count 64 L (150-375) k/mm3 MPV 12.2 H (7.4-10.4) fl Immature Gran % (Auto) 2.5 H (0-0.5) % Neut % (Auto) 25.2 L (45.5-73.1) % Lymph % (Auto) 51.3 H (18.3-44.2) % Berks % (Auto) 15.0 H (2.6-8.5) % Eos % (Auto) 4.4 (0-4.4) % Baso % (Auto) 1.6 H (0.2-1.2) % Lymph # (Auto) 1.64 (0.9-3.2) K/mm3 Berks # (Auto) 0.5 (0.1-0.6) K/mm3 Eos # (Auto) 0.1 (0-0.3) K/mm3 Baso # (Auto) 0.1 (0.0-0.1) K/mm3 Abs Immat Gran (auto) 0.08 H (0.00-0.031) K/mm3 Absolute Neuts (auto) 0.8 L (1.3-6.7) K/mm3 Absolute Nucleated RBC 0.690 H (0.0-0.012) K/mm3 Nucleated RBC % 21.6 H (0.0-0.2) % % Immature Plt Fraction 14.2 H (0.9-11.2) % PT 12.2 (11.1-14.7) Seconds INR 0.9 APTT 27.6 (22.3-36.8) Seconds Sodium 141 (137-145) mmol/L Potassium 4.1 (3.4-5.0) mmol/L Chloride 101 (98-107) mmol/L Carbon Dioxide 24 (22-30) mmol/L Anion Gap 16 H (4-12) mmol/L BUN 20 (9-20) mg/dL Creatinine 0.88 (0.7-1.3) mg/dL Estim Creat Clear Calc 99 ml/min Estimated GFR > 60 (59 - ) Glucose 85 (65-110) mg/dL Uric Acid 5.3 (3.5-8.5) mg/dL Calcium 10.1 (8.4-10.2) mg/dL Total Bilirubin 0.5 (0.2-1.3) mg/dL AST 36 (17-59) U/L ALT 31 (6-50) U/L Alkaline Phosphatase 129 H (38-126) U/L Troponin I < 0.012 < 0.012 (0.000-0.034) ng/mL Total Protein 8.0 (6.3-8.2) g/dL Albumin 4.8 (3.5-5.1) g/dL Lipase 61 (23-300) U/L Discharge Plan Discharge Clinical Impression: Atypical chest pain Patient Disposition: Home Condition: Stable Instructions: Antibiotic Form, Chest Pain (ED) Patient Language: Swazi Prescriptions: No Action famotidine 20 mg tablet 20 mg PO BID gabapentin 100 mg capsule 100 mg PO DAILY doxycycline monohydrate 100 mg capsule 100 mg PO BID Qty: 28 0RF Zyrtec 10 mg capsule 10 mg PO DAILY Follow-up/Referrals: Elisa,Rico Cesar MD [Primary Care Provider] - Time of Disposition: 16:13
[2024-10-07 13:40] VITALS: BP 152/99; PULSE 93; RESP 20; O2SAT 96
[2024-10-07 14:01] VITALS: BP 155/98; PULSE 90; RESP 20; O2SAT 97
--- NOTE | 2024-10-07 14:24 | ECG_ITS ---
Test Date: 2024-10-07 14:33:45 Measurements Intervals Venus Rate: 89 P: 36 KS: 167 QRS: 29 QRSD: 96 T: -5 QT: 363 QTc: 444 Interpretive Statements SINUS RHYTHM POSSIBLE ANTERIOR MYOCARDIAL INFARCTION , OF INDETERMINATE AGE [30 ms Q WAVE IN V3/V4, OR R < 0.2 mV IN V4] INFERIOR MYOCARDIAL INFARCTION , PROBABLY OLD [40+ ms Q WAVE AND/OR ST/T ABNORMALITY IN II/aVF] Compared to ECG 10/07/2024 11:57:57 Sinus tachycardia no longer present Myocardial infarct finding still present Electronically Signed On 10-07-2024 15:01:17 CDT by Shruti Santillan
[2024-10-07] MEDS: HYDROmorphone HCL INJ (*CRX) 2 MG/ML VIAL 1 MG IV PUSH (14:27)
[2024-10-07 14:46] LABS: Uric Acid 5.3 mg/dL (3.5-8.5)
[2024-10-07 14:59] LABS: Troponin I < 0.012 ng/mL (0.000-0.034)
[2024-10-07] MEDS: HEPARIN SODIUM LOCK FLUSH 500 UNITS/5 ML SYRINGE (16:22)
[2024-10-07 16:25] VITALS: BP 118/90; PULSE 94; RESP 16; O2SAT 96
== END 2024-10-07 16:25 | disposition home or self-care (01) ==
PROVIDERS: Emergency Provider Emergency Medicine; PCP Family Medicine
DX: R07.89 Other chest pain (principal); E88.3 Tumor lysis syndrome; I10 Essential (primary) hypertension; Z95.828 Presence of other vascular implants and grafts; R94.31 Abnormal electrocardiogram [ECG] [EKG]; R00.0 Tachycardia, unspecified
CPT/HCPCS: 36415; 71045; 71275; 80053; 83690; 84484; 84550; 85025; 85055; 85610; 85730; 93005; 96374; 96375; 99284; J1171; J2270; Q9967

== ENCOUNTER 2025-03-24 11:00 | Outpatient (RCR) | payer OTHER, SELFPAY ==
--- NOTE | 2025-02-08 10:46 | OTOPEVAL1 ---
Assessment and note entered by Nathan Castro, CHAZ/Figueroa, CHT Evaluation Information Assessment Status Evaluation Diagnosis Encephalopathy, mantle cell lymphoma Subjective Information Patient was admitted to [place] 10/15/24 with hematemesis and a sore throat, diagnosed with multifactorial esophagitis, requiring placement of a PEG-J tube. While in the hospital he sustained a fall with subdural hemorrhage with residual left sided weakness. He spent a total of 3 months in the hospital. He discharged to the rehab institute 01/24/25 and then discharged home 02/04/25 with his . They report he has returned to being independent with bathing and dressing. At his baseline he doesn't typically do cooking or cleaning. He reports difficulties with vision in his left eye. He is eager to get stronger and improve his balance. He presents today using a cane. Reported Pain Level Pain Score 0: Self Report Assessment OT Clinical Summary Patient referred to outpatient OT following a lengthy hospitalization for multifactorial esophagitis and subdural hemorrhage. He presents to OT with residual weakness, reduced visual acuity in the left eye, and reduced fine motor coordination affecting his abilities with functional strength and endurance for ADLs as well as fine motor tasks such as functional pinch when opening containers. Skilled OT indicated for progressive functional therapeutic exercise, functional activities, and HEP progression to maximize functional strength and coordination to maximize return to ADLs and work tasks. Plan of Care Interventions Therapeutic Exercise,Neuro Re-education, Therapeutic Activities OT Services Indicated Yes These treatments will address the objective and functional deficits as defined above. The patient will be advanced safely and appropriately in order for the patient to progress towards his/her prior level of function. Additional exercises will be introduced and as well as a comprehensive home exercise program upon discharge, if needed, ?to ensure carryover of functional gains achieved in the clinic. This treatment plan has been reviewed and agreement upon by the patient.
--- NOTE | 2025-02-08 10:47 | OPREHPOC ---
Outpatient Therapy Plan of Care This is a Multidisciplinary Plan of Care that may contain components documented by all disciplines (PT, OT, and ST.) OT Problem 1 OT Problem #1 Knowledge Deficit OT Goal 1 Goal / Goal Update 1. Patient/spouse to be independent with instructed materials. Target Visit 8 OT Problem 2 OT Problem #2 Impaired Coordination OT Goal 1 Goal / Goal Update 1. Patient to increase bilateral hand fine motor coordination for ADLs as measured by being able to complete the 9-hole peg test 5 seconds faster than @ the eval (25 sec for right hand and 26 sec with left hand). Target Visit 8 OT Problem 3 OT Problem #3 Impaired Strength OT Goal 1 Goal / Goal Update 1. Patient to increase strength for improved functional ADLs as measured by increasing left shoulder strength to 4+/5. 2. Patient to increase bilateral gross elbow strength to 5/5. 3. Patient to increase bilateral identification and records commander strength to be able to identification and records commander and open jars without difficulty. 4. Patient to increase bilateral pinch strengths to be able to pinch and open packages without difficulty. Target Visit 8
--- NOTE | 2025-02-09 11:57 | PTOPEVAL1 ---
Assessment and note entered by Lindsey Hoff, PT Evaluation Information Assessment Status Evaluation Diagnosis Encephalopathy, lymphoma, monoplegia LLE, polyneuropathy ICD-10 Condition Codes (PT) Difficulty Walking R26.2,Abnormalities of gait and mobility R26.9,Weakness R53.1 Subjective Information Had a fall while hospitalized October 21 this year. Was in the hospital 3.5 months, was getting T-cell therapy. Also monitoring from neurological side effects of the T-cell procedure and the two bleeds from the fall. Was at the [facility] for 11 days. Pt has been home 5 days, has 5 steps into home with hand rail on left One step in between the family room and the rest of the house. Uses the wall and cane to assist with this step Pt reports single leg standing with dressing is difficult, and bending forward is difficult but feels core is getting stronger. Reported Pain Level Pain Score 0: Self Report Pain Score 0: Self Report Assessment PT Clinical Summary Pt presents with encephalopathy, lymphoma, and after a fall subarachnoid hemorrhage with residual left side weakness. Pt demonstrates good strength with isolated testing but has difficulty with functional activities such as going up and down steps. Gait is doing well without AD with head forward, but small base of support with head movements is difficult. Pt also is unable to perform single leg stance on either leg without UE assist for greater than one second. Patient will greatly benefit from physical therapy for high level balance training in order to allow pt to navigate multiple surfaces independently and return to PLOF. Plan of Care Interventions Gait Training,Neuro Re-education,Patient/Caregiver Education,Therapeutic Activities,Therapeutic Exercise,Self-Care/Home Management PT Services Indicated Yes Treatment Frequency and 2x weekly x 8 visits Duration These treatments will address the objective and functional deficits as defined above. The patient will be advanced safely and appropriately in order for the patient to progress towards his/her prior level of function. Additional exercises will be introduced and as well as a comprehensive home exercise program upon discharge, if needed, ?to ensure carryover of functional gains achieved in the clinic. This treatment plan has been reviewed and agreement upon by the patient.
--- NOTE | 2025-02-09 11:57 | OPREHPOC ---
Outpatient Therapy Plan of Care This is a Multidisciplinary Plan of Care that may contain components documented by all disciplines (PT, OT, and ST.) PT Goal 1 Goal / Goal Update Pt will be independent in HEP Pt will verbalize understanding of diagnosis and prognosis Target Visit 8 PT Problem 2 PT Problem #2 Impaired Balance PT Goal 1 Goal / Goal Update Pt will demonstrate ability to perform single limb stance R and L LEs of 5 seconds or greater for improved stability Target Visit 8 PT Goal 2 Goal / Goal Update Pt will demonstrate ability to perform single limb stance R and L LEs of 15 seconds or greater for improved stability Target Visit 16 PT Problem 3 PT Problem #3 Impaired Balance PT Goal 1 Goal / Goal Update Pt will show a Luis balance score of of 52 or greater to show highly functional balance for high level activities. Target Visit 16 OT Problem 1 OT Problem #1 Knowledge Deficit OT Goal 1 Goal / Goal Update 1. Patient/spouse to be independent with instructed materials. Target Visit 8 OT Problem 2 OT Problem #2 Impaired Coordination OT Goal 1 Goal / Goal Update 1. Patient to increase bilateral hand fine motor coordination for ADLs as measured by being able to complete the 9-hole peg test 5 seconds faster than @ the eval (25 sec for right hand and 26 sec with left hand). Target Visit 8 OT Problem 3 OT Problem #3 Impaired Strength OT Goal 1 Goal / Goal Update 1. Patient to increase strength for improved functional ADLs as measured by increasing left shoulder strength to 4+/5. 2. Patient to increase bilateral gross elbow strength to 5/5. 3. 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 4. Patient to increase bilateral pinch strengths to be able to pinch and open packages without difficulty. Target Visit 8
--- NOTE | 2025-03-11 15:38 | PTOPDC ---
Assessment and note entered by Gregory Reyes, PT Evaluation Information Assessment Status Discharge Diagnosis Encephalopathy, lymphoma, monoplegia LLE, polyneuropathy ICD-10 Condition Codes (PT) Difficulty Walking R26.2,Abnormalities of gait and mobility R26.9,Weakness R53.1 Subjective Information Pt states he feels his balance has improved greatly. He states he still feels a little weak and fatigued compared to his old self but is optimistic that things will get better with time. Pt would like to be discharged from PT and continue a home exercise program. Reported Pain Level Pain Score 0: Self Report Assessment PT Clinical Summary Pt has improved overall as evidenced by increased mobility, strength, and overall functional use of the extremity. Patient has met therapy goals and is pleased with progress made towards the remaining goals. Patient to discharge from physical therapy this date and continue with updated home exercise program as instructed. Patient to contact physical therapist or primary care provider if questions or concerns arise. Plan of Care PT Services Indicated No
--- NOTE | 2025-03-24 11:30 | OTOPDC ---
Assessment and note entered by Nathan Castro, OTR/Figueroa, SIRI OT D/C 03/24/25 Assessment Status Discharge Diagnosis Encephalopathy, mantle cell lymphoma Subjective Information HPI: Patient was admitted to [facility] 10/15/24 with hematemesis and a sore throat, diagnosed with multifactorial esophagitis, requiring placement of a PEG-J tube. While in the hospital he sustained a fall with subdural hemorrhage with residual left sided weakness. He spent a total of 3 months in the hospital. He presents today stating he has made excellent progress in the last month. He reports feeling about 90% back to normal. He reports being independent with ADLs and is back to completing yard work like cutting grass and weed eating. He is back to driving and he is back to being able to walk around an entire store without difficulty. Reported Pain Level Pain Score 0: Self Report Assessment OT Clinical Summary Patient referred to outpatient OT following a lengthy hospitalization for multifactorial esophagitis and subdural hemorrhage. He presents for his OT re-eval today. Patient has made gains with functional strength and coordination, measuring WNL at this time. He reports he is back to functioning for ADLs and household tasks without difficulty. He returns to work next week. At this time he is independent with strengthening HEP to continue to fine tune UE strength. D/C OT with HEP. Plan of Care OT Services Indicated No
== END 2025-03-30 10:09 | disposition home or self-care (01) ==
LOC: ANHGOSHOT 11:00
PROVIDERS: PCP Family Medicine
DX: S06.5XAD Traumatic subdural hemorrhage with loss of consciousness status unknown, subsequent encounter (principal); C85.80 Other specified types of non-Hodgkin lymphoma, unspecified site; K20.90 Esophagitis, unspecified without bleeding; G83.14 Monoplegia of lower limb affecting left nondominant side; G62.9 Polyneuropathy, unspecified; G93.40 Encephalopathy, unspecified
CPT/HCPCS: 97110; 97112; 97162; 97166; 97530